=== PATIENT | male | born 1955 | race Caucasian/White ===

== ENCOUNTER 2016-03-07 13:50 | Emergency (ER) | payer MEDICARE, OTHER ==
[2016-03-07] MEDS ORDERED: SULFAMETH/TRIMETH DS 800/160 MG TABLET PO STA (15:17)
[2016-03-07] MEDS ORDERED: SULFAMETH/TRIMETH DS 800/160 MG TABLET PO ONE (15:23)
== END 2016-03-07 17:48 | disposition home or self-care (01) ==
DX: L03.116 Cellulitis of left lower limb (principal); I10 Essential (primary) hypertension; E11.9 Type 2 diabetes mellitus without complications
CPT/HCPCS: 93971; 99283; A9270

== ENCOUNTER 2016-05-15 17:30 | Emergency (ER) | payer MEDICARE, OTHER ==
[2016-05-15] MEDS ORDERED: BUPIVACAINE 0.5% PF 30 ML VIAL ONE (17:43)
== END 2016-05-15 18:36 | disposition home or self-care (01) ==
DX: S81.812A Laceration without foreign body, left lower leg, initial encounter (principal); W45.8XXA Other foreign body or object entering through skin, initial encounter; W22.09XA Striking against other stationary object, initial encounter; Y92.008 Other place in unspecified non-institutional (private) residence as the place of occurrence of the external cause; I10 Essential (primary) hypertension; E11.9 Type 2 diabetes mellitus without complications; Z89.202 Acquired absence of left upper limb, unspecified level; Z89.201 Acquired absence of right upper limb, unspecified level

== ENCOUNTER 2016-05-18 14:20 | Observation (INO) | payer MEDICARE, OTHER ==
[2016-05-18] MEDS ORDERED: SODIUM CHLORIDE 0.9% 2,000 ML IV ONE (14:46)
[2016-05-18] MEDS ORDERED: ONDANSETRON 4 MG/2 ML VIAL IVP STA (14:46)
[2016-05-18] MEDS ORDERED: ONDANSETRON 4 MG/2 ML VIAL ONE ×2 (14:47→14:49)
[2016-05-18] MEDS ORDERED: SODIUM CHLORIDE 0.9% 1,000 ML IV ONE (14:47)
[2016-05-18] MEDS ORDERED: HYDROmorphone 1 MG/ML SYRINGE IVP STA (15:20)
[2016-05-18] MEDS ORDERED: HYDROmorphone 1 MG/ML SYRINGE ONE (15:23)
[2016-05-18] MEDS ORDERED: MORPHINE 2 MG/ML SYRINGE IVP STA ×2 (15:33→16:44)
[2016-05-18] MEDS ORDERED: MORPHINE 2 MG/ML SYRINGE ONE ×2 (15:35→16:47)
[2016-05-18] MEDS ORDERED: SODIUM CHLORIDE FLUSH 0.9% 10 ML SYRINGE IVP PRN (17:34)
[2016-05-18] MEDS ORDERED: oxyCODONE 5 MG TABLET PO PRN (17:34)
[2016-05-18] MEDS ORDERED: ONDANSETRON ODT 4 MG TABLET TL PRN (18:21)
[2016-05-18] MEDS ORDERED: ONDANSETRON 4 MG/2 ML VIAL IVP PRN (18:21)
[2016-05-18] MEDS ORDERED: LACTATED RINGERS 1,000 ML IV SCH (19:02)
[2016-05-18] MEDS: DEXTROSE 5%-0.45% NACL 1,000 ML IV SCH (20:31)
[2016-05-18] MEDS: SODIUM CHLORIDE FLUSH 0.9% 10 ML SYRINGE IVP SCH (20:36)
[2016-05-18] MEDS: TACROLIMUS 0.5 MG CAPSULE PO SCH (20:56)
[2016-05-18] MEDS: oxyCODONE 5 MG TABLET PO SCH (20:56)
[2016-05-18] MEDS: MYCOPHENOLIC ACID 360 MG PO SCH (20:57)
[2016-05-18] MEDS ORDERED: oxyCODONE ER 10 MG TABLET PO SCH (21:00)
[2016-05-18] MEDS ORDERED: oxyCODONE 5 MG TABLET PO SCH (21:00)
[2016-05-18] MEDS ORDERED: diazePAM 5 MG TABLET PO SCH (21:00)
[2016-05-18] MEDS: TAMSULOSIN 0.4 MG CAPSULE PO SCH (21:03)
[2016-05-19] MEDS: ACETAMINOPHEN 325 MG TABLET PO PRN ×3 (02:36→12:06)
[2016-05-19] MEDS: DEXTROSE 5%-0.45% NACL 1,000 ML IV SCH ×2 (04:17→09:04)
[2016-05-19] MEDS: SODIUM CHLORIDE FLUSH 0.9% 10 ML SYRINGE IVP SCH ×2 (05:58→09:06)
[2016-05-19] MEDS ORDERED: LEVOTHYROXINE 75 MCG TABLET PO SCH ×2 (07:00→09:00)
[2016-05-19] MEDS ORDERED: predniSONE 5 MG TABLET PO SCH ×2 (08:00→09:00)
[2016-05-19] MEDS ORDERED: DIAZEPAM 10 MG PO SCH (08:15)
[2016-05-19] MEDS ORDERED: TAMSULOSIN 0.4 MG CAPSULE PO SCH (09:00)
[2016-05-19] MEDS ORDERED: POLYETHYLENE GLYCOL 3350 17 GM PACKET PO SCH (09:00)
[2016-05-19] MEDS ORDERED: TACROLIMUS 1 MG PO SCH (09:00)
[2016-05-19] MEDS: oxyCODONE 5 MG TABLET PO SCH (09:03)
[2016-05-19] MEDS: TACROLIMUS 0.5 MG CAPSULE PO SCH (09:03)
[2016-05-19] MEDS: TAMSULOSIN 0.4 MG CAPSULE PO SCH (09:03)
[2016-05-19] MEDS: MYCOPHENOLIC ACID 360 MG PO SCH (09:05)
[2016-05-19] MEDS ORDERED: MAGNESIUM SULFATE 1 GM in SODIUM CHLORIDE 0.9% 50 ML IV ONE (09:57)
[2016-05-19] MEDS ORDERED: MAGNESIUM SULFATE 2 GRAM 50 ML IV ONE (10:30)
[2016-05-19] MEDS: NEUTRA-PHOS 250 MG TABLET PO SCH ×2 (12:06→16:48)
[2016-05-19] MEDS ORDERED: BUTALB/ACETAM/CAFF 50/325/40MG TABLET PO PRN (13:08)
[2016-05-19] MEDS ORDERED: GI COCKTAIL 120 ML BOTTLE PO ONE (14:00)
[2016-05-19] MEDS ORDERED: AZITHROMYCIN 250 MG TABLET PO STA (16:13)
[2016-05-19] MEDS ORDERED: METOCLOPRAMIDE 10 MG TABLET PO PRN (16:16)
[2016-05-19] MEDS ORDERED: METOCLOPRAMIDE 10 MG/2 ML VIAL IVP PRN (16:16)
[2016-05-19] MEDS ORDERED: metroNIDAZOLE 250 MG TABLET PO ONE (18:41)
[2016-05-19] MEDS ORDERED: MYCOPHENOLIC ACID 360 MG PO SCH (21:00)
== END 2016-05-19 21:00 | disposition home or self-care (01) ==
DX: R11.2 Nausea with vomiting, unspecified (principal); E86.0 Dehydration; A04.7 Enterocolitis due to Clostridium difficile; A04.5 Campylobacter enteritis; Z94.0 Kidney transplant status; Z94.4 Liver transplant status; Z86.19 Personal history of other infectious and parasitic diseases; F11.21 Opioid dependence, in remission; I10 Essential (primary) hypertension; E11.9 Type 2 diabetes mellitus without complications; K21.9 Gastro-esophageal reflux disease without esophagitis; N40.1 Benign prostatic hyperplasia with lower urinary tract symptoms; R33.8 Other retention of urine; F32.9 Major depressive disorder, single episode, unspecified; E03.9 Hypothyroidism, unspecified; G89.29 Other chronic pain; M54.9 Dorsalgia, unspecified; L40.9 Psoriasis, unspecified; S81.812D Laceration without foreign body, left lower leg, subsequent encounter; Z79.891 Long term (current) use of opiate analgesic; Z79.52 Long term (current) use of systemic steroids; Z79.899 Other long term (current) drug therapy
CPT/HCPCS: 36415; 80053; 81003; 82803; 83690; 83735; 84100; 84484; 85025; 87045; 87046; 87493; 87640; 93005; 93010; 96361; 96365; 96375; 96376; 99283; 99284; A9270; G0378; J1170; J7120; J7512

== ENCOUNTER 2016-06-06 09:09 | Outpatient (CLI) | payer MEDICARE, OTHER | END 2016-06-06 09:10 | disposition critical access hospital (66) | DX: R07.9 Chest pain, unspecified (principal); R55 Syncope and collapse; R06.02 Shortness of breath | CPT/HCPCS: A0425; A0427 ==

== ENCOUNTER 2016-06-06 09:26 | Observation (INO) | payer MEDICARE, OTHER ==
[2016-06-06] MEDS ORDERED: SODIUM CHLORIDE 0.9% 1,000 ML IV ONE (10:02)
[2016-06-06] MEDS ORDERED: ENOXAPARIN 80 MG/0.8 ML SYRINGE SUBQ STA (12:12)
[2016-06-06] MEDS ORDERED: ENOXAPARIN 80 MG/0.8 ML SYRINGE SUBQ ONE (12:37)
[2016-06-06] MEDS ORDERED: HYDROcod/ACETAM 5/325 MG TABLET PO PRN (15:24)
[2016-06-06] MEDS ORDERED: SODIUM CHLORIDE FLUSH 0.9% 10 ML SYRINGE IVP PRN (15:24)
[2016-06-06] MEDS ORDERED: oxyCODONE 5 MG TABLET PO PRN (15:31)
[2016-06-06] MEDS ORDERED: diazePAM 5 MG TABLET PO PRN (15:31)
[2016-06-06] MEDS ORDERED: INSULIN ASPART 300 UNIT/3 ML PEN SUBQ SCH (17:00)
[2016-06-06] MEDS: metroNIDAZOLE 250 MG TABLET PO SCH ×2 (17:18→23:53)
[2016-06-06] MEDS: SODIUM CHLORIDE 0.9% 1,000 ML IV SCH (17:20)
[2016-06-06] MEDS: TAMSULOSIN 0.4 MG CAPSULE PO SCH (21:15)
[2016-06-06] MEDS: SODIUM CHLORIDE FLUSH 0.9% 10 ML SYRINGE IVP SCH (21:15)
[2016-06-06] MEDS: TACROLIMUS 0.5 MG CAPSULE PO SCH (21:15)
[2016-06-06] MEDS: MYCOPHENOLATE SODIUM 360 MG PO SCH (21:15)
[2016-06-07] MEDS ORDERED: MAG HYDROX/AL HYDROX/SIMETH 30 ML UDC PO PRN (01:20)
[2016-06-07] MEDS: ACETAMINOPHEN 325 MG TABLET PO PRN ×3 (01:22→10:40)
[2016-06-07] MEDS: SODIUM CHLORIDE 0.9% 1,000 ML IV SCH (05:46)
[2016-06-07] MEDS: SODIUM CHLORIDE FLUSH 0.9% 10 ML SYRINGE IVP SCH (05:50)
[2016-06-07] MEDS ORDERED: METOPROLOL 5 MG/5 ML VIAL IVP PRN (06:02)
[2016-06-07] MEDS ORDERED: LEVOTHYROXINE 75 MCG TABLET PO SCH (07:00)
[2016-06-07] MEDS ORDERED: TAMSULOSIN 0.4 MG CAPSULE PO SCH (09:00)
[2016-06-07] MEDS ORDERED: ENOXAPARIN 40 MG/0.4 ML SYRINGE SUBQ SCH (09:00)
[2016-06-07] MEDS ORDERED: ASPIRIN EC 81 MG TABLET PO SCH (09:00)
[2016-06-07] MEDS ORDERED: METOPROLOL SUCCINATE 25 MG TABLET PO SCH (09:00)
[2016-06-07] MEDS ORDERED: predniSONE 5 MG TABLET PO SCH (09:00)
[2016-06-07] MEDS ORDERED: POLYETHYLENE GLYCOL 3350 17 GM PACKET PO SCH (09:00)
[2016-06-07] MEDS: metroNIDAZOLE 250 MG TABLET PO SCH (09:10)
[2016-06-07] MEDS: TACROLIMUS 0.5 MG CAPSULE PO SCH (09:12)
[2016-06-07] MEDS: TAMSULOSIN 0.4 MG CAPSULE PO SCH (09:12)
[2016-06-07] MEDS: MYCOPHENOLATE SODIUM 360 MG PO SCH (09:13)
[2016-06-08] MEDS ORDERED: BETAMETHASONE VALERATE TOP SCH (16:17)
== END 2016-06-07 13:52 | disposition home or self-care (01) ==
DX: R07.9 Chest pain, unspecified (principal); I48.91 Unspecified atrial fibrillation; R55 Syncope and collapse; I10 Essential (primary) hypertension; Z94.0 Kidney transplant status; Z94.4 Liver transplant status; N40.0 Benign prostatic hyperplasia without lower urinary tract symptoms; R33.8 Other retention of urine; E11.9 Type 2 diabetes mellitus without complications; E03.9 Hypothyroidism, unspecified; K21.9 Gastro-esophageal reflux disease without esophagitis; F11.21 Opioid dependence, in remission; G89.29 Other chronic pain; M54.9 Dorsalgia, unspecified; Z86.19 Personal history of other infectious and parasitic diseases; Z87.828 Personal history of other (healed) physical injury and trauma; Z87.01 Personal history of pneumonia (recurrent); Z79.891 Long term (current) use of opiate analgesic; Z79.52 Long term (current) use of systemic steroids; Z79.899 Other long term (current) drug therapy; Z89.212 Acquired absence of left upper limb below elbow; Z89.211 Acquired absence of right upper limb below elbow
CPT/HCPCS: 36415; 71010; 80048; 80061; 83036; 84484; 85025; 85379; 93005; 93010; 93306; 96361; 96372; 96374; 99284; A9270; G0378; J1650; J7512

== ENCOUNTER 2017-03-05 15:10 | Emergency (ER) | payer MEDICARE, OTHER ==
--- NOTE | 2017-03-05 15:51 | ED Physician Documentation ---
PD HPI ABD PAIN - Stated complaint Stated Complaint: AB PAIN/PRESSURE - Chief complaint Chief Complaint: Abd Pain - History obtained from History obtained from: Patient, Family (daughter) - History of Present Illness Timing - onset: Other (61-year-old with complicated past history including major trauma in wartime necessitating transfusion which gave him hepatitis C. 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 Prior to his liver transplant he did have either ulcer or variceal bleeding, but has not had any problems with that since his liver transplant which was in the early mid . 9 days ago he ate a Nava's, developed shortly thereafter upper abdominal burning pressure radiating to the small of the back associated with nausea but no vomiting and no changes in his bowel movements and no dark or tarry stools. He saw his physician about 5 days ago and was started on Esomeprazole which he has been taking without relief.) Review of Systems Ten Systems: 10 systems reviewed and negative Constitutional: denies: Fever, Chills, Myalgias Nose: denies: Rhinorrhea / runny nose, Congestion Throat: denies: Sore throat Cardiac: denies: Chest pain / pressure, Palpitations Respiratory: denies: Dyspnea, Cough PD PAST MEDICAL HISTORY - Past Medical History Cardiovascular: Hypertension Respiratory: Pneumonia Neuro: None Endocrine/Autoimmune: Type 2 diabetes, HyPOthyroidism GI: GERD, Hepatitis : Benign prostate hypertrophy, Retention HEENT: None Psych: Depression Musculoskeletal: Chronic back pain Derm: Psoriasis - Past Surgical History Past Surgical History: Yes General: Liver surgery, Other Ortho: Spine surgery Neuro: Other HEENT: Tonsil/Adenoidectomy - Present Medications Home Medications: Ambulatory Orders Medication Instructions Recorded Confirmed Diazepam [Valium] 10 mg PO Q6H PRN 06/25/12 03/05/17 Tacrolimus 1 mg PO BID 06/25/12 03/05/17 Tamsulosin [Flomax] 0.8 mg PO DAILY 06/25/12 03/05/17 predniSONE [Deltasone] 5 mg PO DAILY 06/25/12 03/05/17 Betamethasone Valerate 1 applic TOP .THREE TIMES WEEKLY 05/19/16 03/05/17 Levothyroxine [Synthroid] 75 mcg PO DAILY 05/19/16 03/05/17 Mycophenolate Sodium [Mycophenolic 360 mg PO BID 05/19/16 03/05/17 Acid] oxyCODONE [Roxicodone] 5 mg PO Q8H PRN 05/19/16 03/05/17 Aspirin [Aspirin EC] 81 mg PO DAILY #30 tablet. 06/07/16 03/05/17 Metoprolol Succinate [Toprol Xl] 25 mg PO DAILY #30 tablet 06/07/16 03/05/17 Esomeprazole Magnesium [Nexium] 40 mg PO BID #60 capsule. 03/05/17 Sucralfate 1 gm PO ACHS #40 tablet 03/05/17 - Allergies Allergies/Adverse Reactions: Allergies Allergy/AdvReac Type Severity Reaction Status Date / Time hydromorphone HCl * AdvReac Unknown Verified 05/18/16 15:42 [From Dilaudid] - Social History Does the pt smoke?: No Smoking Status: Never smoker Does the pt drink ETOH?: No Does the pt have substance abuse?: No - Family History Family history: reports: Non contributory - Immunizations Immunizations are current?: Yes - POLST Patient has POLST: Yes PD ED PE NORMAL - Vitals Vital signs reviewed: Yes - General General: Alert and oriented X 3, No acute distress - HEENT HEENT: PERRL, EOMI - Neck Neck: Supple, no meningeal sign, No bony TTP - Cardiac Cardiac: RRR, No murmur - Respiratory Respiratory: No respiratory distress, Clear bilaterally - Abdomen Abdomen: Other (Diminished but not absent bowel tones, multiple surgical scars on the abdomen with some upper abdominal tenderness but no guarding or rebound.) - Back Back: No CVA TTP, No spinal TTP - Derm Derm: Normal color, Warm and dry - Extremities Extremities: Other (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 prior trauma) - Neuro Neuro: Alert and oriented X 3, Normal speech - Psych Psych: Normal mood, Normal affect Results - Vitals Vitals: Vital Signs - 24 hr 03/05/17 15:17 Temperature 36.1 C L Heart Rate 69 Respiratory 17 Rate Blood Pressure 127/85 H O2 Saturation 98 Oxygen O2 Source Room air - Labs Labs: Laboratory Tests 03/05/17 03/05/17 03/05/17 16:11 16:11 16:11 WBC 7.4 RBC 5.04 Hgb 15.2 Hct 45.1 MCV 89.4 MCH 30.2 MCHC 33.8 RDW 13.8 Plt Count 140 MPV 9.4 Neut # 5.2 Lymph # 1.4 L [place] # 0.6 Eos # 0.1 Baso # 0.1 Absolute Nucleated RBC 0.00 Nucleated RBC % 0.0 PT 14.6 H INR 1.3 H Sodium 138 Potassium 4.6 Chloride 110 Carbon Dioxide 21 Anion Gap 7.0 BUN 15 Creatinine 0.9 Estimated GFR (MDRD) 86 L Glucose 109 H Lactic Acid Calcium 8.9 Total Bilirubin 0.9 AST 15 ALT 13 Alkaline Phosphatase 42 Total Protein 6.8 Albumin 3.9 Globulin 2.9 Albumin/Globulin Ratio 1.3 Lipase 16 L 03/05/17 16:11 WBC RBC Hgb Hct MCV MCH MCHC RDW Plt Count MPV Neut # Lymph # [place] # Eos # Baso # Absolute Nucleated RBC Nucleated RBC % PT INR Sodium Potassium Chloride Carbon Dioxide Anion Gap BUN Creatinine Estimated GFR (MDRD) Glucose Lactic Acid 0.9 Calcium Total Bilirubin AST ALT Alkaline Phosphatase Total Protein Albumin Globulin Albumin/Globulin Ratio Lipase - Rads (name of study) CT A/P Radiology: EMP read contemporaneously, See rad report PD MEDICAL DECISION MAKING - ED course ED course: 61-year-old gentleman with complicated past medical history presents with upper abdominal burning pain consistent with gastritis, although he has not gotten much better after a few days of treatment with esomeprazole. He declined pain medications here and his lab work was unremarkable. CT has shown in the specific finding of transplanted kidney stone was discussed with him in follow- up was advised at the [facility]. He is treated for gastritis here. Departure - Departure Disposition: 01 Home, Self Care Clinical Impression: Abdominal pain Qualifiers: Abdominal location: epigastric Qualified Code(s): R10.13 - Epigastric pain Condition: Good Record reviewed to determine appropriate education?: Yes Instructions: ED Pelvic Pain [facility] Prescriptions: Esomeprazole Magnesium [Nexium] 40 mg PO BID #60 capsule.dr De Lunaralfate 1 gm PO ACHS #40 tablet Comments: Increase the esomeprazole to twice daily. Add the sucralfate/carafate 30 minutes before meals and bedtime, DO NOT TAKE IT WITHIN 1 HOUR OF OTHER MEDICATIONS IT WILL DECREASE ABSORPTION OF YOUR OTHER MEDS. Followup with regarding the kidney stone, we are sending the CT images to them so they can review when you followup. Return if worse.
[2017-03-05] MEDS ORDERED: IOPAMIDOL-300 100 ML VIAL ONE (15:56)
[2017-03-05] MEDS ORDERED: IOPAMIDOL-300 50 ML VIAL ONE (15:56)
[2017-03-05] MEDS ORDERED: IOPAMIDOL-300 100 ML VIAL IVP ONE (16:06)
[2017-03-05] MEDS ORDERED: IOPAMIDOL-300 50 ML VIAL PO ONE (16:06)
[2017-03-05 16:26] LABS: BASOPHILS # (AUTO) 0.1 10^3/uL (0.0-0.1); BASOPHILS % (AUTO) 1.1 %; EOSINOPHILS # (AUTO) 0.1 10^3/uL (0.0-0.7); EOSINOPHILS % (AUTO) 1.5 %; HGB - HEMOGLOBIN 15.2 g/dL (14.0-18.0); LYMPHOCYTES # (AUTO) 1.4 10^3/uL (1.5-3.5); LYMPHOCYTES % (AUTO) 18.9 %; MEAN CORPUSCULAR HEMOGLOBIN 30.2 pg (27.0-31.0); MEAN CORPUSCULAR HGB CONC 33.8 g/dL (32.0-36.0); MEAN CORPUSCULAR VOLUME 89.4 fL (80.0-94.0); MEAN PLATELET VOLUME 9.4 fL (7.4-11.4); MONOCYTES # (AUTO) 0.6 10^3/uL (0.0-1.0); MONOCYTES % (AUTO) 8.1 %; NEUTROPHILS # (AUTO) 5.2 10^3/uL (1.5-6.6); NEUTROPHILS % (AUTO) 70.4 %; PLT - PLATELET COUNT 140 10^3/uL (130-450); RED BLOOD COUNT 5.04 10^6/uL (4.70-6.10); RED CELL DISTRIBUTION WIDTH 13.8 % (12.0-15.0); WHITE BLOOD COUNT 7.4 x10^3/uL (4.8-10.8)
[2017-03-05 16:29] LABS: ALBUMIN 3.9 g/dL (3.2-5.5); ALBUMIN/GLOBULIN RATIO 1.3 (1.0-2.2); BILIRUBIN,TOTAL 0.9 mg/dL (0.2-1.0); CALCIUM 8.9 mg/dL (8.5-10.3); CREATININE 0.9 mg/dL (0.6-1.2); TOTAL PROTEIN 6.8 g/dL (6.7-8.2)
[2017-03-05 16:34] LABS: INR 1.3 (0.8-1.2); PT - PROTHROMBIN TIME 14.6 secs (9.9-12.6)
--- NOTE | 2017-03-05 18:33 | CT Report ---
EXAM: CT ABDOMEN AND PELVIS EXAM DATE: 03/05/2017 05:35 PM. CLINICAL HISTORY: Upper abdominal pain, complex surgical history. COMPARISONS: Abdomen and pelvis CT 06/02/2013. TECHNIQUE: Routine helical CT imaging was performed through the abdomen and pelvis. IV contrast: 100 cc Isovue 300. Enteric contrast: Yes. Reconstructions: Coronal and sagittal. In accordance with CT protocol optimization, one or more of the following dose reduction techniques w ere utilized for this exam: automated exposure control, adjustment of mA and/or KV based on patient s ize, or use of iterative reconstructive technique. FINDINGS: Lung Bases: Minimal diskoid atelectasis. Liver: Surgical clips are seen adjacent to the inferior vena cava at the diaphragm as well as distal to the liver, possibly part of a transplantation. There is a linear hypodensity in the right lobe eliza suring 12 x 4 mm Gallbladder/Bile Ducts: Patient is status post cholecystectomy with dilatation of the common duct eliza suring up to 18 mm although this is decreased compared to the prior exam (prior 25 mm). Spleen: Linear calcification redemonstrated within the spleen without discrete focal lesion. Pancreas: Mild pancreatic atrophy with some dilatation of the distal pancreatic duct measuring in the range of 6 mm the pancreas head although similar to the prior exam. Adrenal Glands: Normal. Kidneys: Marked cortical atrophy of the [place] kidneys. Status post right lower quadrant renal transp lant with a nonobstructing stone within the transplant kidney measuring 3 mm. Mild pelviectasis witho ut miya hydronephrosis. Peritoneal Cavity/Bowel: The stomach is unremarkable. There are no dilated loops of large or small in testine. The appendix is unremarkable. There is prominent diverticular disease of the colon although without clear acute inflammation. Pelvic Organs: Moderate bladder distention. Vasculature: Atherosclerosis without abdominal aortic aneurysm. Bones: Mild degenerative disk disease, greatest at the L4-L5 level. Other: Thinning of the subcutaneous tissues within the right upper quadrant abdomen with a fat-contai alejandro ventral hernia. IMPRESSION: 1. Colonic diverticulosis without miya diverticulitis. 2. Atrophy of the [place] kidneys with right lower quadrant transplant kidney with nonobstructing neph rolithiasis. 3. Suture lines of the inferior vena cava suggesting liver transplant as well. 4. Atherosclerosis. [facility] Referring Provider Line: [phone] SITE ID: [id number]
[2017-03-05] MEDS ORDERED: PANTOPRAZOLE 40 MG TABLET PO STA (18:43)
[2017-03-05] MEDS ORDERED: SUCRALFATE 1 GM/10 ML UDC PO STA (18:43)
[2017-03-05 18:50] VITALS: BP 153/103
== END 2017-03-05 18:52 | disposition home or self-care (01) ==
LOC: ED 15:10
DX: K29.70 Gastritis, unspecified, without bleeding (principal); R10.13 Epigastric pain; Z94.0 Kidney transplant status; Z94.4 Liver transplant status; Z86.19 Personal history of other infectious and parasitic diseases; I10 Essential (primary) hypertension; E11.9 Type 2 diabetes mellitus without complications; E03.9 Hypothyroidism, unspecified; K21.9 Gastro-esophageal reflux disease without esophagitis; N40.0 Benign prostatic hyperplasia without lower urinary tract symptoms
CPT/HCPCS: 36415; 74177; 80053; 83605; 83690; 85025; 85610; 99283; 99284; A9270; Q9967

== ENCOUNTER 2017-03-12 12:35 | Emergency (ER) | payer MEDICARE, OTHER ==
--- NOTE | 2017-03-12 12:54 | ED Physician Documentation ---
PD HPI ABD PAIN - Stated complaint Stated Complaint: BACK/ABD PX - History obtained from History obtained from: Patient - History of Present Illness Timing - onset: Yesterday (has had epigastric pain but then started with back pain yesterday. says pain is severe.) Timing - duration: Days Timing - details: Gradual onset, Still present, Waxing and waning Quality: Sharp, Pain Location: Epigastric Radiation: Upper back Improved by: Meds (some improved with sucralfate, but not much.) Worsened by: Eating. No: Breathing Associated symptoms: Fever, Nausea. No: Vomiting, Diarrhea, Constipation, Melena Recently seen: Emergency Dept (past few days and Dx with gastritis/esophagitis. Had sucralfate added to meds.) Review of Systems Constitutional: denies: Fever, Chills Nose: denies: Rhinorrhea / runny nose, Congestion Throat: denies: Sore throat Respiratory: denies: Cough GI: reports: Abdominal Pain, Nausea. denies: Vomiting, Diarrhea : denies: Dysuria, Frequency PD PAST MEDICAL HISTORY - Past Medical History Cardiovascular: Hypertension Respiratory: Pneumonia Neuro: None Endocrine/Autoimmune: Type 2 diabetes, HyPOthyroidism GI: GERD, Hepatitis : Benign prostate hypertrophy, Retention HEENT: None Psych: Depression Musculoskeletal: Chronic back pain Derm: Psoriasis - Past Surgical History Past Surgical History: Yes General: Liver surgery, Other Ortho: Spine surgery Neuro: Other HEENT: Tonsil/Adenoidectomy - Present Medications Home Medications: Ambulatory Orders Medication Instructions Recorded Confirmed Diazepam [Valium] 10 mg PO Q6H PRN 06/25/12 03/12/17 Tacrolimus 1 mg PO BID 06/25/12 03/12/17 Tamsulosin [Flomax] 0.8 mg PO DAILY 06/25/12 03/12/17 predniSONE [Deltasone] 5 mg PO DAILY 06/25/12 03/12/17 Betamethasone Valerate 1 applic TOP .THREE TIMES WEEKLY 05/19/16 03/12/17 Levothyroxine [Synthroid] 75 mcg PO DAILY 05/19/16 03/12/17 Mycophenolate Sodium [Mycophenolic 360 mg PO BID 05/19/16 03/12/17 Acid] oxyCODONE [Roxicodone] 5 mg PO Q8H PRN 05/19/16 03/12/17 Aspirin [Aspirin EC] 81 mg PO DAILY #30 tablet. 06/07/16 03/12/17 Metoprolol Succinate [Toprol Xl] 25 mg PO DAILY #30 tablet 06/07/16 03/12/17 Esomeprazole Magnesium [Nexium] 40 mg PO BID #60 capsule. 03/05/17 03/12/17 Sucralfate 1 gm PO ACHS #40 tablet 03/05/17 03/12/17 Lidocaine Viscous 2% [Xylocaine 5 ml PO Q4H PRN #1 bottle 03/12/17 Viscous 2%] - Allergies Allergies/Adverse Reactions: Allergies Allergy/AdvReac Type Severity Reaction Status Date / Time hydromorphone HCl * AdvReac Unknown Verified 03/12/17 12:56 [From Dilaudid] - Social History Does the pt smoke?: No Smoking Status: Never smoker Does the pt drink ETOH?: No Does the pt have substance abuse?: No - Immunizations Immunizations are current?: Yes - POLST Patient has POLST: Yes PD ED PE NORMAL - Vitals Vital signs reviewed: Yes - General General: Alert and oriented X 3, Well developed/nourished - HEENT HEENT: Pharynx benign - Neck Neck: Supple, no meningeal sign, No adenopathy - Cardiac Cardiac: RRR, No murmur - Respiratory Respiratory: Clear bilaterally - Abdomen Abdomen: Soft, Non distended, No organomegaly, Other (tender epigastric area without percussion nor rebound tenderness. multiple old scars and upper abd hernia noted, soft and not tender. ) - Male Male : Deferred - Rectal Rectal: Deferred - Back Back: No CVA TTP, No spinal TTP - Derm Derm: Normal color, Warm and dry - Extremities Extremities: Other (prior hand amputations noted) - Neuro Neuro: Alert and oriented X 3, No motor deficit, Normal speech - Psych Psych: Normal mood, Normal affect Results - Vitals Vitals: Vital Signs - 24 hr 03/12/17 03/12/17 03/12/17 12:47 15:43 16:22 Temperature 37.1 C Heart Rate 79 143 H 141 H Respiratory 16 16 16 Rate Blood Pressure 133/75 H 93/62 106/72 O2 Saturation 100 100 100 Oxygen O2 Source Room air - Labs Labs: Laboratory Tests 03/12/17 03/12/17 03/12/17 13:55 13:55 13:55 WBC 12.9 H RBC 5.16 Hgb 15.6 Hct 46.6 MCV 90.2 MCH 30.1 MCHC 33.4 RDW 13.5 Plt Count 139 MPV 9.5 Neut # 9.9 H Lymph # 1.3 L [place] # 1.6 H Eos # 0.0 Baso # 0.1 Absolute Nucleated RBC 0.00 Nucleated RBC % 0.0 Sodium 131 L Potassium 3.7 Chloride 100 L Carbon Dioxide 20 L Anion Gap 11.0 BUN 18 Creatinine 1.0 Estimated GFR (MDRD) 76 L Glucose 140 H Calcium 9.4 Total Bilirubin 1.2 H AST 18 ALT 15 Alkaline Phosphatase 45 Troponin I < 0.04 B-Natriuretic Peptide Total Protein 7.0 Albumin 4.3 Globulin 2.7 Albumin/Globulin Ratio 1.6 Lipase 17 L 03/12/17 13:55 WBC RBC Hgb Hct MCV MCH MCHC RDW Plt Count MPV Neut # Lymph # [place] # Eos # Baso # Absolute Nucleated RBC Nucleated RBC % Sodium Potassium Chloride Carbon Dioxide Anion Gap BUN Creatinine Estimated GFR (MDRD) Glucose Calcium Total Bilirubin AST ALT Alkaline Phosphatase Troponin I B-Natriuretic Peptide 188 H Total Protein Albumin Globulin Albumin/Globulin Ratio Lipase - Rads (name of study) chest CT Radiology: Prelim report reviewed (no acute findings) PD MEDICAL DECISION MAKING - ED course Complexity details: reviewed results, re-evaluated patient (Patient is in atrial fib and does have history of intermittent afib (he says he had a Holter monitor recently and it showed episodes of fib with rates up to 160 at times, even during sleep). He is not having symptoms with the fib. Given extra dose of his Metoprolol and can have him increase dose. Otherwise his abd/back pain was most improved with GI cocktail. No signs of signficant pathology on CT chest ( did without contrast due to renal transplant). ), considered differential, d/w patient Departure - Departure Disposition: 01 Home, Self Care Clinical Impression: Epigastric pain Atrial fibrillation Qualifiers: Atrial fibrillation type: unspecified Qualified Code(s): I48.91 - Unspecified atrial fibrillation Gastritis Qualifiers: Gastritis type: unspecified gastritis Chronicity: acute Gastritis bleeding: without bleeding Qualified Code(s): K29.00 - Acute gastritis without bleeding Condition: Stable Record reviewed to determine appropriate education?: Yes Instructions: ED Afib, ED Gastritis Follow-Up: Milton Coombs MD [Primary Care Provider] - Prescriptions: Lidocaine Viscous 2% [Xylocaine Viscous 2%] 5 ml PO Q4H PRN #1 bottle PRN Reason: Pain Comments: Small frequent fluids. Continue your current medications with the exception of increasing your metoprolol from 25 mg to 50 mg. For the stomach pain, continue current medications and add lidocaine with antacid if needed for pain. Follow- up with Dr. Coombs in the next couple days. Follow-up with Dr. Nicole your kidney specialist this Monday as planned. Call the to set up endoscopy. Discharge Date/Time: 03/12/17 16:25
[2017-03-12] MEDS ORDERED: MORPHINE 10 MG/ML VIAL IM STA (13:14)
[2017-03-12] MEDS ORDERED: KETOROLAC 60 MG/2 ML VIAL IM STA (13:27)
[2017-03-12] MEDS ORDERED: ONDANSETRON ODT 4 MG TABLET TL STA (13:29)
--- NOTE | 2017-03-12 14:05 | CT Preliminary Report ---
Exam: CT CHEST W/O IMPRESSION: 1. Mild bibasilar dependent atelectasis. 2. No other significant acute process in the chest. 3. Bilateral renal atrophy and chronic liver disease with scarring or fibrosis. [facility] SITE ID: [id number]
--- NOTE | 2017-03-12 14:06 | CT Report ---
EXAM: CT CHEST EXAM DATE: 03/12/2017 01:48 PM. CLINICAL HISTORY: Chest/back pain. COMPARISONS: 06/02/2013. TECHNIQUE: Routine helical CT imaging was performed through the chest. IV contrast: None. Reconstruct ions: Coronal and sagittal. In accordance with CT protocol optimization, one or more of the following dose reduction techniques w ere utilized for this exam: automated exposure control, adjustment of mA and/or KV based on patient s ize, or use of iterative reconstructive technique. FINDINGS: Lungs/Pleura: There is linear density in the posterior right lower lobe and left lower lobe consisten t with atelectasis. No consolidative process. No nondependent airspace disease. The trachea and the c entral airways are patent. Negative for pleural effusion. Mediastinum: Heart size is normal. There is moderate atherosclerotic calcification of the descending thoracic aorta without aneurysm. Bones: There are areas of posterior right eighth rib sclerosis which appear unchanged. No acute fract ure. Visualized Abdomen: There is chronic atrophy of both kidneys. There is a lobulated contour to the ghulam er. There are coarse calcifications within the spleen. Other: None. IMPRESSION: 1. Mild bibasilar dependent atelectasis. 2. No other significant acute process in the chest. 3. Bilateral renal atrophy and chronic liver disease with scarring or fibrosis. [facility] Referring Provider Line: [phone] SITE ID: [id number]
[2017-03-12 14:07] LABS: BASOPHILS # (AUTO) 0.1 10^3/uL (0.0-0.1); BASOPHILS % (AUTO) 0.5 %; EOSINOPHILS % (AUTO) 0.2 %; HGB - HEMOGLOBIN 15.6 g/dL (14.0-18.0); LYMPHOCYTES # (AUTO) 1.3 10^3/uL (1.5-3.5); LYMPHOCYTES % (AUTO) 9.8 %; MEAN CORPUSCULAR HEMOGLOBIN 30.1 pg (27.0-31.0); MEAN CORPUSCULAR HGB CONC 33.4 g/dL (32.0-36.0); MEAN CORPUSCULAR VOLUME 90.2 fL (80.0-94.0); MEAN PLATELET VOLUME 9.5 fL (7.4-11.4); MONOCYTES # (AUTO) 1.6 10^3/uL (0.0-1.0); MONOCYTES % (AUTO) 12.7 %; NEUTROPHILS # (AUTO) 9.9 10^3/uL (1.5-6.6); NEUTROPHILS % (AUTO) 76.8 %; PLT - PLATELET COUNT 139 10^3/uL (130-450); RED BLOOD COUNT 5.16 10^6/uL (4.70-6.10); RED CELL DISTRIBUTION WIDTH 13.5 % (12.0-15.0); WHITE BLOOD COUNT 12.9 x10^3/uL (4.8-10.8)
[2017-03-12 14:20] LABS: ALBUMIN 4.3 g/dL (3.2-5.5); ALBUMIN/GLOBULIN RATIO 1.6 (1.0-2.2); BILIRUBIN,TOTAL 1.2 mg/dL (0.2-1.0); CALCIUM 9.4 mg/dL (8.5-10.3)
[2017-03-12] MEDS ORDERED: LIDOCAINE VISCOUS 2% 15 ML UDC MM STA (14:25)
[2017-03-12] MEDS ORDERED: MAG HYDROX/AL HYDROX/SIMETH 30 ML UDC PO STA (14:25)
[2017-03-12] MEDS ORDERED: METOPROLOL TARTRATE 50 MG TABLET PO STA (15:33)
[2017-03-12 16:22] VITALS: BP 106/72
== END 2017-03-12 16:25 | disposition home or self-care (01) ==
LOC: ED 12:35
DX: R10.13 Epigastric pain (principal); I48.91 Unspecified atrial fibrillation; K29.00 Acute gastritis without bleeding; I10 Essential (primary) hypertension; E11.9 Type 2 diabetes mellitus without complications; E03.9 Hypothyroidism, unspecified; Z79.82 Long term (current) use of aspirin
CPT/HCPCS: 36415; 71250; 80053; 83690; 83880; 84484; 85025; 93005; 96372; 99283; 99284; A9270; Q0162

== ENCOUNTER 2017-12-07 16:59 | Emergency (ER) | payer MEDICARE, OTHER ==
[2017-12-07 17:10] VITALS: BP 124/71
--- NOTE | 2017-12-07 18:14 | ED Physician Documentation ---
History of Present Illness - Stated complaint Stated Complaint: GLF - Chief complaint Chief Complaint: General - History obtained from History obtained from: Patient - History of Present Illness Timing: Today Pain level max: 3 Pain level now: 2 - Additonal information Additional information: fall, forehead laceration. No loss of consciousness. No vomiting. No neck or back pain. He struck his head on his prosthetic hook and lacerated the forehead. Td UTD Review of Systems Throat: denies: Sore throat Cardiac: denies: Chest pain / pressure Respiratory: denies: Cough GI: denies: Abdominal Pain, Nausea, Vomiting, Diarrhea Skin: denies: Rash Musculoskeletal: denies: Neck pain, Back pain Neurologic: denies: Focal weakness, Numbness, Headache, Head injury, LOC PD PAST MEDICAL HISTORY - Past Medical History Cardiovascular: Hypertension Respiratory: Pneumonia Endocrine/Autoimmune: Type 2 diabetes, HyPOthyroidism GI: GERD, Hepatitis : Benign prostate hypertrophy, Retention HEENT: None Psych: Depression Musculoskeletal: Chronic back pain Derm: Psoriasis - Past Surgical History Past Surgical History: Yes General: Liver surgery, Other Ortho: Spine surgery Neuro: Other HEENT: Tonsil/Adenoidectomy - Present Medications Home Medications: Ambulatory Orders Medication Instructions Recorded Confirmed Diazepam [Valium] 10 mg PO Q6H PRN 06/25/12 03/12/17 Tacrolimus 1 mg PO BID 06/25/12 03/12/17 Tamsulosin [Flomax] 0.8 mg PO DAILY 06/25/12 03/12/17 predniSONE [Deltasone] 5 mg PO DAILY 06/25/12 03/12/17 Betamethasone Valerate 1 applic TOP .THREE TIMES WEEKLY 05/19/16 03/12/17 Levothyroxine [Synthroid] 75 mcg PO DAILY 05/19/16 03/12/17 Mycophenolate Sodium [Mycophenolic 360 mg PO BID 05/19/16 03/12/17 Acid] oxyCODONE [Roxicodone] 5 mg PO Q8H PRN 05/19/16 03/12/17 Sucralfate 1 gm PO ACHS #40 tablet 03/05/17 03/12/17 Mycophenolate Sodium [Myfortic] 360 mg PO 12/07/17 - Allergies Allergies/Adverse Reactions: Allergies Allergy/AdvReac Type Severity Reaction Status Date / Time hydromorphone HCl * AdvReac Unknown Verified 12/07/17 17:10 [From Dilaudid] - Social History Does the pt smoke?: No Smoking Status: Never smoker Does the pt drink ETOH?: No Does the pt have substance abuse?: No - Immunizations Immunizations are current?: Yes - POLST Patient has POLST: Yes PD ED PE NORMAL - Vitals Vital signs reviewed: Yes - General General: Alert and oriented X 3, No acute distress - HEENT HEENT: Moist mucous membranes, Pharynx benign, Other (2 cm, linear vertical laceration to the right forehead. Not bleeding. Subcutaneous) - Neck Neck: Supple, no meningeal sign, No bony TTP - Cardiac Cardiac: RRR - Respiratory Respiratory: No respiratory distress, Clear bilaterally - Back Back: No spinal TTP (No step-off or deformity) - Derm Derm: Warm and dry - Extremities Extremities: No deformity, No tenderness to palpate, Normal ROM s pain Results - Vitals Vitals: Vital Signs - 24 hr 12/07/17 17:06 Temperature 36.1 C L Heart Rate 89 Respiratory 20 Rate Blood Pressure 124/71 O2 Saturation 100 Oxygen O2 Source Room air Procedures - Laceration (location) forehead Length in cm: 2 Wound type: Linear, Into subcut fat, Clean Neurovascular status: Sensory intact, Motor intact, Vascular intact Wound Preparation: Irrigated copiously NS, Wound explored, To the base. No: FB identified, FB removed Skin layer closure: Dermabond Other: Patient tolerated well, No complications, Neurovascular intact, Tetanus UTD Complexity: Simple PD MEDICAL DECISION MAKING - ED course Complexity details: re-evaluated patient, considered differential, d/w patient, d/w family ED course: Patient is a 62-year-old male with a fall today laceration of the forehead. Repaired with Dermabond. Tolerated well. No evidence of skull fracture or intracranial hemorrhage. GCS 15. Head injury instructions given at bedside. No evidence of spinal injury. Patient and family counseled regarding signs and symptoms for which I believe and urgent re-evaluation would be necessary. Patient with good understanding of and agreement to plan and is comfortable going home at this time This document was made in part using voice recognition software. While efforts are made to proofread this document, sound alike and grammatical errors may occur. Warnings of infection and instructions on wound care given at bedside. Also counseled on how to minimize scarring. Departure - Departure Disposition: 01 Home, Self Care Clinical Impression: Forehead laceration Qualifiers: Encounter type: initial encounter Qualified Code(s): S01.81XA - Laceration without foreign body of other part of head, initial encounter Condition: Good Instructions: ED Laceration Facial Skin Glue Follow-Up: Milton Coombs MD [Primary Care Provider] - Within 1 week Comments: Return if you worsen. Keep the wound clean. Discharge Date/Time: 12/07/17 18:24
== END 2017-12-07 18:24 | disposition home or self-care (01) ==
LOC: ED 16:59
DX: S01.81XA Laceration without foreign body of other part of head, initial encounter (principal); W01.198A Fall on same level from slipping, tripping and stumbling with subsequent striking against other object, initial encounter; I10 Essential (primary) hypertension; E03.9 Hypothyroidism, unspecified; E11.9 Type 2 diabetes mellitus without complications; K75.9 Inflammatory liver disease, unspecified
CPT/HCPCS: 12011; 99283

== ENCOUNTER 2018-03-24 17:48 | Emergency (ER) | payer MEDICARE, OTHER ==
[2018-03-24] MEDS ORDERED: SODIUM CHLORIDE 0.9% 1,000 ML IV ONE (17:55)
[2018-03-24] MEDS ORDERED: ONDANSETRON 4 MG/2 ML VIAL IVP STA ×2 (17:55→19:09)
[2018-03-24] MEDS ORDERED: LIDOCAINE-EPINEPH-TETRACAINE 3 ML SYRINGE TOP ONE (18:13)
[2018-03-24] MEDS ORDERED: MORPHINE 10 MG/ML VIAL IVP STA (18:24)
--- NOTE | 2018-03-24 18:27 | ED Physician Documentation ---
History of Present Illness - Stated complaint Stated Complaint: N/V/D - Chief complaint Chief Complaint: Abd Pain - Additonal information Additional information: 62-year-old male presents the emergency department with 1 day of nausea, vomitin g and diarrhea and generalized abdominal cramping which is associated with the episodes of vomiting and diarrhea. The patient denies blood in the vomit or stools. The patient denies any focal area of abdominal pain. No other associated symptoms. No triggering factors. No relieving factors. Review of Systems Constitutional: denies: Fever Eyes: denies: Discharge Ears: denies: Ear pain Nose: denies: Congestion Cardiac: denies: Chest pain / pressure GI: reports: Abdominal Pain, Nausea, Vomiting, Diarrhea : denies: Dysuria Skin: denies: Rash Musculoskeletal: denies: Neck pain Neurologic: denies: Generalized weakness Immunocompromised: denies: Chemotherapy PD PAST MEDICAL HISTORY - Past Medical History Cardiovascular: Hypertension Respiratory: Pneumonia Endocrine/Autoimmune: Type 2 diabetes, HyPOthyroidism GI: GERD, Hepatitis : Benign prostate hypertrophy, Retention HEENT: None Psych: Depression Musculoskeletal: Chronic back pain Derm: Psoriasis - Past Surgical History Past Surgical History: Yes General: Liver surgery, Other Ortho: Spine surgery Neuro: Other HEENT: Tonsil/Adenoidectomy - Present Medications Home Medications: Ambulatory Orders Medication Instructions Recorded Confirmed Diazepam [Valium] 10 mg PO Q6H PRN 06/25/12 03/12/17 Tacrolimus 1 mg PO BID 06/25/12 03/12/17 Tamsulosin [Flomax] 0.8 mg PO DAILY 06/25/12 03/12/17 predniSONE [Deltasone] 5 mg PO DAILY 06/25/12 03/12/17 Betamethasone Valerate 1 applic TOP .THREE TIMES WEEKLY 05/19/16 03/12/17 Levothyroxine [Synthroid] 75 mcg PO DAILY 05/19/16 03/12/17 Mycophenolate Sodium [Mycophenolic 360 mg PO BID 05/19/16 03/12/17 Acid] oxyCODONE [Roxicodone] 5 mg PO Q8H PRN 05/19/16 03/12/17 Mycophenolate Sodium [Myfortic] 360 mg PO 12/07/17 Omeprazole 40 mg PO 03/24/18 03/24/18 Ondansetron HCl [Zofran] 4 mg PO Q6HR PRN #30 tablet 03/24/18 - Allergies Allergies/Adverse Reactions: Allergies Allergy/AdvReac Type Severity Reaction Status Date / Time hydromorphone HCl * AdvReac Unknown Verified 03/24/18 17:56 [From Dilaudid] - Social History Does the pt smoke?: No Smoking Status: Never smoker Does the pt drink ETOH?: No Does the pt have substance abuse?: No - Immunizations Immunizations are current?: Yes - POLST Patient has POLST: Yes PD ED PE NORMAL - General General: Alert and oriented X 3, No acute distress - HEENT HEENT: Atraumatic, PERRL, EOMI, Ears normal - Neck Neck: Supple, no meningeal sign - Cardiac Cardiac: RRR, Strong equal pulses - Abdomen Abdomen: Soft, Non tender, Non distended - Derm Derm: Normal color - Extremities Extremities: No deformity, No edema - Neuro Neuro: Alert and oriented X 3, Normal speech - Psych Psych: Normal affect Results - Vitals Vitals: Vital Signs - 24 hr 03/24/18 03/24/18 03/24/18 17:54 17:56 19:05 Temperature 37 C 37.2 C Heart Rate 103 H 105 H 92 Respiratory 20 18 Rate Blood Pressure 140/87 H 133/82 H O2 Saturation 95 95 94 03/24/18 19:44 Temperature 36.5 C Heart Rate 86 Respiratory 16 Rate Blood Pressure 147/93 H O2 Saturation 94 Oxygen O2 Source Room air - Labs Labs: Laboratory Tests 03/24/18 03/24/18 18:25 18:25 WBC 11.5 H RBC 5.38 Hgb 15.9 Hct 48.2 MCV 89.5 MCH 29.5 MCHC 32.9 RDW 14.1 Plt Count 124 L MPV 9.7 Neut # (Auto) 9.0 H Lymph # (Auto) 1.1 L [place] # (Auto) 1.4 H Eos # (Auto) 0.0 Baso # (Auto) 0.1 Absolute Nucleated RBC 0.01 Nucleated RBC % 0.1 Sodium 138 Potassium 3.4 L Chloride 108 Carbon Dioxide 20 L Anion Gap 10.0 BUN 13 Creatinine 1.0 Estimated GFR (MDRD) 75 L Glucose 102 H Calcium 9.0 Total Bilirubin 1.8 H AST 19 ALT 14 Alkaline Phosphatase 51 Total Protein 6.9 Albumin 4.1 Globulin 2.8 Albumin/Globulin Ratio 1.5 Lipase 21 L PD MEDICAL DECISION MAKING - ED course ED course: The patient has requested discharge home, on reevaluation the patient is denying any abdominal pain and feels much improved. The patient has not had any further episodes of vomiting or diarrhea in the emergency department. The patient currently appears appropriate for discharge and ongoing outpatient management. Since the patient is not experiencing any active abdominal pain I do not think any cross-sectional imaging is necessary at this point. I discussed warning signs and recommended returning for any worsening or any concerns. Departure - Departure Disposition: 01 Home, Self Care Clinical Impression: Vomiting and diarrhea, Abdominal cramping Condition: Good Instructions: Abdominal Pain, ED Diet Vomiting Diarrhea Prescriptions: Ondansetron HCl [Zofran] 4 mg PO Q6HR PRN #30 tablet PRN Reason: Nausea / Vomiting Comments: Please follow-up with primary care. If your symptoms are not improving you may need stool studies done as an outpatient since you are unable to give any stool sample in the emergency department. Please return to the emergency department for any worsening or any concerns
[2018-03-24 18:31] LABS: BASOPHILS # (AUTO) 0.1 10^3/uL (0.0-0.1); BASOPHILS % (AUTO) 0.5 %; EOSINOPHILS % (AUTO) 0.2 %; HGB - HEMOGLOBIN 15.9 g/dL (14.0-18.0); LYMPHOCYTES # (AUTO) 1.1 10^3/uL (1.5-3.5); LYMPHOCYTES % (AUTO) 9.7 %; MEAN CORPUSCULAR HEMOGLOBIN 29.5 pg (27.0-31.0); MEAN CORPUSCULAR HGB CONC 32.9 g/dL (32.0-36.0); MEAN CORPUSCULAR VOLUME 89.5 fL (80.0-94.0); MEAN PLATELET VOLUME 9.7 fL (7.4-11.4); MONOCYTES # (AUTO) 1.4 10^3/uL (0.0-1.0); MONOCYTES % (AUTO) 12.1 %; NEUTROPHILS % (AUTO) 77.5 %; PLT - PLATELET COUNT 124 10^3/uL (130-450); RED BLOOD COUNT 5.38 10^6/uL (4.70-6.10); RED CELL DISTRIBUTION WIDTH 14.1 % (12.0-15.0); WHITE BLOOD COUNT 11.5 x10^3/uL (4.8-10.8)
[2018-03-24 18:45] LABS: ALBUMIN 4.1 g/dL (3.2-5.5); ALBUMIN/GLOBULIN RATIO 1.5 (1.0-2.2); BILIRUBIN,TOTAL 1.8 mg/dL (0.2-1.0); TOTAL PROTEIN 6.9 g/dL (6.7-8.2)
[2018-03-24 19:45] VITALS: BP 147/93
== END 2018-03-24 20:14 | disposition home or self-care (01) ==
LOC: ED 17:48
DX: R11.2 Nausea with vomiting, unspecified (principal); R19.7 Diarrhea, unspecified; R10.9 Unspecified abdominal pain; I10 Essential (primary) hypertension; E03.9 Hypothyroidism, unspecified; E11.9 Type 2 diabetes mellitus without complications
CPT/HCPCS: 36415; 80053; 83690; 85025; 87493; 96361; 96374; 96375; 99283

== ENCOUNTER 2018-04-16 11:55 | Emergency (ER) | payer MEDICARE, OTHER ==
[2018-04-16] MEDS ORDERED: TETANUS/DIPHTHERIA/PERTUSSIS 0.5 ML SYRINGE IM ONE (14:34)
--- NOTE | 2018-04-16 14:34 | ED Physician Documentation ---
PD HPI LOWER EXT INJURY - Stated complaint Stated Complaint: L LEG LAC - Chief complaint Chief Complaint: Laceration - History obtained from History obtained from: Patient - History of Present Illness PD HPI LOW EXT INJURY LOCATION: Left (He caught his leg on a sharp plastic edge well in his granddaughters room this morning. Tetanus status is unknown.) Review of Systems Constitutional: reports: Reviewed and negative Cardiac: reports: Reviewed and negative Respiratory: reports: Reviewed and negative PD PAST MEDICAL HISTORY - Past Medical History Cardiovascular: Hypertension Respiratory: Pneumonia Endocrine/Autoimmune: Type 2 diabetes, HyPOthyroidism GI: GERD, Hepatitis : Benign prostate hypertrophy, Retention HEENT: None Psych: Depression Musculoskeletal: Chronic back pain Derm: Psoriasis - Past Surgical History Past Surgical History: Yes General: Liver surgery, Other Ortho: Spine surgery Neuro: Other HEENT: Tonsil/Adenoidectomy - Present Medications Home Medications: Ambulatory Orders Medication Instructions Recorded Confirmed Diazepam [Valium] 10 mg PO Q6H PRN 06/25/12 03/12/17 Tacrolimus 1 mg PO BID 06/25/12 03/12/17 Tamsulosin [Flomax] 0.8 mg PO DAILY 06/25/12 03/12/17 predniSONE [Deltasone] 5 mg PO DAILY 06/25/12 03/12/17 Betamethasone Valerate 1 applic TOP .THREE TIMES WEEKLY 05/19/16 03/12/17 Levothyroxine [Synthroid] 75 mcg PO DAILY 05/19/16 03/12/17 Mycophenolate Sodium [Mycophenolic 360 mg PO BID 05/19/16 03/12/17 Acid] oxyCODONE [Roxicodone] 5 mg PO Q8H PRN 05/19/16 03/12/17 Mycophenolate Sodium [Myfortic] 360 mg PO 12/07/17 Omeprazole 40 mg PO 03/24/18 03/24/18 Ondansetron HCl [Zofran] 4 mg PO Q6HR PRN #30 tablet 03/24/18 - Allergies Allergies/Adverse Reactions: Allergies Allergy/AdvReac Type Severity Reaction Status Date / Time hydromorphone HCl * AdvReac Unknown Verified 03/24/18 17:56 [From Dilaudid] - Social History Does the pt smoke?: No Smoking Status: Never smoker Does the pt drink ETOH?: No Does the pt have substance abuse?: No - Immunizations Immunizations are current?: Yes - POLST Patient has POLST: Yes PD ED PE NORMAL - Vitals Vital signs reviewed: Yes - General General: Alert and oriented X 3, No acute distress - Extremities Extremities: Other (On the lower lateral left calf there is a 3 cm V-shaped laceration in the subcutaneous fat) - Neuro Neuro: Alert and oriented X 3, Normal speech Results - Vitals Vitals: Vital Signs - 24 hr 04/16/18 12:13 Heart Rate 109 H Respiratory 14 Rate Blood Pressure 116/82 H O2 Saturation 99 Oxygen O2 Source Room air Procedures - Laceration (location) L leg Length in cm: 3 Wound type: Superficial, Into subcut fat Anesthesia: Lidocaine 1%, With bicarb Wound Preparation: Irrigated copiously NS Skin layer closure: Nylon, Interrupted (Mixture of simple interrupted and horizontal mattress due to thin skin) Other: Tetanus booster given Complexity: Simple Departure - Departure Disposition: 01 Home, Self Care Clinical Impression: Laceration Condition: Good Record reviewed to determine appropriate education?: Yes Instructions: ED Laceration All Comments: Come back for any signs of infection which would include: Redness, swelling, drainage, increased pain, or fevers. Follow-up with your physician in 14 days for suture removal.
[2018-04-16] MEDS ORDERED: BUFFERED LIDOCAINE 10 ML SYRINGE ONE (14:39)
[2018-04-16 15:00] VITALS: BP 134/76
== END 2018-04-16 15:27 | disposition home or self-care (01) ==
LOC: ED 11:55
DX: S81.812A Laceration without foreign body, left lower leg, initial encounter (principal); W26.8XXA Contact with other sharp object(s), not elsewhere classified, initial encounter; Z23 Encounter for immunization; I10 Essential (primary) hypertension; E11.9 Type 2 diabetes mellitus without complications
CPT/HCPCS: 12002; 90471; 99282; 99283

== ENCOUNTER 2018-05-29 14:34 | Emergency (ER) | payer MEDICARE, OTHER ==
[2018-05-29 14:55] VITALS: BP 157/108
[2018-05-29] MEDS ORDERED: BUFFERED LIDOCAINE 10 ML SYRINGE SUBQ STA (15:14)
[2018-05-29] MEDS ORDERED: AMOX/CLAV 875 MG/125 MG TABLET PO STA (15:14)
--- NOTE | 2018-05-29 15:16 | ED Physician Documentation ---
PD HPI LOWER EXT INJURY - Stated complaint Stated Complaint: R LEG LAC - Chief complaint Chief Complaint: Laceration - History obtained from History obtained from: Patient - History of Present Illness PD HPI LOW EXT INJURY LOCATION: Right (Scratched on the right leg with a dog claw just prior to arrival. Tetanus is up-to-date.) Review of Systems Constitutional: reports: Reviewed and negative Cardiac: reports: Reviewed and negative Respiratory: reports: Reviewed and negative PD PAST MEDICAL HISTORY - Past Medical History Cardiovascular: Hypertension Respiratory: Pneumonia Endocrine/Autoimmune: Type 2 diabetes, HyPOthyroidism GI: GERD, Hepatitis : Benign prostate hypertrophy, Retention HEENT: None Psych: Depression Musculoskeletal: Chronic back pain Derm: Psoriasis - Past Surgical History Past Surgical History: Yes General: Liver surgery, Other Ortho: Spine surgery Neuro: Other HEENT: Tonsil/Adenoidectomy - Present Medications Home Medications: Ambulatory Orders Medication Instructions Recorded Confirmed Diazepam [Valium] 10 mg PO Q6H PRN 06/25/12 03/12/17 Tacrolimus 1 mg PO BID 06/25/12 03/12/17 Tamsulosin [Flomax] 0.8 mg PO DAILY 06/25/12 03/12/17 predniSONE [Deltasone] 5 mg PO DAILY 06/25/12 03/12/17 Betamethasone Valerate 1 applic TOP .THREE TIMES WEEKLY 05/19/16 03/12/17 Levothyroxine [Synthroid] 75 mcg PO DAILY 05/19/16 03/12/17 Mycophenolate Sodium [Mycophenolic 360 mg PO BID 05/19/16 03/12/17 Acid] oxyCODONE [Roxicodone] 5 mg PO Q8H PRN 05/19/16 03/12/17 Mycophenolate Sodium [Myfortic] 360 mg PO 12/07/17 Omeprazole 40 mg PO 03/24/18 03/24/18 Ondansetron HCl [Zofran] 4 mg PO Q6HR PRN #30 tablet 03/24/18 - Allergies Allergies/Adverse Reactions: Allergies Allergy/AdvReac Type Severity Reaction Status Date / Time hydromorphone HCl * AdvReac Unknown Verified 05/29/18 14:51 [From Dilaudid] - Social History Does the pt smoke?: No Smoking Status: Never smoker Does the pt drink ETOH?: No Does the pt have substance abuse?: No - Immunizations Immunizations are current?: Yes - POLST Patient has POLST: Yes PD ED PE NORMAL - Vitals Vital signs reviewed: Yes - General General: Alert and oriented X 3, No acute distress - Extremities Extremities: Other (On the right calf there is a 2 cm V-shaped laceration in the subcutaneous fat but no deeper.) - Neuro Neuro: Alert and oriented X 3, Normal speech Results - Vitals Vitals: Vital Signs - 24 hr 05/29/18 14:51 Temperature 36.8 C Heart Rate 111 H Respiratory 16 Rate Blood Pressure 157/108 H O2 Saturation 98 Oxygen O2 Source Room air Procedures - Laceration (location) RLE Length in cm: 2 Wound type: Stellate, Irregular Neurovascular status: Sensory intact, Motor intact Anesthesia: Lidocaine 1% Wound Preparation: Irrigated copiously NS Skin layer closure: Other (Because of a long history of steroid and immunosuppressive use he is quite thin skin. At the tip of the V was very difficult to close because the skin would not take a suture without immediately tearing through. As such it was closed with horizontal mattress sutures and there was an open area that was closed with Steri-Strips as it would not take sutures.) Other: Tetanus UTD Complexity: Simple Departure - Departure Disposition: 01 Home, Self Care Clinical Impression: Laceration of calf Qualifiers: Encounter type: initial encounter Laterality: right Qualified Code(s): S81.811A - Laceration without foreign body, right lower leg, initial encounter Condition: Good Record reviewed to determine appropriate education?: Yes Instructions: ED Laceration All Comments: Come back for any signs of infection which would include: Redness, swelling, drainage, increased pain, or fevers. Follow-up with your physician in About 14 days for suture removal.
== END 2018-05-29 15:41 | disposition home or self-care (01) ==
LOC: ED 14:34
DX: S81.811A Laceration without foreign body, right lower leg, initial encounter (principal); W54.8XXA Other contact with dog, initial encounter; E11.9 Type 2 diabetes mellitus without complications; E03.9 Hypothyroidism, unspecified; I10 Essential (primary) hypertension
CPT/HCPCS: 12001; 99282; 99283; A9270

== ENCOUNTER 2018-09-05 15:50 | Emergency (ER) | payer MEDICARE, OTHER ==
[2018-09-05] MEDS ORDERED: IOVERSOL 320 100 ML VIAL IVP ONE ×2 (16:58→19:05)
--- NOTE | 2018-09-05 17:17 | ED Physician Documentation ---
PD HPI ABD PAIN - Stated complaint Stated Complaint: ABD PX - Chief complaint Chief Complaint: Abd Pain - History obtained from History obtained from: Patient, Family - History of Present Illness Timing - onset: How many days ago (3) Timing - duration: Days (3) Timing - details: Gradual onset Pain level max: 7 Pain level now: 6 Quality: Aching, Pain Location: Other (lower abdomen) Radiation: Other (non-radiating) Improved by: Laying still Worsened by: Position, Palpation Associated symptoms: Constipation. No: Fever, Nausea, Vomiting, Hematemesis, Diarrhea, Melena, Hematochezia, Dysuria, Hematuria - Additional information Additional information: Patient states recently diagnosed with several hernias. He states that he has been seen at [facility] for surgical consultation. They feel this will be a difficult surgery. They told him that if he had worsening pain to come be evaluated with a CT scan for incarceration. No fevers. Review of Systems Constitutional: denies: Fever, Chills Cardiac: denies: Chest pain / pressure Respiratory: denies: Cough GI: denies: Vomiting Skin: denies: Rash Musculoskeletal: denies: Neck pain, Back pain PD PAST MEDICAL HISTORY - Past Medical History Past Medical History: Yes Cardiovascular: Hypertension Respiratory: Pneumonia Endocrine/Autoimmune: Type 2 diabetes, HyPOthyroidism GI: GERD, Hepatitis : Benign prostate hypertrophy, Retention HEENT: None Psych: Depression Musculoskeletal: Chronic back pain Derm: Psoriasis - Past Surgical History Past Surgical History: Yes General: Liver surgery, Other Ortho: Spine surgery Neuro: Other HEENT: Tonsil/Adenoidectomy - Present Medications Home Medications: Ambulatory Orders Medication Instructions Recorded Confirmed Diazepam [Valium] 10 mg PO Q6H PRN 06/25/12 03/12/17 Tacrolimus 1 mg PO BID 06/25/12 03/12/17 Tamsulosin [Flomax] 0.8 mg PO DAILY 06/25/12 03/12/17 predniSONE [Deltasone] 5 mg PO DAILY 06/25/12 03/12/17 Betamethasone Valerate 1 applic TOP .THREE TIMES WEEKLY 05/19/16 03/12/17 Levothyroxine [Synthroid] 75 mcg PO DAILY 05/19/16 03/12/17 Mycophenolate Sodium [Mycophenolic 360 mg PO BID 05/19/16 03/12/17 Acid] oxyCODONE [Roxicodone] 5 mg PO Q8H PRN 05/19/16 03/12/17 Mycophenolate Sodium [Myfortic] 360 mg PO 12/07/17 Omeprazole 40 mg PO 03/24/18 03/24/18 Ondansetron HCl [Zofran] 4 mg PO Q6HR PRN #30 tablet 03/24/18 Amox/Clav 875/125 [Augmentin] 1 each PO Q8H #30 tablet 09/05/18 - Allergies Allergies/Adverse Reactions: Allergies Allergy/AdvReac Type Severity Reaction Status Date / Time hydromorphone HCl * AdvReac Unknown Verified 09/05/18 15:57 [From Dilaudid] - Social History Does the pt smoke?: No Smoking Status: Never smoker Does the pt drink ETOH?: No Does the pt have substance abuse?: No - Immunizations Immunizations are current?: Yes - POLST Patient has POLST: Yes PD ED PE NORMAL - Vitals Vital signs reviewed: Yes - General General: Alert and oriented X 3, No acute distress, Well developed/nourished - HEENT HEENT: PERRL, Moist mucous membranes - Neck Neck: Supple, no meningeal sign - Cardiac Cardiac: RRR, Strong equal pulses - Respiratory Respiratory: No respiratory distress, Clear bilaterally - Abdomen Abdomen: Soft, Non distended, Other (Soft, mild tenderness to palpation suprapubic, left lower and right lower quadrant. No peritoneal signs. Reducible hernia in the right upper quadrant) - Back Back: No CVA TTP, No spinal TTP - Derm Derm: Warm and dry - Neuro Neuro: Alert and oriented X 3 - Psych Psych: Normal mood, Normal affect Results - Vitals Vitals: Vital Signs - 24 hr 09/05/18 09/05/18 09/05/18 15:54 18:00 20:34 Temperature 36.2 C L Heart Rate 100 89 79 Respiratory 20 16 19 Rate Blood Pressure 143/89 H 149/89 H 125/67 O2 Saturation 97 97 98 Oxygen O2 Source Room air - Labs Labs: Laboratory Tests 09/05/18 09/05/18 09/05/18 17:40 17:40 20:17 WBC 9.3 RBC 5.18 Hgb 15.3 Hct 46.7 MCV 90.2 MCH 29.5 MCHC 32.8 RDW 13.7 Plt Count 155 MPV 11.5 H Neut # (Auto) 6.8 H Lymph # (Auto) 1.7 [place] # (Auto) 0.6 Eos # (Auto) 0.1 Baso # (Auto) 0.1 Absolute Nucleated RBC 0.00 Nucleated RBC % 0.0 Sodium 137 Potassium 4.3 Chloride 107 Carbon Dioxide 22 Anion Gap 8.0 BUN 14 Creatinine 1.0 Estimated GFR (MDRD) 75 L Glucose 109 H Calcium 8.8 Total Bilirubin 0.6 AST 15 ALT 14 Alkaline Phosphatase 41 L Total Protein 6.5 L Albumin 3.7 Globulin 2.8 Albumin/Globulin Ratio 1.3 Lipase 30 Urine Color YELLOW Urine Clarity CLEAR Urine pH 7.0 Ur Specific [place] <=1.005 Urine Protein NEGATIVE Urine Glucose (UA) NEGATIVE Urine Ketones 15 H Urine Occult Blood NEGATIVE Urine Nitrite NEGATIVE Urine Bilirubin NEGATIVE Urine Urobilinogen 0.2 (NORMAL) Ur Leukocyte Esterase NEGATIVE Ur Microscopic Review NOT INDICATED Urine Culture Comments NOT INDICATED - Rads (name of study) CT abd/pelvis Radiology: Prelim report reviewed, EMP read contemporaneously, See rad report (Mild descending colonic diverticulitis. No free air or abscess. 4 mm nonobstructing calculus in the right lower quadrant transplant kidney. ) PD MEDICAL DECISION MAKING - ED course Complexity details: reviewed results, re-evaluated patient, considered differential, d/w patient, d/w family ED course: 62-year-old male with mild descending colonic diverticulitis. No free air or abscess. Will place on Augmentin. He is very well-appearing, nontoxic. Afebr ile. Patient and family counseled regarding signs and symptoms for which I believe and urgent re-evaluation would be necessary. Patient with good understanding of and agreement to plan and is comfortable going home at this time This document was made in part using voice recognition software. While efforts are made to proofread this document, sound alike and grammatical errors may occur. Departure - Departure Disposition: 01 Home, Self Care Clinical Impression: Diverticulitis Condition: Good Instructions: ED Diverticulitis Follow-Up: Milton Coombs MD [Primary Care Provider] - Within 1 week Prescriptions: Amox/Clav 875/125 [Augmentin] 1 each PO Q8H #30 tablet Comments: Take all antibiotics until gone. Return if you worsen. This should improve over the next 24 to 48 hours. Discharge Date/Time: 09/05/18 20:34
[2018-09-05 17:46] LABS: BASOPHILS # (AUTO) 0.1 10^3/uL (0.0-0.1); BASOPHILS % (AUTO) 0.5 %; EOSINOPHILS # (AUTO) 0.1 10^3/uL (0.0-0.7); EOSINOPHILS % (AUTO) 1.2 %; HGB - HEMOGLOBIN 15.3 g/dL (14.0-18.0); LYMPHOCYTES # (AUTO) 1.7 10^3/uL (1.5-3.5); LYMPHOCYTES % (AUTO) 17.8 %; MEAN CORPUSCULAR HEMOGLOBIN 29.5 pg (27.0-31.0); MEAN CORPUSCULAR HGB CONC 32.8 g/dL (32.0-36.0); MEAN CORPUSCULAR VOLUME 90.2 fL (80.0-94.0); MEAN PLATELET VOLUME 11.5 fL (7.4-11.4); MONOCYTES # (AUTO) 0.6 10^3/uL (0.0-1.0); MONOCYTES % (AUTO) 6.9 %; NEUTROPHILS # (AUTO) 6.8 10^3/uL (1.5-6.6); NEUTROPHILS % (AUTO) 72.9 %; PLT - PLATELET COUNT 155 10^3/uL (130-450); RED BLOOD COUNT 5.18 10^6/uL (4.70-6.10); RED CELL DISTRIBUTION WIDTH 13.7 % (12.0-15.0); WHITE BLOOD COUNT 9.3 x10^3/uL (4.8-10.8)
[2018-09-05 17:59] LABS: ALBUMIN 3.7 g/dL (3.2-5.5); ALBUMIN/GLOBULIN RATIO 1.3 (1.0-2.2); BILIRUBIN,TOTAL 0.6 mg/dL (0.2-1.0); CALCIUM 8.8 mg/dL (8.5-10.3); TOTAL PROTEIN 6.5 g/dL (6.7-8.2)
[2018-09-05] MEDS ORDERED: oxyCODONE 5 MG TABLET PO STA (18:11)
--- NOTE | 2018-09-05 19:47 | CT Report ---
Reason: lower abd pain Procedure Date: 09/05/2018 Accession Number: [id number] / [id number] Procedure: CT - Abdomen/Pelvis W CPT Code: FULL RESULT: EXAM: CT ABDOMEN AND PELVIS EXAM DATE: 09/05/2018 07:04 PM. CLINICAL HISTORY: Lower abd pain. COMPARISONS: 03/05/2017 TECHNIQUE: Routine helical CT imaging was performed through the abdomen and pelvis. IV contrast: 80 cc Optiray 320. Enteric contrast: No. Reconstructions: Coronal and sagittal. In accordance with CT protocol optimization, one or more of the following dose reduction techniques were utilized for this exam: automated exposure control, adjustment of mA and/or KV based on patient size, or use of iterative reconstructive technique. FINDINGS: ABDOMEN: Lung Bases: Incompletely included lower lungs demonstrate scattered atelectasis. Heart size is within normal limits. No basilar effusions. Liver: Stable ovoid likely cyst in the right hepatic lobe. Clips at the IVC, probably status post transplant. Spleen: Redemonstration of benign linear calcifications Pancreas: Stable pancreatic ductal dilatation in the head measuring up to 6 mm. Gallbladder/Bile Ducts: Stable biliary ductal dilatation can be seen status post cholecystectomy. Adrenal Glands: Unremarkable. Kidneys: Markedly atrophic [place] kidneys. No hydronephrosis. Peritoneum/Mesentery/Bowel: No free fluid, free air, or collection. No intestinal obstruction. Colonic diverticulosis. Inflamed diverticulum at the anterior distal descending colon (). The appendix is within normal limits. Lymph nodes: No mesenteric, periportal, or retroperitoneal lymphadenopathy. Vasculature: Abdominal aorta is nonaneurysmal. Portal vein is patent. Hepatic veins are patent. PELVIS: The bladder is unremarkable for the degree of distention. Prostate is present. Changes of TURP. No pelvic lymphadenopathy. Right lower quadrant renal transplant. No hydronephrosis. Nonobstructing 4 mm calculus in the interpolar region. No perinephric collections. Renal vein and renal artery are patent. Bones: No suspicious osseous lesions. IMPRESSION: Mild descending colonic diverticulitis. No free air or abscess. 4 mm nonobstructing calculus in the right lower quadrant transplant kidney. [facility]
[2018-09-05] MEDS ORDERED: AMOX/CLAV 875 MG/125 MG TABLET PO STA (20:10)
[2018-09-05 20:29] LABS: BILIRUBIN,URINE NEGATIVE (NEGATIVE); GLUCOSE, URINE (UA) NEGATIVE (NEGATIVE); KETONES,URINE (UA) 15 mg/dL (NEGATIVE); LEUKOCYTE ESTERASE, URINE NEGATIVE (NEGATIVE); NITRITE,URINE NEGATIVE (NEGATIVE); OCCULT BLOOD,URINE NEGATIVE (NEGATIVE); PROTEIN,URINE NEGATIVE (NEGATIVE); UROBILINOGEN,URINE 0.2 (NORMAL) E.U./dL (NORMAL)
[2018-09-05 20:32] LABS: CLARITY,URINE CLEAR (CLEAR)
[2018-09-05 20:36] VITALS: BP 125/67
== END 2018-09-05 20:34 | disposition home or self-care (01) ==
LOC: ED 15:50
DX: K57.32 Diverticulitis of large intestine without perforation or abscess without bleeding (principal); I10 Essential (primary) hypertension; E11.9 Type 2 diabetes mellitus without complications; Z94.0 Kidney transplant status; K46.9 Unspecified abdominal hernia without obstruction or gangrene
CPT/HCPCS: 36415; 74177; 80053; 81003; 83690; 85025; 99284; A9270; Q9967; 81001; 87086

== ENCOUNTER 2019-09-30 00:07 | Outpatient (CLI) | payer MEDICARE, OTHER | END 2019-09-30 00:08 | disposition critical access hospital (66) | LOC: EMS 00:07 | PROVIDERS: ATTEND Surgery | DX: R06.02 Shortness of breath (principal); R05 Cough; R53.1 Weakness | CPT/HCPCS: A0425; A0427 ==

== ENCOUNTER 2019-10-01 00:09 | Emergency (ER) | payer MEDICARE, OTHER ==
[2019-10-01 01:54] LABS: BASOPHILS # (AUTO) 0.1 10^3/uL (0.0-0.1); BASOPHILS % (AUTO) 0.5 %; EOSINOPHILS # (AUTO) 0.4 10^3/uL (0.0-0.7); EOSINOPHILS % (AUTO) 3.9 %; LYMPHOCYTES # (AUTO) 1.8 10^3/uL (1.5-3.5); LYMPHOCYTES % (AUTO) 19.3 %; MEAN CORPUSCULAR HEMOGLOBIN 30.1 pg (27.0-31.0); MEAN CORPUSCULAR HGB CONC 33.3 g/dL (32.0-36.0); MEAN CORPUSCULAR VOLUME 90.4 fL (80.0-94.0); MEAN PLATELET VOLUME 11.1 fL (7.4-11.4); MONOCYTES # (AUTO) 0.8 10^3/uL (0.0-1.0); MONOCYTES % (AUTO) 8.3 %; NEUTROPHILS # (AUTO) 6.1 10^3/uL (1.5-6.6); NEUTROPHILS % (AUTO) 67.2 %; PLT - PLATELET COUNT 176 10^3/uL (130-450); RED BLOOD COUNT 4.99 10^6/uL (4.70-6.10); RED CELL DISTRIBUTION WIDTH 13.2 % (12.0-15.0); WHITE BLOOD COUNT 9.1 x10^3/uL (4.8-10.8)
[2019-10-01 02:09] LABS: ALBUMIN 3.8 g/dL (3.2-5.5); ALBUMIN/GLOBULIN RATIO 1.4 (1.0-2.2); BILIRUBIN,TOTAL 0.6 mg/dL (0.2-1.0); CALCIUM 8.8 mg/dL (8.5-10.3); CREATININE 0.9 mg/dL (0.6-1.2); TOTAL PROTEIN 6.5 g/dL (6.7-8.2)
[2019-10-01] MEDS ORDERED: ALBUTEROL 1 PUFF INH STA (02:15)
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
[2019-10-01] MEDS ORDERED: SODIUM CHLORIDE 0.9% 1,000 ML IV STA (04:59)
[2019-10-01 05:39] VITALS: BP 158/94
--- NOTE | 2019-10-01 08:06 | XRAY Report ---
PROCEDURE: Chest 1 View X-Ray INDICATIONS: chest pain TECHNIQUE: One view of the chest was acquired. COMPARISON: 06/06/2016 FINDINGS: Surgical changes and devices: None. Lungs and pleura: No pleural effusions or pneumothorax. Lungs are clear. Mediastinum: Mediastinal contours appear normal. Heart size is normal. Bones and chest wall: No suspicious bony lesions. Overlying soft tissues appear unremarkable. IMPRESSION: No acute cardiopulmonary disease process. Reviewed by: Gracie Guevara MD, PhD on 10/01/2019 8:04 AM PDT Approved by: Gracie Guevara MD, PhD on 10/01/2019 8:04 AM PDT Station ID: [id number]
== END 2019-10-01 05:59 | disposition home or self-care (01) ==
LOC: EDUNIT# → ED 00:09
DX: J45.909 Unspecified asthma, uncomplicated (principal); R03.0 Elevated blood-pressure reading, without diagnosis of hypertension; Z20.828 Contact with and (suspected) exposure to other viral communicable diseases; Z87.891 Personal history of nicotine dependence
CPT/HCPCS: 36415; 71045; 80053; 83605; 83690; 85025; 87040; 94640; 96360; 99284; U0004

== ENCOUNTER 2019-12-30 18:53 | Outpatient (CLI) | payer MEDICARE, OTHER | END 2019-12-30 18:54 | disposition critical access hospital (66) | LOC: EMS 18:53 | PROVIDERS: ATTEND Surgery | DX: T59.811A Toxic effect of smoke, accidental (unintentional), initial encounter (principal); R09.89 Other specified symptoms and signs involving the circulatory and respiratory systems | CPT/HCPCS: A0425; A0427 ==

== ENCOUNTER 2019-12-30 19:10 | Emergency (ER) | payer MEDICARE, OTHER ==
[2019-12-30] MEDS ORDERED: ALBUTEROL NEB 2.5 MG/3 ML INH STA (19:16)
[2019-12-30] MEDS ORDERED: DEXAMETHASONE 10 MG/ML VIAL IVP STA (19:17)
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
[2019-12-30 19:37] LABS: BASOPHILS # (AUTO) 0.1 10^3/uL (0.0-0.1); BASOPHILS % (AUTO) 0.7 %; EOSINOPHILS # (AUTO) 0.2 10^3/uL (0.0-0.7); HGB - HEMOGLOBIN 15.1 g/dL (14.0-18.0); LYMPHOCYTES # (AUTO) 1.9 10^3/uL (1.5-3.5); LYMPHOCYTES % (AUTO) 25.1 %; MEAN CORPUSCULAR HGB CONC 33.9 g/dL (32.0-36.0); MEAN CORPUSCULAR VOLUME 91.6 fL (80.0-94.0); MEAN PLATELET VOLUME 11.3 fL (7.4-11.4); MONOCYTES # (AUTO) 0.6 10^3/uL (0.0-1.0); MONOCYTES % (AUTO) 7.9 %; NEUTROPHILS # (AUTO) 4.6 10^3/uL (1.5-6.6); PLT - PLATELET COUNT 148 10^3/uL (130-450); RED BLOOD COUNT 4.87 10^6/uL (4.70-6.10); RED CELL DISTRIBUTION WIDTH 13.1 % (12.0-15.0); WHITE BLOOD COUNT 7.4 x10^3/uL (4.8-10.8)
[2019-12-30 19:43] LABS: CALCIUM 8.5 mg/dL (8.5-10.3); CREATININE 1.2 mg/dL (0.6-1.2)
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
[2019-12-30 23:34] VITALS: BP 159/111
== END 2019-12-31 00:03 | disposition home or self-care (01) ==
LOC: EDUNIT# → ED 19:10
DX: T59.811A Toxic effect of smoke, accidental (unintentional), initial encounter (principal); X00.1XXA Exposure to smoke in uncontrolled fire in building or structure, initial encounter; Y92.008 Other place in unspecified non-institutional (private) residence as the place of occurrence of the external cause; Z89.202 Acquired absence of left upper limb, unspecified level; Z89.201 Acquired absence of right upper limb, unspecified level; Z87.891 Personal history of nicotine dependence
CPT/HCPCS: 36415; 71045; 80048; 82375; 85025; 94640; 96374; 99284

== ENCOUNTER 2020-01-05 18:56 | Emergency (ER) | payer MEDICARE, OTHER ==
[2020-01-05] MEDS ORDERED: ALBUTEROL 1 PUFF INH STA (19:22)
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
[2020-01-05] MEDS ORDERED: ACETAMINOPHEN 325 MG TABLET PO STA (19:43)
[2020-01-05 19:50] LABS: BASOPHILS # (AUTO) 0.1 10^3/uL (0.0-0.1); BASOPHILS % (AUTO) 0.6 %; EOSINOPHILS # (AUTO) 0.4 10^3/uL (0.0-0.7); EOSINOPHILS % (AUTO) 4.8 %; HGB - HEMOGLOBIN 14.5 g/dL (14.0-18.0); LYMPHOCYTES # (AUTO) 2.4 10^3/uL (1.5-3.5); LYMPHOCYTES % (AUTO) 29.8 %; MEAN CORPUSCULAR HGB CONC 32.8 g/dL (32.0-36.0); MEAN CORPUSCULAR VOLUME 91.5 fL (80.0-94.0); MEAN PLATELET VOLUME 11.3 fL (7.4-11.4); MONOCYTES # (AUTO) 0.7 10^3/uL (0.0-1.0); MONOCYTES % (AUTO) 8.4 %; NEUTROPHILS # (AUTO) 4.3 10^3/uL (1.5-6.6); NEUTROPHILS % (AUTO) 54.9 %; PLT - PLATELET COUNT 155 10^3/uL (130-450); RED BLOOD COUNT 4.83 10^6/uL (4.70-6.10); RED CELL DISTRIBUTION WIDTH 13.1 % (12.0-15.0); WHITE BLOOD COUNT 7.9 x10^3/uL (4.8-10.8)
[2020-01-05 20:00] LABS: CALCIUM 8.6 mg/dL (8.5-10.3); CREATININE 1.1 mg/dL (0.6-1.2)
--- NOTE | 2020-01-05 20:19 | XRAY Report ---
PROCEDURE: Chest 1 View X-Ray INDICATIONS: dyspnea TECHNIQUE: One view of the chest was acquired. COMPARISON: 12/30/2019 FINDINGS: Surgical changes and devices: None. Lungs and pleura: No pleural effusions or pneumothorax. Strand-like right infrahilar alveolar opacit y. Coarse calcifications in the right midlung and left upper lobe Mediastinum: Mediastinal contours appear normal. Heart size is normal. Bones and chest wall: No suspicious bony lesions. Overlying soft tissues appear unremarkable. IMPRESSION: 1. Strandy right infrahilar alveolar opacity may be infectious or aspiration. Scarring may be present though this was not seen on more recent chest x-ray. 2. Probable calcified upper lobe granulomas. Reviewed by: Nahed Lake MD on 01/05/2020 8:18 PM PST Approved by: Nahed Lake MD on 01/05/2020 8:18 PM PST Station ID: [id number]
[2020-01-05] MEDS ORDERED: predniSONE 20 MG TABLET PO STA (20:41)
[2020-01-05] MEDS ORDERED: AMOXICILLIN 250 MG CAPSULE PO STA (20:41)
[2020-01-05 20:45] LABS: C. PNEUMONIAE- RESP PCR PANEL NOT DETECTED
[2020-01-05 20:53] VITALS: BP 152/96
== END 2020-01-05 20:51 | disposition home or self-care (01) ==
LOC: ED 18:56
DX: J18.9 Pneumonia, unspecified organism (principal); Z20.828 Contact with and (suspected) exposure to other viral communicable diseases; I49.1 Atrial premature depolarization; Z87.891 Personal history of nicotine dependence; Z79.899 Other long term (current) drug therapy
CPT/HCPCS: 36415; 71045; 80048; 83880; 85025; 87631; 93005; 94640; 99283; 99284; A9270; J7512; 0202U

== ENCOUNTER 2020-04-07 11:52 | Outpatient (CLI) | payer MEDICARE, OTHER ==
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
== END 2020-04-07 11:53 | disposition home or self-care (01) ==
LOC: DI 11:52
PROVIDERS: ATTEND Internal Medicine
DX: J70.5 Respiratory conditions due to smoke inhalation (principal); J90 Pleural effusion, not elsewhere classified

== ENCOUNTER 2020-05-11 15:15 | Outpatient (CLI) | payer MEDICARE, OTHER ==
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
== END 2020-05-11 15:16 | disposition home or self-care (01) ==
LOC: DI 15:15
PROVIDERS: ATTEND Family Medicine
DX: J40 Bronchitis, not specified as acute or chronic (principal); J18.9 Pneumonia, unspecified organism

== ENCOUNTER 2020-06-05 10:38 | Outpatient (CLI) | payer MEDICARE, OTHER ==
--- NOTE | 2020-06-05 11:08 | XRAY Report ---
PROCEDURE: Chest 2 View X-Ray INDICATIONS: BRONCHITIS PNEUMONITIS TECHNIQUE: 2 view(s) of the chest. COMPARISON: None. FINDINGS: Surgical changes and devices: Fusion hardware in cervical spine is partially visualized. Lungs and pleura: No pleural effusions or pneumothorax. Mild increased bronchovascular markings in b ilateral hilar region is seen with mild bronchial wall thickening. No focal infiltrate. Mediastinum: Mediastinal contours are normal. Heart size is normal. Bones and chest wall: No suspicious bony abnormalities. Soft tissues appear unremarkable. IMPRESSION: Suggestion of mild reactive airway disease such as bronchitis or asthma. No focal infiltr ate, pleural effusion or pneumothorax. Reviewed by: Junior Dove MD on 06/05/2020 10:07 AM [facility] Approved by: Junior Dove MD on 06/05/2020 10:07 AM [facility] Station ID: [id number]
== END 2020-06-05 10:39 | disposition home or self-care (01) ==
LOC: DI 10:38
PROVIDERS: ATTEND Family Medicine
DX: J68.0 Bronchitis and pneumonitis due to chemicals, gases, fumes and vapors (principal)

== ENCOUNTER 2020-06-19 22:02 | Emergency (ER) | payer MEDICARE, OTHER ==
--- OUTSIDE RECORDS SUMMARY | 2020-06-19 22:05 | EXTERNAL MEDICAL SUMMARY RPT | Continuity of Care Document ---
:1955 Demographics Phone Unavailable Preferred Language Unknown Marital Status Unknown Congregational Affiliation Unknown Race Unknown Ethnic Group Unknown Author Organization [facility] Address [address] [phone] Phone Social History date description facility [id number]
[2020-06-19] MEDS ORDERED: IPRATROPIUM/ALBUTEROL 3 ML NEB INH STA (22:27)
[2020-06-19] MEDS ORDERED: ALBUTEROL NEB 2.5 MG/3 ML INH STA (22:27)
[2020-06-19] MEDS ORDERED: DEXAMETHASONE 10 MG/ML VIAL IVP STA (22:27)
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
--- OUTSIDE RECORDS SUMMARY | 2020-06-19 22:33 | EXTERNAL MEDICAL SUMMARY RPT | Continuity of Care Document ---
:1955 Demographics Phone Unavailable Preferred Language Unknown Marital Status Unknown Yarsanism Affiliation Unknown Race Unknown Ethnic Group Unknown Author Organization [place] Address [address] [id number] Phone Social History date description facility [id number]
[2020-06-19] MEDS ORDERED: MORPHINE 2 MG/ML CARPUJECT IVP STA (22:46)
[2020-06-19 23:00] LABS: BASOPHILS # (AUTO) 0.1 10^3/uL (0.0-0.1); BASOPHILS % (AUTO) 0.6 %; EOSINOPHILS # (AUTO) 0.4 10^3/uL (0.0-0.7); EOSINOPHILS % (AUTO) 5.2 %; HCT - HEMATOCRIT 45.5 % (42.0-52.0); HGB - HEMOGLOBIN 15.1 g/dL (14.0-18.0); LYMPHOCYTES # (AUTO) 2.7 10^3/uL (1.5-3.5); LYMPHOCYTES % (AUTO) 33.8 %; MEAN CORPUSCULAR HGB CONC 33.2 g/dL (32.0-36.0); MEAN CORPUSCULAR VOLUME 90.5 fL (80.0-94.0); MEAN PLATELET VOLUME 10.8 fL (7.4-11.4); MONOCYTES % (AUTO) 11.9 %; NEUTROPHILS # (AUTO) 3.8 10^3/uL (1.5-6.6); NEUTROPHILS % (AUTO) 47.6 %; PLT - PLATELET COUNT 156 10^3/uL (130-450); RED BLOOD COUNT 5.03 10^6/uL (4.70-6.10); RED CELL DISTRIBUTION WIDTH 12.9 % (12.0-15.0); VBG PCO2 42.4 mmHg (41-51); VBG PH 7.414 (7.31-7.41); VBG PO2 71.6 mmHg (25-47); WHITE BLOOD COUNT 8.1 x10^3/uL (4.8-10.8)
[2020-06-19 23:01] LABS: VBG BASE EXCESS 1.7 mmol/L (-2 - +2); VBG HCO3 26.5 mmol/L (23-28); VBG OXYGEN SATURATION 95.4 % (60-80); VBG TOTAL CO2 27.8 mmol/L (24-29)
[2020-06-19 23:13] LABS: ALBUMIN 3.9 g/dL (3.2-5.5); ALBUMIN/GLOBULIN RATIO 1.6 (1.0-2.2); CALCIUM 8.9 mg/dL (8.5-10.3); POTASSIUM 4.1 mmol/L (3.5-5.0); TOTAL PROTEIN 6.3 g/dL (6.7-8.2)
[2020-06-20 00:07] LABS: B. PARAPERTUSSIS- RESP PCR PAN NOT DETECTED; B. PERTUSSIS- RESP PCR PANEL NOT DETECTED; C. PNEUMONIAE- RESP PCR PANEL NOT DETECTED; CORONAVIRUS 229E-RESP PCR NOT DETECTED; CORONAVIRUS HKU1-RESP PCR NOT DETECTED; CORONAVIRUS NL63-RESP PCR NOT DETECTED; CORONAVIRUS OC43-RESP PCR NOT DETECTED; HUMAN METAPNEUMOVIRUS NOT DETECTED; INFLUENZA A- RESP PCR PANEL NOT DETECTED; INFLUENZA B - RESP PCR PANEL NOT DETECTED; M. PNEUMONIAE- RESP PCR PANEL NOT DETECTED; PARAINFLUENZA VIRUS 1 NOT DETECTED; PARAINFLUENZA VIRUS 2 NOT DETECTED; PARAINFLUENZA VIRUS 3 NOT DETECTED; PARAINFLUENZA VIRUS 4 NOT DETECTED; RHINOVIRUS/ENTEROVIRUS NOT DETECTED; RSV- RESP PCR PANEL NOT DETECTED; SARS-CoV-2 -RESP PCR PANEL NOT DETECTED
[2020-06-20 00:14] VITALS: BP 146/93
--- NOTE | 2020-06-20 09:26 | XRAY Report ---
PROCEDURE: Chest 1 View X-Ray INDICATIONS: Chest Pain TECHNIQUE: 2 frontal views the chest were acquired. COMPARISON: 06/05/2020 FINDINGS: Surgical changes and devices: Overlying tubes and wires. Fusion hardware of the cervical spine is inc ompletely evaluated. Surgical clips in the left axilla.. Lungs and pleura: No focal consolidation, pneumothorax, or pleural effusion. Subtle central peribronc hial wall thickening. Mediastinum: Mediastinal contours appear normal. Heart size is normal. Vascular calcifications with in the aortic arch Bones and chest wall: No suspicious bony lesions. Overlying soft tissues appear unremarkable. IMPRESSION: Subtle peribronchial wall thickening may represent reactive airway disease versus atypical infection. No focal consolidation. Agree with preliminary report. Reviewed by: Dominick Valero DO on 06/20/2020 8:24 AM DARION Approved by: Dominick Valero DO on 06/20/2020 8:24 AM DARION Station ID: [id number]
== END 2020-06-20 00:23 | disposition home or self-care (01) ==
LOC: ED 22:02
DX: J45.901 Unspecified asthma with (acute) exacerbation (principal); R06.03 Acute respiratory distress; Z87.891 Personal history of nicotine dependence; Z20.822 Contact with and (suspected) exposure to COVID-19; Z94.0 Kidney transplant status; Z94.4 Liver transplant status; Z89.202 Acquired absence of left upper limb, unspecified level; Z89.201 Acquired absence of right upper limb, unspecified level
CPT/HCPCS: 0202U; 36415; 80053; 82803; 83690; 83880; 84484; 85025; 93005; 94640; 96374; 96375; 99284

== ENCOUNTER 2020-07-10 11:55 | Emergency (ER) | payer MEDICARE, OTHER ==
[2020-07-10] MEDS ORDERED: SODIUM CHLORIDE 0.9% 1,000 ML IV STA (13:09)
[2020-07-10] MEDS ORDERED: IOVERSOL 320 100 ML VIAL IVP ONE ×2 (13:16→14:27)
[2020-07-10 13:54] LABS: BASOPHILS # (AUTO) 0.1 10^3/uL (0.0-0.1); BASOPHILS % (AUTO) 0.7 %; EOSINOPHILS # (AUTO) 0.1 10^3/uL (0.0-0.7); EOSINOPHILS % (AUTO) 1.3 %; HCT - HEMATOCRIT 47.4 % (42.0-52.0); HGB - HEMOGLOBIN 15.9 g/dL (14.0-18.0); LYMPHOCYTES # (AUTO) 1.6 10^3/uL (1.5-3.5); LYMPHOCYTES % (AUTO) 15.8 %; MEAN CORPUSCULAR HEMOGLOBIN 30.3 pg (27.0-31.0); MEAN CORPUSCULAR HGB CONC 33.5 g/dL (32.0-36.0); MEAN CORPUSCULAR VOLUME 90.5 fL (80.0-94.0); MEAN PLATELET VOLUME 11.9 fL (7.4-11.4); MONOCYTES # (AUTO) 0.9 10^3/uL (0.0-1.0); MONOCYTES % (AUTO) 8.5 %; NEUTROPHILS # (AUTO) 7.3 10^3/uL (1.5-6.6); NEUTROPHILS % (AUTO) 72.9 %; PLT - PLATELET COUNT 152 10^3/uL (130-450); RED BLOOD COUNT 5.24 10^6/uL (4.70-6.10); RED CELL DISTRIBUTION WIDTH 13.2 % (12.0-15.0)
[2020-07-10 14:02] LABS: ALBUMIN 4.3 g/dL (3.2-5.5); ALBUMIN/GLOBULIN RATIO 1.7 (1.0-2.2); BILIRUBIN,TOTAL 1.5 mg/dL (0.2-1.0); CALCIUM 9.2 mg/dL (8.5-10.3); CREATININE 1.1 mg/dL (0.6-1.2); TOTAL PROTEIN 6.8 g/dL (6.7-8.2)
[2020-07-10] MEDS ORDERED: MORPHINE 2 MG/ML CARPUJECT IVP STA ×2 (14:12→15:29)
--- NOTE | 2020-07-10 15:05 | ED Physician Documentation ---
History of Present Illness - Stated complaint Stated Complaint: ABD PX - Chief complaint Chief Complaint: Abd Pain - History obtained from History obtained from: Patient - Additonal information Additional information: 64-year-old man with history of diverticulosis, psh renal transplant, presents with suprapubic and bilateral lower quadrant pain, nonradiating,aching, gradually worsening and constant over the past couple of days, sent in by his primary doctor Dr. Thomas for evaluation for appendicitis. also with nausea. denies fevers, vomiting, back pain, chest pain sob or urinary sx. Review of Systems Ten Systems: 10 systems reviewed and negative Constitutional: denies: Fever Cardiac: denies: Chest pain / pressure Respiratory: denies: Dyspnea, Cough GI: reports: Abdominal Pain, Nausea : denies: Dysuria Musculoskeletal: denies: Back pain PD PAST MEDICAL HISTORY - Past Medical History Cardiovascular: Deep vein thrombosis Respiratory: Pneumonia Neuro: None Endocrine/Autoimmune: HyPOthyroidism GI: Hepatitis : Benign prostate hypertrophy, Retention HEENT: None Psych: None Musculoskeletal: Chronic back pain Derm: Psoriasis - Past Surgical History Past Surgical History: Yes General: Liver surgery, Other Ortho: Spine surgery, Amputation Neuro: Other HEENT: Tonsil/Adenoidectomy - Present Medications Home Medications: Ambulatory Orders Medication Instructions Recorded Confirmed Diazepam [Valium] 10 mg PO Q6H PRN 06/25/12 06/19/20 Tacrolimus 1 mg PO DAILY 06/25/12 06/19/20 predniSONE [Deltasone] 5 mg PO DAILY 06/25/12 06/19/20 Betamethasone Valerate 1 applic TOP .THREE TIMES WEEKLY 05/19/16 06/19/20 Levothyroxine [Synthroid] 75 mcg PO DAILY 05/19/16 06/19/20 Mycophenolate Sodium [Mycophenolic 360 mg PO BID 05/19/16 06/19/20 Acid] oxyCODONE [Roxicodone] 5 mg PO Q8H PRN 05/19/16 06/19/20 Albuterol Sulf [Ventolin Hfa 1 - 2 puffs INH Q4HR PRN #1 inhaler 01/05/20 06/19/20 Inhaler] Tamsulosin [Flomax] 0.4 mg PO DAILY 06/19/20 06/19/20 Amox/Clav 875/125 [Augmentin 1 tablet PO Q12H 10 Days #20 tablet 07/10/20 875/125 Tab] - Allergies Allergies/Adverse Reactions: Allergies Allergy/AdvReac Type Severity Reaction Status Date / Time hydromorphone HCl * AdvReac Unknown Verified 07/10/20 12:10 [From Dilaudid] - Social History Does the pt smoke?: No Smoking Status: Former smoker Does the pt drink ETOH?: No Does the pt have substance abuse?: No - Immunizations Immunizations are current?: Yes - POLST Patient has POLST: Yes PD ED PE NORMAL - Vitals Vital signs reviewed: Yes - General General: Alert and oriented X 3, No acute distress, Well developed/nourished - HEENT HEENT: Atraumatic, PERRL, EOMI - Neck Neck: Supple, no meningeal sign - Cardiac Cardiac: RRR - Respiratory Respiratory: No respiratory distress, Clear bilaterally - Abdomen Abdomen: Other (discomfort to palpation BL LQ) - Derm Derm: Normal color, Warm and dry - Extremities Extremities: Other (BL arm amputee) - Neuro Neuro: Alert and oriented X 3 - Psych Psych: Normal mood, Normal affect Results - Vitals Vitals: Vital Signs - 24 hr 07/10/20 07/10/20 12:07 14:09 Temperature 36.7 C 36.6 C Heart Rate 82 75 Respiratory 16 16 Rate Blood Pressure 168/88 H 145/95 H O2 Saturation 99 99 Oxygen O2 Source Room air - Labs Labs: Laboratory Tests 07/10/20 07/10/20 12:11 13:24 WBC 10.0 RBC 5.24 Hgb 15.9 Hct 47.4 MCV 90.5 MCH 30.3 MCHC 33.5 RDW 13.2 Plt Count 152 MPV 11.9 H Neut # (Auto) 7.3 H Lymph # (Auto) 1.6 [place] # (Auto) 0.9 Eos # (Auto) 0.1 Baso # (Auto) 0.1 Absolute Nucleated RBC 0.00 Nucleated RBC % 0.0 Sodium 136 Potassium 4.0 Chloride 103 Carbon Dioxide 25 Anion Gap 8.0 BUN 13 Creatinine 1.1 Estimated GFR (MDRD) 67 L Glucose 118 H Calcium 9.2 Total Bilirubin 1.5 H AST 16 ALT 19 Alkaline Phosphatase 54 Total Protein 6.8 Albumin 4.3 Globulin 2.5 Albumin/Globulin Ratio 1.7 Lipase 19 L PD MEDICAL DECISION MAKING - ED course ED course: 64-year-old man presents with uncomplicated diverticulitis. Patient will be discharged on oral antibiotics. Return precautions given. He will follow up with Dr. Thomas Departure - Departure Clinical Impression: Diverticulitis Condition: Good Instructions: Diverticulitis Dc Prescriptions: Amox/Clav 875/125 [Augmentin 875/125 Tab] 1 tablet PO Q12H 10 Days #20 tablet Comments: You were seen in the emergency department for diverticulitis. Please follow-up with your primary doctor this week. Return to the emergency department if you have any new or worsening symptoms or other concerns
--- NOTE | 2020-07-10 15:14 | CT Report ---
PROCEDURE: Abdomen/Pelvis W INDICATIONS: RLQ pain CONTRAST: IV CONTRAST: Optiray 320 ml: 100 PO CONTRAST: *NO PO CONTRAST TECHNIQUE: After the administration of intravenous contrast, 5 mm thick sections acquired from the diaphragms to the symphysis. 5 mm thick coronal and sagittal reformats were acquired. For radiation dose reducti on, the following was used: automated exposure control, adjustment of mA and/or kV according to romie ent size. COMPARISON: CT abdomen pelvis 09/05/2018. FINDINGS: Image quality: Excellent. ABDOMEN: Lung bases: There is scarring and atelectasis redemonstrated in the lung bases. Heart size is normal. Solid organs: Evaluation of the liver demonstrates no focal hepatic mass lesions. Gallbladder is vishnu gically absent. There is biliary ductal dilatation, with the common bile duct measuring up to 1.3 cm. Findings are similar to slightly increased compared to the prior study given differences in techniqu e. There is slight increased dilatation of the pancreatic duct which measures up to 0.6 cm in the ma creatic head. No discrete pancreatic or ampullary mass identified. No peripancreatic fat stranding or fluid collections. The spleen is normal in size. No adrenal nodules. Markedly atrophic kletsel dehe wint[place] kidne ys are redemonstrated bilaterally. There is a transplant kidney in the right lower quadrant which dem onstrates normal appearing enhancement. There is mild fullness of the renal collecting system in the transplant kidney without definite hydronephrosis. The associated ureter is nondistended. A nonobstru cting stone is demonstrated within the transplant kidney, measuring up to 0.5 cm. No perinephric flui d collections. Peritoneum and bowel: Small bowel loops demonstrate normal wall thickness and caliber. The appendix i s normal in appearance. There is colonic diverticulosis with associated diverticular wall thickening and segmental colonic wall thickening in the proximal sigmoid colon. There is associated. Colonic fat stranding. Findings are consistent with acute diverticulitis. No diverticular abscess or macroscopic free air. There is trace fluid along the left paracolic gutter. Nodes and vessels: No retroperitoneal or mesenteric adenopathy by size criteria. Aorta and inferior vena cava are normal in size. Miscellaneous: No ventral hernias. PELVIS: Genitourinary: Bladder wall thickness is normal. Miscellaneous: No inguinal hernias or adenopathy. Bones: No suspicious bony lesions. No vertebral body compression fractures. IMPRESSION: 1. No evidence of appendicitis. 2. Acute diverticulitis in the proximal sigmoid colon without evidence of diverticular abscess or mac roscopic free air. 3. Transplant kidney in the right lower quadrant demonstrates mild pelvocaliectasis without hydrouret er. No perinephric fluid collections. A nonobstructing stone is demonstrated in the transplant kidney . Reviewed by: Wolf Guzman MD on 07/10/2020 3:13 PM PDT Approved by: Wolf Guzman MD on 07/10/2020 3:13 PM PDT Station ID: [id number]
[2020-07-10 15:15] LABS: BILIRUBIN,URINE NEGATIVE (NEGATIVE); GLUCOSE, URINE (UA) NEGATIVE (NEGATIVE); KETONES,URINE (UA) NEGATIVE (NEGATIVE); LEUKOCYTE ESTERASE, URINE NEGATIVE (NEGATIVE); NITRITE,URINE NEGATIVE (NEGATIVE); OCCULT BLOOD,URINE NEGATIVE (NEGATIVE); PROTEIN,URINE NEGATIVE (NEGATIVE); UROBILINOGEN,URINE 0.2 (NORMAL) E.U./dL (NORMAL)
[2020-07-10 15:20] LABS: CLARITY,URINE CLEAR (CLEAR)
[2020-07-10 15:53] VITALS: BP 139/82
== END 2020-07-10 15:53 | disposition home or self-care (01) ==
LOC: ED 11:55
DX: K57.32 Diverticulitis of large intestine without perforation or abscess without bleeding (principal); Z87.891 Personal history of nicotine dependence
CPT/HCPCS: 36415; 74177; 80053; 81003; 83690; 85025; 96361; 96374; 96376; 99284; Q9967; 81001; 87086

== ENCOUNTER 2020-07-15 09:51 | Emergency (ER) | payer MEDICARE, OTHER ==
--- OUTSIDE RECORDS SUMMARY | 2020-07-15 09:55 | EXTERNAL MEDICAL SUMMARY RPT | Continuity of Care Document ---
:1955 Demographics Phone Unavailable Preferred Language Unknown Marital Status Unknown Buddhism Affiliation Unknown Race Unknown Ethnic Group Unknown Author Organization [place] Address [address] [phone] Phone Allergies Encounters Medications Problems Results
[2020-07-15 10:01] VITALS: BP 164/86
[2020-07-15] MEDS ORDERED: MORPHINE 2 MG/ML CARPUJECT IVP STA (10:10)
[2020-07-15] MEDS ORDERED: IOVERSOL 320 100 ML VIAL IVP ONE ×2 (10:16→16:40)
--- OUTSIDE RECORDS SUMMARY | 2020-07-15 10:16 | EXTERNAL MEDICAL SUMMARY RPT | Continuity of Care Document ---
:1955 Demographics Phone Unavailable Preferred Language Unknown Marital Status Unknown Faith Affiliation Unknown Race Unknown Ethnic Group Unknown Author Organization [place] Address [address] [id number] Phone Allergies Encounters Medications Problems Results
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
[2020-07-15 11:03] LABS: BASOPHILS # (AUTO) 0.1 10^3/uL (0.0-0.1); BASOPHILS % (AUTO) 0.6 %; EOSINOPHILS # (AUTO) 0.4 10^3/uL (0.0-0.7); EOSINOPHILS % (AUTO) 4.3 %; HCT - HEMATOCRIT 46.6 % (42.0-52.0); HGB - HEMOGLOBIN 15.4 g/dL (14.0-18.0); LYMPHOCYTES # (AUTO) 1.4 10^3/uL (1.5-3.5); LYMPHOCYTES % (AUTO) 16.9 %; MEAN CORPUSCULAR HEMOGLOBIN 30.1 pg (27.0-31.0); MEAN PLATELET VOLUME 11.3 fL (7.4-11.4); MONOCYTES # (AUTO) 0.9 10^3/uL (0.0-1.0); MONOCYTES % (AUTO) 10.2 %; NEUTROPHILS # (AUTO) 5.6 10^3/uL (1.5-6.6); NEUTROPHILS % (AUTO) 66.9 %; PLT - PLATELET COUNT 172 10^3/uL (130-450); RED BLOOD COUNT 5.12 10^6/uL (4.70-6.10); RED CELL DISTRIBUTION WIDTH 13.2 % (12.0-15.0); WHITE BLOOD COUNT 8.4 x10^3/uL (4.8-10.8)
[2020-07-15 11:14] LABS: CALCIUM 8.6 mg/dL (8.5-10.3); CREATININE 0.9 mg/dL (0.6-1.2); POTASSIUM 3.5 mmol/L (3.5-5.0)
--- NOTE | 2020-07-15 11:57 | CT Report ---
PROCEDURE: Abdomen/Pelvis W INDICATIONS: Diverticulitis, IV only CONTRAST: IV CONTRAST: Optiray 320 ml: 100 PO CONTRAST: *NO PO CONTRAST TECHNIQUE: After the administration of IV contrast, 5 mm thick sections acquired from the diaphragms to the symp hysis. 5 mm thick coronal and sagittal reformats were acquired. For radiation dose reduction, the f ollowing was used: automated exposure control, adjustment of mA and/or kV according to patient size. COMPARISON: CT abdomen pelvis 07/10/2020 FINDINGS: Image quality: Excellent. ABDOMEN: Lung bases: Lung bases are clear. Heart size is normal. Solid organs: Liver and spleen are normal in size and enhancement. Gallbladder is absent. There is a ductal dilation with the common bile duct measuring approximately 1.4 cm, unchanged compared to benjamin or exam. Pancreatic duct measures 6 mm in the pancreatic head. No mass is identified in appearance is unchanged. Biliary Pancreas enhances normally. No adrenal nodules. [place] kidneys are markedly atr ophic. Transplanted kidney in the right lower quadrant demonstrates normal contrast enhancement witho ut gross hydronephrosis. Previous noted prominence of the renal collecting system of the transplant [place] has resolved. Peritoneum and bowel: Bowel loops are nonobstructive. The previous focus of proximal sigmoid colonic thickening with pericolonic inflammation and diverticula demonstrates marked interval improvement. M ild residual inflammation persists. However, there is now mild interval thickening with inflammatory change identified within the sigmoid colon approximately 3 to 5 cm distal from the initial focus of i nflammation on 07/10/2020. No abscess is identified. No free fluid or air. Nodes and vessels: No retroperitoneal or mesenteric adenopathy by size criteria. Aorta and inferior vena cava are normal in size. Miscellaneous: No ventral hernias. PELVIS: Genitourinary: Bladder wall thickness is normal. Miscellaneous: No inguinal hernias or adenopathy. Bones: No suspicious bony lesions. No vertebral body compression fractures. IMPRESSION: 1. Multifocal colitis secondary to diverticulitis, improving in the more proximal, initially identifi ed sigmoid focus. New focus of increased inflammation within a more distal sigmoid focus is identifie d today. No abscess. 2. Resolved appearance of previously resolved renal collecting system prominence within the transplan [place] kidney. Reviewed by: Julissa Simons MD on 07/15/2020 11:56 AM PDT Approved by: Julissa Simons MD on 07/15/2020 11:56 AM PDT Station ID: [id number]
[2020-07-15] MEDS ORDERED: metroNIDAZOLE 250 MG TABLET PO STA (12:06)
[2020-07-15] MEDS ORDERED: CIPROFLOXACIN 250 MG TABLET PO STA (12:06)
== END 2020-07-15 12:20 | disposition home or self-care (01) ==
LOC: ED 09:51
DX: K57.32 Diverticulitis of large intestine without perforation or abscess without bleeding (principal); E11.9 Type 2 diabetes mellitus without complications; E03.9 Hypothyroidism, unspecified; Z94.4 Liver transplant status; Z94.0 Kidney transplant status; Z87.891 Personal history of nicotine dependence
CPT/HCPCS: 36415; 74177; 80048; 85025; 96374; 99284; A9270; Q9967

== ENCOUNTER 2020-07-22 04:22 | Emergency (ER) | payer MEDICARE, OTHER ==
--- OUTSIDE RECORDS SUMMARY | 2020-07-22 04:26 | EXTERNAL MEDICAL SUMMARY RPT | Continuity of Care Document ---
:1955 Demographics Phone Unavailable Preferred Language Unknown Marital Status Unknown Buddhist Affiliation Unknown Race Unknown Ethnic Group Unknown Author Organization [facility] Address [address] [phone] Phone Allergies Encounters Medications Problems Results
[2020-07-22] MEDS ORDERED: ONDANSETRON 4 MG/2 ML VIAL IVP STA (04:29)
--- OUTSIDE RECORDS SUMMARY | 2020-07-22 04:30 | EXTERNAL MEDICAL SUMMARY RPT | Continuity of Care Document ---
:1955 Demographics Phone Unavailable Preferred Language Unknown Marital Status Unknown Mandaen Affiliation Unknown Race Unknown Ethnic Group Unknown Author Organization [facility] Address [address] [phone] Phone Allergies Encounters Medications Problems Results
[2020-07-22] MEDS ORDERED: SODIUM CHLORIDE 0.9% 2,200 ML IV STA (04:41)
[2020-07-22] MEDS ORDERED: PIPERACILLIN/TAZOBACTAM 3.375 GM in SODIUM CHLORIDE 0.9% MINIBAG 100 ML IV STA (04:52)
[2020-07-22] MEDS: SODIUM CHLORIDE 0.9% 1,000 ML IV STA ×2 (04:53→05:32)
[2020-07-22] MEDS ORDERED: MORPHINE 2 MG/ML CARPUJECT IVP STA (04:53)
[2020-07-22] MEDS ORDERED: IOVERSOL 320 100 ML VIAL IVP ONE ×2 (04:54→05:45)
[2020-07-22 04:56] LABS: BASOPHILS % (AUTO) 0.7 %; EOSINOPHILS # (AUTO) 0.2 10^3/uL (0.0-0.7); EOSINOPHILS % (AUTO) 2.5 %; HCT - HEMATOCRIT 44.9 % (42.0-52.0); HGB - HEMOGLOBIN 14.6 g/dL (14.0-18.0); LYMPHOCYTES % (AUTO) 17.3 %; MEAN CORPUSCULAR HEMOGLOBIN 29.7 pg (27.0-31.0); MEAN CORPUSCULAR HGB CONC 32.5 g/dL (32.0-36.0); MEAN CORPUSCULAR VOLUME 91.3 fL (80.0-94.0); MONOCYTES # (AUTO) 0.9 10^3/uL (0.0-1.0); MONOCYTES % (AUTO) 14.8 %; NEUTROPHILS # (AUTO) 3.8 10^3/uL (1.5-6.6); NEUTROPHILS % (AUTO) 62.9 %; PLT - PLATELET COUNT 179 10^3/uL (130-450); RED BLOOD COUNT 4.92 10^6/uL (4.70-6.10); RED CELL DISTRIBUTION WIDTH 13.2 % (12.0-15.0)
--- NOTE | 2020-07-22 04:56 | ED Physician Documentation ---
History of Present Illness - Stated complaint Stated Complaint: FEVER, VOMITTING, NAUSEA, CHILLS, HEADACHE - Chief complaint Chief Complaint: Critical Care - History obtained from History obtained from: Patient - Additonal information Additional information: 64-year-old man with diagnosis of diverticulitis 2 weeks ago and 07/10 presents with persistent worsening symptoms since that time despite tapering courses of antibiotics. Patient states that he woke with fever and chills, generalized body aches and left lower quadrant abdominal pain radiating diffusely as well as nonbloody nonbilious nausea and vomiting. Review of Systems Ten Systems: 10 systems reviewed and negative Constitutional: reports: Fever, Chills, Myalgias, Fatigue Cardiac: denies: Chest pain / pressure Respiratory: denies: Dyspnea, Cough GI: reports: Abdominal Pain, Nausea, Vomiting : denies: Dysuria PD PAST MEDICAL HISTORY - Past Medical History Cardiovascular: Deep vein thrombosis Respiratory: Pneumonia Neuro: None Endocrine/Autoimmune: HyPOthyroidism GI: Hepatitis : Benign prostate hypertrophy, Retention HEENT: None Psych: None Musculoskeletal: Chronic back pain Derm: Psoriasis - Past Surgical History Past Surgical History: Yes General: Liver surgery, Other Ortho: Spine surgery, Amputation Neuro: Other HEENT: Tonsil/Adenoidectomy - Present Medications Home Medications: Ambulatory Orders Medication Instructions Recorded Confirmed Diazepam [Valium] 10 mg PO Q6H PRN 06/25/12 07/22/20 Tacrolimus 1 mg PO BID 06/25/12 07/22/20 predniSONE [Deltasone] 5 mg PO DAILY 06/25/12 07/22/20 Betamethasone Valerate 1 applic TOP .THREE TIMES WEEKLY 05/19/16 07/22/20 Levothyroxine [Synthroid] 75 mcg PO DAILY 05/19/16 07/22/20 Mycophenolate Sodium [Mycophenolic 360 mg PO BID 05/19/16 07/22/20 Acid] oxyCODONE [Roxicodone] 5 mg PO Q8H PRN 05/19/16 07/22/20 Albuterol Sulf [Ventolin Hfa 1 - 2 puffs INH Q4HR PRN #1 inhaler 01/05/20 07/22/20 Inhaler] Tamsulosin [Flomax] 0.4 mg PO BID 06/19/20 07/22/20 Amox/Clav 875/125 [Augmentin 1 tablet PO Q12H 10 Days #20 tablet 07/10/20 07/22/20 875/125 Tab] Ciprofloxacin HCl [Cipro] 500 mg PO BID #20 tablet 07/15/20 07/22/20 metroNIDAZOLE [Flagyl] 500 mg PO TID #30 tablet 07/15/20 07/22/20 - Allergies Allergies/Adverse Reactions: Allergies Allergy/AdvReac Type Severity Reaction Status Date / Time hydromorphone HCl * AdvReac Unknown Verified 07/15/20 10:01 [From Dilaudid] - Social History Does the pt smoke?: No Smoking Status: Former smoker Does the pt drink ETOH?: No Does the pt have substance abuse?: No - Immunizations Immunizations are current?: Yes - POLST Patient has POLST: Yes PD ED PE NORMAL - Vitals Vital signs reviewed: Yes - General General: Alert and oriented X 3, Well developed/nourished, Other (Retching, uncomfortable appearing) - HEENT HEENT: Atraumatic, PERRL, EOMI - Neck Neck: Supple, no meningeal sign - Cardiac Cardiac: Other (Tachycardic rate, regular rhythm) - Respiratory Respiratory: No respiratory distress, Clear bilaterally - Abdomen Abdomen: Other (Discomfort to palpation diffusely.) - Back Back: No CVA TTP - Derm Derm: Normal color - Extremities Extremities: Other (Bilateral arm amputations.) - Neuro Neuro: Alert and oriented X 3 - Psych Psych: Normal mood, Normal affect Results - Vitals Vitals: Vital Signs - 24 hr 07/22/20 07/22/20 07/22/20 04:25 04:31 05:01 Temperature 37.7 C 37.7 C 37.7 C Heart Rate 124 H 113 H 115 H Respiratory 22 11 L 12 Rate Blood Pressure 164/105 H 157/99 H 155/98 H O2 Saturation 93 94 93 07/22/20 05:30 Temperature 37.6 C Heart Rate 100 Respiratory 13 Rate Blood Pressure 154/88 H O2 Saturation 94 Oxygen O2 Source Nasal cannula - EKG (time done) 0509 Rate: Rate (enter#) (111) Rhythm: Sinus tachycardia Intervals: Normal GA, QRS normal - Labs Labs: Laboratory Tests 07/22/20 07/22/20 07/22/20 04:50 04:50 04:50 WBC 6.0 RBC 4.92 Hgb 14.6 Hct 44.9 MCV 91.3 MCH 29.7 MCHC 32.5 RDW 13.2 Plt Count 179 MPV 11.0 Neut # (Auto) 3.8 Lymph # (Auto) 1.0 L Ritchie # (Auto) 0.9 Eos # (Auto) 0.2 Baso # (Auto) 0.0 Absolute Nucleated RBC 0.00 Nucleated RBC % 0.0 Sodium 137 Potassium 3.6 Chloride 101 Carbon Dioxide 23 Anion Gap 13.0 BUN 7 Creatinine 1.2 Estimated GFR (MDRD) 61 L Glucose 104 H Lactic Acid 1.8 Calcium 8.9 Total Bilirubin 0.9 AST 43 H ALT 28 Alkaline Phosphatase 44 Total Protein 6.8 Albumin 3.9 Globulin 2.9 Albumin/Globulin Ratio 1.3 Lipase 60 H PD MEDICAL DECISION MAKING - ED course ED course: 64-year-old man presents with sepsis likely secondary to diverticulitis refractory to outpatient antibiotics. We will obtain CT scan, give antibiotics, 30 cc/kg bolus, reevaluate. patient endorsed to incoming daytime ED MD for further management and care.
[2020-07-22 05:09] LABS: ALBUMIN 3.9 g/dL (3.2-5.5); ALBUMIN/GLOBULIN RATIO 1.3 (1.0-2.2); BILIRUBIN,TOTAL 0.9 mg/dL (0.2-1.0); CALCIUM 8.9 mg/dL (8.5-10.3); CREATININE 1.2 mg/dL (0.6-1.2); POTASSIUM 3.6 mmol/L (3.5-5.0); TOTAL PROTEIN 6.8 g/dL (6.7-8.2)
[2020-07-22] MEDS ORDERED: KETOROLAC 30 MG/ML VIAL IVP STA (06:04)
[2020-07-22] MEDS ORDERED: ACETAMINOPHEN 325 MG TABLET PO STA (06:04)
[2020-07-22 06:23] LABS: CORONAVIRUS 229E-RESP PCR NOT DETECTED; CORONAVIRUS HKU1-RESP PCR NOT DETECTED; CORONAVIRUS NL63-RESP PCR NOT DETECTED; CORONAVIRUS OC43-RESP PCR NOT DETECTED
[2020-07-22 06:26] LABS: B. PARAPERTUSSIS- RESP PCR PAN NOT DETECTED; B. PERTUSSIS- RESP PCR PANEL NOT DETECTED; C. PNEUMONIAE- RESP PCR PANEL NOT DETECTED; HUMAN METAPNEUMOVIRUS NOT DETECTED; INFLUENZA A- RESP PCR PANEL NOT DETECTED; INFLUENZA B - RESP PCR PANEL NOT DETECTED; M. PNEUMONIAE- RESP PCR PANEL NOT DETECTED; PARAINFLUENZA VIRUS 1 NOT DETECTED; PARAINFLUENZA VIRUS 2 NOT DETECTED; PARAINFLUENZA VIRUS 3 NOT DETECTED; PARAINFLUENZA VIRUS 4 NOT DETECTED; RHINOVIRUS/ENTEROVIRUS NOT DETECTED; RSV- RESP PCR PANEL NOT DETECTED; SARS-CoV-2 -RESP PCR PANEL DETECTED
[2020-07-22 06:31] LABS: BILIRUBIN,URINE NEGATIVE (NEGATIVE); GLUCOSE, URINE (UA) NEGATIVE (NEGATIVE); KETONES,URINE (UA) NEGATIVE (NEGATIVE); LEUKOCYTE ESTERASE, URINE NEGATIVE (NEGATIVE); NITRITE,URINE NEGATIVE (NEGATIVE); OCCULT BLOOD,URINE NEGATIVE (NEGATIVE); PROTEIN,URINE NEGATIVE (NEGATIVE); UROBILINOGEN,URINE 0.2 (NORMAL) E.U./dL (NORMAL)
[2020-07-22 06:32] LABS: CLARITY,URINE CLEAR (CLEAR)
[2020-07-22] MEDS ORDERED: SODIUM CHLORIDE 0.9% IV ONE (08:00)
[2020-07-22] MEDS ORDERED: ETESEVIMAB IV ONE (08:00)
[2020-07-22] MEDS ORDERED: BAMLANIVIMAB IV ONE (08:00)
--- NOTE | 2020-07-22 09:02 | CT Report ---
PROCEDURE: Abdomen/Pelvis W INDICATIONS: abd pain, hx diverticulitis, fever CONTRAST: IV CONTRAST: Optiray 320 ml: 100 PO CONTRAST: *NO PO CONTRAST TECHNIQUE: After the administration of IV contrast, 5 mm thick sections acquired from the diaphragms to the symp hysis. 5 mm thick coronal and sagittal reformats were acquired. For radiation dose reduction, the f ollowing was used: automated exposure control, adjustment of mA and/or kV according to patient size. COMPARISON: 07/15/2020, 07/10/2020, 09/05/2018. FINDINGS: Image quality: Excellent. ABDOMEN: Lung bases: Right basilar atelectasis is again seen and not significantly changed from prior studies. Heart size is normal. Solid organs: Liver and spleen are normal in size and enhancement. Dense calcifications are again se en within superior splenic parenchyma. Gallbladder is surgically absent. Stable intrahepatic biliary ductal dilatation and common bile duct dilatation is again seen. Diffuse dilatation of the pancreatic duct is again noted and unchanged. Pancreas enhances normally. No adrenal nodules. Atrophic bilater al [place] kidneys are seen with transplant kidney seen in right iliac fossa. Nonobstructing stone is again noted in mid pole of transplant kidney without hydronephrosis. Peritoneum and bowel: Compared to previous study, there is interval decrease in extent of pericolonic fat stranding involving proximal sigmoid colon in left lower quadrant abdomen. Extensive sigmoid div erticulosis is again seen. Mild of proximal sigmoid colon wall thickening is noted. No abscess collec tion. No bowel obstruction. No free fluid of free air. Appendix is visualized and is within normal li mits. Nodes and vessels: No retroperitoneal or mesenteric adenopathy by size criteria. Aorta and inferior vena cava are normal in size. Moderate atherosclerotic calcifications throughout abdominal aorta is seen Miscellaneous: No ventral hernias. PELVIS: Genitourinary: Bladder wall thickness is normal. Miscellaneous: No inguinal hernias or adenopathy. Bones: No suspicious bony lesions. No vertebral body compression fractures. IMPRESSION: 1. Interval significant improvement in sigmoid diverticulitis involving proximal sigmoid colon in lef t lower quadrant. Small amount of residual inflammatory changes are seen. No abscess collection. No n ew area of inflammation. No free fluid of free air. 2. Nonobstructing stone within right iliac fossa transplant kidney without hydronephrosis. Severely a trophic bilateral [place] kidneys. 3. Stable biliary and pancreatic ductal dilatation. No discrepancies from preliminary reading. Reviewed by: Junior Dove MD on 07/22/2020 9:01 AM PDT Approved by: Junior Dove MD on 07/22/2020 9:01 AM PDT Station ID: [id number]
[2020-07-22 10:02] VITALS: BP 130/62
--- NOTE | 2020-07-23 13:16 | ED Physician Documentation ---
ED Addendum - Addendum Addendum: 07/23/20 13:06 This patient was signed out to me by Dr. Mina at change of shift, pending CT and respiratory PCR results and final disposition. I evaluated the patient upon receipt, and he was found to be resting comfortably in bed. O2 sat was 100% on RA, and pt was conversing comfortably with no signs of respiratory distress. Lungs were clear. The pt had normalization of his temperature at this point, and reported feeling quite well. His abdominal CT showed resolution of the diverticulitis, but respiratory PCR was positive for COVID. The pt was well- appearing, and had a normal lactate and WBC count. He was still slightly tachycardic at just above 100 after resolution of fever, but blood pressure was normal, and was not trending downward. I felt this pt would likely be a good candidate for home management at this point in time, and as such, ordered monoclonal Ab infusion. The pt is not COVID vaccinated, nor are the 4 family members (including two older teenagers) who live with him. I have discussed with the pt that his family is at high risk of ezra COVID, as they all help care for the pt, and that they should go get tested for COVID, but otherwise, quarantine for 14 days. The pt is advised that if he begins to worsen at all, especially if he becomes dyspneic, he should return to the ED without delay. He is agreeable to the plan and expresses understanding. At time of discharge, pt was re-evaluated by myself again and found to be well-appearing and ambulatory without difficulty.
== END 2020-07-22 09:15 | disposition home or self-care (01) ==
LOC: ED 04:22
DX: U07.1 COVID-19 (principal); Z86.718 Personal history of other venous thrombosis and embolism; Z87.891 Personal history of nicotine dependence
CPT/HCPCS: 36415; 74177; 80053; 81003; 83605; 83690; 85025; 87040; 87631; 93005; 96365; 96375; 99284; 99285; A9270; M0239; Q0245; Q9967; 0202U; 81001; 87086

== ENCOUNTER 2020-08-07 21:07 | Emergency (ER) | payer MEDICARE, OTHER ==
--- NOTE | 2020-08-07 21:56 | ED Physician Documentation ---
History of Present Illness - Stated complaint Stated Complaint: L LEG PAIN - Chief complaint Chief Complaint: Ext Problem - History obtained from History obtained from: Patient, Family (daughter) - Additonal information Additional information: 64-year-old man with past medical history of renal transplant on immunosuppressive therapy, bilateral arm amputations, recent Covid diagnosed at the beginning of this month, presents with right leg pain gradual in onset today, currently a 4 out of 10. Daughter states that he had a pedicure with leg massage that she thinks may cause this, however they want to make sure it's not a clot. denies leg swelling, discoloration, injury. he is not very active at home but ambulatory independently. denies new onset cp, soa aside from his covid symptoms which have persisted since diagnosis. Review of Systems Ten Systems: 10 systems reviewed and negative Constitutional: denies: Fever, Chills PD PAST MEDICAL HISTORY - Past Medical History Cardiovascular: Deep vein thrombosis Respiratory: Pneumonia Neuro: None Endocrine/Autoimmune: HyPOthyroidism GI: Hepatitis : Benign prostate hypertrophy, Retention HEENT: None Psych: None Musculoskeletal: Chronic back pain Derm: Psoriasis - Past Surgical History Past Surgical History: Yes General: Liver surgery, Other Ortho: Spine surgery, Amputation Neuro: Other HEENT: Tonsil/Adenoidectomy - Present Medications Home Medications: Ambulatory Orders Medication Instructions Recorded Confirmed Diazepam [Valium] 10 mg PO Q6H PRN 06/25/12 07/22/20 Tacrolimus 1 mg PO BID 06/25/12 07/22/20 predniSONE [Deltasone] 5 mg PO DAILY 06/25/12 07/22/20 Betamethasone Valerate 1 applic TOP .THREE TIMES WEEKLY 05/19/16 07/22/20 Levothyroxine [Synthroid] 75 mcg PO DAILY 05/19/16 07/22/20 Mycophenolate Sodium [Mycophenolic 360 mg PO BID 05/19/16 07/22/20 Acid] oxyCODONE [Roxicodone] 5 mg PO Q8H PRN 05/19/16 07/22/20 Albuterol Sulf [Ventolin Hfa 1 - 2 puffs INH Q4HR PRN #1 inhaler 01/05/20 07/22/20 Inhaler] Tamsulosin [Flomax] 0.4 mg PO BID 06/19/20 07/22/20 Amox/Clav 875/125 [Augmentin 1 tablet PO Q12H 10 Days #20 tablet 07/10/20 07/22/20 875/125 Tab] Ciprofloxacin HCl [Cipro] 500 mg PO BID #20 tablet 07/15/20 07/22/20 metroNIDAZOLE [Flagyl] 500 mg PO TID #30 tablet 07/15/20 07/22/20 Apixaban [Eliquis] 5 mg PO BID #60 tablet 08/08/20 Apixaban [Eliquis] 10 mg PO BID 7 Days #28 tab 08/08/20 - Allergies Allergies/Adverse Reactions: Allergies Allergy/AdvReac Type Severity Reaction Status Date / Time hydromorphone HCl * AdvReac Unknown Verified 08/07/20 21:22 [From Dilaudid] - Social History Does the pt smoke?: No Smoking Status: Former smoker Does the pt drink ETOH?: No Does the pt have substance abuse?: No - Immunizations Immunizations are current?: Yes - POLST Patient has POLST: Yes PD ED PE NORMAL - Vitals Vital signs reviewed: Yes - General General: Alert and oriented X 3, No acute distress, Well developed/nourished - HEENT HEENT: Atraumatic, PERRL, EOMI - Neck Neck: Supple, no meningeal sign - Cardiac Cardiac: RRR - Respiratory Respiratory: No respiratory distress, Clear bilaterally - Abdomen Abdomen: Non tender, Non distended - Derm Derm: Normal color, Warm and dry - Extremities Extremities: Other (BL arm amputation. no swelling to BL LE. no discoloration. 2+ BL DP/PT pulses. normal strength and sensation) - Neuro Neuro: Alert and oriented X 3, No motor deficit, No sensory deficit Results - Vitals Vitals: Vital Signs - 24 hr 08/07/20 21:10 Temperature 36.0 C L Heart Rate 91 Respiratory 16 Rate Blood Pressure 112/68 O2 Saturation 98 Oxygen O2 Source Room air - Labs Labs: Microbiology 08/07/20 23:18 Occult Blood - Final Stool PD MEDICAL DECISION MAKING - ED course ED course: 64-year-old man presented with right leg pain, likely musculoskeletal in origin. Ultrasound of the veins in the right lower extremity noncontributory. Advised to have a follow-up ultrasound in 1 week. Return precautions given. Departure - Departure Disposition: 01 Home, Self Care Clinical Impression: Pain in extremity, Deep vein thrombosis Condition: Good Instructions: DVT Prescriptions: Apixaban [Eliquis] 10 mg PO BID 7 Days #28 tab Apixaban [Eliquis] 5 mg PO BID #60 tablet Comments: You are seen in the emergency department for leg pain. Your ultrasound was negative. You should have a follow up ultrasound in 1 week to completely rule out blood clot. You do not appear to be dehydrated on physical exam or on evaluation of your vital signs. Make sure that you try to drink 7 to 10 glasses of water a day. Return to the emergency department if you have any new or worsening symptoms or other concerns.
[2020-08-08] MEDS ORDERED: APIXABAN 5 MG TABLET PO STA (00:21)
[2020-08-08 00:35] VITALS: BP 123/71
--- NOTE | 2020-08-08 09:59 | Ultrasound Report ---
PROCEDURE: Duplex Ext Veins Right INDICATIONS: pain in RLE TECHNIQUE: Real-time imaging, as well as color and pulse Doppler interrogation, were performed of the lower extr emity deep veins from the inguinal ligament to the popliteal fossa. COMPARISON: None. FINDINGS: Extensive intralumenal filling defects are noted within the popliteal vein, and posterior t ibial vein extending to ankle level. No internal flow is seen. The veins are not compressible. IMPRESSION: Finding is consistent with extensive occlusive venous thrombosis involving popliteal vei n and posterior tibial vein. Reviewed by: Junior Dove MD on 08/08/2020 9:58 AM PDT Approved by: Junior Dove MD on 08/08/2020 9:58 AM PDT Station ID: [id number]
== END 2020-08-08 00:35 | disposition home or self-care (01) ==
LOC: ED 21:07
DX: I82.431 Acute embolism and thrombosis of right popliteal vein (principal); I82.441 Acute embolism and thrombosis of right tibial vein; U07.1 COVID-19; Z94.0 Kidney transplant status; Z79.899 Other long term (current) drug therapy; Z89.202 Acquired absence of left upper limb, unspecified level; Z89.201 Acquired absence of right upper limb, unspecified level; Z87.891 Personal history of nicotine dependence
CPT/HCPCS: 82272; 93971; 99284; A9270; 82274

== ENCOUNTER 2020-10-01 19:25 | Emergency (ER) | payer MEDICARE, OTHER ==
[2020-10-01 20:10] VITALS: BP 122/76
--- NOTE | 2020-10-01 20:58 | XRAY Report ---
PROCEDURE: Ankle 3 View RT INDICATIONS: GLF/ R ankle injury, swelling pain TECHNIQUE: 3 views of the ankle were acquired. COMPARISON: None. FINDINGS: Bones: No fractures or dislocations. Ankle mortise is normally aligned. No suspicious bony lesions . Second and third digit screws. Soft tissues: No tibiotalar joint effusion. Achilles tendon appears normal. Vascular calcification s. IMPRESSION: No acute osseous abnormality. Reviewed by: Alden Bai MD on 10/01/2020 8:57 PM PDT Approved by: Alden Bai MD on 10/01/2020 8:57 PM PDT Station ID: [id number]
[2020-10-01] MEDS ORDERED: HYDROcod/ACET 5/325 Prepack 4 PO STA (21:15)
--- NOTE | 2020-10-01 21:17 | ED Physician Documentation ---
PD HPI LOWER EXT INJURY - Stated complaint Stated Complaint: RIGHT ANKLE INJURY - Chief complaint Chief Complaint: Trauma Ext - History obtained from History obtained from: Patient, Family - History of Present Illness PD HPI LOW EXT INJURY LOCATION: Right (64-year-old gentleman with multiple comorbidities slipped and fell about 3 days ago injuring his right ankle. He is still able to walk and bear weight. No other injuries.) Review of Systems Constitutional: reports: Reviewed and negative Eyes: reports: Reviewed and negative Ears: reports: Reviewed and negative Nose: reports: Reviewed and negative Throat: reports: Reviewed and negative Cardiac: reports: Reviewed and negative PD PAST MEDICAL HISTORY - Past Medical History Cardiovascular: Deep vein thrombosis Respiratory: Pneumonia Neuro: None Endocrine/Autoimmune: HyPOthyroidism GI: Hepatitis : Benign prostate hypertrophy, Retention HEENT: None Psych: None Musculoskeletal: Chronic back pain Derm: Psoriasis - Past Surgical History Past Surgical History: Yes General: Liver surgery, Other Ortho: Spine surgery, Amputation Neuro: Other HEENT: Tonsil/Adenoidectomy - Present Medications Home Medications: Ambulatory Orders Medication Instructions Recorded Confirmed Diazepam [Valium] 10 mg PO Q6H PRN 06/25/12 07/22/20 Tacrolimus 1 mg PO BID 06/25/12 07/22/20 predniSONE [Deltasone] 5 mg PO DAILY 06/25/12 07/22/20 Betamethasone Valerate 1 applic TOP .THREE TIMES WEEKLY 05/19/16 07/22/20 Levothyroxine [Synthroid] 75 mcg PO DAILY 05/19/16 07/22/20 Mycophenolate Sodium [Mycophenolic 360 mg PO BID 05/19/16 07/22/20 Acid] oxyCODONE [Roxicodone] 5 mg PO Q8H PRN 05/19/16 07/22/20 Albuterol Sulf [Ventolin Hfa 1 - 2 puffs INH Q4HR PRN #1 inhaler 01/05/20 07/22/20 Inhaler] Tamsulosin [Flomax] 0.4 mg PO BID 06/19/20 07/22/20 Amox/Clav 875/125 [Augmentin 1 tablet PO Q12H 10 Days #20 tablet 07/10/20 07/22/20 875/125 Tab] Ciprofloxacin HCl [Cipro] 500 mg PO BID #20 tablet 05/26/21 06/02/21 metroNIDAZOLE [Flagyl] 500 mg PO TID #30 tablet 07/15/20 07/22/20 Apixaban [Eliquis] 5 mg PO BID #60 tablet 08/08/20 Apixaban [Eliquis] 10 mg PO BID 7 Days #28 tab 08/08/20 HYDROcod/ACETAM 5/325 [[place] 5/325] 1 - 2 tab PO Q6H PRN #10 tablet 10/01/20 - Allergies Allergies/Adverse Reactions: Allergies Allergy/AdvReac Type Severity Reaction Status Date / Time hydromorphone HCl * AdvReac Unknown Verified 08/07/20 21:22 [From Dilaudid] - Social History Does the pt smoke?: No Smoking Status: Former smoker Does the pt drink ETOH?: No Does the pt have substance abuse?: No - Immunizations Immunizations are current?: Yes - POLST Patient has POLST: Yes PD ED PE NORMAL - Vitals Vital signs reviewed: Yes - General General: Alert and oriented X 3, No acute distress - Extremities Extremities: Other (Tender over the lateral malleolus of the right ankle with some surrounding swelling and bruising. No proximal fibular or foot tenderness.) - Neuro Neuro: Alert and oriented X 3, Normal speech - Psych Psych: Normal mood, Normal affect Results - Vitals Vitals: Vital Signs - 24 hr 10/01/20 20:07 Temperature 36.1 C L Heart Rate 86 Respiratory 16 Rate Blood Pressure 122/76 O2 Saturation 96 Oxygen O2 Source Room air - Rads (name of study) Three-view x-ray of the right ankle is without evidence of fracture. Radiology: EMP read contemporaneously PD MEDICAL DECISION MAKING - ED course Complexity details: reviewed old records (I am prescribing a short course of short-acting opioid pain medication for this patient. I have reviewed the patients [employer] and no concerning findings were noted. I have discussed that the opioids are for short term therapy only, and will not be refilled from the ED.) Departure - Departure Disposition: 01 Home, Self Care Clinical Impression: Ankle injury Qualifiers: Encounter type: initial encounter Laterality: right Qualified Code(s): S99.911A - Unspecified injury of right ankle, initial encounter Condition: Good Record reviewed to determine appropriate education?: Yes Instructions: ED Sprain Ankle Prescriptions: HYDROcod/ACETAM 5/325 [[place] 5/325] 1 - 2 tab PO Q6H PRN #10 tablet PRN Reason: Pain Comments: Wear the air splint as needed for comfort, if not improved over the next week or 2 return or follow-up with your primary care physician for consideration for reexamination and repeat x-rays. I am prescribing a short course of narcotic pain medication for you. These are potentially dangerous and addictive medications that should be used carefully. These medications may constipate you. Take an [id number]-[id number] stool softener (docusate) twice daily with plenty of water while taking these medications. If you go 24 hours without a bowel movement, take [id number] miralax, per package instructions. Do not drink or drive while taking these medications. If you received narcotic or sedating medications while in the emergency department, do not drive for 24 hours. Store this medication in a safe, secure place and out of reach of children. It is a violation of federal law to give or sell this medication to another person or to use in a manner other than prescribed. The ED will not refill narcotic prescriptions, including prescriptions lost or stolen. To dispose of unwanted medications: 1. [facility] at [address] in [place] has a medication drop box. They accept prescription medications (in pill form) Monday through Monday 9:00 a.m. to 5:00 p.m. 2. [facility] [employer] accepts prescription medications (in pill form only) for disposal year round. Call for more information. 3. Contact the [facility] for the next [facility] sponsored prescription drug collection event. , [phone], or [phone]; Note that many narcotic pain relievers also contain Tylenol/acetaminophen. Please ensure that your total dose of acetaminophen from all sources does not exceed 3 g (3000 mg) per day.
== END 2020-10-01 21:28 | disposition home or self-care (01) ==
LOC: ED 19:25
DX: S99.911A Unspecified injury of right ankle, initial encounter (principal); Z87.891 Personal history of nicotine dependence; W10.8XXA Fall (on) (from) other stairs and steps, initial encounter; Y93.89 Activity, other specified
CPT/HCPCS: 99283

== ENCOUNTER 2020-10-19 15:16 | Outpatient (CLI) | payer MEDICARE, OTHER ==
--- NOTE | 2020-10-19 18:02 | XRAY Report ---
PROCEDURE: Ankle 3 View RT INDICATIONS: PAIN IN RIGHT ANKLE AND JOINT OF RIGHT FOOT TECHNIQUE: 3 views of the ankle were acquired. COMPARISON: 10/01/2020 FINDINGS: Bones: No fractures or dislocations. Ankle mortise is normally aligned. No suspicious bony lesions . Soft tissues: No tibiotalar joint effusion. Achilles tendon appears normal. IMPRESSION: No fractures. Reviewed by: Nahed Lake MD on 10/19/2020 6:00 PM PDT Approved by: Nahed Lake MD on 10/19/2020 6:00 PM PDT Station ID: [id number]
== END 2020-10-19 15:17 | disposition home or self-care (01) ==
LOC: LAB 15:16
PROVIDERS: ATTEND Family Medicine
DX: M25.571 Pain in right ankle and joints of right foot (principal)

== ENCOUNTER 2021-05-06 14:21 | Outpatient (CLI) | payer MEDICARE, OTHER | END 2021-05-06 14:22 | disposition home or self-care (01) | LOC: LAB 14:21 | PROVIDERS: ATTEND Internal Medicine Nephrology | DX: Z53.9 Procedure and treatment not carried out, unspecified reason (principal) | CPT/HCPCS: 81001; 87086 ==

== ENCOUNTER 2021-05-07 09:20 | Outpatient (CLI) | payer MEDICARE, OTHER ==
[2021-05-07 09:34] LABS: BILIRUBIN,URINE NEGATIVE (NEGATIVE); GLUCOSE, URINE (UA) NEGATIVE (NEGATIVE); KETONES,URINE (UA) NEGATIVE (NEGATIVE); LEUKOCYTE ESTERASE, URINE NEGATIVE (NEGATIVE); NITRITE,URINE NEGATIVE (NEGATIVE); OCCULT BLOOD,URINE NEGATIVE (NEGATIVE); PH,URINE 5.5 PH (5.0-7.5); PROTEIN,URINE NEGATIVE (NEGATIVE); UROBILINOGEN,URINE 0.2 (NORMAL) E.U./dL (NORMAL)
[2021-05-07 09:42] LABS: BACTERIA,URINE None Seen /HPF (None Seen); CLARITY,URINE CLEAR (CLEAR); RBC,URINE None Seen /HPF (0-5); SQUAMOUS EPITHELIAL CELL,UR NONE SEEN (<= Few); WBC,URINE 0-3 /HPF (0-3)
== END 2021-05-07 09:21 | disposition home or self-care (01) ==
LOC: LAB 09:20
PROVIDERS: ATTEND Internal Medicine Nephrology
DX: N30.00 Acute cystitis without hematuria (principal)
CPT/HCPCS: 81001; 87086

== ENCOUNTER 2021-05-11 14:56 | Emergency (ER) | payer MEDICARE, OTHER ==
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
[2021-05-11 15:59] LABS: BASOPHILS % (AUTO) 0.6 %; EOSINOPHILS # (AUTO) 0.1 10^3/uL (0.0-0.7); EOSINOPHILS % (AUTO) 1.5 %; LYMPHOCYTES # (AUTO) 1.8 10^3/uL (1.5-3.5); LYMPHOCYTES % (AUTO) 26.4 %; MEAN CORPUSCULAR HEMOGLOBIN 28.2 pg (27.0-31.0); MEAN CORPUSCULAR HGB CONC 31.8 g/dL (32.0-36.0); MEAN CORPUSCULAR VOLUME 88.7 fL (80.0-94.0); MEAN PLATELET VOLUME 11.2 fL (7.4-11.4); MONOCYTES # (AUTO) 0.5 10^3/uL (0.0-1.0); MONOCYTES % (AUTO) 8.1 %; NEUTROPHILS # (AUTO) 4.2 10^3/uL (1.5-6.6); NEUTROPHILS % (AUTO) 62.8 %; PLT - PLATELET COUNT 162 10^3/uL (130-450); RED BLOOD COUNT 4.96 10^6/uL (4.70-6.10); RED CELL DISTRIBUTION WIDTH 14.2 % (12.0-15.0); WHITE BLOOD COUNT 6.7 x10^3/uL (4.8-10.8)
[2021-05-11 16:11] LABS: ALBUMIN 3.8 g/dL (3.2-5.5); ALBUMIN/GLOBULIN RATIO 1.5 (1.0-2.2); BILIRUBIN,TOTAL 0.8 mg/dL (0.2-1.0); CALCIUM 8.8 mg/dL (8.5-10.3); CREATININE 1.1 mg/dL (0.6-1.2); MAGNESIUM 1.8 mg/dL (1.7-2.8); PHOSPHORUS 3.1 mg/dL (2.5-4.6); POTASSIUM 4.2 mmol/L (3.5-5.0); TOTAL PROTEIN 6.4 g/dL (6.7-8.2)
[2021-05-11 16:15] LABS: BILIRUBIN,URINE NEGATIVE (NEGATIVE); GLUCOSE, URINE (UA) NEGATIVE (NEGATIVE); KETONES,URINE (UA) NEGATIVE (NEGATIVE); LEUKOCYTE ESTERASE, URINE NEGATIVE (NEGATIVE); NITRITE,URINE NEGATIVE (NEGATIVE); OCCULT BLOOD,URINE NEGATIVE (NEGATIVE); PROTEIN,URINE NEGATIVE (NEGATIVE); UROBILINOGEN,URINE 0.2 (NORMAL) E.U./dL (NORMAL)
[2021-05-11 16:17] LABS: CLARITY,URINE CLEAR (CLEAR)
[2021-05-11] MEDS ORDERED: OXYBUTYNIN 5MG TABLET PO STA (17:54)
[2021-05-11 18:36] VITALS: BP 111/72
== END 2021-05-11 18:36 | disposition home or self-care (01) ==
LOC: ED 14:56
DX: R33.9 Retention of urine, unspecified (principal); Z20.822 Contact with and (suspected) exposure to COVID-19
CPT/HCPCS: 36415; 51702; 80053; 81003; 83690; 83735; 84100; 85025; 87635; 99283; 99284; A9270; 81001; 87086

== ENCOUNTER 2021-05-24 17:33 | Emergency (ER) | payer MEDICARE, OTHER ==
[2021-05-24 18:00] VITALS: BP 136/81
[2021-05-24] MEDS ORDERED: LIDOCAINE OINTMENT 5% 35.44 GM TUBE TOP STA (18:26)
--- NOTE | 2021-05-24 19:09 | ED Physician Documentation ---
History of Present Illness - Stated complaint Stated Complaint: BLEEDING FROM CATH - Chief complaint Chief Complaint: General - History obtained from History obtained from: Patient - History of Present Illness Timing: Today Pain level max: 4 Pain level now: 3 - Additonal information Additional information: Patient is a 65-year-old male who presents to the emergency department stating that he had blood around his penis today from his catheter. He states that there is a burning sensation at the tip of the penis as well. He states that the leg adhesive had fallen off a few days ago. Nothing makes it better or worse. No current bleeding. Review of Systems Constitutional: denies: Fever, Chills Respiratory: denies: Dyspnea, Cough GI: denies: Abdominal Pain, Nausea, Vomiting, Diarrhea Skin: denies: Rash Musculoskeletal: denies: Neck pain, Back pain Neurologic: denies: Headache PD PAST MEDICAL HISTORY - Past Medical History Cardiovascular: Deep vein thrombosis Respiratory: Pneumonia Neuro: None Endocrine/Autoimmune: HyPOthyroidism GI: Hepatitis : Benign prostate hypertrophy, Retention HEENT: None Psych: None Musculoskeletal: Chronic back pain Derm: Psoriasis - Past Surgical History Past Surgical History: Yes General: Liver surgery, Other (liver and kidney transplants. ) Ortho: Spine surgery, Amputation Neuro: Other HEENT: Tonsil/Adenoidectomy - Present Medications Home Medications: Ambulatory Orders Medication Instructions Recorded Confirmed Diazepam [Valium] 10 mg PO Q6H PRN 06/25/12 07/22/20 Tacrolimus 1 mg PO BID 06/25/12 07/22/20 predniSONE [Deltasone] 5 mg PO DAILY 06/25/12 07/22/20 Betamethasone Valerate 1 applic TOP .THREE TIMES WEEKLY 05/19/16 07/22/20 Levothyroxine [Synthroid] 75 mcg PO DAILY 05/19/16 07/22/20 Mycophenolate Sodium [Mycophenolic 360 mg PO BID 05/19/16 07/22/20 Acid] oxyCODONE [Roxicodone] 5 mg PO Q8H PRN 05/19/16 07/22/20 Albuterol Sulf [Ventolin Hfa 1 - 2 puffs INH Q4HR PRN #1 inhaler 01/05/20 07/22/20 Inhaler] Tamsulosin [Flomax] 0.4 mg PO BID 06/19/20 07/22/20 Amox/Clav 875/125 [Augmentin 1 tablet PO Q12H 10 Days #20 tablet 07/10/20 07/22/20 875/125 Tab] Ciprofloxacin HCl [Cipro] 500 mg PO BID #20 tablet 07/15/20 07/22/20 metroNIDAZOLE [Flagyl] 500 mg PO TID #30 tablet 07/15/20 07/22/20 Apixaban [Eliquis] 5 mg PO BID #60 tablet 08/08/20 Apixaban [Eliquis] 10 mg PO BID 7 Days #28 tab 08/08/20 HYDROcod/ACETAM 5/325 [[place] 5/325] 1 - 2 tab PO Q6H PRN #10 tablet 10/01/20 Oxybutynin [Ditropan] 5 mg PO BID #10 tablet 05/11/21 - Allergies Allergies/Adverse Reactions: Allergies Allergy/AdvReac Type Severity Reaction Status Date / Time hydromorphone HCl * AdvReac Unknown Verified 05/24/21 17:53 [From Dilaudid] - Social History Does the pt smoke?: No Smoking Status: Never smoker Does the pt drink ETOH?: No Does the pt have substance abuse?: No - Immunizations Immunizations are current?: Yes - POLST Patient has POLST: Yes PD ED PE NORMAL - Vitals Vital signs reviewed: Yes - General General: Alert and oriented X 3, No acute distress, Well developed/nourished - HEENT HEENT: Moist mucous membranes - Cardiac Cardiac: RRR - Respiratory Respiratory: No respiratory distress, Clear bilaterally - Abdomen Abdomen: Soft, Non tender, Non distended - Male Male : Other (No visible bleeding at the penis. Tip of penis appears irritated. Catheter in place.) - Derm Derm: Warm and dry - Neuro Neuro: Alert and oriented X 3 - Psych Psych: Normal mood, Normal affect Results - Vitals Vitals: Vital Signs - 24 hr 05/24/21 05/24/21 17:53 18:00 Temperature 36.7 C 36.7 C Heart Rate 80 80 Respiratory 16 16 Rate Blood Pressure 136/81 H 136/81 H O2 Saturation 97 97 Oxygen O2 Source Room air PD MEDICAL DECISION MAKING - ED course Complexity details: considered differential, d/w patient ED course: 65-year-old male with left eye irritation to the tip of the penis secondary to the catheter being in place. Does not appear infected. Pain resolved with lidocaine. His clip securing the catheter is leg had become dislodged. A new clip was applied. He has an appointment later this week and will be reviewed by his doctor. Patient counseled regarding signs and symptoms for which I believe and urgent re-evaluation would be necessary. Patient with good understanding of and agreement to plan and is comfortable going home at this time This document was made in part using voice recognition software. While efforts are made to proofread this document, sound alike and grammatical errors may occur. Departure - Departure Disposition: 01 Home, Self Care Clinical Impression: Penile trauma Qualifiers: Encounter type: initial encounter Qualified Code(s): S39.94XA - Unspecified injury of external genitals, initial encounter Condition: Good Instructions: ED Catheter Care Farrell Follow-Up: Milton Coombs MD [Primary Care Provider] - Within 3 Days Comments: I would contact your urologist to see if the appointment can be moved up to have you evaluated sooner. They can also recheck your catheter on when you go for your appointment. Return if you develop fevers or worsening symptoms. Make sure that there is not too much tension on the catheter itself. Discharge Date/Time: 05/24/21 19:16
== END 2021-05-24 19:16 | disposition home or self-care (01) ==
LOC: ED 17:33
DX: S39.94XA Unspecified injury of external genitals, initial encounter (principal); X58.XXXA Exposure to other specified factors, initial encounter
CPT/HCPCS: 99282; A9270

== ENCOUNTER 2021-05-26 07:02 | Emergency (ER) | payer MEDICARE, OTHER ==
--- NOTE | 2021-05-26 07:17 | ED Physician Documentation ---
PD HPI MALE - Stated complaint Stated Complaint: MALE - Additional information Additional information: Patient is 65-year-old male presenting to the emergency department with request for change for his Farrell catheter. Past medical significant for chronic indwelling Farrell catheter. He is a bilateral hand amputee. Was attempting to change his bag this morning and inadvertently punctured his leg bag with one of his prosthesis. He denies other acute complaints. Review of Systems Ten Systems: 10 systems reviewed and negative Constitutional: denies: Fever Cardiac: denies: Chest pain / pressure GI: denies: Abdominal Pain PD PAST MEDICAL HISTORY - Past Medical History Cardiovascular: Deep vein thrombosis Respiratory: Pneumonia Neuro: None Endocrine/Autoimmune: HyPOthyroidism GI: Hepatitis : Benign prostate hypertrophy, Retention HEENT: None Psych: None Musculoskeletal: Chronic back pain Derm: Psoriasis - Past Surgical History Past Surgical History: Yes General: Liver surgery, Other (liver and kidney transplants. ) Ortho: Spine surgery, Amputation Neuro: Other HEENT: Tonsil/Adenoidectomy - Present Medications Home Medications: Ambulatory Orders Medication Instructions Recorded Confirmed Diazepam [Valium] 10 mg PO Q6H PRN 06/25/12 07/22/20 Tacrolimus 1 mg PO BID 06/25/12 07/22/20 predniSONE [Deltasone] 5 mg PO DAILY 06/25/12 07/22/20 Betamethasone Valerate 1 applic TOP .THREE TIMES WEEKLY 05/19/16 07/22/20 Levothyroxine [Synthroid] 75 mcg PO DAILY 05/19/16 07/22/20 Mycophenolate Sodium [Mycophenolic 360 mg PO BID 05/19/16 07/22/20 Acid] oxyCODONE [Roxicodone] 5 mg PO Q8H PRN 05/19/16 07/22/20 Albuterol Sulf [Ventolin Hfa 1 - 2 puffs INH Q4HR PRN #1 inhaler 01/05/20 07/22/20 Inhaler] Tamsulosin [Flomax] 0.4 mg PO BID 06/19/20 07/22/20 Amox/Clav 875/125 [Augmentin 1 tablet PO Q12H 10 Days #20 tablet 07/10/20 07/22/20 875/125 Tab] Ciprofloxacin HCl [Cipro] 500 mg PO BID #20 tablet 07/15/20 07/22/20 metroNIDAZOLE [Flagyl] 500 mg PO TID #30 tablet 07/15/20 07/22/20 Apixaban [Eliquis] 5 mg PO BID #60 tablet 08/08/20 Apixaban [Eliquis] 10 mg PO BID 7 Days #28 tab 08/08/20 HYDROcod/ACETAM 5/325 [[place] 5/325] 1 - 2 tab PO Q6H PRN #10 tablet 10/01/20 Oxybutynin [Ditropan] 5 mg PO BID #10 tablet 05/11/21 - Allergies Allergies/Adverse Reactions: Allergies Allergy/AdvReac Type Severity Reaction Status Date / Time hydromorphone HCl * AdvReac Unknown Verified 05/26/21 07:18 [From Dilaudid] - Social History Does the pt smoke?: No Smoking Status: Never smoker Does the pt drink ETOH?: No Does the pt have substance abuse?: No - Immunizations Immunizations are current?: Yes - POLST Patient has POLST: Yes PD ED PE NORMAL - General General: Alert and oriented X 3 - HEENT HEENT: Atraumatic - Neck Neck: Supple, no meningeal sign - Respiratory Respiratory: No respiratory distress - Male Male : Deferred - Rectal Rectal: Deferred Results - Vitals Vitals: Oxygen O2 Source Room air PD MEDICAL DECISION MAKING - ED course Complexity details: d/w patient ED course: Patient is 65-year-old male who inadvertently punctured his chronic indwelling Farrell catheter bag this morning. Changed in the emergency department. No other acute complaints at this time. Departure - Departure Disposition: 01 Home, Self Care Clinical Impression: Farrell catheter problem Comments: Thank you for allowing us to care for you today at [facility]. If at anytime in the future you have any further concerns or difficulties with your catheter please do not hesitate to return.
[2021-05-26 07:18] VITALS: BP 153/92
== END 2021-05-26 07:33 | disposition home or self-care (01) ==
LOC: ED 07:02
DX: T83.011A Breakdown (mechanical) of indwelling urethral catheter, initial encounter (principal)
CPT/HCPCS: 99281

== ENCOUNTER 2021-07-12 04:41 | Inpatient (IN) | payer MEDICARE, OTHER ==
[2021-07-12] MEDS ORDERED: ONDANSETRON 4 MG/2 ML VIAL IVP STA (05:08)
[2021-07-12] MEDS ORDERED: SODIUM CHLORIDE 0.9% 1,000 ML IV STA ×3 (05:08→09:40)
[2021-07-12 05:20] LABS: BASOPHILS % (AUTO) 0.5 %; EOSINOPHILS % (AUTO) 0.1 %; HCT - HEMATOCRIT 47.2 % (42.0-52.0); HGB - HEMOGLOBIN 15.7 g/dL (14.0-18.0); LYMPHOCYTES % (AUTO) 17.2 %; MEAN CORPUSCULAR HGB CONC 33.3 g/dL (32.0-36.0); MEAN CORPUSCULAR VOLUME 87.1 fL (80.0-94.0); MEAN PLATELET VOLUME 11.6 fL (7.4-11.4); MONOCYTES % (AUTO) 14.6 %; NEUTROPHILS % (AUTO) 66.9 %; PLT - PLATELET COUNT 153 10^3/uL (130-450); RED BLOOD COUNT 5.42 10^6/uL (4.70-6.10); RED CELL DISTRIBUTION WIDTH 13.5 % (12.0-15.0); WHITE BLOOD COUNT 18.3 x10^3/uL (4.8-10.8)
[2021-07-12] MEDS ORDERED: diltiaZEM INJ 5 MG/ML VIAL IVP STA ×2 (05:31→06:21)
[2021-07-12 05:47] LABS: ABNORMAL LYMPHS % (MANUAL) 0 %; ALBUMIN 3.9 g/dL (3.2-5.5); ALBUMIN/GLOBULIN RATIO 1.2 (1.0-2.2); BILIRUBIN,TOTAL 2.2 mg/dL (0.2-1.0); CALCIUM 9.5 mg/dL (8.5-10.3); CREATININE 1.5 mg/dL (0.6-1.2); POTASSIUM 3.3 mmol/L (3.5-5.0); TOTAL PROTEIN 7.1 g/dL (6.7-8.2)
[2021-07-12 05:48] LABS: BAND NEUTROPHILS % (MANUAL) 1 %; LYMPHOCYTES # (MANUAL) 3.3 10^3/uL (1.5-3.5); LYMPHOCYTES % (MANUAL) 18 %; MONOCYTES # (MANUAL) 1.3 10^3/uL (0.0-1.0); NEUTROPHILS # (MANUAL) 13.7 10^3/uL (1.5-6.6)
[2021-07-12 05:49] LABS: DIFFERENTIAL COMMENT MANUAL DIFFERENTIAL; PLATELET ESTIMATE, MANUAL NORMAL (130-450,000) (NORMAL); PLATELET MORPHOLOGY NORMAL APPEARANCE (NORMAL); RBC MORPHOLOGY (MULTIPLE) NORMAL APPEARANCE (NORMAL); WBC MORPHOLOGY (MULTIPLE) NORMAL APPEARANCE (NORMAL)
[2021-07-12] MEDS ORDERED: diltiaZEM CD 120 MG CAPSULE PO STA (06:21)
[2021-07-12 06:41] LABS: B. PARAPERTUSSIS- RESP PCR PAN NOT DETECTED; B. PERTUSSIS- RESP PCR PANEL NOT DETECTED; C. PNEUMONIAE- RESP PCR PANEL NOT DETECTED; CORONAVIRUS 229E-RESP PCR NOT DETECTED; CORONAVIRUS HKU1-RESP PCR NOT DETECTED; CORONAVIRUS NL63-RESP PCR NOT DETECTED; CORONAVIRUS OC43-RESP PCR NOT DETECTED; HUMAN METAPNEUMOVIRUS NOT DETECTED; INFLUENZA A- RESP PCR PANEL NOT DETECTED; INFLUENZA B - RESP PCR PANEL NOT DETECTED; M. PNEUMONIAE- RESP PCR PANEL NOT DETECTED; PARAINFLUENZA VIRUS 1 NOT DETECTED; PARAINFLUENZA VIRUS 2 NOT DETECTED; PARAINFLUENZA VIRUS 3 NOT DETECTED; PARAINFLUENZA VIRUS 4 NOT DETECTED; RHINOVIRUS/ENTEROVIRUS NOT DETECTED; RSV- RESP PCR PANEL NOT DETECTED; SARS-CoV-2 -RESP PCR PANEL NOT DETECTED
[2021-07-12] MEDS ORDERED: KETOROLAC 30 MG/ML VIAL IVP STA (07:26)
--- NOTE | 2021-07-12 07:26 | ED Physician Documentation ---
History of Present Illness - Stated complaint Stated Complaint: VOMITING/DIARRHEA - Chief complaint Chief Complaint: Abd Pain - History obtained from History obtained from: Patient, Family - Additonal information Additional information: The patient comes to the emergency department chief complaint of vomiting and diarrhea for 2 days. The patient has vomited intermittently, and his been able to hold down a few bites of food yesterday afternoon. Daughter states that otherwise, patient is drinking and seems to be somewhat confused and not himself. The patient has not had any fevers, but has experienced chills. He denies dysuria. Daughter states that the patient has been incontinent of stool. No respiratory symptoms. No abdominal pain. No sick contacts. No other complaints at this time. Review of Systems Ten Systems: 10 systems reviewed and negative Constitutional: reports: Reviewed and negative Eyes: reports: Reviewed and negative Ears: reports: Reviewed and negative Nose: reports: Reviewed and negative Throat: reports: Reviewed and negative Cardiac: reports: Reviewed and negative Respiratory: reports: Reviewed and negative GI: reports: Nausea, Vomiting, Diarrhea : reports: Reviewed and negative Skin: reports: Reviewed and negative Musculoskeletal: reports: Reviewed and negative Neurologic: reports: Reviewed and negative Psychiatric: reports: Reviewed and negative Endocrine: reports: Reviewed and negative Immunocompromised: reports: Reviewed and negative PD PAST MEDICAL HISTORY - Past Medical History Past Medical History: Yes Cardiovascular: Deep vein thrombosis Respiratory: Pneumonia Neuro: None Endocrine/Autoimmune: HyPOthyroidism GI: Hepatitis : Benign prostate hypertrophy, Retention HEENT: None Psych: None Musculoskeletal: Chronic back pain Derm: Psoriasis - Past Surgical History Past Surgical History: Yes General: Liver surgery, Other Ortho: Spine surgery, Amputation Neuro: Other HEENT: Tonsil/Adenoidectomy - Present Medications Home Medications: Ambulatory Orders Medication Instructions Recorded Confirmed Diazepam [Valium] 10 mg PO Q6H PRN 06/25/12 07/22/20 Tacrolimus 1 mg PO BID 06/25/12 07/22/20 predniSONE [Deltasone] 5 mg PO DAILY 06/25/12 07/22/20 Betamethasone Valerate 1 applic TOP .THREE TIMES WEEKLY 05/19/16 07/22/20 Levothyroxine [Synthroid] 75 mcg PO DAILY 05/19/16 07/22/20 Mycophenolate Sodium [Mycophenolic 360 mg PO BID 05/19/16 07/22/20 Acid] oxyCODONE [Roxicodone] 5 mg PO Q8H PRN 05/19/16 07/22/20 Albuterol Sulf [Ventolin Hfa 1 - 2 puffs INH Q4HR PRN #1 inhaler 01/05/20 07/22/20 Inhaler] Tamsulosin [Flomax] 0.4 mg PO BID 06/19/20 07/22/20 Amox/Clav 875/125 [Augmentin 1 tablet PO Q12H 10 Days #20 tablet 07/10/20 07/22/20 875/125 Tab] Ciprofloxacin HCl [Cipro] 500 mg PO BID #20 tablet 07/15/20 07/22/20 metroNIDAZOLE [Flagyl] 500 mg PO TID #30 tablet 07/15/20 07/22/20 Apixaban [Eliquis] 5 mg PO BID #60 tablet 08/08/20 Apixaban [Eliquis] 10 mg PO BID 7 Days #28 tab 08/08/20 HYDROcod/ACETAM 5/325 [[place] 5/325] 1 - 2 tab PO Q6H PRN #10 tablet 10/01/20 Oxybutynin [Ditropan] 5 mg PO BID #10 tablet 05/11/21 - Allergies Allergies/Adverse Reactions: Allergies Allergy/AdvReac Type Severity Reaction Status Date / Time hydromorphone HCl * AdvReac Unknown Verified 07/12/21 05:16 [From Dilaudid] - Social History Does the pt smoke?: No Smoking Status: Never smoker Does the pt drink ETOH?: No Does the pt have substance abuse?: No - Immunizations Immunizations are current?: Yes - POLST Patient has POLST: Yes PD ED PE NORMAL - Vitals Vital signs reviewed: Yes - General General: Alert and oriented X 3, No acute distress, Well developed/nourished - HEENT HEENT: Atraumatic, PERRL, EOMI, Moist mucous membranes - Neck Neck: Supple, no meningeal sign - Cardiac Cardiac: RRR, No murmur, Strong equal pulses - Respiratory Respiratory: No respiratory distress, Clear bilaterally - Abdomen Abdomen: Soft, Non distended, Other (Slight tenderness, right lower quadrant. No rebound or guarding.) - Back Back: No CVA TTP - Derm Derm: Normal color, Warm and dry, No rash - Extremities Extremities: No deformity, No edema, No calf tenderness / cord - Neuro Neuro: Alert and oriented X 3, psychotherapist social worker 2-12 intact, Normal speech - Psych Psych: Normal mood, Normal affect Results - Vitals Vitals: Vital Signs - 24 hr 07/12/21 07/12/21 07/12/21 04:45 05:14 05:30 Temperature 37.9 C 37.4 C Heart Rate 65 125 H 146 H Respiratory 20 24 20 Rate Blood Pressure 122/55 L 129/75 136/83 H O2 Saturation 95 100 100 07/12/21 07/12/21 07/12/21 05:36 05:48 06:03 Temperature Heart Rate 116 H 102 H 134 H Respiratory 14 12 14 Rate Blood Pressure 136/83 H 136/83 H 109/59 L O2 Saturation 100 100 100 07/12/21 07/12/21 07/12/21 06:14 06:30 06:52 Temperature Heart Rate 141 H 177 H 108 H Respiratory 12 15 16 Rate Blood Pressure 109/59 L 117/82 H 98/82 H O2 Saturation 100 100 99 07/12/21 07/12/21 06:57 07:06 Temperature 37.7 C Heart Rate 101 H 117 H Respiratory 15 13 Rate Blood Pressure 108/69 113/65 O2 Saturation 100 100 Oxygen O2 Source Room air - Labs Labs: Laboratory Tests 07/12/21 07/12/21 07/12/21 05:02 05:02 05:35 WBC 18.3 H RBC 5.42 Hgb 15.7 Hct 47.2 MCV 87.1 MCH 29.0 MCHC 33.3 RDW 13.5 Plt Count 153 MPV 11.6 H Neut # (Auto) Not Reportable Lymph # (Auto) Not Reportable [place] # (Auto) Not Reportable Eos # (Auto) Not Reportable Baso # (Auto) Not Reportable Absolute Nucleated RBC Not Reportable Total Counted 100 Band Neuts % (Manual) 1 Abnorm Lymph % (Manual) 0 Nucleated RBC % Not Reportable Neutrophils # (Manual) 13.7 H Lymphocytes # (Manual) 3.3 Monocytes # (Manual) 1.3 H Eosinophils # (Manual) 0.0 Basophils # (Manual) 0.0 Differential Comment MANUAL DIFFERENTIAL WBC Morphology NORMAL APPEARANCE Platelet Estimate NORMAL (130-450,000) Platelet Morphology NORMAL APPEARANCE RBC Morph Micro Appear NORMAL APPEARANCE Sodium 135 Potassium 3.3 L Chloride 101 Carbon Dioxide 20 L Anion Gap 14.0 H BUN 20 Creatinine 1.5 H Estimated GFR (MDRD) 47 L Glucose 106 H Calcium 9.5 Total Bilirubin 2.2 H AST 20 ALT 16 Alkaline Phosphatase 43 Total Protein 7.1 Albumin 3.9 Globulin 3.2 Albumin/Globulin Ratio 1.2 Lipase 24 Nasal Adenovirus (PCR) NOT DETECTED Nasal B. parapertussis DNA (PCR) NOT DETECTED Nasal Coronavir 229E PCR NOT DETECTED Nasal Coronavir HKU1 PCR NOT DETECTED Nasal Coronavir NL63 PCR NOT DETECTED Nasal Coronavir OC43 PCR NOT DETECTED Nasal Enterovir/Rhinovir PCR NOT DETECTED Nasal Influenza B PCR NOT DETECTED Nasal Influenza A PCR NOT DETECTED Nasal Parainfluen 1 PCR NOT DETECTED Nasal Parainfluen 2 PCR NOT DETECTED Nasal Parainfluen 3 PCR NOT DETECTED Nasal Parainfluen 4 PCR NOT DETECTED Nasal RSV (PCR) NOT DETECTED Nasal B.pertussis DNA PCR NOT DETECTED Nasal C.pneumoniae (PCR) NOT DETECTED Eddie Human Metapneumo PCR NOT DETECTED Nasal M.pneumoniae (PCR) NOT DETECTED Nasal SARS-CoV-2 (PCR) NOT DETECTED PD MEDICAL DECISION MAKING - ED course Complexity details: reviewed results, re-evaluated patient, considered differential, d/w patient ED course: The patient was treated symptomatically with Zofran and 2 L of IV fluid. He was also found to be in atrial fibrillation with rapid ventricular response and was given Cardizem 20 mg IV. This did bring his heart rate down to 80s to low 100s, though it did start to creep back up about an hour later. The patient was given a second dose of IV Cardizem, as well as an oral dose of 240 mg. The patient's blood pressure had remained normal throughout that time, except immediately after the IV Cardizem. Patient's laboratory studies showed moderate leukocytosis of 18.3 and mild hypokalemia at 3.3. At this point in time, the patient is still receiving his second liter of IV fluid. He is signed out to Dr. Xiong at change of shift, pending lactic acid level, re-evaluation, and urinalysis.
[2021-07-12] MEDS ORDERED: DIPHENOX/ATROPINE 2.5/0.025 MG TABLET PO STA ×2 (08:01→15:00)
--- NOTE | 2021-07-12 08:22 | XRAY Report ---
PROCEDURE: Chest 1 View X-Ray INDICATIONS: chest pain TECHNIQUE: One view of the chest was acquired. COMPARISON: Chest x-ray 06/19/2020 FINDINGS: Surgical changes and devices: None. Lungs and pleura: No pleural effusions or pneumothorax. Lungs are clear. Mediastinum: Mediastinal contours appear normal. Heart size is normal. Bones and chest wall: No suspicious bony lesions. Overlying soft tissues appear unremarkable. IMPRESSION: No acute pulmonary process. Reviewed by: Julissa Simons MD on 07/12/2021 8:21 AM PDT Approved by: Julissa Simons MD on 07/12/2021 8:21 AM PDT Station ID: [id number]
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
[2021-07-12] MEDS ORDERED: EMOLLIENT CREAM 57 GM TUBE TOP STA (14:00)
[2021-07-12] MEDS ORDERED: IOVERSOL 320 100 ML VIAL IVP ONE ×2 (16:31→20:02)
--- NOTE | 2021-07-12 18:00 | CT Report ---
PROCEDURE: CT abdomen pelvis with contrast INDICATIONS: gastroenteritis/abdominal pain CONTRAST: IV CONTRAST: Optiray 320 ml: 100 PO CONTRAST: *NO PO CONTRAST TECHNIQUE: After the administration of contrast, 5 mm thick sections acquired from the diaphragms to the sym physis. 5 mm thick coronal and sagittal reformats were acquired. For radiation dose reduction, the following was used: automated exposure control, adjustment of mA and/or kV according to patient size . COMPARISON: None. FINDINGS: Image quality: Excellent. ABDOMEN: Lung bases: Lung bases are clear other than platelike atelectasis or scarring left lung base, simila r prior. Heart size is normal. Solid organs: Liver and spleen are normal in size and enhancement other than coarse splenic calcific ation, similar prior. There is stable intra and extrahepatic bile duct dilatation associated with the prominence of the pancreatic duct, stable from prior. Gallbladder surgically absent. Biliary syste m is non dilated. Pancreas enhances normally. No adrenal nodules. Transplant noted in the right tete ac fossa. The bilateral advanced atrophy of the [place] kidneys. Peritoneum and bowel: Bowel loops demonstrate normal wall thickness and caliber. No free fluid or a ir. Sigmoid diverticulosis without evidence of diverticulitis. No bowel obstruction. Nodes and vessels: No retroperitoneal or mesenteric adenopathy by size criteria. Aorta and inferior vena cava are normal in size. Diffuse atherosclerotic vascular calcification Miscellaneous: Small ventral hernia contains fat without bowel involvement. PELVIS: Genitourinary: Bladder wall thickness is normal. Miscellaneous: No inguinal hernias or adenopathy. Bones: No suspicious bony lesions. No vertebral body compression fractures. IMPRESSION: No acute CT findings in the abdomen and pelvis. Right renal transplant and atrophic bilateral [place] kidneys, stable from prior. No hydronephrosis Sigmoid diverticulosis without evidence of diverticulitis. Stable cholecystectomy and prominent intrahepatic and extrahepatic bile duct dilatation. Reviewed by: Juan Jose Quesada MD on 07/12/2021 4:58 PM AKDT Approved by: Juan Jose Quesada MD on 07/12/2021 4:58 PM AKDT Station ID: [id number]
[2021-07-12] MEDS ORDERED: CEFEPIME 1 GM in SODIUM CHLORIDE 0.9% MINIBAG 100 ML IV STA (18:03)
[2021-07-12] MEDS ORDERED: metroNIDAZOLE 500 MG/100 ML 500 MG/100 ML BAG IV ONE (18:04)
[2021-07-12] MEDS ORDERED: PROCHLORPERAZINE 10 MG/2 ML VIAL IVP PRN (19:10)
[2021-07-12] MEDS ORDERED: SODIUM CHLORIDE FLUSH 0.9% 10 ML SYRINGE IVP PRN (19:10)
--- NOTE | 2021-07-12 19:15 | HISTORY & PHYSICAL EXAMINATION ---
Chief Complaint - Chief Complaint Chief Complaint: nausea, vomiting, diarrhea History of Present Illness - Admitted From Admitted From:: [facility] ED - History Obtained From Records Reviewed: yes History obtained from: patient - History of Present Illness HPI Comment/Other: Patient is a 65-year-old male who is a bilateral upper extremity amputee with amputations done above the elbow joint. He has also undergone liver and kidney transplant and is on immunosuppressants. He presented to the ED with complaint of nausea, vomiting and diarrhea for the past 3 days. He reports an episode almost every 45 minutes. It is non-bloody. He denies eating anything bad prior to the onset. He denies any sick contact or any recent travel. In the ED he was noted to be tachycardic with heart rate as high as the 140s. He has history of atrial fibrillation. He was given 2 doses of diltiazem 20 mg IV and finally diltiazem CD to 40 mg p.o. which improved his heart rate to the 80s. He was noted to have a WBC of 18.3, Tbili 2.2. Due to his ongoing symptoms he was presented for admission for further management. At bedside he was shivering but denied any fever. He denied chest pain, dyspnea. He reported mild abdominal ache and was dry heaving at the time of exam. History - Past Medical History Cardiovascular: reports: Deep vein thrombosis, Atrial fibrillation Respiratory: reports: Pneumonia Neuro: reports: None Endocrine/Autoimmune: reports: HyPOthyroidism GI: reports: Hepatitis (History of hepatitis C which was treated), Other (History of cirrhosis likely from hepatitis C. Patient had liver transplant.) : reports: Benign prostate hypertrophy, Retention HEENT: reports: None Psych: reports: None Musculoskeletal: reports: Chronic back pain Derm: reports: Psoriasis MRSA Hx?: No - Past Surgical History General: reports: Liver surgery, Other (Hernia repairs with revision due to infe ction.) Ortho: reports: Spine surgery, Amputation (Bilateral above elbow amputations) Neuro: reports: Other HEENT: reports: Tonsil/Adenoidectomy Other past surgical history: Liver and renal transplant. - Family & Social History Family History Comment/Other: All males in his family have hypertension. His paternal uncles, father and brother have diabetes. Social History Notes: He lives at home with his daughter, his daughters and 2 grandchildren. He does not consume alcohol, tobacco products or recreational substances. - POLST Patient has POLST: Yes POLST Status: Full Code Meds/Allgy - Home Medications Home Medications: Ambulatory Orders Medication Instructions Recorded Confirmed Diazepam [Valium] 10 mg PO Q6H PRN 06/25/12 07/22/20 Tacrolimus 1 mg PO BID 06/25/12 07/22/20 predniSONE [Deltasone] 5 mg PO DAILY 06/25/12 07/22/20 Betamethasone Valerate 1 applic TOP .THREE TIMES WEEKLY 05/19/16 07/22/20 Levothyroxine [Synthroid] 75 mcg PO DAILY 05/19/16 07/22/20 Mycophenolate Sodium [Mycophenolic 360 mg PO BID 05/19/16 07/22/20 Acid] oxyCODONE [Roxicodone] 5 mg PO Q8H PRN 05/19/16 07/22/20 Albuterol Sulf [Ventolin Hfa 1 - 2 puffs INH Q4HR PRN #1 inhaler 01/05/20 07/22/20 Inhaler] Tamsulosin [Flomax] 0.4 mg PO BID 06/19/20 07/22/20 Amox/Clav 875/125 [Augmentin 1 tablet PO Q12H 10 Days #20 tablet 07/10/20 07/22/20 875/125 Tab] Ciprofloxacin HCl [Cipro] 500 mg PO BID #20 tablet 07/15/20 07/22/20 metroNIDAZOLE [Flagyl] 500 mg PO TID #30 tablet 07/15/20 07/22/20 Apixaban [Eliquis] 5 mg PO BID #60 tablet 08/08/20 Apixaban [Eliquis] 10 mg PO BID 7 Days #28 tab 08/08/20 HYDROcod/ACETAM 5/325 [[place] 5/325] 1 - 2 tab PO Q6H PRN #10 tablet 10/01/20 Oxybutynin [Ditropan] 5 mg PO BID #10 tablet 05/11/21 - Allergies Allergies/Adverse Reactions: Allergies Allergy/AdvReac Type Severity Reaction Status Date / Time hydromorphone HCl * AdvReac Unknown Verified 07/12/21 05:16 [From Dilaudid] Review of Systems - Constitutional Constitutional: reports: Chills. denies: Fever - Eyes Eyes: denies: Vision loss - Ears, Nose & Throat Ears, Nose & Throat: denies: Vertigo, Sore throat - Cardiovascular Cariovascular: reports: Irregular heart rate. denies: Edema, Lightheadedness, Syncope, Exertional dyspnea - Respiratory Respiratory: denies: Cough, Wheezing, SOB at rest, SOB with exertion - Gastrointestinal Gastrointestinal: reports: Abdominal pain, Diarrhea, Nausea, Vomiting - Genitourinary Genitourinary: denies: Dysuria, Frequency, Urgency, Hematuria - Musculoskeletal Musculoskeletal: denies: Muscle pain, Back pain, Muscle aches - Integumentary Integumentary: denies: Rash, Pruritis - Neurological Neurological: reports: Headache. denies: General weakness, Focal weakness - Psychiatric Psychiatric: denies: Depression, Anxiety - Endocrine Endocrine: denies: Polyuria, Polydypsia - Hematologic/Lymphatic Hematologic/Lymphatic: denies: Anemia, Bruising, Petechiae Prior Level of Functionality: Dependent for activities of daily living. He lives with his daughter and her family who help take care of her Exam - Vital Signs Vital Signs: Vital Signs x48h Temp Pulse Resp BP Pulse Ox 07/12/21 18:32 83 25 H 118/65 100 07/12/21 18:06 80 24 115/65 100 07/12/21 17:45 82 16 111/60 100 07/12/21 16:38 80 13 124/72 100 07/12/21 15:29 78 23 93/63 100 07/12/21 14:30 81 23 95/65 100 07/12/21 11:47 36.0 C L 79 25 H 90/56 L 100 - Physical Exam General Appearance: positive: Alert, Moderate distress Eyes Bilateral: positive: PERRL, EOMI ENT: positive: Dry mucous membranes Neck: positive: No JVD, Trachea midline Respiratory: positive: Chest non-tender, No respiratory distress, Breath sounds nml. negative: Wheezes, Rales, Rhonchi Cardiovascular: positive: Regular rate & rhythm Abdomen: positive: Non-tender, No organomegaly, Nml bowel sounds, No distention. negative: Guarding, Rebound Back: positive: Nml inspection Skin: positive: Color nml, No rash, Warm, Dry Extremities: positive: Non-tender, Full ROM, Nml appearance, Other (bilateral above elbow amputations) Neurologic/Psychiatric: positive: Oriented x3, Mood/affect nml Conclusion/Plan - Problem List (1) Vomiting and diarrhea Conclusion/Plan: Etiology undetermined. WBC was 18.6. C. difficile test was negative. Blood and stool cultures were obtained. Patient was started empirically on Cipro and Flagyl IV. Continue IV hydration with normal saline at 100 mL/h. Zofran and Phenergan ordered IV as needed. (2) Leukocytosis Conclusion/Plan: Etiology undetermined. WBC was 18.3 Reactive versus infectious. Blood and stool cultures obtained. C. difficile test negative. On empiric antibiotics with Cipro and Flagyl IV. IV hydration with normal saline at 100 mL/h. (3) Atrial fibrillation Conclusion/Plan: Patient's heart rate was as high as 140s in the ED. He was given diltiazem 20 mg IV twice. He was also given diltiazem CD to 40 mg x 1. Patient is not on any heart rate controlling medication at home. Currently heart rate is in the 80s. Eliquis 5 mg p.o. twice daily resumed. Qualifiers: Atrial fibrillation type: unspecified Qualified Code(s): I48.91 - Unspecified atrial fibrillation (4) Hypothyroidism Conclusion/Plan: On Synthroid 75 mcg p.o. daily. (5) History of kidney transplant Conclusion/Plan: On CellCept, tacrolimus and prednisone 5 mg p.o. daily (6) History of liver transplant Conclusion/Plan: Patient had liver cirrhosis. He had history of hepatitis C which had since been treated. Is currently on CellCept, tacrolimus and prednisone. (7) BPH (benign prostatic hyperplasia) Conclusion/Plan: Tamsulosin 0.4 mg p.o. twice daily. - Lab Results Fish Bones: 07/12/21 05:02 07/12/21 05:02 Core Measures - Anticipated LOS I expect patient to be DC'd or transferred within 96 hours.: Yes - DVT/VTE - Prophylaxis VTE/DVT Prophylaxis med ordered at admit?: Yes
[2021-07-12] MEDS: metroNIDAZOLE 500 MG/100 ML 500 MG/100 ML BAG IV SCH (19:33)
[2021-07-12] MEDS: ONDANSETRON 4 MG/2 ML VIAL IVP PRN (19:42)
[2021-07-12] MEDS: SODIUM CHLORIDE 0.9% 1,000 ML IV SCH (19:53)
[2021-07-12] MEDS: CIPROFLOXACIN 400 MG/200 ML 400 MG/200 ML BAG IV SCH (19:55)
[2021-07-12] MEDS: ACETAMINOPHEN 325 MG TABLET PO PRN (20:13)
[2021-07-12] MEDS: OXYBUTYNIN 5MG TABLET PO SCH (20:14)
[2021-07-12] MEDS: APIXABAN 5 MG TABLET PO SCH (20:14)
[2021-07-12] MEDS: oxyCODONE 5 MG TABLET PO PRN (20:14)
[2021-07-12] MEDS: TAMSULOSIN 0.4 MG CAPSULE PO SCH (20:14)
[2021-07-12] MEDS: TACROLIMUS 0.5 MG CAPSULE PO SCH (20:16)
[2021-07-12] MEDS: diazePAM 5 MG TABLET PO SCH (22:31)
[2021-07-13] MEDS: SODIUM CHLORIDE FLUSH 0.9% 10 ML SYRINGE IVP SCH ×3 (02:36→18:11)
[2021-07-13] MEDS: ONDANSETRON 4 MG/2 ML VIAL IVP PRN ×2 (03:30→21:00)
[2021-07-13] MEDS: metroNIDAZOLE 500 MG/100 ML 500 MG/100 ML BAG IV SCH ×3 (04:09→20:23)
[2021-07-13] MEDS: ZINC OXIDE 20% OINT 30 GM TUBE TOP PRN ×2 (05:09→21:39)
[2021-07-13] MEDS: ACETAMINOPHEN 325 MG TABLET PO PRN ×3 (05:28→20:30)
[2021-07-13 05:40] LABS: GLUCOSE, URINE (UA) NEGATIVE (NEGATIVE); KETONES,URINE (UA) 40 mg/dL (NEGATIVE); LEUKOCYTE ESTERASE, URINE TRACE (NEGATIVE); NITRITE,URINE NEGATIVE (NEGATIVE); OCCULT BLOOD,URINE MODERATE (NEGATIVE); PH,URINE 5.5 PH (5.0-7.5); PROTEIN,URINE 30 mg/dL (NEGATIVE); UROBILINOGEN,URINE 0.2 (NORMAL) E.U./dL (NORMAL)
[2021-07-13 05:50] LABS: BILIRUBIN,URINE NEGATIVE (NEGATIVE); CLARITY,URINE CLEAR (CLEAR); ICTOTEST,URINE NEGATIVE
[2021-07-13 05:54] LABS: AMORPHOUS SEDIMENT,UR Few /LPF; BACTERIA,URINE Rare /HPF (None Seen); CASTS, URINE 0-2 Fine Granular /LPF; SQUAMOUS EPITHELIAL CELL,UR RARE Squamous (<= Few); WBC,URINE 0-3 /HPF (0-3)
[2021-07-13] MEDS: diltiaZEM 30 MG TABLET PO SCH ×3 (07:54→19:16)
[2021-07-13] MEDS: TACROLIMUS 0.5 MG CAPSULE PO SCH ×2 (07:55→20:27)
[2021-07-13] MEDS: SODIUM CHLORIDE 0.9% 1,000 ML IV SCH ×2 (07:55→20:22)
[2021-07-13] MEDS: MYCOPHENOLATE SODIUM 360 MG PO SCH ×2 (07:56→20:25)
[2021-07-13] MEDS: oxyCODONE 5 MG TABLET PO PRN ×2 (08:08→20:29)
[2021-07-13] MEDS: TAMSULOSIN 0.4 MG CAPSULE PO SCH ×2 (08:09→20:29)
[2021-07-13] MEDS: APIXABAN 5 MG TABLET PO SCH ×2 (08:09→20:28)
[2021-07-13] MEDS: OXYBUTYNIN 5MG TABLET PO SCH ×2 (08:09→20:30)
[2021-07-13] MEDS: CIPROFLOXACIN 400 MG/200 ML 400 MG/200 ML BAG IV SCH ×2 (08:11→19:16)
[2021-07-13] MEDS ORDERED: LEVOTHYROXINE 25 MCG TABLET PO SCH (09:00)
[2021-07-13] MEDS ORDERED: predniSONE 5 MG TABLET PO SCH (09:00)
[2021-07-13 10:25] LABS: BASOPHILS % (AUTO) 0.2 %; EOSINOPHILS % (AUTO) 0.4 %; HGB - HEMOGLOBIN 11.9 g/dL (14.0-18.0); LYMPHOCYTES # (AUTO) 0.5 10^3/uL (1.5-3.5); LYMPHOCYTES % (AUTO) 4.9 %; MEAN CORPUSCULAR HEMOGLOBIN 29.3 pg (27.0-31.0); MEAN CORPUSCULAR HGB CONC 32.2 g/dL (32.0-36.0); MEAN CORPUSCULAR VOLUME 91.1 fL (80.0-94.0); MEAN PLATELET VOLUME 11.1 fL (7.4-11.4); MONOCYTES # (AUTO) 1.4 10^3/uL (0.0-1.0); PLT - PLATELET COUNT 109 10^3/uL (130-450); RED BLOOD COUNT 4.06 10^6/uL (4.70-6.10); RED CELL DISTRIBUTION WIDTH 13.8 % (12.0-15.0)
[2021-07-13 10:36] LABS: ALBUMIN 2.7 g/dL (3.2-5.5); ALBUMIN/GLOBULIN RATIO 1.2 (1.0-2.2); BILIRUBIN,TOTAL 0.9 mg/dL (0.2-1.0); CALCIUM 7.4 mg/dL (8.5-10.3); CREATININE 1.5 mg/dL (0.6-1.2); POTASSIUM 3.4 mmol/L (3.5-5.0)
--- NOTE | 2021-07-13 12:16 | PROVIDER PROGRESS NOTE ---
Subjective - Prog Note Date Prog Note Date: 07/13/21 Prog Note Time: 12:16 - Subjective Pt reports feeling: Improved Subjective: he still had a loose bowel at 5 am and 8:30 am this morning. N/V have resolved. had a low grade fever to 100.3 this morning but gone by late morning. Due to his arm amputations, he cannot clean himself when he is incontinent of stool. Relies on RN. denies abd pain, chest painn, cough, sob. He tells me that his bili was elevated before and they did an endoscopic US to make sure anastamosis ok and no intraductal dilation in April. Nothing found. Bili elevatio was stable on 05/28/21 visit. Daughter was at the bedside and uptdate to dad's care. Quesitons answered. She works during the day and can't be home w dad so if he has incontinence or vomits, there is no one home until 4 pm Current Medications - Current Medications Current Medications: Active Medications Acetaminophen (Acetaminophen 325 Mg Tablet) 650 mg PO Q6HR PRN PRN Reason: Pain or Fever > 38C (100.4F) Last Admin: 07/13/21 08:07 Dose: 650 mg Apixaban (Apixaban 5 Mg Tablet) 5 mg PO BID [facility] Last Admin: 07/13/21 08:09 Dose: 5 mg Diazepam (Diazepam 5 Mg Tablet) 5 mg PO QPM [facility] Last Admin: 07/12/21 22:31 Dose: 5 mg Diltiazem HCl (Diltiazem 30 Mg Tablet) 30 mg PO Q6HR [facility] Last Admin: 07/13/21 07:54 Dose: 30 mg Sodium Chloride (Normal Saline 0.9%) 1,000 mls @ 100 mls/hr IV .Q10H [facility] Last Infusion: 07/13/21 09:15 Dose: 100 mls/hr Metronidazole (Flagyl 500 Mg/100 Ml) 500 mg in 100 mls @ 100 mls/hr IV Q8H [facility] Last Infusion: 07/13/21 05:09 Dose: Infused Ciprofloxacin (Cipro 400 Mg/200 Ml) 400 mg in 200 mls @ 200 mls/hr IV Q12H R[facility] Last Infusion: 07/13/21 09:15 Dose: Infused Levothyroxine Sodium (Levothyroxine 25 Mcg Tablet) 75 mcg PO DAILY [facility] Last Admin: 07/13/21 08:10 Dose: 75 mcg Multi-Ingredient Ointment (Zinc Oxide 20% Oint 30 Gm Tube) 1 applic TOP PRN PRN PRN Reason: Skin Care Last Admin: 07/13/21 05:09 Dose: 1 applic Ondansetron HCl (Ondansetron 4 Mg/2 Ml Vial) 4 mg IVP Q6HR PRN PRN Reason: Nausea / Vomiting Last Admin: 07/13/21 03:30 Dose: 4 mg Oxybutynin Chloride (Oxybutynin 5mg Tablet) 5 mg PO BID [facility] Last Admin: 07/13/21 08:09 Dose: 5 mg Oxycodone HCl (Oxycodone 5 Mg Tablet) 5 mg PO Q8H PRN PRN Reason: PAIN Last Admin: 07/13/21 08:08 Dose: 5 mg Mycophenolate Sodium [Mycophenolic Acid] 360 Mg Tablet .Dr 1 each PO [facility] Last Admin: 07/13/21 07:56 Dose: 1 each Prednisone (Prednisone 5 Mg Tablet) 5 mg PO DAILY [facility] Last Admin: 07/13/21 08:07 Dose: 5 mg Prochlorperazine Edisylate (Prochlorperazine 10 Mg/2 Ml Vial) 10 mg IVP Q6HR PRN PRN Reason: Nausea / Vomiting Sodium Chloride (Sodium Chloride Flush 0.9% 10 Ml Syringe) 10 ml IVP PRN PRN PRN Reason: NEEDED PER PROVIDER ORDERS Last Admin: 07/12/21 19:44 Dose: 10 ml Sodium Chloride (Sodium Chloride Flush 0.9% 10 Ml Syringe) 10 ml IVP 0100,0900,1700 [facility] Last Admin: 07/13/21 03:30 Dose: 10 ml Tacrolimus (Tacrolimus 0.5 Mg Capsule) 1 mg PO BID@ [facility] Tamsulosin HCl (Tamsulosin 0.4 Mg Capsule) 0.4 mg PO BID [facility] Last Admin: 07/13/21 08:09 Dose: 0.4 mg Diazepam [Valium] 10 mg PO Q6H PRN 06/25/12 Tacrolimus 1 mg PO BID 06/25/12 predniSONE [Deltasone] 5 mg PO DAILY 06/25/12 Betamethasone Valerate 1 applic TOP .THREE TIMES WEEKLY 05/19/16 Levothyroxine [Synthroid] 75 mcg PO DAILY 05/19/16 Mycophenolate Sodium [Mycophenolic Acid] 360 mg PO BID 05/19/16 oxyCODONE [Roxicodone] 5 mg PO Q8H PRN 05/19/16 Tamsulosin [Flomax] 0.4 mg PO BID 06/19/20 Dorzolamide/Timolol Ophth Soln [Cosopt] 07/13/21 Latanoprost 0.005% Ophth Drops [Xalatan Ophth Drops] 1 drops LEFTEYE QPM 07/13/21 Objective - Vital Signs/Intake & Output Reviewed Vital Signs: Yes Vital Signs: Vital Signs x48h Temp Pulse Pulse Resp BP BP Pulse Ox 07/13/21 11:32 36.7 C 91 18 117/53 L 100 07/13/21 07:54 116/57 L 07/13/21 07:51 37.0 C 99 20 116/57 L 93 07/13/21 06:35 100.2 C H 111 H 97 07/13/21 05:08 37.7 C 119 H 20 150/84 H 100 Intake & Output: Intake & Output 07/10/21 07/11/21 07/12/21 07/13/21 23:59 23:59 23:59 23:59 Intake Total 3571 1546.667 Output Total 50 Balance 3571 1496.667 - Objective General Appearance: positive: No acute distress, Alert, Other (he is rubbing his stumps on his face to scratch the stumps w his stubble, also nibbles on them bc they itch.) Eyes Bilateral: positive: PERRL, EOMI ENT: positive: Pharynx nml Neck: positive: No JVD. negative: Stiff neck Respiratory: positive: No respiratory distress. negative: Wheezes, Rales, Rhonchi Cardiovascular: positive: Regular rate & rhythm. negative: Gallop/S4, Friction rub Abdomen: positive: Non-tender, No organomegaly, Nml bowel sounds, No distention Skin: positive: Warm, Dry. negative: Diaphoresis Extremities: positive: Full ROM, No pedal edema. negative: Other (stumps clean and closed) Neurologic/Psychiatric: positive: Oriented x3, CN's nml (2-12), Motor nml - Lab Results Fish Bones: 07/13/21 10:17 07/13/21 10:17 Other Labs: Lab Results x24hrs 07/13/21 07/13/21 07/13/21 Range/Units 10:17 10:17 05:20 WBC 10.0 (4.8-10.8) x10^3/uL RBC 4.06 L (4.70-6.10) 10^6/uL Hgb 11.9 L (14.0-18.0) g/dL Hct 37.0 L (42.0-52.0) % MCV 91.1 (80.0-94.0) fL MCH 29.3 (27.0-31.0) pg MCHC 32.2 (32.0-36.0) g/dL RDW 13.8 (12.0-15.0) % Plt Count 109 L (130-450) 10^3/uL MPV 11.1 (7.4-11.4) fL Neut # (Auto) 8.0 H (1.5-6.6) 10^3/uL Lymph # (Auto) 0.5 L (1.5-3.5) 10^3/uL [place] # (Auto) 1.4 H (0.0-1.0) 10^3/uL Eos # (Auto) 0.0 (0.0-0.7) 10^3/uL Baso # (Auto) 0.0 (0.0-0.1) 10^3/uL Absolute Nucleated RBC 0.00 x10^3/uL Nucleated RBC % 0.0 /100WBC Sodium 134 L (135-145) mmol/L Potassium 3.4 L (3.5-5.0) mmol/L Chloride 108 (101-111) mmol/L Carbon Dioxide 18 L (21-32) mmol/L Anion Gap 8.0 (6-13) BUN 26 H (6-20) mg/dL Creatinine 1.5 H (0.6-1.2) mg/dL Estimated GFR (MDRD) 47 L (>89) Glucose 127 H (70-100) mg/dL Calcium 7.4 L (8.5-10.3) mg/dL Total Bilirubin 0.9 (0.2-1.0) mg/dL AST 14 (10-42) IU/L ALT 15 (10-60) IU/L Alkaline Phosphatase 27 L (42-121) IU/L Total Protein 5.0 L (6.7-8.2) g/dL Albumin 2.7 L (3.2-5.5) g/dL Globulin 2.3 (2.1-4.2) g/dL Albumin/Globulin Ratio 1.2 (1.0-2.2) Urine Color YELLOW Urine Clarity CLEAR (CLEAR) Urine pH 5.5 (5.0-7.5) PH Ur Specific [place] 1.025 (1.002-1.030) Urine Protein 30 H (NEGATIVE) mg/dL Urine Glucose (UA) NEGATIVE (NEGATIVE) mg/dL Urine Ketones 40 H (NEGATIVE) mg/dL Urine Occult Blood MODERATE H (NEGATIVE) Urine Nitrite NEGATIVE (NEGATIVE) Urine Bilirubin NEGATIVE (NEGATIVE) Urine Urobilinogen 0.2 (NORMAL) (NORMAL) E.U./dL Ur Leukocyte Esterase TRACE H (NEGATIVE) Urine RBC 6-10 H (0-5) /HPF Urine WBC 0-3 (0-3) /HPF Ur Squamous Epith Cells RARE Squamous (<= Few) Amorphous Sediment Few /LPF Urine Bacteria Rare (None Seen) /HPF Urine Casts 0-2 Fine Granular /LPF Ur Microscopic Review INDICATED Urine Culture Comments INDICATED Stl C. diff Tox B Gene (NEGATIVE) 07/12/21 Range/Units 16:35 WBC (4.8-10.8) x10^3/uL RBC (4.70-6.10) 10^6/uL Hgb (14.0-18.0) g/dL Hct (42.0-52.0) % MCV (80.0-94.0) fL MCH (27.0-31.0) pg MCHC (32.0-36.0) g/dL RDW (12.0-15.0) % Plt Count (130-450) 10^3/uL MPV (7.4-11.4) fL Neut # (Auto) (1.5-6.6) 10^3/uL Lymph # (Auto) (1.5-3.5) 10^3/uL [place] # (Auto) (0.0-1.0) 10^3/uL Eos # (Auto) (0.0-0.7) 10^3/uL Baso # (Auto) (0.0-0.1) 10^3/uL Absolute Nucleated RBC x10^3/uL Nucleated RBC % /100WBC Sodium (135-145) mmol/L Potassium (3.5-5.0) mmol/L Chloride (101-111) mmol/L Carbon Dioxide (21-32) mmol/L Anion Gap (6-13) BUN (6-20) mg/dL Creatinine (0.6-1.2) mg/dL Estimated GFR (MDRD) (>89) Glucose (70-100) mg/dL Calcium (8.5-10.3) mg/dL Total Bilirubin (0.2-1.0) mg/dL AST (10-42) IU/L ALT (10-60) IU/L Alkaline Phosphatase (42-121) IU/L Total Protein (6.7-8.2) g/dL Albumin (3.2-5.5) g/dL Globulin (2.1-4.2) g/dL Albumin/Globulin Ratio (1.0-2.2) Urine Color Urine Clarity (CLEAR) Urine pH (5.0-7.5) PH Ur Specific [place] (1.002-1.030) Urine Protein (NEGATIVE) mg/dL Urine Glucose (UA) (NEGATIVE) mg/dL Urine Ketones (NEGATIVE) mg/dL Urine Occult Blood (NEGATIVE) Urine Nitrite (NEGATIVE) Urine Bilirubin (NEGATIVE) Urine Urobilinogen (NORMAL) E.U./dL Ur Leukocyte Esterase (NEGATIVE) Urine RBC (0-5) /HPF Urine WBC (0-3) /HPF Ur Squamous Epith Cells (<= Few) Amorphous Sediment /LPF Urine Bacteria (None Seen) /HPF Urine Casts /LPF Ur Microscopic Review Urine Culture Comments Stl C. diff Tox B Gene NEGATIVE (NEGATIVE) ABX Reporting Has patient been on IV antibiotics over the past 48 hours?: No Assessment/Plan - Problem List (1) Vomiting and diarrhea Impression: Etiology undetermined. Emesis resolved but diarrhea still present. He has no ability to clean himself at home so I will change him from OBV to inpatient until the diarrhea resolved. WBC was 18.6 on admit and now normal. C. difficile test was negative. Blood and stool cultures were obtained and negtive so far. Patient was started empirically on Cipro and Flagyl IV. Continue IV hydration with normal saline at 100 mL/h will continue Zofran and Phenergan ordered IV as needed. (2) Leukocytosis resolved. Conclusion/Plan: Etiology undetermined. Had a low grade fever this morning and now gone. WBC was 18.3 and now nml. Reactive versus infectious. I also worry about rejection. I contacted the ordnance equipment worker Ni @ [phone], and they will follow up with CMP in one week. She will relay the message to the Attending/fellow. Blood and stool cultures obtained and negative so far. C. difficile test negative. On empiric antibiotics with Cipro and Flagyl IV. IV hydration with normal saline at 100 mL/h will continue. (3) Atrial fibrillation Conclusion/Plan: Patient's heart rate was as high as 140s in the ED. He was given diltiazem 20 mg IV twice. He was also given diltiazem CD to 40 mg x 1. Heart rate down to the 80s by afternoon. This morning he was 119 with his fever. But rate back down again. I did let the transplant nurse know this as well. Patient is not on any heart rate controlling medication at home. He is on 30 mg po q6h here. Eliquis 5 mg p.o. twice daily resumed. Qualifiers: Atrial fibrillation type: unspecified Qualified Code(s): I48.91 - Unspecified atrial fibrillation (4) Hypothyroidism Conclusion/Plan: On Synthroid 75 mcg p.o. daily. (5) History of kidney transplant Conclusion/Plan: On CellCept, tacrolimus and prednisone 5 mg p.o. daily. Meds from home to be verified by pharmacy today and pharmacist will order them the way the patient likes to take them at home. (6) History of liver transplant Conclusion/Plan: Patient had liver cirrhosis. No alcohol abuse. He had history of hepatitis C which had since been treated. Is currently on CellCept, tacrolimus and prednisone. (7) BPH (benign prostatic hyperplasia) Conclusion/Plan: Tamsulosin 0.4 mg p.o. twice daily.
[2021-07-13] MEDS: DORZOLAMIDE/TIMOLOL OPHTH DROPS LEFTEYE SCH (14:42)
[2021-07-13] MEDS: LATANOPROST 0.005% OPHTH DROPS LEFTEYE SCH (20:31)
[2021-07-13] MEDS: diazePAM 5 MG TABLET PO SCH (22:00)
[2021-07-14] MEDS: diltiaZEM 30 MG TABLET PO SCH ×4 (00:31→17:33)
[2021-07-14] MEDS: SODIUM CHLORIDE FLUSH 0.9% 10 ML SYRINGE IVP SCH ×3 (02:25→15:48)
[2021-07-14] MEDS: metroNIDAZOLE 500 MG/100 ML 500 MG/100 ML BAG IV SCH ×3 (03:41→21:07)
[2021-07-14] MEDS ORDERED: PHENOL THROAT SPRAY 177 ML MM PRN (04:15)
[2021-07-14 05:52] LABS: BASOPHILS % (AUTO) 0.2 %; EOSINOPHILS # (AUTO) 0.1 10^3/uL (0.0-0.7); HCT - HEMATOCRIT 36.1 % (42.0-52.0); HGB - HEMOGLOBIN 11.8 g/dL (14.0-18.0); LYMPHOCYTES % (AUTO) 12.7 %; MEAN CORPUSCULAR HEMOGLOBIN 29.1 pg (27.0-31.0); MEAN CORPUSCULAR HGB CONC 32.7 g/dL (32.0-36.0); MEAN CORPUSCULAR VOLUME 88.9 fL (80.0-94.0); MEAN PLATELET VOLUME 12.2 fL (7.4-11.4); MONOCYTES # (AUTO) 0.9 10^3/uL (0.0-1.0); MONOCYTES % (AUTO) 11.5 %; NEUTROPHILS # (AUTO) 6.1 10^3/uL (1.5-6.6); NEUTROPHILS % (AUTO) 74.2 %; PLT - PLATELET COUNT 124 10^3/uL (130-450); RED BLOOD COUNT 4.06 10^6/uL (4.70-6.10); RED CELL DISTRIBUTION WIDTH 13.9 % (12.0-15.0); WHITE BLOOD COUNT 8.2 x10^3/uL (4.8-10.8)
[2021-07-14] MEDS: LEVOTHYROXINE 25 MCG TABLET PO SCH (05:58)
[2021-07-14 06:19] LABS: ALBUMIN 2.5 g/dL (3.2-5.5); BILIRUBIN,TOTAL 0.7 mg/dL (0.2-1.0); CALCIUM 7.5 mg/dL (8.5-10.3); CREATININE 1.3 mg/dL (0.6-1.2); POTASSIUM 3.1 mmol/L (3.5-5.0)
[2021-07-14] MEDS: SODIUM CHLORIDE 0.9% 1,000 ML IV SCH ×2 (08:11→17:32)
[2021-07-14] MEDS: CIPROFLOXACIN 400 MG/200 ML 400 MG/200 ML BAG IV SCH ×2 (08:11→19:40)
[2021-07-14] MEDS: DORZOLAMIDE/TIMOLOL OPHTH DROPS LEFTEYE SCH ×2 (08:12→13:39)
[2021-07-14] MEDS: MYCOPHENOLATE SODIUM 360 MG PO SCH ×2 (08:13→20:19)
[2021-07-14] MEDS: predniSONE 5 MG TABLET PO SCH (08:14)
[2021-07-14] MEDS: POTASSIUM CHLORIDE 20 MEQ TABLET PO SCH ×2 (08:15→20:19)
[2021-07-14] MEDS: TAMSULOSIN 0.4 MG CAPSULE PO SCH ×2 (08:15→20:19)
[2021-07-14] MEDS: APIXABAN 5 MG TABLET PO SCH ×2 (08:15→20:20)
[2021-07-14] MEDS: TACROLIMUS 0.5 MG CAPSULE PO SCH ×2 (08:15→20:19)
[2021-07-14] MEDS: ACETAMINOPHEN 325 MG TABLET PO PRN (08:15)
[2021-07-14] MEDS: OXYBUTYNIN 5MG TABLET PO SCH ×2 (08:15→20:19)
[2021-07-14] MEDS: oxyCODONE 5 MG TABLET PO PRN (11:43)
[2021-07-14 12:50] LABS: HCT - HEMATOCRIT 39.5 % (42.0-52.0); HGB - HEMOGLOBIN 13.2 g/dL (14.0-18.0)
--- NOTE | 2021-07-14 13:03 | PROVIDER PROGRESS NOTE ---
Subjective - Prog Note Date Prog Note Date: 07/14/21 Prog Note Time: 12:38 - Subjective Pt reports feeling: Worse Subjective: Nausea, Vomiting have resolved since yesterday. Diarrhea resolved since yesterday evening. What he feels this morning is profound fatigue. He cannot explain it, he just knows that he is profoundly exhausted without a good reason. Then later this morning he has had a black liquid stool. He is not hypotensive or tachycardic with this. Hemoglobin this morning was stable. denies cp, sob, nausea, abd pain Current Medications - Current Medications Current Medications: Active Medications Acetaminophen (Acetaminophen 325 Mg Tablet) 650 mg PO Q6HR PRN PRN Reason: Pain or Fever > 38C (100.4F) Last Admin: 07/14/21 08:15 Dose: 650 mg Apixaban (Apixaban 5 Mg Tablet) 5 mg PO BID [facility] Last Admin: 07/14/21 08:15 Dose: 5 mg Diazepam (Diazepam 5 Mg Tablet) 5 mg PO QPM [facility] Last Admin: 07/13/21 22:00 Dose: 5 mg Diltiazem HCl (Diltiazem 30 Mg Tablet) 30 mg PO Q6HR [facility] Last Admin: 07/14/21 11:44 Dose: 30 mg Dorzolamide/Timolol (Dorzolamide/Timolol Ophth Drops) 1 drops LEFTEYE 0800,1400 [facility] Last Admin: 07/14/21 08:12 Dose: 1 drops Sodium Chloride (Normal Saline 0.9%) 1,000 mls @ 100 mls/hr IV .Q10H [facility] Last Admin: 07/14/21 08:11 Dose: 100 mls/hr Metronidazole (Flagyl 500 Mg/100 Ml) 500 mg in 100 mls @ 100 mls/hr IV Q8H [facility] Last Admin: 07/14/21 11:44 Dose: 100 mls/hr Ciprofloxacin (Cipro 400 Mg/200 Ml) 400 mg in 200 mls @ 200 mls/hr IV Q12H [facility] Last Infusion: 07/14/21 10:14 Dose: Infused Latanoprost (Latanoprost 0.005% Ophth Drops) 1 drops LEFTEYE QPM [facility] Last Admin: 07/13/21 20:31 Dose: 1 drops Levothyroxine Sodium (Levothyroxine 25 Mcg Tablet) 75 mcg PO 0700 [facility] Last Admin: 07/14/21 05:58 Dose: 75 mcg Multi-Ingredient Ointment (Zinc Oxide 20% Oint 30 Gm Tube) 1 applic TOP PRN PRN PRN Reason: Skin Care Last Admin: 07/13/21 21:39 Dose: 1 applic Ondansetron HCl (Ondansetron 4 Mg/2 Ml Vial) 4 mg IVP Q6HR PRN PRN Reason: Nausea / Vomiting Last Admin: 07/13/21 21:00 Dose: 4 mg Oxybutynin Chloride (Oxybutynin 5mg Tablet) 5 mg PO BID [facility] Last Admin: 07/14/21 08:15 Dose: 5 mg Oxycodone HCl (Oxycodone 5 Mg Tablet) 5 mg PO Q8H PRN PRN Reason: PAIN Last Admin: 07/14/21 11:43 Dose: 5 mg Mycophenolate Sodium [Mycophenolic Acid] 360 Mg Tablet .Dr 1 each PO 799,1999 [facility] Last Admin: 07/14/21 08:13 Dose: 1 each Phenol/Menthol (Phenol Throat [place] 177 Ml) 2 sprays MM Q2HR PRN PRN Reason: Throat Pain Potassium Chloride (Potassium Chloride 20 Meq Tablet) 40 meq PO BID [facility] Last Admin: 07/14/21 08:15 Dose: 40 meq Prednisone (Prednisone 5 Mg Tablet) 5 mg PO 0800 [facility] Last Admin: 07/14/21 08:14 Dose: 5 mg Prochlorperazine Edisylate (Prochlorperazine 10 Mg/2 Ml Vial) 10 mg IVP Q6HR PRN PRN Reason: Nausea / Vomiting Sodium Chloride (Sodium Chloride Flush 0.9% 10 Ml Syringe) 10 ml IVP PRN PRN PRN Reason: NEEDED PER PROVIDER ORDERS Last Admin: 07/12/21 19:44 Dose: 10 ml Sodium Chloride (Sodium Chloride Flush 0.9% 10 Ml Syringe) 10 ml IVP 0100,0900,1700 [facility] Last Admin: 07/14/21 08:16 Dose: Not Given Tacrolimus (Tacrolimus 0.5 Mg Capsule) 1 mg PO BID@0800,1999 [facility] Last Admin: 07/14/21 08:15 Dose: 1 mg Tamsulosin HCl (Tamsulosin 0.4 Mg Capsule) 0.4 mg PO BID [facility] Last Admin: 07/14/21 08:15 Dose: 0.4 mg Diazepam [Valium] 10 mg PO Q6H PRN 06/25/12 Tacrolimus 1 mg PO BID 06/25/12 predniSONE [Deltasone] 5 mg PO DAILY 06/25/12 Betamethasone Valerate 1 applic TOP .THREE TIMES WEEKLY 05/19/16 Mycophenolate Sodium [Mycophenolic Acid] 360 mg PO BID 05/19/16 oxyCODONE [Roxicodone] 5 mg PO Q4H PRN MDD 30 mg 05/19/16 Tamsulosin [Flomax] 0.4 mg PO BID 06/19/20 Dorzolamide/Timolol Ophth Soln [Cosopt] 1 drops LEFTEYE 0800,1400 07/13/21 Latanoprost 0.005% Ophth Drops [Xalatan Ophth Drops] 1 drops LEFTEYE QPM 07/13/21 Levothyroxine [Synthroid] 100 mcg PO QDAC 07/13/21 Metoprolol Tartrate [Lopressor] 25 mg PO BID 07/13/21 Objective - Vital Signs/Intake & Output Reviewed Vital Signs: Yes Vital Signs: Vital Signs x48h Temp Pulse Resp BP BP Pulse Ox 07/14/21 11:44 108/56 L 07/14/21 11:32 36.9 C 92 20 111/64 96 07/14/21 07:36 37.4 C 75 18 113/61 95 07/14/21 05:58 105/65 Intake & Output: Intake & Output 07/11/21 07/12/21 07/13/21 07/14/21 23:59 23:59 23:59 23:59 Intake Total 3571 3340.000 1710 Output Total 50 250 Balance 3571 3290.000 1460 - Objective General Appearance: positive: No acute distress, Alert (but muted affect, tired) Eyes Bilateral: positive: PERRL, EOMI ENT: positive: No signs of dehydration Neck: negative: No JVD, Stiff neck Respiratory: positive: No respiratory distress. negative: Wheezes, Rales, Rhonchi Cardiovascular: positive: Regular rate & rhythm. negative: Gallop/S4, Friction rub Abdomen: positive: Non-tender, No organomegaly, Nml bowel sounds, No distention Skin: positive: Warm, Dry. negative: Diaphoresis, Pallor Extremities: positive: Non-tender, Full ROM, Other (bilateral arm arms at elbow) Neurologic/Psychiatric: positive: Oriented x3, CN's nml (2-12), Motor nml - Lab Results Fish Bones: 07/14/21 12:42 07/14/21 05:23 Other Labs: Lab Results x24hrs 07/14/21 07/14/21 Range/Units 05:23 05:23 WBC 8.2 (4.8-10.8) x10^3/uL RBC 4.06 L (4.70-6.10) 10^6/uL Hgb 11.8 L (14.0-18.0) g/dL Hct 36.1 L (42.0-52.0) % MCV 88.9 (80.0-94.0) fL MCH 29.1 (27.0-31.0) pg MCHC 32.7 (32.0-36.0) g/dL RDW 13.9 (12.0-15.0) % Plt Count 124 L (130-450) 10^3/uL MPV 12.2 H (7.4-11.4) fL Neut # (Auto) 6.1 (1.5-6.6) 10^3/uL Lymph # (Auto) 1.0 L (1.5-3.5) 10^3/uL [place] # (Auto) 0.9 (0.0-1.0) 10^3/uL Eos # (Auto) 0.1 (0.0-0.7) 10^3/uL Baso # (Auto) 0.0 (0.0-0.1) 10^3/uL Absolute Nucleated RBC 0.00 x10^3/uL Nucleated RBC % 0.0 /100WBC Sodium 137 (135-145) mmol/L Potassium 3.1 L (3.5-5.0) mmol/L Chloride 112 H (101-111) mmol/L Carbon Dioxide 18 L (21-32) mmol/L Anion Gap 7.0 (6-13) BUN 20 (6-20) mg/dL Creatinine 1.3 H (0.6-1.2) mg/dL Estimated GFR (MDRD) 55 L (>89) Glucose 127 H (70-100) mg/dL Calcium 7.5 L (8.5-10.3) mg/dL Total Bilirubin 0.7 (0.2-1.0) mg/dL AST 13 (10-42) IU/L ALT 12 (10-60) IU/L Alkaline Phosphatase 26 L (42-121) IU/L Total Protein 5.0 L (6.7-8.2) g/dL Albumin 2.5 L (3.2-5.5) g/dL Globulin 2.5 (2.1-4.2) g/dL Albumin/Globulin Ratio 1.0 (1.0-2.2) ABX Reporting Has patient been on IV antibiotics over the past 48 hours?: Yes Assessment/Plan - Problem List (1) Black stool Impression: Differential diagnosis includes: Colitis versus infection versus GI bleed (upper /lower). I have rechecked his hemoglobin and it is stable. He is not tachycardic or hypotensive. He could be at risk for gastritis. Does not appear to have signs symptoms of ischemic colitis. And I doubt infection would give him discolored stool. Plan: Continue stay. He was worried that it was going to discharge him today. Continue serial hemoglobin every 6 hours for follow-up. Start Protonix. I will hold off on Eliquis for now until this resolves. (2) Vomiting and diarrhea Impression: Etiology undetermined. Emesis resolved but diarrhea still present. He has no ability to clean himself at home so I changed him from OBV to inpatient 07/13 until the diarrhea resolved. it has resolved but now with liquid black stool WBC was 18.6 on admit and now normal. C. difficile test was negative. Blood and stool cultures were obtained and negative so far. Patient was started empirically on Cipro and Flagyl IV. Continue those Continue IV hydration with normal saline at 100 mL/h will continue Zofran and Phenergan ordered IV as needed. (3) Leukocytosis resolved. Conclusion/Plan: Etiology undetermined. Had a low grade fever 07/13 morning and none since. WBC was 18.3 and now nml. Reactive versus infectious. I also worry about rejection. I contacted the instructional technology instructor Ni @ [phone], and they will follow up with CMP in one week. She will relay the message to the Attending/fellow. Repeat bili has been nml. Blood and stool cultures obtained and negative so far. C. difficile test negative. On empiric antibiotics with Cipro and Flagyl IV. IV hydration with normal saline at 100 mL/h will continue. (4) Atrial fibrillation Conclusion/Plan: Patient's heart rate was as high as 140s in the ED. He was given diltiazem 20 mg IV twice. He was also given diltiazem CD to 40 mg x 1. Heart rate down to the 80s by afternoon. This morning he was 119 with his fever. But rate back down again. I did let the transplant nurse know this as well. Patient is not on any heart rate controlling medication at home. He is on 30 mg po q6h here. Eliquis 5 mg p.o. twice daily resumed. I will hold until issue of black stool resolved. Qualifiers: Atrial fibrillation type: unspecified Qualified Code(s): I48.91 - Unspecified atrial fibrillation (5) Hypothyroidism Conclusion/Plan: On Synthroid 75 mcg p.o. daily. (6) History of kidney transplant Conclusion/Plan: On CellCept, tacrolimus and prednisone 5 mg p.o. daily. Meds from home to be verified by pharmacy today and pharmacist will order them the way the patient likes to take them at home. (7) History of liver transplant Conclusion/Plan: Patient had liver cirrhosis. No alcohol abuse. He had history of hepatitis C which had since been treated. Is currently on CellCept, tacrolimus and prednisone. (8) BPH (benign prostatic hyperplasia) Conclusion/Plan: Tamsulosin 0.4 mg p.o. twice daily.
[2021-07-14] MEDS: PANTOPRAZOLE 40 MG TABLET PO SCH (13:39)
[2021-07-14 18:32] LABS: HCT - HEMATOCRIT 36.9 % (42.0-52.0); HGB - HEMOGLOBIN 12.3 g/dL (14.0-18.0)
[2021-07-14] MEDS: LATANOPROST 0.005% OPHTH DROPS LEFTEYE SCH (20:14)
[2021-07-14] MEDS: diazePAM 5 MG TABLET PO SCH (20:19)
[2021-07-14] MEDS: METOPROLOL TARTRATE 25 MG TABLET PO SCH (21:58)
[2021-07-15] MEDS: SODIUM CHLORIDE FLUSH 0.9% 10 ML SYRINGE IVP SCH ×4 (00:06→23:50)
[2021-07-15] MEDS: diltiaZEM 30 MG TABLET PO SCH ×5 (00:07→23:49)
[2021-07-15] MEDS: metroNIDAZOLE 500 MG/100 ML 500 MG/100 ML BAG IV SCH ×3 (03:46→20:22)
[2021-07-15 05:29] LABS: BASOPHILS % (AUTO) 0.1 %; EOSINOPHILS # (AUTO) 0.1 10^3/uL (0.0-0.7); EOSINOPHILS % (AUTO) 0.8 %; HCT - HEMATOCRIT 36.1 % (42.0-52.0); HGB - HEMOGLOBIN 11.7 g/dL (14.0-18.0); LYMPHOCYTES # (AUTO) 1.5 10^3/uL (1.5-3.5); LYMPHOCYTES % (AUTO) 17.3 %; MEAN CORPUSCULAR HEMOGLOBIN 29.4 pg (27.0-31.0); MEAN CORPUSCULAR HGB CONC 32.4 g/dL (32.0-36.0); MEAN CORPUSCULAR VOLUME 90.7 fL (80.0-94.0); MEAN PLATELET VOLUME 12.5 fL (7.4-11.4); MONOCYTES # (AUTO) 0.8 10^3/uL (0.0-1.0); MONOCYTES % (AUTO) 9.7 %; NEUTROPHILS % (AUTO) 71.5 %; PLT - PLATELET COUNT 143 10^3/uL (130-450); RED BLOOD COUNT 3.98 10^6/uL (4.70-6.10); RED CELL DISTRIBUTION WIDTH 13.7 % (12.0-15.0); WHITE BLOOD COUNT 8.4 x10^3/uL (4.8-10.8)
[2021-07-15] MEDS: SODIUM CHLORIDE 0.9% 1,000 ML IV SCH ×2 (06:14→18:11)
[2021-07-15] MEDS: LEVOTHYROXINE 25 MCG TABLET PO SCH (06:16)
[2021-07-15] MEDS: PANTOPRAZOLE 40 MG TABLET PO SCH (06:16)
[2021-07-15] MEDS: MYCOPHENOLATE SODIUM 360 MG PO SCH ×2 (08:21→20:23)
[2021-07-15] MEDS: CIPROFLOXACIN 400 MG/200 ML 400 MG/200 ML BAG IV SCH ×2 (08:21→20:22)
[2021-07-15] MEDS: predniSONE 5 MG TABLET PO SCH (08:22)
[2021-07-15] MEDS: TACROLIMUS 0.5 MG CAPSULE PO SCH ×2 (08:22→20:25)
[2021-07-15] MEDS: DORZOLAMIDE/TIMOLOL OPHTH DROPS LEFTEYE SCH ×2 (08:22→13:47)
[2021-07-15] MEDS: POTASSIUM CHLORIDE 20 MEQ TABLET PO SCH ×2 (08:26→21:35)
[2021-07-15] MEDS: OXYBUTYNIN 5MG TABLET PO SCH ×2 (08:26→21:35)
[2021-07-15] MEDS: METOPROLOL TARTRATE 25 MG TABLET PO SCH ×2 (08:26→21:35)
[2021-07-15] MEDS: TAMSULOSIN 0.4 MG CAPSULE PO SCH ×2 (08:26→21:36)
[2021-07-15] MEDS: APIXABAN 5 MG TABLET PO SCH ×2 (09:55→21:35)
[2021-07-15] MEDS: oxyCODONE 5 MG TABLET PO PRN (12:08)
[2021-07-15 12:42] LABS: % IRON SATURATION 21 % (20-50); IRON 37 ug/dL (45-182); TOTAL IRON BINDING CAPACITY 175 ug/dL (250-450); TRANSFERRIN 125 mg/dL (180-329)
[2021-07-15] MEDS ORDERED: SODIUM CHLORIDE 0.9% 500 ML IV ONE (12:47)
[2021-07-15 13:07] LABS: FERRITIN 71.1 ng/mL (23.9-336.2)
--- NOTE | 2021-07-15 16:08 | PROVIDER PROGRESS NOTE ---
Subjective - Prog Note Date Prog Note Date: 07/15/21 Prog Note Time: 16:06 - Subjective Subjective: stomach feels bloated, and full. Vague nausea but no emesis. He recalls vomiting blood many years ago before he got his liver transplant. He said that there is something "wrong with my esophagus". But his knowledge he has never had stomach ulcers. Continues to have liquid black stool off and on throughout the day. He has more control of his sphincter and has not had any incontinence yet Current Medications - Current Medications Current Medications: Active Medications Acetaminophen (Acetaminophen 325 Mg Tablet) 650 mg PO Q6HR PRN PRN Reason: Pain or Fever > 38C (100.4F) Last Admin: 07/14/21 08:15 Dose: 650 mg Apixaban (Apixaban 5 Mg Tablet) 5 mg PO BID [facility] Last Admin: 07/15/21 09:55 Dose: Not Given Diazepam (Diazepam 5 Mg Tablet) 5 mg PO QPM [facility] Last Admin: 07/14/21 20:19 Dose: 5 mg Diltiazem HCl (Diltiazem 30 Mg Tablet) 30 mg PO Q6HR [facility] Last Admin: 07/15/21 12:07 Dose: 30 mg Dorzolamide/Timolol (Dorzolamide/Timolol Ophth Drops) 1 drops LEFTEYE 0800,1400 [facility] Last Admin: 07/15/21 13:47 Dose: 1 drops Sodium Chloride (Normal Saline 0.9%) 1,000 mls @ 100 mls/hr IV .Q10H [facility] Last Admin: 07/15/21 06:14 Dose: 100 mls/hr Metronidazole (Flagyl 500 Mg/100 Ml) 500 mg in 100 mls @ 100 mls/hr IV Q8H [facility] Last Infusion: 07/15/21 13:20 Dose: Infused Ciprofloxacin (Cipro 400 Mg/200 Ml) 400 mg in 200 mls @ 200 mls/hr IV Q12H [facility] Last Infusion: 07/15/21 09:58 Dose: Infused Latanoprost (Latanoprost 0.005% Ophth Drops) 1 drops LEFTEYE QPM [facility] Last Admin: 07/14/21 20:14 Dose: 1 drops Levothyroxine Sodium (Levothyroxine 25 Mcg Tablet) 75 mcg PO 0700 [facility] Last Admin: 07/15/21 06:16 Dose: 75 mcg Metoprolol Tartrate (Metoprolol Tartrate 25 Mg Tablet) 25 mg PO BID [facility] Last Admin: 07/15/21 08:26 Dose: 25 mg Multi-Ingredient Ointment (Zinc Oxide 20% Oint 30 Gm Tube) 1 applic TOP PRN PRN PRN Reason: Skin Care Last Admin: 07/13/21 21:39 Dose: 1 applic Ondansetron HCl (Ondansetron 4 Mg/2 Ml Vial) 4 mg IVP Q6HR PRN PRN Reason: Nausea / Vomiting Last Admin: 07/13/21 21:00 Dose: 4 mg Oxybutynin Chloride (Oxybutynin 5mg Tablet) 5 mg PO BID [facility] Last Admin: 07/15/21 08:26 Dose: 5 mg Oxycodone HCl (Oxycodone 5 Mg Tablet) 5 mg PO Q8H PRN PRN Reason: PAIN Last Admin: 07/15/21 12:08 Dose: 5 mg Pantoprazole Sodium (Pantoprazole 40 Mg Tablet) 40 mg PO QDAC [facility] Last Admin: 07/15/21 06:16 Dose: 40 mg Mycophenolate Sodium [Mycophenolic Acid] 360 Mg Tablet .Dr 1 each PO 080 0,2000 [facility] Last Admin: 07/15/21 08:21 Dose: 1 each Phenol/Menthol (Phenol Throat [place] 177 Ml) 2 sprays MM Q2HR PRN PRN Reason: Throat Pain Potassium Chloride (Potassium Chloride 20 Meq Tablet) 40 meq PO BID [facility] Last Admin: 07/15/21 08:26 Dose: 40 meq Prednisone (Prednisone 5 Mg Tablet) 5 mg PO 0800 [facility] Last Admin: 07/15/21 08:22 Dose: 5 mg Prochlorperazine Edisylate (Prochlorperazine 10 Mg/2 Ml Vial) 10 mg IVP Q6HR PRN PRN Reason: Nausea / Vomiting Sodium Chloride (Sodium Chloride Flush 0.9% 10 Ml Syringe) 10 ml IVP PRN PRN PRN Reason: NEEDED PER PROVIDER ORDERS Last Admin: 07/12/21 19:44 Dose: 10 ml Sodium Chloride (Sodium Chloride Flush 0.9% 10 Ml Syringe) 10 ml IVP 0100,0900,1700 [facility] Last Admin: 07/15/21 08:26 Dose: Not Given Tacrolimus (Tacrolimus 0.5 Mg Capsule) 1 mg PO BID@0800,1999 [facility] Last Admin: 07/15/21 08:22 Dose: 1 mg Tamsulosin HCl (Tamsulosin 0.4 Mg Capsule) 0.4 mg PO BID [facility] Last Admin: 07/15/21 08:26 Dose: 0.4 mg Diazepam [Valium] 10 mg PO Q6H PRN 06/25/12 Tacrolimus 1 mg PO BID 06/25/12 predniSONE [Deltasone] 5 mg PO DAILY 06/25/12 Betamethasone Valerate 1 applic TOP .THREE TIMES WEEKLY 05/19/16 Mycophenolate Sodium [Mycophenolic Acid] 360 mg PO BID 05/19/16 oxyCODONE [Roxicodone] 5 mg PO Q4H PRN MDD 30 mg 05/19/16 Tamsulosin [Flomax] 0.4 mg PO BID 06/19/20 Dorzolamide/Timolol Ophth Soln [Cosopt] 1 drops LEFTEYE 0800,1400 07/13/21 Latanoprost 0.005% Ophth Drops [Xalatan Ophth Drops] 1 drops LEF[place] QPM Levothyroxine [Synthroid] 100 mcg PO QDAC 07/13/21 Metoprolol Tartrate [Lopressor] 25 mg PO BID 07/13/21 Objective - Vital Signs/Intake & Output Reviewed Vital Signs: Yes Vital Signs: Vital Signs x48h Temp Pulse Pulse Resp BP BP BP 07/15/21 16:02 36.8 C 87 20 115/66 07/15/21 14:20 85 108/64 07/15/21 12:33 147 H 114 H 106/65 07/15/21 12:07 129/71 07/15/21 12:00 99 129/71 07/15/21 11:41 36.9 C 95 18 118/64 07/15/21 08:26 123/65 Pulse Ox 07/15/21 16:02 93 07/15/21 14:20 07/15/21 12:33 07/15/21 12:07 07/15/21 12:00 07/15/21 11:41 98 07/15/21 08:26 Intake & Output: Intake & Output 07/12/21 07/13/21 07/14/21 07/15/21 23:59 23:59 23:59 23:59 Intake Total 3571 3340.000 3602.667 2283.333 Output Total 50 250 Balance 3571 3290.000 3352.667 2283.333 - Objective General Appearance: positive: No acute distress, Alert Eyes Bilateral: positive: PERRL ENT: positive: Pharynx nml, No signs of dehydration Neck: positive: No JVD. negative: Stiff neck Respiratory: positive: No respiratory distress. negative: Wheezes, Rales, Rhonchi Cardiovascular: positive: Irregularly irregular, Tachycardia (Burst of tachycardia that can go as high as 160 and then he comes back down to below 100 and then back up again. With 1 episode of 160 he did not feel anything. No shortness of breath, chest pain or palpitations), Systolic murmur. negative: Gallop/S4, Friction rub Abdomen: positive: Other (Bloated, slightly distended, tympanitic bowel sounds. Diffuse uncomfortableness but no pain. No rebound or guarding.) Rectal: positive: Black stool Skin: positive: Warm, Dry Extremities: positive: Full ROM, No pedal edema, Other (Bilateral arm stems at the elbow. Stumps are closed, clean, healed.) Neurologic/Psychiatric: positive: Oriented x3, CN's nml (2-12), Motor nml - Lab Results Fish Bones: 07/15/21 04:33 07/14/21 05:23 Other Labs: Lab Results x24hrs 07/15/21 07/15/21 07/15/21 Range/Units 12:12 12:12 04:33 WBC 8.4 (4.8-10.8) x10^3/uL RBC 3.98 L (4.70-6.10) 10^6/uL Hgb 11.7 L (14.0-18.0) g/dL Hct 36.1 L (42.0-52.0) % MCV 90.7 (80.0-94.0) fL MCH 29.4 (27.0-31.0) pg MCHC 32.4 (32.0-36.0) g/dL RDW 13.7 (12.0-15.0) % Plt Count 143 (130-450) 10^3/uL MPV 12.5 H (7.4-11.4) fL Neut # (Auto) 6.0 (1.5-6.6) 10^3/uL Lymph # (Auto) 1.5 (1.5-3.5) 10^3/uL [place] # (Auto) 0.8 (0.0-1.0) 10^3/uL Eos # (Auto) 0.1 (0.0-0.7) 10^3/uL Baso # (Auto) 0.0 (0.0-0.1) 10^3/uL Absolute Nucleated RBC 0.00 x10^3/uL Nucleated RBC % 0.0 /100WBC Iron 37 L (45-182) ug/dL TIBC 175 L (250-450) ug/dL % Saturation 21 (20-50) % Transferrin 125 L (180-329) mg/dL Ferritin 71.1 (23.9-336.2) ng/mL Vitamin B12 123 L (180-914) pg/mL 07/14/21 Range/Units 18:21 WBC (4.8-10.8) x10^3/uL RBC (4.70-6.10) 10^6/uL Hgb 12.3 L (14.0-18.0) g/dL Hct 36.9 L (42.0-52.0) % MCV (80.0-94.0) fL MCH (27.0-31.0) pg MCHC (32.0-36.0) g/dL RDW (12.0-15.0) % Plt Count (130-450) 10^3/uL MPV (7.4-11.4) fL Neut # (Auto) (1.5-6.6) 10^3/uL Lymph # (Auto) (1.5-3.5) 10^3/uL [place] # (Auto) (0.0-1.0) 10^3/uL Eos # (Auto) (0.0-0.7) 10^3/uL Baso # (Auto) (0.0-0.1) 10^3/uL Absolute Nucleated RBC x10^3/uL Nucleated RBC % /100WBC Iron (45-182) ug/dL TIBC (250-450) ug/dL % Saturation (20-50) % Transferrin (180-329) mg/dL Ferritin (23.9-336.2) ng/mL Vitamin B12 (180-914) pg/mL ABX Reporting Has patient been on IV antibiotics over the past 48 hours?: Yes Assessment/Plan - Problem List (1) Black stool Impression: He continues to have 2-3 a day of black, liquid stool. No pain. Differential diagnosis includes: Colitis versus infection versus GI bleed (upper/lower). I have rechecked his hemoglobin and it is drifting down. Started at 15.7>>>11.7. He is not tachycardic or hypotensive. He could be at risk for gastritis. Does not appear to have signs symptoms of ischemic colitis. And I doubt infection would give him discolored stool. Plan: I recalled his transplant team. They said that he does need a work-up with an EGD, etc. However [facility] does not have any beds. They would recommend that I call around for different hospitals. They were able to review his old record and his most recent EGD last September did not have varices, ulcers. I did discuss the case with general surgery and they are amenable to doing an EGD tomorrow at 2 PM. We will continue proton pump inhibitor. We will continue to hold off on Eliquis. (2) Vomiting and diarrhea Impression: Etiology undetermined. Emesis resolved but diarrhea still present. He has no ability to clean himself at home so I changed him from OBV to inpatient 07/13 until the diarrhea resolved. it has resolved but now with liquid black stool WBC was 18.6 on admit and now normal. C. difficile test was negative. Blood and stool cultures were obtained and negative so far. Patient was started empirically on Cipro and Flagyl IV. Continue those Continue IV hydration with normal saline at 100 mL/h will continue Zofran and Phenergan ordered IV as needed. (3) Leukocytosis resolved. Conclusion/Plan: Etiology undetermined. Had a low grade fever 07/13 morning and none since. WBC was 18.3 and now nml. Reactive versus infectious. I was worried about rejection. 07/13, I contacted the makeup artist Ni @ [phone], and they will follow up with CMP in one week. She will relay the message to the Attending/fellow. Repeat bili has been nml. Blood and stool cultures obtained and negative so far. C. difficile test negative. On empiric antibiotics with Cipro and Flagyl IV. IV hydration with normal saline at 100 mL/h will continue. (4) Atrial fibrillation Conclusion/Plan: Patient's heart rate was as high as 140s in the ED. He was given diltiazem 20 mg IV twice. He was also given diltiazem CD to 40 mg x 1. Heart rate down to the 80s by afternoon. he was 119 with his fever. But rate back down again. I did let the transplant nurse know this as well. Patient is not on any heart rate controlling medication at home. He is on 30 mg po q6h here. But having breakthru bursts of tachycardia. No symptoms Eliquis 5 mg p.o. twice daily initally resumed but I held until issue of black stool resolved. Qualifiers: Atrial fibrillation type: unspecified Qualified Code(s): I48.91 - Unspecified atrial fibrillation (5) Hypothyroidism Conclusion/Plan: On Synthroid 75 mcg p.o. daily. (6) History of kidney transplant Conclusion/Plan: On CellCept, tacrolimus and prednisone 5 mg p.o. daily. Meds from home verified by pharmacy and pharmacist did schedule them the way the patient likes to take them at home. (7) History of liver transplant Conclusion/Plan: Patient had liver cirrhosis. No alcohol abuse. He had history of hepatitis C which had since been treated. Is currently on CellCept, tacrolimus and prednisone. (8) BPH (benign prostatic hyperplasia) Conclusion/Plan: Tamsulosin 0.4 mg p.o. twice daily.
[2021-07-15] MEDS: diazePAM 5 MG TABLET PO SCH (21:35)
[2021-07-15] MEDS: LATANOPROST 0.005% OPHTH DROPS LEFTEYE SCH (21:36)
[2021-07-16] MEDS: SODIUM CHLORIDE 0.9% 1,000 ML IV SCH ×2 (03:23→13:48)
[2021-07-16] MEDS: metroNIDAZOLE 500 MG/100 ML 500 MG/100 ML BAG IV SCH ×2 (03:23→12:00)
[2021-07-16] MEDS: diltiaZEM 30 MG TABLET PO SCH ×3 (05:35→18:43)
[2021-07-16] MEDS: LEVOTHYROXINE 25 MCG TABLET PO SCH (05:36)
[2021-07-16] MEDS: PANTOPRAZOLE 40 MG TABLET PO SCH (05:36)
[2021-07-16 05:46] LABS: BASOPHILS % (AUTO) 0.4 %; EOSINOPHILS # (AUTO) 0.1 10^3/uL (0.0-0.7); EOSINOPHILS % (AUTO) 1.2 %; HCT - HEMATOCRIT 33.4 % (42.0-52.0); HGB - HEMOGLOBIN 10.7 g/dL (14.0-18.0); LYMPHOCYTES # (AUTO) 1.5 10^3/uL (1.5-3.5); LYMPHOCYTES % (AUTO) 26.3 %; MEAN CORPUSCULAR HEMOGLOBIN 28.8 pg (27.0-31.0); MEAN CORPUSCULAR VOLUME 89.8 fL (80.0-94.0); MEAN PLATELET VOLUME 11.5 fL (7.4-11.4); MONOCYTES # (AUTO) 0.5 10^3/uL (0.0-1.0); MONOCYTES % (AUTO) 8.5 %; NEUTROPHILS # (AUTO) 3.5 10^3/uL (1.5-6.6); NEUTROPHILS % (AUTO) 62.9 %; PLT - PLATELET COUNT 156 10^3/uL (130-450); RED BLOOD COUNT 3.72 10^6/uL (4.70-6.10); WHITE BLOOD COUNT 5.6 x10^3/uL (4.8-10.8)
[2021-07-16] MEDS: DORZOLAMIDE/TIMOLOL OPHTH DROPS LEFTEYE SCH ×2 (08:39→13:45)
[2021-07-16] MEDS: TAMSULOSIN 0.4 MG CAPSULE PO SCH (08:40)
[2021-07-16] MEDS: POTASSIUM CHLORIDE 20 MEQ TABLET PO SCH (08:40)
[2021-07-16] MEDS: OXYBUTYNIN 5MG TABLET PO SCH (08:40)
[2021-07-16] MEDS: TACROLIMUS 0.5 MG CAPSULE PO SCH (08:41)
[2021-07-16] MEDS: APIXABAN 5 MG TABLET PO SCH (08:41)
[2021-07-16] MEDS: predniSONE 5 MG TABLET PO SCH (08:41)
[2021-07-16] MEDS: MYCOPHENOLATE SODIUM 360 MG PO SCH (08:42)
[2021-07-16] MEDS: CIPROFLOXACIN 400 MG/200 ML 400 MG/200 ML BAG IV SCH (08:44)
[2021-07-16] MEDS: METOPROLOL TARTRATE 25 MG TABLET PO SCH (09:02)
[2021-07-16] MEDS: oxyCODONE 5 MG TABLET PO PRN (09:42)
--- NOTE | 2021-07-16 12:33 | PROVIDER PROGRESS NOTE ---
Subjective - Prog Note Date Prog Note Date: 07/16/21 Prog Note Time: 12:35 - Subjective Pt reports feeling: Improved Subjective: Yesterday he wanted to go home because he was feeling so good. But then his cramping I do such severe diaphoresis he stopped wanting to go home. This morning he is anxious to get this EGD over with. Current Medications - Current Medications Current Medications: Active Medications Acetaminophen (Acetaminophen 325 Mg Tablet) 650 mg PO Q6HR PRN PRN Reason: Pain or Fever > 38C (100.4F) Last Admin: 07/14/21 08:15 Dose: 650 mg Apixaban (Apixaban 5 Mg Tablet) 5 mg PO BID [facility] Last Admin: 07/16/21 08:41 Dose: 5 mg Diazepam (Diazepam 5 Mg Tablet) 5 mg PO QPM [facility] Last Admin: 07/15/21 21:35 Dose: 5 mg Diltiazem HCl (Diltiazem 30 Mg Tablet) 30 mg PO Q6HR [facility] Last Admin: 07/16/21 12:04 Dose: 30 mg Dorzolamide/Timolol (Dorzolamide/Timolol Ophth Drops) 1 drops LEFTEYE 0800,1400 [facility] Last Admin: 07/16/21 08:39 Dose: 1 drops Sodium Chloride (Normal Saline 0.9%) 1,000 mls @ 100 mls/hr IV .Q10H [facility] Last Admin: 07/16/21 03:23 Dose: 100 mls/hr Latanoprost (Latanoprost 0.005% Ophth Drops) 1 drops [place] QPM [facility] Last Admin: 07/15/21 21:36 Dose: 1 drops Levothyroxine Sodium (Levothyroxine 25 Mcg Tablet) 75 mcg PO 0700 [facility] Last Admin: 07/16/21 05:36 Dose: 75 mcg Metoprolol Tartrate (Metoprolol Tartrate 25 Mg Tablet) 25 mg PO BID [facility] Last Admin: 07/16/21 09:02 Dose: 25 mg Multi-Ingredient Ointment (Zinc Oxide 20% Oint 30 Gm Tube) 1 applic TOP PRN PRN PRN Reason: Skin Care Last Admin: 07/13/21 21:39 Dose: 1 applic Ondansetron HCl (Ondansetron 4 Mg/2 Ml Vial) 4 mg IVP Q6HR PRN PRN Reason: Nausea / Vomiting Last Admin: 07/13/21 21:00 Dose: 4 mg Oxybutynin Chloride (Oxybutynin 5mg Tablet) 5 mg PO BID [facility] Last Admin: 07/16/21 08:40 Dose: 5 mg Oxycodone HCl (Oxycodone 5 Mg Tablet) 5 mg PO Q8H PRN PRN Reason: PAIN Last Admin: 07/16/21 09:42 Dose: 5 mg Pantoprazole Sodium (Pantoprazole 40 Mg Tablet) 40 mg PO QDAC [facility] Last Admin: 07/16/21 05:36 Dose: 40 mg Mycophenolate Sodium [Mycophenolic Acid] 360 Mg Tablet .Dr 1 each PO 799 ,1999 [facility] Last Admin: 07/16/21 08:42 Dose: 1 each Phenol/Menthol (Phenol Throat [place] 177 Ml) 2 sprays MM Q2HR PRN PRN Reason: Throat Pain Potassium Chloride (Potassium Chloride 20 Meq Tablet) 40 meq PO BID [facility] Last Admin: 07/16/21 08:40 Dose: 40 meq Prednisone (Prednisone 5 Mg Tablet) 5 mg PO 0800 [facility] Last Admin: 07/16/21 08:41 Dose: 5 mg Prochlorperazine Edisylate (Prochlorperazine 10 Mg/2 Ml Vial) 10 mg IVP Q6HR PRN PRN Reason: Nausea / Vomiting Sodium Chloride (Sodium Chloride Flush 0.9% 10 Ml Syringe) 10 ml IVP PRN PRN PRN Reason: NEEDED PER PROVIDER ORDERS Last Admin: 07/12/21 19:44 Dose: 10 ml Sodium Chloride (Sodium Chloride Flush 0.9% 10 Ml Syringe) 10 ml IVP 0100,0900,1700 [facility] Last Admin: 07/15/21 23:50 Dose: 10 ml Tacrolimus (Tacrolimus 0.5 Mg Capsule) 1 mg PO BID@799,1999 [facility] Last Admin: 07/16/21 08:41 Dose: 1 mg Tamsulosin HCl (Tamsulosin 0.4 Mg Capsule) 0.4 mg PO BID [facility] Last Admin: 07/16/21 08:40 Dose: 0.4 mg Diazepam [Valium] 10 mg PO Q6H PRN 06/25/12 Tacrolimus 1 mg PO BID 06/25/12 predniSONE [Deltasone] 5 mg PO DAILY 05/06/13 Betamethasone Valerate 1 applic TOP .THREE TIMES WEEKLY 05/19/16 Mycophenolate Sodium [Mycophenolic Acid] 360 mg PO BID 05/19/16 oxyCODONE [Roxicodone] 5 mg PO Q4H PRN MDD 30 mg 05/19/16 Tamsulosin [Flomax] 0.4 mg PO BID 06/19/20 Dorzolamide/Timolol Ophth Soln [Cosopt] 1 drops LEFTEYE 0800,1400 07/13/21 Latanoprost 0.005% Ophth Drops [Xalatan Ophth Drops] 1 drops [place] QPM 2 Levothyroxine [Synthroid] 100 mcg PO QDAC 07/13/21 Metoprolol Tartrate [Lopressor] 25 mg PO BID 07/13/21 Objective - Vital Signs/Intake & Output Reviewed Vital Signs: Yes Vital Signs: Vital Signs x48h Temp Pulse Resp BP BP BP Pulse Ox 07/16/21 12:21 36.5 C 77 16 131/70 H 100 07/16/21 07:59 36.6 C 79 16 137/68 H 100 07/16/21 05:35 119/73 07/16/21 05:04 36.6 C 79 16 119/73 98 Intake & Output: Intake & Output 07/13/21 07/14/21 07/15/21 07/16/21 23:59 23:59 23:59 23:59 Intake Total 3340.000 3602.667 3703.333 1220 Output Total 50 250 Balance 3290.000 3352.667 3703.333 1220 - Objective General Appearance: positive: No acute distress, Alert ENT: positive: No signs of dehydration Neck: positive: No JVD. negative: Stiff neck Respiratory: positive: No respiratory distress. negative: Wheezes, Rales, Rhonchi Cardiovascular: positive: Irregularly irregular. negative: Gallop/S4, Friction rub Abdomen: positive: Non-tender, No organomegaly, Nml bowel sounds, Other (mod distension w hyperactive bowel tones) Skin: positive: Warm, Dry. 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) Neurologic/Psychiatric: positive: Oriented x3, CN's nml (2-12), Motor nml - Lab Results Fish Bones: 05/27/22 05:32 07/14/21 05:23 Other Labs: Lab Results x24hrs 07/16/21 07/15/21 07/15/21 Range/Units 05:32 12:12 12:12 WBC 5.6 (4.8-10.8) x10^3/uL RBC 3.72 L (4.70-6.10) 10^6/uL Hgb 10.7 L (14.0-18.0) g/dL Hct 33.4 L (42.0-52.0) % MCV 89.8 (80.0-94.0) fL MCH 28.8 (27.0-31.0) pg MCHC 32.0 (32.0-36.0) g/dL RDW 14.0 (12.0-15.0) % Plt Count 156 (130-450) 10^3/uL MPV 11.5 H (7.4-11.4) fL Neut # (Auto) 3.5 (1.5-6.6) 10^3/uL Lymph # (Auto) 1.5 (1.5-3.5) 10^3/uL [place] # (Auto) 0.5 (0.0-1.0) 10^3/uL Eos # (Auto) 0.1 (0.0-0.7) 10^3/uL Baso # (Auto) 0.0 (0.0-0.1) 10^3/uL Absolute Nucleated RBC 0.00 x10^3/uL Nucleated RBC % 0.0 /100WBC Iron 37 L (45-182) ug/dL TIBC 175 L (250-450) ug/dL % Saturation 21 (20-50) % Transferrin 125 L (180-329) mg/dL Ferritin 71.1 (23.9-336.2) ng/mL Vitamin B12 123 L (180-914) pg/mL ABX Reporting Has patient been on IV antibiotics over the past 48 hours?: Yes Assessment/Plan - Problem List (1) Black stool Impression: He started having black stools on July 14. Complains of abdominal bloating and cramping. He continues to have 2-3 a day of black, liquid stool. No pain. Differential diagnosis includes: Gastritis vs. Colitis versus infection versus GI bleed (upper/lower). I have rechecked his hemoglobin and it is drifting down. Started at 15.7>>>11.7>>>10.7 today. He is not tachycardic or hypotensive. He could be at risk for gastritis. Does not appear to have signs symptoms of ischemic colitis. And I doubt infection would give him black stool. After monitoring his hemoglobin, he is still continuing to have black stool. As such I asked for general surgery consult but general surgery is unavailable in our hospital at times. There is no availability July 15. General surgery is seeing the patient today and is planning on an EGD at 2 PM. I have continued to hold his eliquis thru this. I recalled his transplant team 07/15. They said that he does need a work-up with an EGD, etc. However [facility] does not have any beds. They would recommend that I call around for different hospitals. They were able to review his old record and his most recent EGD last September did not have varices, ulcers. (2) Vomiting and diarrhea resolved. Impression: Etiology undetermined. Emesis resolved but diarrhea still present. Diarrhea changed from liquid brown stool to black. He has no ability to clean himself at home so I changed him from OBV to inpatient 07/13 until the diarrhea resolved. It has slowed down and he no longer has incontinence but now with liquid black stool WBC was 18.6 on admit and now normal. C. difficile test was negative. Blood and stool cultures were obtained and negative so far. Negative for Salmonella, Shigella, Campylobacter. Patient was started empirically on Cipro and Flagyl IV. I will stop those today. Plan: Continue hydration with IV fluids Continue Zofran as needed (3) Leukocytosis resolved. Conclusion/Plan: Etiology undetermined. Had a low grade fever 07/13 morning and none since. WBC was 18.3 and now nml. Reactive versus infectious. I was worried about rejection. 07/13, I contacted the remote ruby on rails developer Ni @ [phone], and they will follow up with CMP in one week. She will relay the message to the Attending/fellow. Repeat bili has been nml. We recontacted the transplant center July 15 and they are aware the patient is here. They have suggested transfer to an outside facility but there really are no beds. I was able to get our local surgeon to be able to do an EGD today. (4) Atrial fibrillation Conclusion/Plan: Patient's heart rate was as high as 140s in the ED. He was given diltiazem 20 mg IV twice. He was also given diltiazem CD to 40 mg x 1. Heart rate down to the 80s by afternoon. he was 119 with his fever. But rate back down again. I did let the transplant nurse know this as well. Patient is not on any heart rate controlling medication at home. He is on 30 mg po q6h here. But having breakthru bursts of tachycardia. He got as high as 160 in the middle of the day. When I checked on him with this he had no symptoms whatsoever. Tachycardia resolved on its own. Eliquis 5 mg p.o. twice daily initally resumed but I held until issue of black stool resolved. Qualifiers: Atrial fibrillation type: unspecified Qualified Code(s): I48.91 - Unspecified atrial fibrillation (5) Hypothyroidism Conclusion/Plan: On Synthroid 75 mcg p.o. daily. (6) History of kidney transplant Conclusion/Plan: On CellCept, tacrolimus and prednisone 5 mg p.o. daily. Meds from home verified by pharmacy and pharmacist did schedule them the way the patient likes to take them at home. (7) History of liver transplant Conclusion/Plan: Patient had liver cirrhosis. No alcohol abuse. He had history of hepatitis C which had since been treated. Is currently on CellCept, tacrolimus and prednisone. (8) BPH (benign prostatic hyperplasia) Conclusion/Plan: Tamsulosin 0.4 mg p.o. twice daily.
[2021-07-16] MEDS ORDERED: CYANOCOBALAMIN 1,000 MCG/ML VIAL IM ONE (12:39)
[2021-07-16] MEDS: SODIUM CHLORIDE FLUSH 0.9% 10 ML SYRINGE IVP SCH ×2 (13:49→18:45)
--- NOTE | 2021-07-16 16:32 | CONSULTATION NOTE ---
Referring Provider Consult Date: 07/16/21 Chief Complaint - Chief Complaint Chief Complaint: black stool History of Present Illness - History Obtained From Records Reviewed: yes History obtained from: pt Exam Limitations: none - History of Present Illness HPI Comment/Other: Admitted few days ago with gastroenteritis type symptoms. Recently had a significant amount of black stool and drop in hct. History liver transplant and elevated lfts. Normal upper endoscopy with ercp at with in last year. History - Past Medical History Cardiovascular: reports: Deep vein thrombosis, Atrial fibrillation Respiratory: reports: Pneumonia Neuro: reports: None Endocrine/Autoimmune: reports: HyPOthyroidism GI: reports: Hepatitis (History of hepatitis C which was treated), Other (History of cirrhosis likely from hepatitis C. Patient had liver transplant.) : reports: Benign prostate hypertrophy, Retention HEENT: reports: None Psych: reports: None Musculoskeletal: reports: Chronic back pain Derm: reports: Psoriasis MRSA Hx?: No - Past Surgical History General: reports: Liver surgery, Other (Hernia repairs with revision due to infection.) Ortho: reports: Spine surgery, Amputation (Bilateral above elbow amputations) Neuro: reports: Other HEENT: reports: Tonsil/Adenoidectomy Other past surgical history: Liver and renal transplant. - Family & Social History Family History Comment/Other: All males in his family have hypertension. His paternal uncles, father and brother have diabetes. Social History Notes: He lives at home with his daughter, his daughters and 2 grandchildren. He does not consume alcohol, tobacco products or recreational substances. - POLST Patient has POLST: Yes POLST Status: Full Code Meds/Allgy - Home Medications Home Medications: Ambulatory Orders Medication Instructions Recorded Confirmed Diazepam [Valium] 10 mg PO Q6H PRN 06/25/12 07/13/21 Tacrolimus 1 mg PO BID 06/25/12 07/22/20 predniSONE [Deltasone] 5 mg PO DAILY 06/25/12 07/13/21 Betamethasone Valerate 1 applic TOP .THREE TIMES WEEKLY 05/19/16 07/13/21 Mycophenolate Sodium [Mycophenolic 360 mg PO BID 05/19/16 07/13/21 Acid] oxyCODONE [Roxicodone] 5 mg PO Q4H PRN MDD 30 mg 05/19/16 07/13/21 Tamsulosin [Flomax] 0.4 mg PO BID 06/19/20 07/13/21 Apixaban [Eliquis] 5 mg PO BID #60 tablet 08/08/20 07/13/21 Oxybutynin [Ditropan] 5 mg PO BID #10 tablet 05/11/21 07/13/21 Dorzolamide/Timolol Ophth Soln 1 drops LEFTEYE 0800,1400 07/13/21 07/13/21 [Cosopt] Latanoprost 0.005% Ophth Drops 1 drops LEFTEYE QPM 07/13/21 07/13/21 [Xalatan Ophth Drops] Levothyroxine [Synthroid] 100 mcg PO QDAC 07/13/21 07/13/21 Metoprolol Tartrate [Lopressor] 25 mg PO BID 07/13/21 07/13/21 - Allergies Allergies/Adverse Reactions: Allergies Allergy/AdvReac Type Severity Reaction Status Date / Time hydromorphone HCl * AdvReac Unknown Verified 07/12/21 05:16 [From Dilaudid] Review of Systems - Other Findings Other Findings: 10 pt ros as above otherwise unremarkable Exam - Vital Signs Vital Signs: Vital Signs x48h Temp Pulse Resp BP Pulse Ox 07/16/21 15:03 36.4 C L 73 17 120/64 100 07/16/21 12:21 36.5 C 77 16 131/70 H 100 Conclusion/Plan - Problem List (1) Black stool Conclusion/Plan: concern for upper gi bleed. plan egd with biopsies. parq held and verbal consent obtained from isabella and written consent obtained from his daughter who has power of disc ruler operator. - Lab Results Fish Bones: 07/16/21 05:32 07/14/21 05:23
[2021-07-16] MEDS ORDERED: fentaNYL 100 MCG/2 ML VIAL ONE (16:38)
[2021-07-16] MEDS ORDERED: PROPOFOL 200 MG/20 ML VIAL IVP ONE ×2 (16:38)
[2021-07-16] MEDS ORDERED: LIDOCAINE-MPF 2% 5 ML VIAL ONE (16:39)
--- NOTE | 2021-07-16 17:17 | OPERATIVE REPORT ---
Operative Report - General Admit Date: 07/13/21 Procedure Date: 07/16/21 Planned Procedure: egd with biopsies Pre-Op Diagnosis: upper gi bleed Procedure Performed: egd with biopsy Post Op Diagnosis: numerous shallow punctate ulcers upper stomach/ cardia without active bleed - Procedure Note Primary Surgeon: sonido hightower Anesthesia Technique: Local, MAC Pathology: biopsy antrum Estimated Blood Loss (mL): 0 Indications: melana and anemia Findings: as above otherwise normal upper endoscopy Complications: none
--- NOTE | 2021-07-16 17:22 | ANESTHESIA POST OP EVALUATION ---
Anesthesia Post Eval - Post Anesthesia Eval Vitals: Last Vital Signs Temp 36.4 C L 07/16/21 15:03 Pulse 73 07/16/21 15:03 Resp 17 07/16/21 15:03 BP 120/64 07/16/21 15:03 Pulse Ox 100 07/16/21 15:03 CV Function Including HR & BP: Stable Pain Control: Satisfactory Nausea & Vomiting: Negative Mental Status: Baseline Respiratory Status: Airway Patent Hydration Status: Satisfactory Anesthesia Complications: None
--- NOTE | 2021-07-16 17:22 | ANESTHESIA ---
Pre-Anesthesia VS, & Labs - Diagnosis black stools - Procedure EGD Vital Signs: Temp Pulse Resp BP Pulse Ox 36.4 C L 73 17 120/64 100 07/16/21 15:03 07/16/21 15:03 07/16/21 15:03 07/16/21 15:03 07/16/21 15:03 Height: 5 ft 10 in Weight (kg): 80.1 kg Body Mass Index: 25.3 BMI Classification: Overweight - NPO >8 hours - Lab Results Current Lab Results: Laboratory Tests 07/16/21 05:32: WBC 5.6, RBC 3.72 L, Hgb 10.7 L, Hct 33.4 L, MCV 89.8, MCH 28.8, MCHC 32.0, RDW 14.0, Plt Count 156, MPV 11.5 H, Neut # (Auto) 3.5, Lymph # (Auto) 1.5, [place]aden # (Auto) 0.5, Eos # (Auto) 0.1, Baso # (Auto) 0.0, Absolute Nucleated RBC 0.00, Nucleated RBC % 0.0 07/15/21 12:12: Ferritin 71.1, Vitamin B12 123 L 07/15/21 12:12: Iron 37 L, TIBC 175 L, % Saturation 21, Transferrin 125 L 07/15/21 04:33: WBC 8.4, RBC 3.98 L, Hgb 11.7 L, Hct 36.1 L, MCV 90.7, MCH 29.4, MCHC 32.4, RDW 13.7, Plt Count 143, MPV 12.5 H, Neut # (Auto) 6.0, Lymph # (Auto) 1.5, [place] # (Auto) 0.8, Eos # (Auto) 0.1, Baso # (Auto) 0.0, Absolute Nucleated RBC 0.00, Nucleated RBC % 0.0 07/14/21 18:21: Hgb 12.3 L, Hct 36.9 L 07/14/21 12:42: Hgb 13.2 L, Hct 39.5 L 07/14/21 05:23: Sodium 137, Potassium 3.1 L, Chloride 112 H, Carbon Dioxide 18 L , Anion Gap 7.0, BUN 20, Creatinine 1.3 H, Estimated GFR (MDRD) 55 L, Glucose 127 H, Calcium 7.5 L, Total Bilirubin 0.7, AST 13, ALT 12, Alkaline Phosphatase 26 L, Total Protein 5.0 L, Albumin 2.5 L, Globulin 2.5, Albumin/Globulin Ratio 1.0 07/14/21 05:23: WBC 8.2, RBC 4.06 L, Hgb 11.8 L, Hct 36.1 L, MCV 88.9, MCH 29.1, MCHC 32.7, RDW 13.9, Plt Count 124 L, MPV 12.2 H, Neut # (Auto) 6.1, Lymph # (Auto) 1.0 L, Bladen # (Auto) 0.9, Eos # (Auto) 0.1, Baso # (Auto) 0.0, Absolute Nucleated RBC 0.00, Nucleated RBC % 0.0 07/13/21 10:17: Sodium 134 L, Potassium 3.4 L, Chloride 108, Carbon Dioxide 18 L , Anion Gap 8.0, BUN 26 H, Creatinine 1.5 H, Estimated GFR (MDRD) 47 L, Glucose 127 H, Calcium 7.4 L, Total Bilirubin 0.9, AST 14, ALT 15, Alkaline Phosphatase 27 L, Total Protein 5.0 L, Albumin 2.7 L, Globulin 2.3, Albumin/Globulin Ratio 1.2 07/13/21 10:17: WBC 10.0, RBC 4.06 L, Hgb 11.9 L, Hct 37.0 L, MCV 91.1, MCH 29.3, MCHC 32.2, RDW 13.8, Plt Count 109 L, MPV 11.1, Neut # (Auto) 8.0 H, Lymph # (Auto) 0.5 L, [place]aden # (Auto) 1.4 H, Eos # (Auto) 0.0, Baso # (Auto) 0.0, Absolute Nucleated RBC 0.00, Nucleated RBC % 0.0 07/12/21 07:46: Lactic Acid 1.8 07/12/21 05:02: Sodium 135, Potassium 3.3 L, Chloride 101, Carbon Dioxide 20 L, Anion Gap 14.0 H, BUN 20, Creatinine 1.5 H, Estimated GFR (MDRD) 47 L, Glucose 106 H, Calcium 9.5, Total Bilirubin 2.2 H, AST 20, ALT 16, Alkaline Phosphatase 43, Total Protein 7.1, Albumin 3.9, Globulin 3.2, Albumin/Globulin Ratio 1.2, Lipase 24 07/12/21 05:02: WBC 18.3 H, RBC 5.42, Hgb 15.7, Hct 47.2, MCV 87.1, MCH 29.0, MCHC 33.3, RDW 13.5, Plt Count 153, MPV 11.6 H, Neut # (Auto) Not Reportable, Lymph # (Auto) Not Reportable, Bladen # (Auto) Not Reportable, Eos # (Auto) Not Reportable, Baso # (Auto) Not Reportable, Absolute Nucleated RBC Not Reportable, Total Counted 100, Band Neuts % (Manual) 1, Abnorm Lymph % (Manual) 0, Nucleated RBC % Not Reportable, Neutrophils # (Manual) 13.7 H, Lymphocytes # (Manual) 3.3, Monocytes # (Manual) 1.3 H, Eosinophils # (Manual) 0.0, Basophils # (Manual) 0.0, Differential Comment MANUAL DIFFERENTIAL, WBC Morphology NORMAL APPEARANCE, Platelet Estimate NORMAL (130-450,000), Platelet Morphology NORMAL APPEARANCE, RBC Morph Micro Appear NORMAL APPEARANCE Fish Bones: 07/16/21 05:32 07/14/21 05:23 Home Medications and Allergies Home Medications: Ambulatory Orders Dorzolamide/Timolol Ophth Soln [Cosopt] 1 drops LEFTEYE 0800,1400 07/13/21 Latanoprost 0.005% Ophth Drops [Xalatan Ophth Drops] 1 drops LEFTEYE QPM 07/13/21 Levothyroxine [Synthroid] 100 mcg PO QDAC 07/13/21 Metoprolol Tartrate [Lopressor] 25 mg PO BID 07/13/21 Active Medications Acetaminophen (Acetaminophen 325 Mg Tablet) 650 mg PO Q6HR PRN PRN Reason: Pain or Fever > 38C (100.4F) Last Admin: 07/14/21 08:15 Dose: 650 mg Apixaban (Apixaban 5 Mg Tablet) 5 mg PO BID [facility] Last Admin: 07/16/21 08:41 Dose: 5 mg Diazepam (Diazepam 5 Mg Tablet) 5 mg PO QPM [facility] Last Admin: 07/15/21 21:35 Dose: 5 mg Diltiazem HCl (Diltiazem 30 Mg Tablet) 30 mg PO Q6HR [facility] Last Admin: 07/16/21 12:04 Dose: 30 mg Dorzolamide/Timolol (Dorzolamide/Timolol Ophth Drops) 1 drops LEFTEYE 0800,1400 [facility] Last Admin: 07/16/21 13:45 Dose: 1 drops Sodium Chloride (Normal Saline 0.9%) 1,000 mls @ 100 mls/hr IV .Q10H [facility] Last Admin: 07/16/21 13:48 Dose: 100 mls/hr Latanoprost (Latanoprost 0.005% Ophth Drops) 1 drops LEFTEYE QPM [facility] Last Admin: 07/15/21 21:36 Dose: 1 drops Levothyroxine Sodium (Levothyroxine 25 Mcg Tablet) 75 mcg PO 0700 [facility] Last Admin: 07/16/21 05:36 Dose: 75 mcg Metoprolol Tartrate (Metoprolol Tartrate 25 Mg Tablet) 25 mg PO BID [facility] Last Admin: 07/16/21 09:02 Dose: 25 mg Multi-Ingredient Ointment (Zinc Oxide 20% Oint 30 Gm Tube) 1 applic TOP PRN PRN PRN Reason: Skin Care Last Admin: 07/13/21 21:39 Dose: 1 applic Ondansetron HCl (Ondansetron 4 Mg/2 Ml Vial) 4 mg IVP Q6HR PRN PRN Reason: Nausea / Vomiting Last Admin: 07/13/21 21:00 Dose: 4 mg Oxybutynin Chloride (Oxybutynin 5mg Tablet) 5 mg PO BID [facility] Last Admin: 07/16/21 08:40 Dose: 5 mg Oxycodone HCl (Oxycodone 5 Mg Tablet) 5 mg PO Q8H PRN PRN Reason: PAIN Last Admin: 07/16/21 09:42 Dose: 5 mg Pantoprazole Sodium (Pantoprazole 40 Mg Tablet) 40 mg PO QDAC [facility] Last Admin: 07/16/21 05:36 Dose: 40 mg Mycophenolate Sodium [Mycophenolic Acid] 360 Mg Tablet . 1 each PO 0800,2000 [facility] Last Admin: 07/16/21 08:42 Dose: 1 each Phenol/Menthol (Phenol Throat [place] 177 Ml) 2 sprays MM Q2HR PRN PRN Reason: Throat Pain Potassium Chloride (Potassium Chloride 20 Meq Tablet) 40 meq PO BID [facility] Last Admin: 07/16/21 08:40 Dose: 40 meq Prednisone (Prednisone 5 Mg Tablet) 5 mg PO 0800 [facility] Last Admin: 07/16/21 08:41 Dose: 5 mg Prochlorperazine Edisylate (Prochlorperazine 10 Mg/2 Ml Vial) 10 mg IVP Q6HR PRN PRN Reason: Nausea / Vomiting Sodium Chloride (Sodium Chloride Flush 0.9% 10 Ml Syringe) 10 ml IVP PRN PRN PRN Reason: NEEDED PER PROVIDER ORDERS Last Admin: 07/12/21 19:44 Dose: 10 ml Sodium Chloride (Sodium Chloride Flush 0.9% 10 Ml Syringe) 10 ml IVP 0100,0900,1700 [facility] Last Admin: 07/16/21 13:49 Dose: Not Given Tacrolimus (Tacrolimus 0.5 Mg Capsule) 1 mg PO BID@0800,2000 [facility] Last Admin: 07/16/21 08:41 Dose: 1 mg Tamsulosin HCl (Tamsulosin 0.4 Mg Capsule) 0.4 mg PO BID [facility] Last Admin: 07/16/21 08:40 Dose: 0.4 mg Diazepam [Valium] 10 mg PO Q6H PRN 06/25/12 Tacrolimus 1 mg PO BID 06/25/12 predniSONE [Deltasone] 5 mg PO DAILY 06/25/12 Betamethasone Valerate 1 applic TOP .THREE TIMES WEEKLY 05/19/16 Mycophenolate Sodium [Mycophenolic Acid] 360 mg PO BID 05/19/16 oxyCODONE [Roxicodone] 5 mg PO Q4H PRN MDD 30 mg 05/19/16 Tamsulosin [Flomax] 0.4 mg PO BID 06/19/20 Dorzolamide/Timolol Ophth Soln [Cosopt] 1 drops LEFTEYE 0800,1400 07/13/21 Latanoprost 0.005% Ophth Drops [Xalatan Ophth Drops] 1 drops LEFTEYE QPM 07/13/21 Levothyroxine [Synthroid] 100 mcg PO QDAC 07/13/21 Metoprolol Tartrate [Lopressor] 25 mg PO BID 07/13/21 Allergies/Adverse Reactions: Allergies Allergy/AdvReac Type Severity Reaction Status Date / Time hydromorphone HCl * AdvReac Unknown Verified 07/12/21 05:16 [From Vito] Anecharly History & Medical History - Anesthetic History Anesthesia Complications: reports: No previous complications Family history of Anesthesia Complications: Denies Family history of Malignant Hyperthermia: Denies - Medical History Cardiovascular: reports: Deep vein thrombosis, Atrial fibrillation Pulmonary: reports: Pneumonia Gastrointestinal: reports: Hepatitis (History of hepatitis C which was treated), Other (History of cirrhosis likely from hepatitis C. Patient had liver transplant.) Urinary: reports: Benign prostate hypertrophy, Retention Neuro: reports: None Musculoskeletal: reports: Chronic back pain Endocrine/Autoimmune: reports: HyPOthyroidism Blood Disorders: reports: None Skin: reports: Psoriasis Smoking Status: Former smoker - Surgical History General: reports: Liver surgery, Other (Hernia repairs with revision due to infection.) Eyes Ears Nose Throat (EENT): reports: Tonsil/Adenoidectomy Urologic: reports: Nephrectomy (kidney transplant) Neurologic: reports: Other Orthopedic: reports: Spine surgery, Amputation (Bilateral above elbow amputations) Other Past Surgical History: Liver and renal transplant. Exam General: Alert, Oriented x3, Cooperative Dental: Poor dentition Mouth Openin Fingerbreadth Neck Mobility: Normal Mallampati classification: II Thyromental Distance: 4-6 cm Respiratory: Lungs clear Cardiovascular: Regular rate Plan Anesthesia Type: Total IV Consent for Procedure(s) Verified and Reviewed: Yes Code Status: Attempt Resuscitation ASA classification: 3-Severe systemic disease Is this case an emergency?: No
[2021-07-16 19:39] VITALS: BP 136/69
[2021-07-16 19:42] LABS: HCT - HEMATOCRIT 36.2 % (42.0-52.0); HGB - HEMOGLOBIN 11.6 g/dL (14.0-18.0)
--- NOTE | 2021-07-16 19:53 | Discharge Plan ---
Discharge Plan Problem Reviewed?: Yes Disposition: Home, Self Care Condition: Stable Prescriptions: diltiaZEM CD [Cardizem Cd] 120 mg PO DAILY #30 cap Magnesium Oxide [Mag Ox] 400 mg PO 0800 #30 tablet Pantoprazole [Protonix] 40 mg PO QDAC #30 tablet Cyanocobalamin [Vitamin B-12] 1,000 mcg PO DAILY #60 tablet Diet: Regular Activity Restrictions: Activity as Tolerated Instruction Topics: Ulcer Bleeding Peptic Tx Health Concerns: You were admitted to the hospital because of nausea, vomiting, and diarrhea. You are also found to have an elevated heart rate due to atrial fibrillation. We treated this with diltiazem and metoprolol. We checked your stool for bacterial infection but this has come back negative. We treated you with IV fluids and you had improvement in your symptoms. He then developed bloody stool and he underwent an endoscopy which showed multiple small ulcerations in your stomach. You need to be on Protonix to help reduce your gastric acid production to help manage these ulcerations. Plan of Treatment: Please take Protonix 40 mg once a day. Please continue metoprolol but also begin taking diltiazem 120 mg once a day. Please do not take potassium as your numbers are now in the upper limit of normal. Please take magnesium 400 mg once a day. You are also found to be vitamin B12 deficient and we have prescribed you vitamin B12 to take once a day. You may also continue to take the Eliquis but please stop this if you have evidence of bleeding and then please seek medical attention. Care Goals: Please return to the emergency department if you develop any evidence of bleeding, worsening diarrhea, fevers or chills. Assessment: The patient and family expressed understanding of the treatment plan. Additional Instructions or Follow Up instructions: Please follow-up with your primary care physician and the transplant team in 1 week. They should check your labs to make sure your blood counts and kidney function as well as potassium are stable. No Smoking: If you smoke, Please STOP! Call for help. Follow-up with: Milton Coombs MD [Primary Care Provider] -
--- NOTE | 2021-07-16 20:03 | DISCHARGE SUMMARY ---
"Discharge Summary Admit Date: 07/12/21 Discharge Date: 07/16/21 Discharging Provider: Andrez Lugo Primary Care Provider: Milton Coombs Code Status: Attempt Resuscitation Condition at Discharge: Stable Discharge Disposition: 01 Home, Self Care - DIAGNOSES Admission Diagnoses: Vomiting and diarrhea Leukocytosis Atrial fibrillation Hypothyroidism History of kidney transplant History of liver transplant BPH Discharge Diagnoses with Status of Each Condition: Vomiting and diarrhea - resolved. Leukocytosis - resolved. Atrial fibrillation - stable. Acute kidney injury - resolved. Gastric ulcers - stable. Hypothyroidism - stable. History of kidney transplant - stable. History of liver transplant - stable. BPH - stable. - HPI History of Present Illness: H&P per Dr. Dixon: Patient is a 65-year-old male who is a bilateral upper extremity amputee with amputations done above the elbow joint. He has also undergone liver and kidney transplant and is on immunosuppressants. He presented to the ED with complaint of nausea, vomiting and diarrhea for the past 3 days. He reports an episode a lmost every 45 minutes. It is non-bloody. He denies eating anything bad prior to the onset. He denies any sick contact or any recent travel. In the ED he was noted to be tachycardic with heart rate as high as the 140s. He has history of atrial fibrillation. He was given 2 doses of diltiazem 20 mg IV and finally diltiazem CD to 40 mg p.o. which improved his heart rate to the 80s. He was noted to have a WBC of 18.3, Tbili 2.2. Due to his ongoing symptoms he was presented for admission for further management. At bedside he was shivering but denied any fever. He denied chest pain, dyspnea. He reported mild abdominal ache and was dry heaving at the time of exam. - CONSULTS | PROCEDURES Consultations: General Surgery Procedures: EGD on July 16 showed normal-appearing esophagus. Mild inflammation at GE junction. Numerous shallow punctate ulcers in the upper stomach/cardia without active bleeding. No blood in the stomach. Normal distal stomach and duodenum. Biopsy taken to rule out H pylori. - HOSPITAL COURSE Hospital Course: The patient was admitted to the floor for nausea, vomiting, and diarrhea. He was also found to have a tribulation with RVR and was started on diltiazem. His home metoprolol was also continued. He treated with IV fluids and empiric antibiotics with ciprofloxacin and Flagyl. Stool cultures came back negative. C. difficile was also negative. It was felt his diarrhea may have been due to the Prograf and mycophenolate. His diarrhea had resolved but then he developed melena and had a decrease in his hemoglobin. He then underwent an EGD which s howed multiple punctate ulcers in the upper stomach without evidence of active bleeding. He was able to tolerate a diet after the EGD and had no further evidence of bleeding. His hemoglobin had also been stable. He was hypokalemic during this hospitalization and was started on potassium 40eq twice daily. Repeat potassium was obtained prior to discharge which came back at the upper limit of normal at 5.1. This was felt to be due to the potassium supplementation he had received and now that he is longer having diarrhea, he is not having potassium losses via the GI tract. His renal function is also back to baseline. He was asked to no longer take potassium supplementation and he will follow-up with his primary care physician early next week to have repeat labs to ensure his hemoglobin, kidney function, and potassium are stable. He was asked to continue taking the Eliquis but discontinue this if you develop bleeding and to return to the emergency department. He was noted to also be deficient with a corrected vitamin B12 and was prescribed supplementation. He was also prescribed diltiazem to take addition to the metoprolol for the atrial fibrillation as high doses of metoprolol in the past caused fatigue. He is also prescribed a PPI but he punctate ulcers. The general surgery office will contact him with results of the biopsy of the antrum to rule out H plyori. He was counseled to avoid all NSAIDs. - ALLERGIES Allergies/Adverse Reactions: Allergies Allergy/AdvReac Type Severity Reaction Status Date / Time hydromorphone HCl * AdvReac Unknown Verified 07/12/21 05:16 [From Dilaudid] - MEDICATIONS Home Medications: Ambulatory Orders Medication Instructions Recorded Confirmed Diazepam [Valium] 10 mg PO Q6H PRN 06/25/12 07/13/21 Tacrolimus 1 mg PO BID 06/25/12 07/22/20 predniSONE [Deltasone] 5 mg PO DAILY 06/25/12 07/13/21 Betamethasone Valerate 1 applic TOP .THREE TIMES WEEKLY 05/19/16 07/13/21 Mycophenolate Sodium [Mycophenolic 360 mg PO BID 05/19/16 07/13/21 Acid] oxyCODONE [Roxicodone] 5 mg PO Q4H PRN MDD 30 mg 05/19/16 07/13/21 Tamsulosin [Flomax] 0.4 mg PO BID 06/19/20 07/13/21 Apixaban [Eliquis] 5 mg PO BID #60 tablet 08/08/20 07/13/21 Oxybutynin [Ditropan] 5 mg PO BID #10 tablet 05/11/21 07/13/21 Dorzolamide/Timolol Ophth Soln 1 drops LEFTEYE 0800,1400 07/13/21 07/13/21 [Cosopt] Latanoprost 0.005% Ophth Drops 1 drops LEFTEYE QPM 07/13/21 07/13/21 [Xalatan Ophth Drops] Levothyroxine [Synthroid] 100 mcg PO QDAC 07/13/21 07/13/21 Metoprolol Tartrate [Lopressor] 25 mg PO BID 07/13/21 07/13/21 Cyanocobalamin [Vitamin B-12] 1,000 mcg PO DAILY #60 tablet 07/16/21 Magnesium Oxide [Mag Ox] 400 mg PO 0800 #30 tablet 07/16/21 Pantoprazole [Protonix] 40 mg PO QDAC #30 tablet 07/16/21 diltiaZEM CD [Cardizem Cd] 120 mg PO DAILY #30 cap 07/16/21 - PHYSICAL EXAM AT DISCHARGE General Appearance: positive: No acute distress, Alert Eyes Bilateral: positive: Normal inspection, Conjunctivae nml ENT: positive: ENT inspection nml Neck: positive: Nml inspection Respiratory: positive: No respiratory distress. negative: Wheezes, Rales Cardiovascular: positive: Regular rate & rhythm, No murmur. negative: Tachycardia Abdomen: positive: Non-tender, No distention, Other (Palpable mass in right upper quadrant.). negative: Tenderness Skin: positive: Warm, Dry Extremities: positive: No pedal edema, Other (Bilateral above elbow amputations.) Neurologic/Psychiatric: positive: Motor nml. negative: Disoriented to person, Disoriented to place Physical Exam Other/Comments: Vital Signs - 24 hr 07/15/21 07/15/21 07/15/21 21:35 22:00 23:49 Temperature 36.5 C 36.8 C Heart Rate [ 85 84 Brachial] Heart Rate [ Monitoring electrodes] Respiratory 18 16 Rate Blood Pressure 128/67 129/69 Blood Pressure 129/69 [Left Brachial artery] Blood Pressure 126/69 [Right Brachial artery] O2 Saturation 100 100 07/16/21 07/16/21 07/16/21 05:04 05:35 07:59 Temperature 36.6 C 36.6 C Heart Rate [ 79 79 Brachial] Heart Rate [ Monitoring electrodes] Respiratory 16 16 Rate Blood Pressure 119/73 Blood Pressure 119/73 [Left Brachial artery] Blood Pressure 137/68 H [Right Brachial artery] O2 Saturation 98 100 07/16/21 07/16/21 07/16/21 12:21 15:03 17:10 Temperature 36.5 C 36.4 C L Heart Rate [ 77 73 74 Brachial] Heart Rate [ Monitoring electrodes] Respiratory 16 17 18 Rate Blood Pressure Blood Pressure [Left Brachial artery] Blood Pressure 131/70 H 120/64 109/62 [Right Brachial artery] O2 Saturation 100 100 100 07/16/21 07/16/21 07/16/21 17:30 18:30 18:43 Temperature 36.5 C 36.8 C Heart Rate [ 71 76 Brachial] Heart Rate [ Monitoring electrodes] Respiratory 18 18 Rate Blood Pressure 128/64 Blood Pressure [Left Brachial artery] Blood Pressure 109/69 128/64 [Right Brachial artery] O2 Saturation 100 100 07/16/21 19:38 Temperature 36.4 C L Heart Rate [ Brachial] Heart Rate [ 81 Monitoring electrodes] Respiratory 18 Rate Blood Pressure Blood Pressure [Left Brachial artery] Blood Pressure 136/69 H [Right Brachial artery] O2 Saturation 100 Oxygen O2 Source Room air - LABS Result Diagrams: 07/16/21 19:37 07/16/21 19:37 - DIAGNOSTIC IMAGING Diagnostic Imaging Results: Final report reviewed - FOLLOW UP Follow Up: Will be following up with his primary care physician early next week. He will need a CBC, BMP to ensure his hemoglobin and electrolytes are stable. - TIME SPENT Time Spent in Discharge (Minutes): 37"
[2021-07-16 20:07] LABS: MAGNESIUM 1.3 mg/dL (1.7-2.8); POTASSIUM 5.1 mmol/L (3.5-5.0)
[2021-07-16] MEDS ORDERED: MAGNESIUM OXIDE 400 MG TABLET PO SCH (20:12)
[2021-07-16] MEDS ORDERED: MAGNESIUM OXIDE 400 MG TABLET ONE (20:24)
[2021-07-17] MEDS ORDERED: diltiaZEM CD 120 MG CAPSULE PO SCH (09:00)
[2021-07-17] MEDS ORDERED: CYANOCOBALAMIN 500 MCG TABLET PO SCH (09:00)
== END 2021-07-16 20:20 | disposition home or self-care (01) | DRG 393 ==
LOC: ED 04:41 → MS2 18:48 → OBSVTOIN 07-13 13:29
PROVIDERS: ADMIT Internal Medicine; ATTEND Internal Medicine
PROC: 0DB78ZZ Excision of Stomach, Pylorus, Via Natural or Artificial Opening Endoscopic (ICD-10-PCS; principal; 2021-07-16 15:35)
DX: K52.9 Noninfective gastroenteritis and colitis, unspecified (principal); E86.0 Dehydration; K52.1 Toxic gastroenteritis and colitis; Z20.822 Contact with and (suspected) exposure to COVID-19; R41.0 Disorientation, unspecified; R15.9 Full incontinence of feces; K25.4 Chronic or unspecified gastric ulcer with hemorrhage; N17.9 Acute kidney failure, unspecified; Z94.0 Kidney transplant status; Z94.4 Liver transplant status; T45.1X5A Adverse effect of antineoplastic and immunosuppressive drugs, initial encounter; D72.829 Elevated white blood cell count, unspecified; I48.91 Unspecified atrial fibrillation; R00.0 Tachycardia, unspecified; E03.9 Hypothyroidism, unspecified; N40.1 Benign prostatic hyperplasia with lower urinary tract symptoms; R33.8 Other retention of urine; E87.6 Hypokalemia; M54.9 Dorsalgia, unspecified; G89.29 Other chronic pain; Z79.899 Other long term (current) drug therapy; Z89.221 Acquired absence of right upper limb above elbow; Z89.222 Acquired absence of left upper limb above elbow; Z79.01 Long term (current) use of anticoagulants; Z86.718 Personal history of other venous thrombosis and embolism; Y92.9 Unspecified place or not applicable
CPT/HCPCS: 36415; 71045; 74177; 80048; 80053; 81001; 82607; 82728; 83540; 83605; 83690; 83735; 84466; 85014; 85018; 85025; 87040; 87045; 87046; 87086; 87427; 87493; 87633; 93005; 96361; 96365; 96375; 96376; 99283; 99285; A9270; G0378; J7512; Q9967; 81003

== ENCOUNTER 2021-12-28 08:02 | Outpatient (CLI) | payer MEDICARE, OTHER ==
[2021-12-28 08:37] LABS: BASOPHILS # (AUTO) 0.1 10^3/uL (0.0-0.1); BASOPHILS % (AUTO) 0.9 %; EOSINOPHILS # (AUTO) 0.2 10^3/uL (0.0-0.7); EOSINOPHILS % (AUTO) 2.5 %; HCT - HEMATOCRIT 48.4 % (42.0-52.0); HGB - HEMOGLOBIN 14.6 g/dL (14.0-18.0); LYMPHOCYTES # (AUTO) 2.9 10^3/uL (1.5-3.5); LYMPHOCYTES % (AUTO) 44.3 %; MEAN CORPUSCULAR HEMOGLOBIN 26.6 pg (27.0-31.0); MEAN CORPUSCULAR HGB CONC 30.2 g/dL (32.0-36.0); MEAN CORPUSCULAR VOLUME 88.3 fL (80.0-94.0); MEAN PLATELET VOLUME 11.6 fL (7.4-11.4); MONOCYTES # (AUTO) 0.7 10^3/uL (0.0-1.0); MONOCYTES % (AUTO) 10.6 %; NEUTROPHILS # (AUTO) 2.7 10^3/uL (1.5-6.6); NEUTROPHILS % (AUTO) 41.1 %; PLT - PLATELET COUNT 179 10^3/uL (130-450); RED BLOOD COUNT 5.48 10^6/uL (4.70-6.10); RED CELL DISTRIBUTION WIDTH 14.5 % (12.0-15.0); WHITE BLOOD COUNT 6.5 x10^3/uL (4.8-10.8)
[2021-12-28 08:49] LABS: INR 1.6 (0.8-1.2); PT - PROTHROMBIN TIME 17.7 secs (9.9-12.6)
[2021-12-28 08:51] LABS: ALBUMIN 4.1 g/dL (3.2-5.5); BILIRUBIN,DIRECT 0.2 mg/dL (0.1-0.5); BILIRUBIN,TOTAL 0.8 mg/dL (0.2-1.0); CALCIUM 9.5 mg/dL (8.5-10.3); CREATININE 1.2 mg/dL (0.6-1.2); MAGNESIUM 1.7 mg/dL (1.7-2.8); PHOSPHORUS 3.5 mg/dL (2.5-4.6); POTASSIUM 3.6 mmol/L (3.5-5.0)
[2021-12-29 03:08] LABS: HBsAG SCREEN Negative (Negative); HEPATITIS B SURFACE AB QUANT <3.1 mIU/mL (Immunity>9.9)
[2021-12-29 09:09] LABS: TACROLIMUS (FK506) 5.7 ng/mL (2.0-20.0)
== END 2021-12-28 08:03 | disposition home or self-care (01) ==
LOC: LAB 08:02
PROVIDERS: ATTEND Internal Medicine Nephrology
DX: N05.9 Unspecified nephritic syndrome with unspecified morphologic changes (principal); D70.9 Neutropenia, unspecified; Z79.899 Other long term (current) drug therapy; Z48.298 Encounter for aftercare following other organ transplant; T86.10 Unspecified complication of kidney transplant; Z94.4 Liver transplant status
CPT/HCPCS: 36415; 80048; 80076; 80197; 82977; 83735; 84100; 85025; 85610; 86317; 87340

== ENCOUNTER 2022-02-11 22:44 | Outpatient (CLI) | payer MEDICARE, OTHER | END 2022-02-11 22:45 | disposition critical access hospital (66) | LOC: EMS 22:44 | DX: R19.7 Diarrhea, unspecified (principal); R68.83 Chills (without fever) | CPT/HCPCS: A0425; A0429 ==

== ENCOUNTER 2022-02-11 23:03 | Inpatient (IN) | payer MEDICARE, OTHER ==
--- OUTSIDE RECORDS SUMMARY | 2022-02-12 00:34 | EXTERNAL MEDICAL SUMMARY RPT | Continuity of Care Document ---
:1955 Author Organization [facility] Address [address] [place] [address] Phone Allergies and Intolerances date description facility type (no date) hydromorphone [facility] (unknown) Encounters No information. Functional Status No information. Immunizations No information. Medications No information. Problems date description facility 2021-12-21 08:36 Hypothyroidism, unspecified [facility] 2021-12-21 08:36 Hypomagnesemia [facility] 2021-12-21 08:36 Paroxysmal atrial fibrillation [facility] 2021-12-21 08:36 Encounter for screening for malignant n [facility] 2021-12-21 08:36 Encounter for aftercare following other organ [facility] transplant 2021-12-21 08:36 Other termite renewal inspector (current) drug therapy [facility] 2021-12-21 08:36 Liver [facility] status [facility] 2021-12-21 08:49 Hypothyroidism, unspecified [facility] 2021-12-21 08:49 Paroxysmal atrial fibrillation [facility] 2021-12-21 08:49 Encounter for screening for malignant n [facility] 2021-12-21 08:49 Encounter for aftercare following other organ [facility] transplant 2021-12-21 08:49 Other termite renewal inspector (current) drug therapy [facility] 2021-12-21 08:49 Liver transplant status [facility] Procedures No information. Results/Labs test date author facility value unit interpret ation Result panel 1 (unknown) (no (unknown) (unknown) (no value) (units (unk nown) date) unknown) (unknown) (no (unknown) (unknown) 0.005% opthalmic (units (unknown) date) solution 1 drop unknown) both eyes at bedtime (unknown) (no (unknown) (unknown) 0.4 mg PO BID (units ( unknown) date) unknown) (unknown) (no (unknown) (unknown) 0.5 mg PO (units (unkn own) date) BEDTIME unknown) (unknown) (no (unknown) (unknown) [id number] (units (unkno wn) date) unknown) (unknown) (no (unknown) (unknown) 1 drp EYE-BOTH (units (unknown) date) BEDTIME unknown) (unknown) (no (unknown) (unknown) 1 mg PO QAM (units (un known) date) unknown) (unknown) (no (unknown) (unknown) 10 mg PO BEDTIME (units (unknown) date) Qty: 0 unknown) (unknown) (no (unknown) (unknown) 12/07/21 17:59 (units (unknown) date) unknown) (unknown) (no (unknown) (unknown) 12/07/21 (units (unkno wn) date) unknown) (unknown) (no (unknown) (unknown) 100 mcg PO QAM (units (unknown) date) unknown) (unknown) (no (unknown) (unknown) 17:15 12/07/21 (units (unknown) date) unknown) (unknown) (no (unknown) (unknown) 17:44 12/07/21 (units (unknown) date) unknown) (unknown) (no (unknown) (unknown) 17:45 12/07/21 (units (unknown) date) unknown) (unknown) (no (unknown) (unknown) 17:45 (units (unkno wn) date) unknown) (unknown) (no (unknown) (unknown) 18:00 (units (unkno wn) date) unknown) (unknown) (no (unknown) (unknown) 250 mg PO (units (unkn own) date) BEDTIME unknown) (unknown) (no (unknown) (unknown) 360 mg PO BID (units ( unknown) date) Qty: 0 unknown) (unknown) (no (unknown) (unknown) 5 mg PO BEDTIME (units (unknown) date) unknown) (unknown) (no (unknown) (unknown) 5 mg PO BID (units (un known) date) unknown) (unknown) (no (unknown) (unknown) 5 mg PO QAM Qty: (units (unknown) date) 0 unknown) (unknown) (no (unknown) (unknown) 6 mg PO BEDTIME (units (unknown) date) unknown) (unknown) (no (unknown) (unknown) Age/Sex: 66 / M (units (unknown) date) unknown) (unknown) (no (unknown) (unknown) Allergies (units (unkn own) date) unknown) (unknown) (no (unknown) (unknown) Allergy/AdvReac (units (unknown) date) Type Severity unknown) Reaction Status Date / Time (unknown) (no (unknown) (unknown) Blood Pressure (units (unknown) date) 149/78 H unknown) (unknown) (no (unknown) (unknown) Blood Pressure (units (unknown) date) 194/104 H unknown) 12/07/21 17:15 (unknown) (no (unknown) (unknown) Blood Pressure (units (unknown) date) 194/104 H unknown) (unknown) (no (unknown) (unknown) Chief complaint: (units (unknown) date) Skin/Abscess/Fore unknown) ign Body (unknown) (no (unknown) (unknown) Course (units (unkno wn) date) unknown) (unknown) (no (unknown) (unknown) : 1955 (units (unknown) date) Acct:[id number] unknown) (unknown) (no (unknown) (unknown) Date of Service: (units (unknown) date) 12/07/21 unknown) (unknown) (no (unknown) (unknown) Daughter Brain (units (unknown) date) cancer unknown) (unknown) (no (unknown) (unknown) Departure (units (unkn own) date) unknown) (unknown) (no (unknown) (unknown) Discharge Plan (units (unknown) date) unknown) (unknown) (no (unknown) (unknown) ED Orders (units (unkn own) date) unknown) (unknown) (no (unknown) (unknown) ER Physician: (units ( unknown) date) Keon Downs unknown) D.O. (unknown) (no (unknown) (unknown) Eliquis 5 mg (units (u nknown) date) tablet unknown) (unknown) (no (unknown) (unknown) Emergency Report (units (unknown) date) unknown) (unknown) (no (unknown) (unknown) Exam (units (unkno wn) date) unknown) (unknown) (no (unknown) (unknown) Family History (units (unknown) date) (Reviewed unknown) 08/14/21 @ 18:13 by John Mike MD) (unknown) (no (unknown) (unknown) General (units (unkno wn) date) unknown) (unknown) (no (unknown) (unknown) HPI - (units (unkno wn) date) Skin/Abscess/Fore unknown) ign Bdy (unknown) (no (unknown) (unknown) Home Medications (units (unknown) date) unknown) (unknown) (no (unknown) (unknown) Initial Vital (units ( unknown) date) Signs unknown) (unknown) (no (unknown) (unknown) Initial Vital (units ( unknown) date) Signs: unknown) (unknown) (no (unknown) (unknown) [facility] (units (unknown) date) [address] [place] [address] unknown) [place] [address] (unknown) (no (unknown) (unknown) Label Comments: (units (unknown) date) unknown) (unknown) (no (unknown) (unknown) Limitations: no (units (unknown) date) limitations unknown) (unknown) (no (unknown) (unknown) Milton Coombs, (units (unknown) date) [Primary Care unknown) Provider] (unknown) (no (unknown) (unknown) Medication (units (unk nown) date) Instructions unknown) Recorded Confirmed (unknown) (no (unknown) (unknown) Mode of arrival: (units (unknown) date) Ambulatory unknown) (unknown) (no (unknown) (unknown) No Action (units (unkn own) date) unknown) (unknown) (no (unknown) (unknown) Ordered: (units (unkno wn) date) unknown) (unknown) (no (unknown) (unknown) Orders (units (unkno wn) date) unknown) (unknown) (no (unknown) (unknown) Patient History (units (unknown) date) unknown) (unknown) (no (unknown) (unknown) Patient: (units (unkno wn) date) AliaChichi J unknown) MR#: [id number] (unknown) (no (unknown) (unknown) Prescriptions: (units (unknown) date) unknown) (unknown) (no (unknown) (unknown) Pulse Oximetry (units (unknown) date) 100 100 unknown) (unknown) (no (unknown) (unknown) Pulse Oximetry (units (unknown) date) 99 unknown) (unknown) (no (unknown) (unknown) Pulse Rate 72 (units ( unknown) date) unknown) (unknown) (no (unknown) (unknown) Pulse Rate 74 75 (units (unknown) date) unknown) (unknown) (no (unknown) (unknown) Referrals: (units (unk nown) date) unknown) (unknown) (no (unknown) (unknown) Related Data (units (u nknown) date) unknown) (unknown) (no (unknown) (unknown) Respiratory Rate (units (unknown) date) 18 12/07/21 17:15 unknown) (unknown) (no (unknown) (unknown) Respiratory Rate (units (unknown) date) 18 unknown) (unknown) (no (unknown) (unknown) Respiratory Rate (units (unknown) date) unknown) (unknown) (no (unknown) (unknown) Rx Instructions: (units (unknown) date) unknown) (unknown) (no (unknown) (unknown) Signed By: (units (unk nown) date) unknown) (unknown) (no (unknown) (unknown) Smoking Status: (units (unknown) date) Former smoker unknown) (unknown) (no (unknown) (unknown) Social History (units (unknown) date) (Reviewed unknown) 08/14/21 @ 18:13 by John Mike MD) (unknown) (no (unknown) (unknown) Source: patient (units (unknown) date) unknown) (unknown) (no (unknown) (unknown) Stated (units (unkno wn) date) complaint: his unknown) hook slipped and gouged his leg,? infection (unknown) (no (unknown) (unknown) Substance Use (units ( unknown) date) Type: does not unknown) use (unknown) (no (unknown) (unknown) Temperature 97.9 (units (unknown) date) F 12/07/21 17:15 unknown) (unknown) (no (unknown) (unknown) Temperature 97.9 (units (unknown) date) F unknown) (unknown) (no (unknown) (unknown) Temperature (units (un known) date) unknown) (unknown) (no (unknown) (unknown) Time Seen by (units (u nknown) date) Provider: unknown) 12/07/21 18:03 (unknown) (no (unknown) (unknown) Vital Signs - 8 (units (unknown) date) hr unknown) (unknown) (no (unknown) (unknown) Vital Signs (units (un known) date) unknown) (unknown) (no (unknown) (unknown) Vital signs: (units (u nknown) date) unknown) (unknown) (no (unknown) (unknown) Wound Culture (units ( unknown) date) and Gram Stain unknown) Stat (unknown) (no (unknown) (unknown) alcohol intake (units (unknown) date) frequency: other unknown) (unknown) (no (unknown) (unknown) alcohol intake: (units (unknown) date) never unknown) (unknown) (no (unknown) (unknown) apixaban 5 mg (units ( unknown) date) tablet (Eliquis) unknown) 5 mg PO BID 08/13/21 09/07/21 (unknown) (no (unknown) (unknown) brought in green (units (unknown) date) pill that is 1mg unknown) dose (unknown) (no (unknown) (unknown) brought in red (units (unknown) date) pill which is unknown) 0.5mg (unknown) (no (unknown) (unknown) details: lives (units (unknown) date) with daughter, unknown) son-in-law and grandkids (unknown) (no (unknown) (unknown) diazepam 10 MG (units (unknown) date) tablet unknown) (unknown) (no (unknown) (unknown) diazepam 10 mg (units (unknown) date) tablet 10 mg PO unknown) BEDTIME ##0 09/09/11 09/07/21 (unknown) (no (unknown) (unknown) household (units (unkn own) date) members: family unknown) and children (unknown) (no (unknown) (unknown) hydromorphone (units ( unknown) date) [From Dilaudid] unknown) AdvReac Agitated Verified 08/13/21 14:09 (unknown) (no (unknown) (unknown) immediate-releas (units (unknown) date) e unknown) (unknown) (no (unknown) (unknown) latanoprost 1 (units ( unknown) date) drp EYE-BOTH unknown) BEDTIME glaucoma 08/15/20 08/15/20 (unknown) (no (unknown) (unknown) latanoprost (units (un known) date) unknown) (unknown) (no (unknown) (unknown) levothyroxine (units ( unknown) date) 100 mcg Capsule unknown) (unknown) (no (unknown) (unknown) levothyroxine (units ( unknown) date) 100 mcg capsule unknown) 100 mcg PO QAM 08/14/20 09/07/21 (unknown) (no (unknown) (unknown) lives (units (unkno wn) date) independently: unknown) Yes (unknown) (no (unknown) (unknown) magnesium 250 mg (units (unknown) date) Tablet unknown) (unknown) (no (unknown) (unknown) magnesium 250 mg (units (unknown) date) tablet 250 mg PO unknown) BEDTIME 08/14/20 08/14/20 (unknown) (no (unknown) (unknown) melatonin 3 mg (units (unknown) date) Tablet unknown) (unknown) (no (unknown) (unknown) melatonin 3 mg (units (unknown) date) tablet 6 mg PO unknown) BEDTIME 08/14/20 09/07/21 (unknown) (no (unknown) (unknown) mycophenolate (units ( unknown) date) sodium 360 mg 360 unknown) mg PO BID ##0 09/09/11 09/07/21 (unknown) (no (unknown) (unknown) mycophenolate (units ( unknown) date) sodium [Myfortic] unknown) 360 MG tablet,delayed release (DR/EC) (unknown) (no (unknown) (unknown) oxycodone 5 mg (units (unknown) date) Tablet unknown) (unknown) (no (unknown) (unknown) oxycodone 5 mg (units (unknown) date) tablet 5 mg PO unknown) BEDTIME 08/14/20 08/13/21 (unknown) (no (unknown) (unknown) prednisone 5 MG (units (unknown) date) tablet unknown) (unknown) (no (unknown) (unknown) prednisone 5 mg (units (unknown) date) tablet 5 mg PO unknown) QAM ##0 09/09/11 09/07/21 (unknown) (no (unknown) (unknown) tablet,delayed (units (unknown) date) release unknown) (Myfortic) (unknown) (no (unknown) (unknown) tacrolimus 1 mg (units (unknown) date) Capsule unknown) (unknown) (no (unknown) (unknown) tacrolimus 1 mg (units (unknown) date) capsule, 0.5 mg unknown) PO BEDTIME 08/14/20 09/07/21 (unknown) (no (unknown) (unknown) tacrolimus 1 mg (units (unknown) date) capsule, 1 mg PO unknown) QAM 08/14/20 08/13/21 (unknown) (no (unknown) (unknown) tamsulosin 0.4 (units (unknown) date) mg Capsule unknown) (unknown) (no (unknown) (unknown) tamsulosin 0.4 (units (unknown) date) mg capsule 0.4 mg unknown) PO BID 08/14/20 09/07/21 Result panel 2 (unknown) (no (unknown) (unknown) (no value) (units (unk nown) date) unknown) (unknown) (no (unknown) (unknown) 0.005% opthalmic (units (unknown) date) solution 1 drop unknown) both eyes at bedtime (unknown) (no (unknown) (unknown) 0.4 mg PO BID (units ( unknown) date) unknown) (unknown) (no (unknown) (unknown) 0.5 mg PO (units (unkn own) date) BEDTIME unknown) (unknown) (no (unknown) (unknown) [id number] (units (unkno wn) date) unknown) (unknown) (no (unknown) (unknown) 1 drp EYE-BOTH (units (unknown) date) BEDTIME unknown) (unknown) (no (unknown) (unknown) 1 mg PO QAM (units (un known) date) unknown) (unknown) (no (unknown) (unknown) 10 mg PO BEDTIME (units (unknown) date) Qty: 0 unknown) (unknown) (no (unknown) (unknown) 12/07/21 17:54 (units (unknown) date) unknown) (unknown) (no (unknown) (unknown) 12/07/21 (units (unkno wn) date) unknown) (unknown) (no (unknown) (unknown) 100 mcg PO QAM (units (unknown) date) unknown) (unknown) (no (unknown) (unknown) 17:15 12/07/21 (units (unknown) date) unknown) (unknown) (no (unknown) (unknown) 17:44 12/07/21 (units (unknown) date) unknown) (unknown) (no (unknown) (unknown) 17:45 12/07/21 (units (unknown) date) unknown) (unknown) (no (unknown) (unknown) 17:45 (units (unkno wn) date) unknown) (unknown) (no (unknown) (unknown) 18:00 (units (unkno wn) date) unknown) (unknown) (no (unknown) (unknown) 250 mg PO (units (unkn own) date) BEDTIME unknown) (unknown) (no (unknown) (unknown) 360 mg PO BID (units ( unknown) date) Qty: 0 unknown) (unknown) (no (unknown) (unknown) 5 mg PO BEDTIME (units (unknown) date) unknown) (unknown) (no (unknown) (unknown) 5 mg PO BID (units (un known) date) unknown) (unknown) (no (unknown) (unknown) 5 mg PO QAM Qty: (units (unknown) date) 0 unknown) (unknown) (no (unknown) (unknown) 6 mg PO BEDTIME (units (unknown) date) unknown) (unknown) (no (unknown) (unknown) Age/Sex: 66 / M (units (unknown) date) unknown) (unknown) (no (unknown) (unknown) Allergies (units (unkn own) date) unknown) (unknown) (no (unknown) (unknown) Allergy/AdvReac (units (unknown) date) Type Severity unknown) Reaction Status Date / Time (unknown) (no (unknown) (unknown) Blood Pressure (units (unknown) date) 149/78 H unknown) (unknown) (no (unknown) (unknown) Blood Pressure (units (unknown) date) 194/104 H unknown) 12/07/21 17:15 (unknown) (no (unknown) (unknown) Blood Pressure (units (unknown) date) 194/104 H unknown) (unknown) (no (unknown) (unknown) Chief complaint: (units (unknown) date) Skin/Abscess/Fore unknown) ign Body (unknown) (no (unknown) (unknown) Course (units (unkno wn) date) unknown) (unknown) (no (unknown) (unknown) : 1955 (units (unknown) date) Acct:[id number] unknown) (unknown) (no (unknown) (unknown) Date of Service: (units (unknown) date) 12/07/21 unknown) (unknown) (no (unknown) (unknown) Daughter Brain (units (unknown) date) cancer unknown) (unknown) (no (unknown) (unknown) Departure (units (unkn own) date) unknown) (unknown) (no (unknown) (unknown) Discharge Plan (units (unknown) date) unknown) (unknown) (no (unknown) (unknown) ED Orders (units (unkn own) date) unknown) (unknown) (no (unknown) (unknown) ER Physician: (units ( unknown) date) Keon Downs unknown) D.O. (unknown) (no (unknown) (unknown) Eliquis 5 mg (units (u nknown) date) tablet unknown) (unknown) (no (unknown) (unknown) Emergency Report (units (unknown) date) unknown) (unknown) (no (unknown) (unknown) Exam (units (unkno wn) date) unknown) (unknown) (no (unknown) (unknown) Family History (units (unknown) date) (Reviewed unknown) 08/14/21 @ 18:13 by John Mike MD) (unknown) (no (unknown) (unknown) General (units (unkno wn) date) unknown) (unknown) (no (unknown) (unknown) HPI - (units (unkno wn) date) Skin/Abscess/Fore unknown) ign Bdy (unknown) (no (unknown) (unknown) Home Medications (units (unknown) date) unknown) (unknown) (no (unknown) (unknown) Initial Vital (units ( unknown) date) Signs unknown) (unknown) (no (unknown) (unknown) Initial Vital (units ( unknown) date) Signs: unknown) (unknown) (no (unknown) (unknown) [facility] (units (unknown) date) [address] unknown) [place] [address] (unknown) (no (unknown) (unknown) Label Comments: (units (unknown) date) unknown) (unknown) (no (unknown) (unknown) Limitations: no (units (unknown) date) limitations unknown) (unknown) (no (unknown) (unknown) Milton Coombs, (units (unknown) date) MD [Primary Care unknown) Provider] (unknown) (no (unknown) (unknown) Medication (units (unk nown) date) Instructions unknown) Recorded Confirmed (unknown) (no (unknown) (unknown) Mode of arrival: (units (unknown) date) Ambulatory unknown) (unknown) (no (unknown) (unknown) No Action (units (unkn own) date) unknown) (unknown) (no (unknown) (unknown) Ordered: (units (unkno wn) date) unknown) (unknown) (no (unknown) (unknown) Orders (units (unkno wn) date) unknown) (unknown) (no (unknown) (unknown) Patient History (units (unknown) date) unknown) (unknown) (no (unknown) (unknown) Patient: (units (unkno wn) date) Chichi Azul unknown) MR#: [id number] (unknown) (no (unknown) (unknown) Prescriptions: (units (unknown) date) unknown) (unknown) (no (unknown) (unknown) Pulse Oximetry (units (unknown) date) 100 100 unknown) (unknown) (no (unknown) (unknown) Pulse Oximetry (units (unknown) date) 99 unknown) (unknown) (no (unknown) (unknown) Pulse Rate 72 (units ( unknown) date) unknown) (unknown) (no (unknown) (unknown) Pulse Rate 74 75 (units (unknown) date) unknown) (unknown) (no (unknown) (unknown) Referrals: (units (unk nown) date) unknown) (unknown) (no (unknown) (unknown) Related Data (units (u nknown) date) unknown) (unknown) (no (unknown) (unknown) Respiratory Rate (units (unknown) date) 18 12/07/21 17:15 unknown) (unknown) (no (unknown) (unknown) Respiratory Rate (units (unknown) date) 18 unknown) (unknown) (no (unknown) (unknown) Respiratory Rate (units (unknown) date) unknown) (unknown) (no (unknown) (unknown) Rx Instructions: (units (unknown) date) unknown) (unknown) (no (unknown) (unknown) Signed By: (units (unk nown) date) unknown) (unknown) (no (unknown) (unknown) Smoking Status: (units (unknown) date) Former smoker unknown) (unknown) (no (unknown) (unknown) Social History (units (unknown) date) (Reviewed unknown) 08/14/21 @ 18:13 by John Mike MD) (unknown) (no (unknown) (unknown) Source: patient (units (unknown) date) unknown) (unknown) (no (unknown) (unknown) Stated (units (unkno wn) date) complaint: his unknown) hook slipped and gouged his leg,? infection (unknown) (no (unknown) (unknown) Substance Use (units ( unknown) date) Type: does not unknown) use (unknown) (no (unknown) (unknown) Temperature 97.9 (units (unknown) date) F 12/07/21 17:15 unknown) (unknown) (no (unknown) (unknown) Temperature 97.9 (units (unknown) date) F unknown) (unknown) (no (unknown) (unknown) Temperature (units (un known) date) unknown) (unknown) (no (unknown) (unknown) Time Seen by (units (u nknown) date) Provider: unknown) 12/07/21 18:03 (unknown) (no (unknown) (unknown) Vital Signs - 8 (units (unknown) date) hr unknown) (unknown) (no (unknown) (unknown) Vital Signs (units (un known) date) unknown) (unknown) (no (unknown) (unknown) Vital signs: (units (u nknown) date) unknown) (unknown) (no (unknown) (unknown) Wound Culture (units ( unknown) date) and Gram Stain unknown) Stat (unknown) (no (unknown) (unknown) alcohol intake (units (unknown) date) frequency: other unknown) (unknown) (no (unknown) (unknown) alcohol intake: (units (unknown) date) never unknown) (unknown) (no (unknown) (unknown) apixaban 5 mg (units ( unknown) date) tablet (Eliquis) unknown) 5 mg PO BID 08/13/21 09/07/21 (unknown) (no (unknown) (unknown) brought in green (units (unknown) date) pill that is 1mg unknown) dose (unknown) (no (unknown) (unknown) brought in red (units (unknown) date) pill which is unknown) 0.5mg (unknown) (no (unknown) (unknown) details: lives (units (unknown) date) with daughter, unknown) son-in-law and grandkids (unknown) (no (unknown) (unknown) diazepam 10 MG (units (unknown) date) tablet unknown) (unknown) (no (unknown) (unknown) diazepam 10 mg (units (unknown) date) tablet 10 mg PO unknown) BEDTIME ##0 09/09/11 09/07/21 (unknown) (no (unknown) (unknown) household (units (unkn own) date) members: family unknown) and children (unknown) (no (unknown) (unknown) hydromorphone (units ( unknown) date) [From Dilaudid] unknown) AdvReac Agitated Verified 08/13/21 14:09 (unknown) (no (unknown) (unknown) immediate-releas (units (unknown) date) e unknown) (unknown) (no (unknown) (unknown) latanoprost 1 (units ( unknown) date) drp EYE-BOTH unknown) BEDTIME glaucoma 08/15/20 08/15/20 (unknown) (no (unknown) (unknown) latanoprost (units (un known) date) unknown) (unknown) (no (unknown) (unknown) levothyroxine (units ( unknown) date) 100 mcg Capsule unknown) (unknown) (no (unknown) (unknown) levothyroxine (units ( unknown) date) 100 mcg capsule unknown) 100 mcg PO QAM 08/14/20 09/07/21 (unknown) (no (unknown) (unknown) lives (units (unkno wn) date) independently: unknown) Yes (unknown) (no (unknown) (unknown) magnesium 250 mg (units (unknown) date) Tablet unknown) (unknown) (no (unknown) (unknown) magnesium 250 mg (units (unknown) date) tablet 250 mg PO unknown) BEDTIME 08/14/20 08/14/20 (unknown) (no (unknown) (unknown) melatonin 3 mg (units (unknown) date) Tablet unknown) (unknown) (no (unknown) (unknown) melatonin 3 mg (units (unknown) date) tablet 6 mg PO unknown) BEDTIME 08/14/20 09/07/21 (unknown) (no (unknown) (unknown) mycophenolate (units ( unknown) date) sodium 360 mg 360 unknown) mg PO BID ##0 09/09/11 09/07/21 (unknown) (no (unknown) (unknown) mycophenolate (units ( unknown) date) sodium [Myfortic] unknown) 360 MG tablet,delayed release (DR/EC) (unknown) (no (unknown) (unknown) oxycodone 5 mg (units (unknown) date) Tablet unknown) (unknown) (no (unknown) (unknown) oxycodone 5 mg (units (unknown) date) tablet 5 mg PO unknown) BEDTIME 08/14/20 08/13/21 (unknown) (no (unknown) (unknown) prednisone 5 MG (units (unknown) date) tablet unknown) (unknown) (no (unknown) (unknown) prednisone 5 mg (units (unknown) date) tablet 5 mg PO unknown) [facility] ##0 09/09/11 09/07/21 (unknown) (no (unknown) (unknown) tablet,delayed (units (unknown) date) release unknown) (Myfortic) (unknown) (no (unknown) (unknown) tacrolimus 1 mg (units (unknown) date) Capsule unknown) (unknown) (no (unknown) (unknown) tacrolimus 1 mg (units (unknown) date) capsule, 0.5 mg unknown) PO BEDTIME 08/14/20 09/07/21 (unknown) (no (unknown) (unknown) tacrolimus 1 mg (units (unknown) date) capsule, 1 mg PO unknown) QAM 08/14/20 08/13/21 (unknown) (no (unknown) (unknown) tamsulosin 0.4 (units (unknown) date) mg Capsule unknown) (unknown) (no (unknown) (unknown) tamsulosin 0.4 (units (unknown) date) mg capsule 0.4 mg unknown) PO BID 08/14/20 09/07/21 Result panel 3 (unknown) (no (unknown) (unknown) (no value) (units (unk nown) date) unknown) (unknown) (no (unknown) (unknown) 0.005% opthalmic (units (unknown) date) solution 1 drop unknown) both eyes at bedtime (unknown) (no (unknown) (unknown) 0.4 mg PO BID (units ( unknown) date) unknown) (unknown) (no (unknown) (unknown) 0.5 mg PO (units (unkn own) date) BEDTIME unknown) (unknown) (no (unknown) (unknown) [id number] (units (unkno wn) date) unknown) (unknown) (no (unknown) (unknown) 1 drp EYE-BOTH (units (unknown) date) BEDTIME unknown) (unknown) (no (unknown) (unknown) 1 mg PO QAM (units (un known) date) unknown) (unknown) (no (unknown) (unknown) 10 mg PO BEDTIME (units (unknown) date) Qty: 0 unknown) (unknown) (no (unknown) (unknown) 12/07/21 17:54 (units (unknown) date) unknown) (unknown) (no (unknown) (unknown) 12/07/21 (units (unkno wn) date) unknown) (unknown) (no (unknown) (unknown) 100 mcg PO QAM (units (unknown) date) unknown) (unknown) (no (unknown) (unknown) 17:15 12/07/21 (units (unknown) date) unknown) (unknown) (no (unknown) (unknown) 17:44 12/07/21 (units (unknown) date) unknown) (unknown) (no (unknown) (unknown) 17:45 12/07/21 (units (unknown) date) unknown) (unknown) (no (unknown) (unknown) 17:45 (units (unkno wn) date) unknown) (unknown) (no (unknown) (unknown) 18:00 (units (unkno wn) date) unknown) (unknown) (no (unknown) (unknown) 250 mg PO (units (unkn own) date) BEDTIME unknown) (unknown) (no (unknown) (unknown) 360 mg PO BID (units ( unknown) date) Qty: 0 unknown) (unknown) (no (unknown) (unknown) 5 mg PO BEDTIME (units (unknown) date) unknown) (unknown) (no (unknown) (unknown) 5 mg PO BID (units (un known) date) unknown) (unknown) (no (unknown) (unknown) 5 mg PO QAM Qty: (units (unknown) date) 0 unknown) (unknown) (no (unknown) (unknown) 6 mg PO BEDTIME (units (unknown) date) unknown) (unknown) (no (unknown) (unknown) Age/Sex: 66 / M (units (unknown) date) unknown) (unknown) (no (unknown) (unknown) Allergies (units (unkn own) date) unknown) (unknown) (no (unknown) (unknown) Allergy/AdvReac (units (unknown) date) Type Severity unknown) Reaction Status Date / Time (unknown) (no (unknown) (unknown) Blood Pressure (units (unknown) date) 149/78 H unknown) (unknown) (no (unknown) (unknown) Blood Pressure (units (unknown) date) 194/104 H unknown) 12/07/21 17:15 (unknown) (no (unknown) (unknown) Blood Pressure (units (unknown) date) 194/104 H unknown) (unknown) (no (unknown) (unknown) Chief complaint: (units (unknown) date) Skin/Abscess/Fore unknown) ign Body (unknown) (no (unknown) (unknown) Course (units (unkno wn) date) unknown) (unknown) (no (unknown) (unknown) : 1955 (units (unknown) date) Acct:[id number] unknown) (unknown) (no (unknown) (unknown) Date of Service: (units (unknown) date) 12/07/21 unknown) (unknown) (no (unknown) (unknown) Daughter Brain (units (unknown) date) cancer unknown) (unknown) (no (unknown) (unknown) Departure (units (unkn own) date) unknown) (unknown) (no (unknown) (unknown) Discharge Plan (units (unknown) date) unknown) (unknown) (no (unknown) (unknown) ED Orders (units (unkn own) date) unknown) (unknown) (no (unknown) (unknown) ER Physician: (units ( unknown) date) Keon Downs unknown) D.O. (unknown) (no (unknown) (unknown) Eliquis 5 mg (units (u nknown) date) tablet unknown) (unknown) (no (unknown) (unknown) Emergency Report (units (unknown) date) unknown) (unknown) (no (unknown) (unknown) Exam (units (unkno wn) date) unknown) (unknown) (no (unknown) (unknown) Family History (units (unknown) date) (Reviewed unknown) 08/14/21 @ 18:13 by John Mike MD) (unknown) (no (unknown) (unknown) General (units (unkno wn) date) unknown) (unknown) (no (unknown) (unknown) HPI - (units (unkno wn) date) Skin/Abscess/Fore unknown) ign Bdy (unknown) (no (unknown) (unknown) Home Medications (units (unknown) date) unknown) (unknown) (no (unknown) (unknown) Initial Vital (units ( unknown) date) Signs unknown) (unknown) (no (unknown) (unknown) Initial Vital (units ( unknown) date) Signs: unknown) (unknown) (no (unknown) (unknown) [facility] (units (unknown) date) [address] [place] [address] unknown) [place] [address] (unknown) (no (unknown) (unknown) Label Comments: (units (unknown) date) unknown) (unknown) (no (unknown) (unknown) Limitations: no (units (unknown) date) limitations unknown) (unknown) (no (unknown) (unknown) Milton Coombs, (units (unknown) date) [Primary Care unknown) Provider] (unknown) (no (unknown) (unknown) Medication (units (unk nown) date) Instructions unknown) Recorded Confirmed (unknown) (no (unknown) (unknown) Mode of arrival: (units (unknown) date) Ambulatory unknown) (unknown) (no (unknown) (unknown) No Action (units (unkn own) date) unknown) (unknown) (no (unknown) (unknown) Ordered: (units (unkno wn) date) unknown) (unknown) (no (unknown) (unknown) Orders (units (unkno wn) date) unknown) (unknown) (no (unknown) (unknown) Patient History (units (unknown) date) unknown) (unknown) (no (unknown) (unknown) Patient: (units (unkno wn) date) Chichi Azul J unknown) MR#: [id number] (unknown) (no (unknown) (unknown) Prescriptions: (units (unknown) date) unknown) (unknown) (no (unknown) (unknown) Pulse Oximetry (units (unknown) date) 100 100 unknown) (unknown) (no (unknown) (unknown) Pulse Oximetry (units (unknown) date) 99 unknown) (unknown) (no (unknown) (unknown) Pulse Rate 72 (units ( unknown) date) unknown) (unknown) (no (unknown) (unknown) Pulse Rate 74 75 (units (unknown) date) unknown) (unknown) (no (unknown) (unknown) Referrals: (units (unk nown) date) unknown) (unknown) (no (unknown) (unknown) Related Data (units (u nknown) date) unknown) (unknown) (no (unknown) (unknown) Respiratory Rate (units (unknown) date) 18 12/07/21 17:15 unknown) (unknown) (no (unknown) (unknown) Respiratory Rate (units (unknown) date) 18 unknown) (unknown) (no (unknown) (unknown) Respiratory Rate (units (unknown) date) unknown) (unknown) (no (unknown) (unknown) Rx Instructions: (units (unknown) date) unknown) (unknown) (no (unknown) (unknown) Signed By: (units (unk nown) date) unknown) (unknown) (no (unknown) (unknown) Smoking Status: (units (unknown) date) Former smoker unknown) (unknown) (no (unknown) (unknown) Social History (units (unknown) date) (Reviewed unknown) 08/14/21 @ 18:13 by John Mike MD) (unknown) (no (unknown) (unknown) Source: patient (units (unknown) date) unknown) (unknown) (no (unknown) (unknown) Stated (units (unkno wn) date) complaint: his unknown) hook slipped and gouged his leg,? infection (unknown) (no (unknown) (unknown) Substance Use (units ( unknown) date) Type: does not unknown) use (unknown) (no (unknown) (unknown) Temperature 97.9 (units (unknown) date) F 12/07/21 17:15 unknown) (unknown) (no (unknown) (unknown) Temperature 97.9 (units (unknown) date) F unknown) (unknown) (no (unknown) (unknown) Temperature (units (un known) date) unknown) (unknown) (no (unknown) (unknown) Time Seen by (units (u nknown) date) Provider: unknown) 12/07/21 18:03 (unknown) (no (unknown) (unknown) Vital Signs - 8 (units (unknown) date) hr unknown) (unknown) (no (unknown) (unknown) Vital Signs (units (un known) date) unknown) (unknown) (no (unknown) (unknown) Vital signs: (units (u nknown) date) unknown) (unknown) (no (unknown) (unknown) Wound Culture (units ( unknown) date) and Gram Stain unknown) Stat (unknown) (no (unknown) (unknown) alcohol intake (units (unknown) date) frequency: other unknown) (unknown) (no (unknown) (unknown) alcohol intake: (units (unknown) date) never unknown) (unknown) (no (unknown) (unknown) apixaban 5 mg (units ( unknown) date) tablet (Eliquis) unknown) 5 mg PO BID 08/13/21 09/07/21 (unknown) (no (unknown) (unknown) brought in green (units (unknown) date) pill that is 1mg unknown) dose (unknown) (no (unknown) (unknown) brought in red (units (unknown) date) pill which is unknown) 0.5mg (unknown) (no (unknown) (unknown) details: lives (units (unknown) date) with daughter, unknown) son-in-law and grandkids (unknown) (no (unknown) (unknown) diazepam 10 MG (units (unknown) date) tablet unknown) (unknown) (no (unknown) (unknown) diazepam 10 mg (units (unknown) date) tablet 10 mg PO unknown) BEDTIME ##0 09/09/11 09/07/21 (unknown) (no (unknown) (unknown) household (units (unkn own) date) members: family unknown) and children (unknown) (no (unknown) (unknown) hydromorphone (units ( unknown) date) [From Dilaudid] unknown) AdvReac Agitated Verified 08/13/21 14:09 (unknown) (no (unknown) (unknown) immediate-releas (units (unknown) date) e unknown) (unknown) (no (unknown) (unknown) latanoprost 1 (units ( unknown) date) drp EYE-BOTH unknown) BEDTIME glaucoma 08/15/20 08/15/20 (unknown) (no (unknown) (unknown) latanoprost (units (un known) date) unknown) (unknown) (no (unknown) (unknown) levothyroxine (units ( unknown) date) 100 mcg Capsule unknown) (unknown) (no (unknown) (unknown) levothyroxine (units ( unknown) date) 100 mcg capsule unknown) 100 mcg PO QAM 08/14/20 09/07/21 (unknown) (no (unknown) (unknown) lives (units (unkno wn) date) independently: unknown) Yes (unknown) (no (unknown) (unknown) magnesium 250 mg (units (unknown) date) Tablet unknown) (unknown) (no (unknown) (unknown) magnesium 250 mg (units (unknown) date) tablet 250 mg PO unknown) BEDTIME 08/14/20 08/14/20 (unknown) (no (unknown) (unknown) melatonin 3 mg (units (unknown) date) Tablet unknown) (unknown) (no (unknown) (unknown) melatonin 3 mg (units (unknown) date) tablet 6 mg PO unknown) BEDTIME 08/14/20 09/07/21 (unknown) (no (unknown) (unknown) mycophenolate (units ( unknown) date) sodium 360 mg 360 unknown) mg PO BID ##0 09/09/11 09/07/21 (unknown) (no (unknown) (unknown) mycophenolate (units ( unknown) date) sodium [Myfortic] unknown) 360 MG tablet,delayed release (DR/EC) (unknown) (no (unknown) (unknown) oxycodone 5 mg (units (unknown) date) Tablet unknown) (unknown) (no (unknown) (unknown) oxycodone 5 mg (units (unknown) date) tablet 5 mg PO unknown) BEDTIME 08/14/20 08/13/21 (unknown) (no (unknown) (unknown) prednisone 5 MG (units (unknown) date) tablet unknown) (unknown) (no (unknown) (unknown) prednisone 5 mg (units (unknown) date) tablet 5 mg PO unknown) QAM ##0 09/09/11 09/07/21 (unknown) (no (unknown) (unknown) tablet,delayed (units (unknown) date) release unknown) (Myfortic) (unknown) (no (unknown) (unknown) tacrolimus 1 mg (units (unknown) date) Capsule unknown) (unknown) (no (unknown) (unknown) tacrolimus 1 mg (units (unknown) date) capsule, 0.5 mg unknown) PO BEDTIME 08/14/20 09/07/21 (unknown) (no (unknown) (unknown) tacrolimus 1 mg (units (unknown) date) capsule, 1 mg PO unknown) QAM 08/14/20 08/13/21 (unknown) (no (unknown) (unknown) tamsulosin 0.4 (units (unknown) date) mg Capsule unknown) (unknown) (no (unknown) (unknown) tamsulosin 0.4 (units (unknown) date) mg capsule 0.4 mg unknown) PO BID 08/14/20 09/07/21 Result panel 4 (unknown) (no (unknown) (unknown) (no value) (units (unk nown) date) unknown) (unknown) (no (unknown) (unknown) *If you do not (units (unknown) date) have a primary unknown) care provider please contact the [facility] (unknown) (no (unknown) (unknown) *Please continue (units (unknown) date) to take your unknown) regular medications as directed. (unknown) (no (unknown) (unknown) *Please follow (units (unknown) date) up with your unknown) primary care provider in 2-3 days, call for an (unknown) (no (unknown) (unknown) *Return to (units (unk nown) date) Emergency unknown) Department if you should have any new, worsening or (unknown) (no (unknown) (unknown) *What to do: (units (u nknown) date) unknown) (unknown) (no (unknown) (unknown) *You have been (units (unknown) date) diagnosed with unknown) [left lower extremity wound infection] (unknown) (no (unknown) (unknown) 0.005% opthalmic (units (unknown) date) solution 1 drop unknown) both eyes at bedtime (unknown) (no (unknown) (unknown) 0.4 mg PO BID (units ( unknown) date) unknown) (unknown) (no (unknown) (unknown) 0.5 mg PO (units (unkn own) date) BEDTIME unknown) (unknown) (no (unknown) (unknown) [id number] (units (unkno wn) date) unknown) (unknown) (no (unknown) (unknown) 1 drp EYE-BOTH (units (unknown) date) BEDTIME unknown) (unknown) (no (unknown) (unknown) 1 mg PO QAM (units (un known) date) unknown) (unknown) (no (unknown) (unknown) 10 mg PO BEDTIME (units (unknown) date) Qty: 0 unknown) (unknown) (no (unknown) (unknown) 12/07/21 17:54 (units (unknown) date) unknown) (unknown) (no (unknown) (unknown) 12/07/21 (units (unkno wn) date) unknown) (unknown) (no (unknown) (unknown) 100 mcg PO QAM (units (unknown) date) unknown) (unknown) (no (unknown) (unknown) 100 mg PO BID (units ( unknown) date) Qty: 20 0RF unknown) (unknown) (no (unknown) (unknown) 12 point review (units (unknown) date) of systems is unknown) negative except for those stated above (unknown) (no (unknown) (unknown) 17:15 12/07/21 (units (unknown) date) unknown) (unknown) (no (unknown) (unknown) 17:44 12/07/21 (units (unknown) date) unknown) (unknown) (no (unknown) (unknown) 17:45 12/07/21 (units (unknown) date) unknown) (unknown) (no (unknown) (unknown) 17:45 (units (unkno wn) date) unknown) (unknown) (no (unknown) (unknown) 18:00 (units (unkno wn) date) unknown) (unknown) (no (unknown) (unknown) 250 mg PO (units (unkn own) date) BEDTIME unknown) (unknown) (no (unknown) (unknown) 360 mg PO BID (units ( unknown) date) Qty: 0 unknown) (unknown) (no (unknown) (unknown) 5 mg PO BEDTIME (units (unknown) date) unknown) (unknown) (no (unknown) (unknown) 5 mg PO BID (units (un known) date) unknown) (unknown) (no (unknown) (unknown) 5 mg PO QAM Qty: (units (unknown) date) 0 unknown) (unknown) (no (unknown) (unknown) 6 mg PO BEDTIME (units (unknown) date) unknown) (unknown) (no (unknown) (unknown) 66-year-old male (units (unknown) date) former smoker unknown) with extensive medical history including prior (unknown) (no (unknown) (unknown) Activity (units (unkno wn) date) Restrictions/Terry unknown) tional Instructions: (unknown) (no (unknown) (unknown) Age/Sex: 66 / M (units (unknown) date) unknown) (unknown) (no (unknown) (unknown) Allergies (units (unkn own) date) unknown) (unknown) (no (unknown) (unknown) Allergy/AdvReac (units (unknown) date) Type Severity unknown) Reaction Status Date / Time (unknown) (no (unknown) (unknown) BACK: Nontender (units (unknown) date) without deformity unknown) or crepitance. No flank tenderness. (unknown) (no (unknown) (unknown) Blood Pressure (units (unknown) date) 149/78 H unknown) (unknown) (no (unknown) (unknown) Blood Pressure (units (unknown) date) 194/104 H unknown) 12/07/21 17:15 (unknown) (no (unknown) (unknown) Blood Pressure (units (unknown) date) 194/104 H unknown) (unknown) (no (unknown) (unknown) CARDIOVASCULAR: (units (unknown) date) Denies chest unknown) pain, palpitations, orthopnea, edema, (unknown) (no (unknown) (unknown) CARDIOVASCULAR: (units (unknown) date) Regular rate and unknown) rhythm without murmurs, gallops, or rubs. (unknown) (no (unknown) (unknown) Chief complaint: (units (unknown) date) Skin/Abscess/Fore unknown) ign Body (unknown) (no (unknown) (unknown) Clinical (units (unkno wn) date) Impression: unknown) (unknown) (no (unknown) (unknown) Course (units (unkno wn) date) unknown) (unknown) (no (unknown) (unknown) : 1955 (units (unknown) date) Acct:[id number] unknown) (unknown) (no (unknown) (unknown) Date of Service: (units (unknown) date) 12/07/21 unknown) (unknown) (no (unknown) (unknown) Daughter Brain (units (unknown) date) cancer unknown) (unknown) (no (unknown) (unknown) Departure (units (unkn own) date) unknown) (unknown) (no (unknown) (unknown) Diphtheria/Tetan (units (unknown) date) us/Acell unknown) Pertussis (Tet,Diph,Pertuss (Acell),Vac/Pf 0.5 Ml (unknown) (no (unknown) (unknown) Discharge Plan (units (unknown) date) unknown) (unknown) (no (unknown) (unknown) Discontinued (units (u nknown) date) Medications unknown) (unknown) (no (unknown) (unknown) Doxycycline (units (un known) date) Hyclate unknown) (Doxycycline Hyclate 100 Mg Tablet) 100 mg PO NOW ONE (unknown) (no (unknown) (unknown) ED Orders (units (unkn own) date) unknown) (unknown) (no (unknown) (unknown) ENT: Nose (units (unkn own) date) without bleeding, unknown) purulent drainage. Throat without erythema, (unknown) (no (unknown) (unknown) ER Physician: (units ( unknown) date) Keon Downs unknown) D.O. (unknown) (no (unknown) (unknown) EXTREMITIES: 1 (units (unknown) date) cm superficial unknown) abrasion left anterior baca with surrounding (unknown) (no (unknown) (unknown) EYES: Pupils (units (u nknown) date) equal round and unknown) reactive. Extraocular motions intact. No scleral (unknown) (no (unknown) (unknown) Eliquis 5 mg (units (u nknown) date) tablet unknown) (unknown) (no (unknown) (unknown) Emergency Report (units (unknown) date) unknown) (unknown) (no (unknown) (unknown) Exam Narrative: (units (unknown) date) unknown) (unknown) (no (unknown) (unknown) Exam (units (unkno wn) date) unknown) (unknown) (no (unknown) (unknown) Family History (units (unknown) date) (Reviewed unknown) 12/07/21 @ 19:19 by Keon Downs DO) (unknown) (no (unknown) (unknown) GASTROINTESTINAL (units (unknown) date) : Abdomen soft, unknown) non-tender, nondistended. (unknown) (no (unknown) (unknown) GASTROINTESTINAL (units (unknown) date) : Denies nausea, unknown) vomiting, abdominal pain, diarrhea, (unknown) (no (unknown) (unknown) GENERAL: Denies (units (unknown) date) chills, fatigue, unknown) malaise, fever, sweats. (unknown) (no (unknown) (unknown) GENERAL: [66] (units (u nknown) date) year old patient unknown) appears stated age. Well-developed patient, in no (unknown) (no (unknown) (unknown) : Denies (units (unk nown) date) dysuria, unknown) frequency, incontinence, hematuria, urinary retention. (unknown) (no (unknown) (unknown) General (units (unkno wn) date) unknown) (unknown) (no (unknown) (unknown) HEAD: (units (unkno wn) date) Atraumatic. unknown) Normocephalic. (unknown) (no (unknown) (unknown) HEENT: Denies (units ( unknown) date) sinus pain, ear unknown) pain, sore throat, difficulty swallowing, (unknown) (no (unknown) (unknown) HPI - (units (unkno wn) date) Skin/Abscess/Fore unknown) ign Bdy (unknown) (no (unknown) (unknown) HPI narrative: (units (unknown) date) unknown) (unknown) (no (unknown) (unknown) History of (units (unk nown) date) Present Illness unknown) (unknown) (no (unknown) (unknown) Home Medications (units (unknown) date) unknown) (unknown) (no (unknown) (unknown) Initial Vital (units ( unknown) date) Signs unknown) (unknown) (no (unknown) (unknown) Initial Vital (units ( unknown) date) Signs: unknown) (unknown) (no (unknown) (unknown) Instructions: DI (units (unknown) date) for Wound unknown) Infection (unknown) (no (unknown) (unknown) [facility] (units (unknown) date) [address] unknown) [place] [address] (unknown) (no (unknown) (unknown) Label Comments: (units (unknown) date) unknown) (unknown) (no (unknown) (unknown) Limitations: no (units (unknown) date) limitations unknown) (unknown) (no (unknown) (unknown) Milton Coombs, (units (unknown) date) MD [Primary Care unknown) Provider] (unknown) (no (unknown) (unknown) MUSCULOSKELETAL: (units (unknown) date) denies weakness, unknown) joint pain, or bony pain (unknown) (no (unknown) (unknown) Medication (units (unk nown) date) Instructions unknown) Recorded Confirmed (unknown) (no (unknown) (unknown) Medication (units (unk nown) date) Instructions unknown) Recorded (unknown) (no (unknown) (unknown) Mode of arrival: (units (unknown) date) Ambulatory unknown) (unknown) (no (unknown) (unknown) NECK: Trachea (units ( unknown) date) midline. Non unknown) tender (unknown) (no (unknown) (unknown) NEURO: AOx3. (units (u nknown) date) unknown) (unknown) (no (unknown) (unknown) NEUROLOGIC: (units (un known) date) Denies weakness, unknown) headache, numbness, change in speech, confusion, (unknown) (no (unknown) (unknown) Narrative (units (unkn own) date) unknown) (unknown) (no (unknown) (unknown) Narrative: (units (unk nown) date) unknown) (unknown) (no (unknown) (unknown) New (units (unkno wn) date) unknown) (unknown) (no (unknown) (unknown) No Action (units (unkn own) date) unknown) (unknown) (no (unknown) (unknown) Ordered: (units (unkno wn) date) unknown) (unknown) (no (unknown) (unknown) Orders (units (unkno wn) date) unknown) (unknown) (no (unknown) (unknown) PSYCHIATRIC: No (units (unknown) date) concerning unknown) psychosocial issues. (unknown) (no (unknown) (unknown) Patient (units (unkno wn) date) Disposition: Home unknown) (unknown) (no (unknown) (unknown) Patient History (units (unknown) date) unknown) (unknown) (no (unknown) (unknown) Patient: (units (unkno wn) date) Chichi Azul unknown) MR#: [id number] (unknown) (no (unknown) (unknown) Prescriptions: (units (unknown) date) unknown) (unknown) (no (unknown) (unknown) Previous Rx's (units ( unknown) date) unknown) (unknown) (no (unknown) (unknown) Pulse Oximetry (units (unknown) date) 100 100 unknown) (unknown) (no (unknown) (unknown) Pulse Oximetry (units (unknown) date) 99 unknown) (unknown) (no (unknown) (unknown) Pulse Rate 72 (units ( unknown) date) unknown) (unknown) (no (unknown) (unknown) Pulse Rate 74 75 (units (unknown) date) unknown) (unknown) (no (unknown) (unknown) RESPIRATORY: (units (un known) date) Clear to unknown) auscultation. Breath sounds equal bilaterally. No wheezes, (unknown) (no (unknown) (unknown) RESPIRATORY: (units (u nknown) date) Denies dyspnea, unknown) cough, wheezing, hemoptysis, sputum. (unknown) (no (unknown) (unknown) Referrals: (units (unk nown) date) unknown) (unknown) (no (unknown) (unknown) Related Data (units (u nknown) date) unknown) (unknown) (no (unknown) (unknown) Resource line at (units (unknown) date) [phone]. unknown) They will ask some questions about your medical (unknown) (no (unknown) (unknown) Respiratory Rate (units (unknown) date) 18 12/07/21 17:15 unknown) (unknown) (no (unknown) (unknown) Respiratory Rate (units (unknown) date) 18 unknown) (unknown) (no (unknown) (unknown) Respiratory Rate (units (unknown) date) unknown) (unknown) (no (unknown) (unknown) Review of (units (unkn own) date) Systems unknown) (unknown) (no (unknown) (unknown) Rx Instructions: (units (unknown) date) unknown) (unknown) (no (unknown) (unknown) SKIN: D see HPI (units (unknown) date) unknown) (unknown) (no (unknown) (unknown) SKIN: No rash or (units (unknown) date) erythema of unknown) visible areas (unknown) (no (unknown) (unknown) Signed By: (units (unk nown) date) unknown) (unknown) (no (unknown) (unknown) Smoking Status: (units (unknown) date) Former smoker unknown) (unknown) (no (unknown) (unknown) Social History (units (unknown) date) (Reviewed unknown) 12/07/21 @ 19:19 by Keon Dwons DO) (unknown) (no (unknown) (unknown) Source: patient (units (unknown) date) unknown) (unknown) (no (unknown) (unknown) Stated (units (unkno wn) date) complaint: his unknown) hook slipped and gouged his leg,? infection (unknown) (no (unknown) (unknown) Stop: 12/07/21 (units (unknown) date) 19:17 unknown) (unknown) (no (unknown) (unknown) Substance Use (units ( unknown) date) Type: does not unknown) use (unknown) (no (unknown) (unknown) Syringe) 0.5 ml (units (unknown) date) IM .ONCE ONE unknown) (unknown) (no (unknown) (unknown) Temperature 97.9 (units (unknown) date) F 12/07/21 17:15 unknown) (unknown) (no (unknown) (unknown) Temperature 97.9 (units (unknown) date) F unknown) (unknown) (no (unknown) (unknown) Temperature (units (un known) date) unknown) (unknown) (no (unknown) (unknown) Time Seen by (units (u nknown) date) Provider: unknown) 12/07/21 18:03 (unknown) (no (unknown) (unknown) Vital Signs - 8 (units (unknown) date) hr unknown) (unknown) (no (unknown) (unknown) Vital Signs (units (un known) date) unknown) (unknown) (no (unknown) (unknown) Vital signs: (units (u nknown) date) unknown) (unknown) (no (unknown) (unknown) Wound Culture (units ( unknown) date) and Gram Stain unknown) Stat (unknown) (no (unknown) (unknown) Wound infection (units (unknown) date) unknown) (unknown) (no (unknown) (unknown) [ ] New (units (unkno wn) date) medication unknown) written as a paper prescription (unknown) (no (unknown) (unknown) [ ] No new (units (unk nown) date) medications given unknown) (unknown) (no (unknown) (unknown) [x ] New (units (unkno wn) date) medication unknown) prescriptions sent to your pharmacy: [ ] (unknown) (no (unknown) (unknown) alcohol intake (units (unknown) date) frequency: other unknown) (unknown) (no (unknown) (unknown) alcohol intake: (units (unknown) date) never unknown) (unknown) (no (unknown) (unknown) apixaban 5 mg (units ( unknown) date) tablet (Eliquis) unknown) 5 mg PO BID 08/13/21 09/07/21 (unknown) (no (unknown) (unknown) appointment. Let (units (unknown) date) them know you unknown) were seen in the Emergency Department and that we (unknown) (no (unknown) (unknown) ask that you be (units (unknown) date) seen in follow unknown) up. We will electronically transmit a record of (unknown) (no (unknown) (unknown) brought in green (units (unknown) date) pill that is 1mg unknown) dose (unknown) (no (unknown) (unknown) brought in red (units (unknown) date) pill which is unknown) 0.5mg (unknown) (no (unknown) (unknown) concerning (units (unk nown) date) symptoms, such as unknown) [fever greater than 101 F, shaking chills, (unknown) (no (unknown) (unknown) constipation, (units ( unknown) date) melena. unknown) (unknown) (no (unknown) (unknown) details: lives (units (unknown) date) with daughter, unknown) son-in-law and grandkids (unknown) (no (unknown) (unknown) diazepam 10 MG (units (unknown) date) tablet unknown) (unknown) (no (unknown) (unknown) diazepam 10 mg (units (unknown) date) tablet 10 mg PO unknown) BEDTIME ##0 09/09/11 09/07/21 (unknown) (no (unknown) (unknown) dizziness. (units (unk nown) date) unknown) (unknown) (no (unknown) (unknown) doxycycline (units (un known) date) hyclate 100 mg unknown) tablet 100 mg PO BID #20 tabs 12/07/21 (unknown) (no (unknown) (unknown) doxycycline (units (un known) date) hyclate 100 mg unknown) tablet (unknown) (no (unknown) (unknown) erythema but no (units (unknown) date) induration or unknown) fluctuance. No drainage and no lymphangitis. (unknown) (no (unknown) (unknown) history and help (units (unknown) date) get you set up unknown) with a doctor in the community. (unknown) (no (unknown) (unknown) household (units (unkn own) date) members: family unknown) and children (unknown) (no (unknown) (unknown) hydromorphone (units ( unknown) date) [From Dilaudid] unknown) AdvReac Agitated Verified 08/13/21 14:09 (unknown) (no (unknown) (unknown) icterus. No (units (un known) date) injection or unknown) drainage. (unknown) (no (unknown) (unknown) immediate-releas (units (unknown) date) e unknown) (unknown) (no (unknown) (unknown) into his (units (unkno wn) date) anterior baca a unknown) few days ago. There is the development of some redness (unknown) (no (unknown) (unknown) jabbed the hook (units (unknown) date) of his right unknown) upper extremity prosthetic through his pants and (unknown) (no (unknown) (unknown) latanoprost 1 (units ( unknown) date) drp EYE-BOTH unknown) BEDTIME glaucoma 08/15/20 08/15/20 (unknown) (no (unknown) (unknown) latanoprost (units (un known) date) unknown) (unknown) (no (unknown) (unknown) levothyroxine (units ( unknown) date) 100 mcg Capsule unknown) (unknown) (no (unknown) (unknown) levothyroxine (units ( unknown) date) 100 mcg capsule unknown) 100 mcg PO QAM 08/14/20 09/07/21 (unknown) (no (unknown) (unknown) 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 (unknown) (no (unknown) (unknown) lives (units (unkno wn) date) independently: unknown) Yes (unknown) (no (unknown) (unknown) magnesium 250 mg (units (unknown) date) Tablet unknown) (unknown) (no (unknown) (unknown) magnesium 250 mg (units (unknown) date) tablet 250 mg PO unknown) BEDTIME 08/14/20 08/14/20 (unknown) (no (unknown) (unknown) melatonin 3 mg (units (unknown) date) Tablet unknown) (unknown) (no (unknown) (unknown) melatonin 3 mg (units (unknown) date) tablet 6 mg PO unknown) BEDTIME 08/14/20 09/07/21 (unknown) (no (unknown) (unknown) mycophenolate (units ( unknown) date) sodium 360 mg 360 unknown) mg PO BID ##0 09/09/11 09/07/21 (unknown) (no (unknown) (unknown) mycophenolate (units ( unknown) date) sodium [Myfortic] unknown) 360 MG tablet,delayed release (DR/EC) (unknown) (no (unknown) (unknown) obvious (units (unkno wn) date) distress. GCS 15 unknown) (unknown) (no (unknown) (unknown) otherwise at his (units (unknown) date) baseline and free unknown) of complaint (unknown) (no (unknown) (unknown) oxycodone 5 mg (units (unknown) date) Tablet unknown) (unknown) (no (unknown) (unknown) oxycodone 5 mg (units (unknown) date) tablet 5 mg PO unknown) BEDTIME 08/14/20 08/13/21 (unknown) (no (unknown) (unknown) prednisone 5 MG (units (unknown) date) tablet unknown) (unknown) (no (unknown) (unknown) prednisone 5 mg (units (unknown) date) tablet 5 mg PO unknown) QAM ##0 09/09/11 09/07/21 (unknown) (no (unknown) (unknown) rales, or (units (unkn own) date) rhonchi. unknown) (unknown) (no (unknown) (unknown) seizures, (units (unkn own) date) incoordination. unknown) (unknown) (no (unknown) (unknown) surrounding the (units (unknown) date) wound but no unknown) swelling, drainage or lymphangitis. He has no (unknown) (no (unknown) (unknown) systemic (units (unkno wn) date) complaints such unknown) as fever, chills nor nausea or vomiting. He is (unknown) (no (unknown) (unknown) tablet,delayed (units (unknown) date) release unknown) (Myfortic) (unknown) (no (unknown) (unknown) tacrolimus 1 mg (units (unknown) date) Capsule unknown) (unknown) (no (unknown) (unknown) tacrolimus 1 mg (units (unknown) date) capsule, 0.5 mg unknown) PO BEDTIME 08/14/20 09/07/21 (unknown) (no (unknown) (unknown) tacrolimus 1 mg (units (unknown) date) capsule, 1 mg PO unknown) QAM 08/14/20 08/13/21 (unknown) (no (unknown) (unknown) tamsulosin 0.4 (units (unknown) date) mg Capsule unknown) (unknown) (no (unknown) (unknown) tamsulosin 0.4 (units (unknown) date) mg capsule 0.4 mg unknown) PO BID 08/14/20 09/07/21 (unknown) (no (unknown) (unknown) today's note if (units (unknown) date) your PCP is in unknown) our system (unknown) (no (unknown) (unknown) tonsillar (units (unkn own) date) hypertrophy or unknown) exudate. Airway patent. (unknown) (no (unknown) (unknown) worsening pain, (units (unknown) date) persistent unknown) vomiting or other bothersome symptoms] (unknown) (no (unknown) (unknown) wound on his (units (u nknown) date) left anterior unknown) baca. He was trying to tie his shoe and accidentally Result panel 5 (unknown) (no (unknown) (unknown) (no value) (units (unk nown) date) unknown) (unknown) (no (unknown) (unknown) <Electronically (units (unknown) date) signed by Keon unknownErich Downs D.O.> (unknown) (no (unknown) (unknown) *If you do not (units (unknown) date) have a primary unknown) care provider please contact the [facility] (unknown) (no (unknown) (unknown) *Please continue (units (unknown) date) to take your unknown) regular medications as directed. (unknown) (no (unknown) (unknown) *Please follow (units (unknown) date) up with your unknown) primary care provider in 2-3 days, call for an (unknown) (no (unknown) (unknown) *Return to (units (unk nown) date) Emergency unknown) Department if you should have any new, worsening or (unknown) (no (unknown) (unknown) *What to do: (units (u nknown) date) unknown) (unknown) (no (unknown) (unknown) *You have been (units (unknown) date) diagnosed with unknown) [left lower extremity wound infection] (unknown) (no (unknown) (unknown) 0.005% opthalmic (units (unknown) date) solution 1 drop unknown) both eyes at bedtime (unknown) (no (unknown) (unknown) 0.4 mg PO BID (units ( unknown) date) unknown) (unknown) (no (unknown) (unknown) 0.5 mg PO (units (unkn own) date) BEDTIME unknown) (unknown) (no (unknown) (unknown) [id number] (units (unkno wn) date) unknown) (unknown) (no (unknown) (unknown) 1 drp EYE-BOTH (units (unknown) date) BEDTIME unknown) (unknown) (no (unknown) (unknown) 1 mg PO QAM (units (un known) date) unknown) (unknown) (no (unknown) (unknown) 10 mg PO BEDTIME (units (unknown) date) Qty: 0 unknown) (unknown) (no (unknown) (unknown) 12/07/21 17:54 (units (unknown) date) unknown) (unknown) (no (unknown) (unknown) 12/07/21 1928 (units ( unknown) date) unknown) (unknown) (no (unknown) (unknown) 12/07/21 (units (unkno wn) date) unknown) (unknown) (no (unknown) (unknown) 100 mcg PO QAM (units (unknown) date) unknown) (unknown) (no (unknown) (unknown) 100 mg PO BID (units ( unknown) date) Qty: 20 0RF unknown) (unknown) (no (unknown) (unknown) 12 point review (units (unknown) date) of systems is unknown) negative except for those stated above (unknown) (no (unknown) (unknown) 17:15 12/07/21 (units (unknown) date) unknown) (unknown) (no (unknown) (unknown) 17:44 12/07/21 (units (unknown) date) unknown) (unknown) (no (unknown) (unknown) 17:45 12/07/21 (units (unknown) date) unknown) (unknown) (no (unknown) (unknown) 17:45 (units (unkno wn) date) unknown) (unknown) (no (unknown) (unknown) 18:00 (units (unkno wn) date) unknown) (unknown) (no (unknown) (unknown) 250 mg PO (units (unkn own) date) BEDTIME unknown) (unknown) (no (unknown) (unknown) 360 mg PO BID (units ( unknown) date) Qty: 0 unknown) (unknown) (no (unknown) (unknown) 5 mg PO BEDTIME (units (unknown) date) unknown) (unknown) (no (unknown) (unknown) 5 mg PO BID (units (un known) date) unknown) (unknown) (no (unknown) (unknown) 5 mg PO QAM Qty: (units (unknown) date) 0 unknown) (unknown) (no (unknown) (unknown) 6 mg PO BEDTIME (units (unknown) date) unknown) (unknown) (no (unknown) (unknown) 66-year-old male (units (unknown) date) former smoker unknown) with extensive medical history including prior (unknown) (no (unknown) (unknown) Activity (units (unkno wn) date) Restrictions/Terry unknown) tional Instructions: (unknown) (no (unknown) (unknown) Age/Sex: 66 / M (units (unknown) date) unknown) (unknown) (no (unknown) (unknown) Allergies (units (unkn own) date) unknown) (unknown) (no (unknown) (unknown) Allergy/AdvReac (units (unknown) date) Type Severity unknown) Reaction Status Date / Time (unknown) (no (unknown) (unknown) BACK: Nontender (units (unknown) date) without deformity unknown) or crepitance. No flank tenderness. (unknown) (no (unknown) (unknown) Blood Pressure (units (unknown) date) 149/78 H unknown) (unknown) (no (unknown) (unknown) Blood Pressure (units (unknown) date) 194/104 H unknown) 12/07/21 17:15 (unknown) (no (unknown) (unknown) Blood Pressure (units (unknown) date) 194/104 H unknown) (unknown) (no (unknown) (unknown) CARDIOVASCULAR: (units (unknown) date) Denies chest unknown) pain, palpitations, orthopnea, edema, (unknown) (no (unknown) (unknown) CARDIOVASCULAR: (units (unknown) date) Regular rate and unknown) rhythm without murmurs, gallops, or rubs. (unknown) (no (unknown) (unknown) Chief complaint: (units (unknown) date) Skin/Abscess/Fore unknown) ign Body (unknown) (no (unknown) (unknown) Clinical (units (unkno wn) date) Impression: unknown) (unknown) (no (unknown) (unknown) Course (units (unkno wn) date) unknown) (unknown) (no (unknown) (unknown) : 1955 (units (unknown) date) Acct:[id number] unknown) (unknown) (no (unknown) (unknown) Date of Service: (units (unknown) date) 12/07/21 unknown) (unknown) (no (unknown) (unknown) Daughter Brain (units (unknown) date) cancer unknown) (unknown) (no (unknown) (unknown) Departure (units (unkn own) date) unknown) (unknown) (no (unknown) (unknown) Diphtheria/Tetan (units (unknown) date) us/Acell unknown) Pertussis (Tet,Diph,Pertuss (Acell),Vac/Pf 0.5 Ml (unknown) (no (unknown) (unknown) Discharge Plan (units (unknown) date) unknown) (unknown) (no (unknown) (unknown) Discontinued (units (u nknown) date) Medications unknown) (unknown) (no (unknown) (unknown) Doxycycline (units (un known) date) Hyclate unknown) (Doxycycline Hyclate 100 Mg Tablet) 100 mg PO NOW ONE (unknown) (no (unknown) (unknown) ED Orders (units (unkn own) date) unknown) (unknown) (no (unknown) (unknown) ENT: Nose (units (unkn own) date) without bleeding, unknown) purulent drainage. Throat without erythema, (unknown) (no (unknown) (unknown) ER Physician: (units ( unknown) date) Keon Downs unknown) D.O. (unknown) (no (unknown) (unknown) EXTREMITIES: 1 (units (unknown) date) cm superficial unknown) abrasion left anterior baca with surrounding (unknown) (no (unknown) (unknown) EYES: Pupils (units (u nknown) date) equal round and unknown) reactive. Extraocular motions intact. No scleral (unknown) (no (unknown) (unknown) Eliquis 5 mg (units (u nknown) date) tablet unknown) (unknown) (no (unknown) (unknown) Emergency Report (units (unknown) date) unknown) (unknown) (no (unknown) (unknown) Exam Narrative: (units (unknown) date) unknown) (unknown) (no (unknown) (unknown) Exam (units (unkno wn) date) unknown) (unknown) (no (unknown) (unknown) Family History (units (unknown) date) (Reviewed unknown) 12/07/21 @ 19:19 by Keon Downs DO) (unknown) (no (unknown) (unknown) GASTROINTESTINAL (units (unknown) date) : Abdomen soft, unknown) non-tender, nondistended. (unknown) (no (unknown) (unknown) GASTROINTESTINAL (units (unknown) date) : Denies nausea, unknown) vomiting, abdominal pain, diarrhea, (unknown) (no (unknown) (unknown) GENERAL: Denies (units (unknown) date) chills, fatigue, unknown) malaise, fever, sweats. (unknown) (no (unknown) (unknown) GENERAL: [66] (units (u nknown) date) year old patient unknown) appears stated age. Well-developed patient, in no (unknown) (no (unknown) (unknown) : Denies (units (unk nown) date) dysuria, unknown) frequency, incontinence, hematuria, urinary retention. (unknown) (no (unknown) (unknown) General (units (unkno wn) date) unknown) (unknown) (no (unknown) (unknown) HEAD: (units (unkno wn) date) Atraumatic. unknown) Normocephalic. (unknown) (no (unknown) (unknown) HEENT: Denies (units ( unknown) date) sinus pain, ear unknown) pain, sore throat, difficulty swallowing, (unknown) (no (unknown) (unknown) HPI - (units (unkno wn) date) Skin/Abscess/Fore unknown) ign Bdy (unknown) (no (unknown) (unknown) HPI narrative: (units (unknown) date) unknown) (unknown) (no (unknown) (unknown) History of (units (unk nown) date) Present Illness unknown) (unknown) (no (unknown) (unknown) Home Medications (units (unknown) date) unknown) (unknown) (no (unknown) (unknown) Initial Vital (units ( unknown) date) Signs unknown) (unknown) (no (unknown) (unknown) Initial Vital (units ( unknown) date) Signs: unknown) (unknown) (no (unknown) (unknown) Instructions: DI (units (unknown) date) for Wound unknown) Infection (unknown) (no (unknown) (unknown) [facility] (units (unknown) date) [address] unknown) [place] [address] (unknown) (no (unknown) (unknown) Label Comments: (units (unknown) date) unknown) (unknown) (no (unknown) (unknown) Limitations: no (units (unknown) date) limitations unknown) (unknown) (no (unknown) (unknown) Milton Coombs, (units (unknown) date) [Primary Care unknown) Provider] (unknown) (no (unknown) (unknown) MDM - (units (unkno wn) date) Skin/Abscess/Fore unknown) ign Bdy (unknown) (no (unknown) (unknown) MDM Narrative (units ( unknown) date) unknown) (unknown) (no (unknown) (unknown) MUSCULOSKELETAL: (units (unknown) date) denies weakness, unknown) joint pain, or bony pain (unknown) (no (unknown) (unknown) Medical decision (units (unknown) date) making narrative: unknown) (unknown) (no (unknown) (unknown) Medication (units (unk nown) date) Instructions unknown) Recorded Confirmed (unknown) (no (unknown) (unknown) Medication (units (unk nown) date) Instructions unknown) Recorded (unknown) (no (unknown) (unknown) Mode of arrival: (units (unknown) date) Ambulatory unknown) (unknown) (no (unknown) (unknown) NECK: Trachea (units ( unknown) date) midline. Non unknown) tender (unknown) (no (unknown) (unknown) NEURO: AOx3. (units (u nknown) date) unknown) (unknown) (no (unknown) (unknown) NEUROLOGIC: (units (un known) date) Denies weakness, unknown) headache, numbness, change in speech, confusion, (unknown) (no (unknown) (unknown) Narrative (units (unkn own) date) unknown) (unknown) (no (unknown) (unknown) Narrative: (units (unk nown) date) unknown) (unknown) (no (unknown) (unknown) New (units (unkno wn) date) unknown) (unknown) (no (unknown) (unknown) No Action (units (unkn own) date) unknown) (unknown) (no (unknown) (unknown) Ordered: (units (unkno wn) date) unknown) (unknown) (no (unknown) (unknown) Orders (units (unkno wn) date) unknown) (unknown) (no (unknown) (unknown) PSYCHIATRIC: No (units (unknown) date) concerning unknown) psychosocial issues. (unknown) (no (unknown) (unknown) Patient (units (unkno wn) date) Disposition: Home unknown) (unknown) (no (unknown) (unknown) Patient History (units (unknown) date) unknown) (unknown) (no (unknown) (unknown) Patient (units (unkno wn) date) well-appearing unknown) with reassuring history and physical exam has left (unknown) (no (unknown) (unknown) Patient: (units (unkno wn) date) Chichi Azul J unknown) MR#: [id number] (unknown) (no (unknown) (unknown) Prescriptions: (units (unknown) date) unknown) (unknown) (no (unknown) (unknown) Previous Rx's (units ( unknown) date) unknown) (unknown) (no (unknown) (unknown) Pulse Oximetry (units (unknown) date) 100 100 unknown) (unknown) (no (unknown) (unknown) Pulse Oximetry (units (unknown) date) 99 unknown) (unknown) (no (unknown) (unknown) Pulse Rate 72 (units ( unknown) date) unknown) (unknown) (no (unknown) (unknown) Pulse Rate 74 75 (units (unknown) date) unknown) (unknown) (no (unknown) (unknown) RESPIRATORY: (units (un known) date) Clear to unknown) auscultation. Breath sounds equal bilaterally. No wheezes, (unknown) (no (unknown) (unknown) RESPIRATORY: (units (u nknown) date) Denies dyspnea, unknown) cough, wheezing, hemoptysis, sputum. (unknown) (no (unknown) (unknown) Referrals: (units (unk nown) date) unknown) (unknown) (no (unknown) (unknown) Related Data (units (u nknown) date) unknown) (unknown) (no (unknown) (unknown) Resource line at (units (unknown) date) [phone]. unknown) They will ask some questions about your medical (unknown) (no (unknown) (unknown) Respiratory Rate (units (unknown) date) 18 12/07/21 17:15 unknown) (unknown) (no (unknown) (unknown) Respiratory Rate (units (unknown) date) 18 unknown) (unknown) (no (unknown) (unknown) Respiratory Rate (units (unknown) date) unknown) (unknown) (no (unknown) (unknown) Review of (units (unkn own) date) Systems unknown) (unknown) (no (unknown) (unknown) Rx Instructions: (units (unknown) date) unknown) (unknown) (no (unknown) (unknown) SKIN: D see HPI (units (unknown) date) unknown) (unknown) (no (unknown) (unknown) SKIN: No rash or (units (unknown) date) erythema of unknown) visible areas (unknown) (no (unknown) (unknown) Signed By: (units (unk nown) date) unknown) (unknown) (no (unknown) (unknown) Smoking Status: (units (unknown) date) Former smoker unknown) (unknown) (no (unknown) (unknown) Social History (units (unknown) date) (Reviewed unknown) 12/07/21 @ 19:19 by Keon Downs DO) (unknown) (no (unknown) (unknown) Source: patient (units (unknown) date) unknown) (unknown) (no (unknown) (unknown) Stated (units (unkno wn) date) complaint: his unknown) hook slipped and gouged his leg,? infection (unknown) (no (unknown) (unknown) Stop: 12/07/21 (units (unknown) date) 19:17 unknown) (unknown) (no (unknown) (unknown) Stop: 12/07/21 (units (unknown) date) 19:27 unknown) (unknown) (no (unknown) (unknown) Substance Use (units ( unknown) date) Type: does not unknown) use (unknown) (no (unknown) (unknown) Syringe) 0.5 ml (units (unknown) date) IM .ONCE ONE unknown) (unknown) (no (unknown) (unknown) Temperature 97.9 (units (unknown) date) F 12/07/21 17:15 unknown) (unknown) (no (unknown) (unknown) Temperature 97.9 (units (unknown) date) F unknown) (unknown) (no (unknown) (unknown) Temperature (units (un known) date) unknown) (unknown) (no (unknown) (unknown) Time Seen by (units (u nknown) date) Provider: unknown) 12/07/21 18:03 (unknown) (no (unknown) (unknown) Vital Signs - 8 (units (unknown) date) hr unknown) (unknown) (no (unknown) (unknown) Vital Signs (units (un known) date) unknown) (unknown) (no (unknown) (unknown) Vital signs: (units (u nknown) date) unknown) (unknown) (no (unknown) (unknown) Wound Culture (units ( unknown) date) and Gram Stain unknown) Stat (unknown) (no (unknown) (unknown) Wound infection (units (unknown) date) unknown) (unknown) (no (unknown) (unknown) [ ] New (units (unkno wn) date) medication unknown) written as a paper prescription (unknown) (no (unknown) (unknown) [ ] No new (units (unk nown) date) medications given unknown) (unknown) (no (unknown) (unknown) [x ] New (units (unkno wn) date) medication unknown) prescriptions sent to your pharmacy: [ [facility]] (unknown) (no (unknown) (unknown) alcohol intake (units (unknown) date) frequency: other unknown) (unknown) (no (unknown) (unknown) alcohol intake: (units (unknown) date) never unknown) (unknown) (no (unknown) (unknown) answered to his (units (unknown) date) apparent unknown) satisfaction (unknown) (no (unknown) (unknown) anterior lower (units (unknown) date) extremity wound unknown) with subtle signs of infection. He has no (unknown) (no (unknown) (unknown) apixaban 5 mg (units ( unknown) date) tablet (Eliquis) unknown) 5 mg PO BID 08/13/21 09/07/21 (unknown) (no (unknown) (unknown) appointment. Let (units (unknown) date) them know you unknown) were seen in the Emergency Department and that we (unknown) (no (unknown) (unknown) ask that you be (units (unknown) date) seen in follow unknown) up. We will electronically transmit a record of (unknown) (no (unknown) (unknown) brought in green (units (unknown) date) pill that is 1mg unknown) dose (unknown) (no (unknown) (unknown) brought in red (units (unknown) date) pill which is unknown) 0.5mg (unknown) (no (unknown) (unknown) concerning (units (unk nown) date) symptoms, such as unknown) [fever greater than 101 F, shaking chills, (unknown) (no (unknown) (unknown) constipation, (units ( unknown) date) melena. unknown) (unknown) (no (unknown) (unknown) details: lives (units (unknown) date) with daughter, unknown) son-in-law and grandkids (unknown) (no (unknown) (unknown) diazepam 10 MG (units (unknown) date) tablet unknown) (unknown) (no (unknown) (unknown) diazepam 10 mg (units (unknown) date) tablet 10 mg PO unknown) BEDTIME ##0 09/09/11 09/07/21 (unknown) (no (unknown) (unknown) dizziness. (units (unk nown) date) unknown) (unknown) (no (unknown) (unknown) doxycycline (units (un known) date) hyclate 100 mg unknown) tablet 100 mg PO BID #20 tabs 12/07/21 (unknown) (no (unknown) (unknown) doxycycline (units (un known) date) hyclate 100 mg unknown) tablet (unknown) (no (unknown) (unknown) erythema but no (units (unknown) date) induration or unknown) fluctuance. No drainage and no lymphangitis. (unknown) (no (unknown) (unknown) has no drainage (units (unknown) date) and has stable unknown) vitals. Return precautions given and questions (unknown) (no (unknown) (unknown) history and help (units (unknown) date) get you set up unknown) with a doctor in the community. (unknown) (no (unknown) (unknown) household (units (unkn own) date) members: family unknown) and children (unknown) (no (unknown) (unknown) hydromorphone (units ( unknown) date) [From Dilaudid] unknown) AdvReac Agitated Verified 08/13/21 14:09 (unknown) (no (unknown) (unknown) icterus. No (units (un known) date) injection or unknown) drainage. (unknown) (no (unknown) (unknown) immediate-releas (units (unknown) date) e unknown) (unknown) (no (unknown) (unknown) into his (units (unkno wn) date) anterior baca a unknown) few days ago. There is the development of some redness (unknown) (no (unknown) (unknown) jabbed the hook (units (unknown) date) of his right unknown) upper extremity prosthetic through his pants and (unknown) (no (unknown) (unknown) latanoprost 1 (units ( unknown) date) drp EYE-BOTH unknown) BEDTIME glaucoma 08/15/20 08/15/20 (unknown) (no (unknown) (unknown) latanoprost (units (un known) date) unknown) (unknown) (no (unknown) (unknown) levothyroxine (units ( unknown) date) 100 mcg Capsule unknown) (unknown) (no (unknown) (unknown) levothyroxine (units ( unknown) date) 100 mcg capsule unknown) 100 mcg PO QAM 08/14/20 09/07/21 (unknown) (no (unknown) (unknown) 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 (unknown) (no (unknown) (unknown) lives (units (unkno wn) date) independently: unknown) Yes (unknown) (no (unknown) (unknown) magnesium 250 mg (units (unknown) date) Tablet unknown) (unknown) (no (unknown) (unknown) magnesium 250 mg (units (unknown) date) tablet 250 mg PO unknown) BEDTIME 08/14/20 08/14/20 (unknown) (no (unknown) (unknown) melatonin 3 mg (units (unknown) date) Tablet unknown) (unknown) (no (unknown) (unknown) melatonin 3 mg (units (unknown) date) tablet 6 mg PO unknown) BEDTIME 08/14/20 09/07/21 (unknown) (no (unknown) (unknown) mycophenolate (units ( unknown) date) sodium 360 mg 360 unknown) mg PO BID ##0 09/09/11 09/07/21 (unknown) (no (unknown) (unknown) mycophenolate (units ( unknown) date) sodium [Myfortic] unknown) 360 MG tablet,delayed release (DR/EC) (unknown) (no (unknown) (unknown) obvious (units (unkno wn) date) distress. GCS 15 unknown) (unknown) (no (unknown) (unknown) otherwise at his (units (unknown) date) baseline and free unknown) of complaint (unknown) (no (unknown) (unknown) oxycodone 5 mg (units (unknown) date) Tablet unknown) (unknown) (no (unknown) (unknown) oxycodone 5 mg (units (unknown) date) tablet 5 mg PO unknown) BEDTIME 08/14/20 08/13/21 (unknown) (no (unknown) (unknown) prednisone 5 MG (units (unknown) date) tablet unknown) (unknown) (no (unknown) (unknown) prednisone 5 mg (units (unknown) date) tablet 5 mg PO unknown) [facility] ##0 09/09/11 09/07/21 (unknown) (no (unknown) (unknown) rales, or (units (unkn own) date) rhonchi. unknown) (unknown) (no (unknown) (unknown) seizures, (units (unkn own) date) incoordination. unknown) (unknown) (no (unknown) (unknown) surrounding the (units (unknown) date) wound but no unknown) swelling, drainage or lymphangitis. He has no (unknown) (no (unknown) (unknown) systemic (units (unkno wn) date) complaints such unknown) as fever, chills nor nausea or vomiting. He is (unknown) (no (unknown) (unknown) systemic (units (unkno wn) date) complaints such unknown) as fever, chills nor nausea, vomiting or weakness. He (unknown) (no (unknown) (unknown) tablet,delayed (units (unknown) date) release unknown) (Myfortic) (unknown) (no (unknown) (unknown) tacrolimus 1 mg (units (unknown) date) Capsule unknown) (unknown) (no (unknown) (unknown) tacrolimus 1 mg (units (unknown) date) capsule, 0.5 mg unknown) PO BEDTIME 08/14/20 09/07/21 (unknown) (no (unknown) (unknown) tacrolimus 1 mg (units (unknown) date) capsule, 1 mg PO unknown) QAM 08/14/20 08/13/21 (unknown) (no (unknown) (unknown) tamsulosin 0.4 (units (unknown) date) mg Capsule unknown) (unknown) (no (unknown) (unknown) tamsulosin 0.4 (units (unknown) date) mg capsule 0.4 mg unknown) PO BID 08/14/20 09/07/21 (unknown) (no (unknown) (unknown) today's note if (units (unknown) date) your PCP is in unknown) our system (unknown) (no (unknown) (unknown) tonsillar (units (unkn own) date) hypertrophy or unknown) exudate. Airway patent. (unknown) (no (unknown) (unknown) worsening pain, (units (unknown) date) persistent unknown) vomiting or other bothersome symptoms] (unknown) (no (unknown) (unknown) wound on his (units (u nknown) date) left anterior unknown) baca. He was trying to tie his shoe and accidentally Result panel 6 (unknown) (no date) (unknown) (unknown) (no value) (units (un known) unknown) (unknown) (no date) (unknown) (unknown) 3 (units (unkn own) unknown) (unknown) (no date) (unknown) (unknown) Few WBCs (units (unkn own) unknown) (unknown) (no date) (unknown) (unknown) Few WBCs (units (unkn own) unknown) Result panel 7 (unknown) (no date) (unknown) (unknown) (no value) (units (un known) unknown) (unknown) (no date) (unknown) (unknown) 3 (units (unkn own) unknown) (unknown) (no date) (unknown) (unknown) Few WBCs (units (unkn own) unknown) (unknown) (no date) (unknown) (unknown) Few WBCs (units (unkn own) unknown) (unknown) (no date) (unknown) (unknown) Test not (units (unkn own) performed unknown) (unknown) (no date) (unknown) (unknown) Very Early (units (un known) Growth: Culture unknown) too young for work-up reincubated Result panel 8 (unknown) (no (unknown) (unknown) (no value) (units (unk nown) date) unknown) (unknown) (no (unknown) (unknown) 3 (units (unkno wn) date) unknown) (unknown) (no (unknown) (unknown) Few WBCs (units (unkno wn) date) unknown) (unknown) (no (unknown) (unknown) Few WBCs (units (unkno wn) date) unknown) (unknown) (no (unknown) (unknown) LIGHT (units (unkno wn) date) unknown) (unknown) (no (unknown) (unknown) STAAURStaphylococcus (uni ts (unknown) date) aureus unknown) (unknown) (no (unknown) (unknown) Sensitivity to Follow (un its (unknown) date) unknown) (unknown) (no (unknown) (unknown) Test not performed (units (unknown) date) unknown) Result panel 9 (unknown) (no (unknown) (unknown) (no value) (units (unk nown) date) unknown) (unknown) (no (unknown) (unknown) <=0.25 (units (unkno wn) date) unknown) (unknown) (no (unknown) (unknown) <=0.5 (units (unkno wn) date) unknown) (unknown) (no (unknown) (unknown) <=1 (units (unkno wn) date) unknown) (unknown) (no (unknown) (unknown) <=10 (units (unkno wn) date) unknown) (unknown) (no (unknown) (unknown) 0.25 (units (unkno wn) date) unknown) (unknown) (no (unknown) (unknown) 0.5 (units (unkno wn) date) unknown) (unknown) (no (unknown) (unknown) 2 (units (unkno wn) date) unknown) (unknown) (no (unknown) (unknown) 3 (units (unkno wn) date) unknown) (unknown) (no (unknown) (unknown) Few WBCs (units (unkno wn) date) unknown) (unknown) (no (unknown) (unknown) Few WBCs (units (unkno wn) date) unknown) (unknown) (no (unknown) (unknown) LIGHT (units (unkno wn) date) unknown) (unknown) (no (unknown) (unknown) No Further Workup (units (unknown) date) unknown) (unknown) (no (unknown) (unknown) STAAURStaphylococcus (uni ts (unknown) date) aureus unknown) (unknown) (no (unknown) (unknown) Test not performed (units (unknown) date) unknown) Result panel 10 (unknown) (no date) (unknown) (unknown) 0.8 % (unkn own) (unknown) (no date) (unknown) (unknown) 10.5 % (unkn own) (unknown) (no date) (unknown) (unknown) 100 /ul (unkn own) (unknown) (no date) (unknown) (unknown) 14.1 g/dl (unkn own) (unknown) (no date) (unknown) (unknown) 14.7 % (unkn own) (unknown) (no date) (unknown) (unknown) 167 x10 3/ul (unkn own) (unknown) (no date) (unknown) (unknown) 27.0 pg (unkn own) (unknown) (no date) (unknown) (unknown) 2900 /ul (unkn own) (unknown) (no date) (unknown) (unknown) 3.8 % (unkn own) (unknown) (no date) (unknown) (unknown) 300 /ul (unkn own) (unknown) (no date) (unknown) (unknown) 32.5 % (unkn own) (unknown) (no date) (unknown) (unknown) 3200 /ul (unkn own) (unknown) (no date) (unknown) (unknown) 40.0 % (unkn own) (unknown) (no date) (unknown) (unknown) 43.5 % (unkn own) (unknown) (no date) (unknown) (unknown) 44.9 % (unkn own) (unknown) (no date) (unknown) (unknown) 5.23 x10 6/ul (unkn own) (unknown) (no date) (unknown) (unknown) 7.1 x10 3/ul (unkn own) (unknown) (no date) (unknown) (unknown) 700 /ul (unkn own) (unknown) (no date) (unknown) (unknown) 83.1 fl (unkn own) Result panel 11 (unknown) (no date) (unknown) (unknown) > 60 ml/min (unkn own) (unknown) (no date) (unknown) (unknown) > 60 ml/min (unkn own) (unknown) (no date) (unknown) (unknown) 0.6 mg/dl (unkn own) (unknown) (no date) (unknown) (unknown) 1.19 mg/dl (unkn own) (unknown) (no date) (unknown) (unknown) 1.5 (units unknown) (unknown) (unknown) (no date) (unknown) (unknown) 103 mmol/l (unkn own) (unknown) (no date) (unknown) (unknown) 116 mg/dl (unkn own) (unknown) (no date) (unknown) (unknown) 116 mg/dl (unkn own) (unknown) (no date) (unknown) (unknown) 12.6 (units unknown) (unknown) (unknown) (no date) (unknown) (unknown) 131 mg/dl (unkn own) (unknown) (no date) (unknown) (unknown) 131 mg/dl (unkn own) (unknown) (no date) (unknown) (unknown) 138 mmol/l (unkn own) (unknown) (no date) (unknown) (unknown) 15 mg/dl (unkn own) (unknown) (no date) (unknown) (unknown) 17 iu/l (unkn own) (unknown) (no date) (unknown) (unknown) 2.7 g/dl (unkn own) (unknown) (no date) (unknown) (unknown) 20 iu/l (unkn own) (unknown) (no date) (unknown) (unknown) 26 mmol/l (unkn own) (unknown) (no date) (unknown) (unknown) 4.0 g/dl (unkn own) (unknown) (no date) (unknown) (unknown) 4.0 mmol/l (unkn own) (unknown) (no date) (unknown) (unknown) 48 mg/dl (unkn own) (unknown) (no date) (unknown) (unknown) 48 mg/dl (unkn own) (unknown) (no date) (unknown) (unknown) 55 u/l (unkn own) (unknown) (no date) (unknown) (unknown) 6.7 g/dl (unkn own) (unknown) (no date) (unknown) (unknown) 60 mg/dl (unkn own) (unknown) (no date) (unknown) (unknown) 60 mg/dl (unkn own) (unknown) (no date) (unknown) (unknown) 9.2 mg/dl (unkn own) (unknown) (no date) (unknown) (unknown) 91 mg/dl (unkn own) (unknown) (no date) (unknown) (unknown) 91 mg/dl (unkn own) Result panel 12 (unknown) (no date) (unknown) (unknown) > 60 ml/min (unkn own) (unknown) (no date) (unknown) (unknown) > 60 ml/min (unkn own) (unknown) (no date) (unknown) (unknown) 0.6 mg/dl (unkn own) (unknown) (no date) (unknown) (unknown) 1.19 mg/dl (unkn own) (unknown) (no date) (unknown) (unknown) 1.5 (units unknown) (unknown) (unknown) (no date) (unknown) (unknown) 103 mmol/l (unkn own) (unknown) (no date) (unknown) (unknown) 116 mg/dl (unkn own) (unknown) (no date) (unknown) (unknown) 116 mg/dl (unkn own) (unknown) (no date) (unknown) (unknown) 12.6 (units unknown) (unknown) (unknown) (no date) (unknown) (unknown) 131 mg/dl (unkn own) (unknown) (no date) (unknown) (unknown) 131 mg/dl (unkn own) (unknown) (no date) (unknown) (unknown) 138 mmol/l (unkn own) (unknown) (no date) (unknown) (unknown) 15 mg/dl (unkn own) (unknown) (no date) (unknown) (unknown) 17 iu/l (unkn own) (unknown) (no date) (unknown) (unknown) 2.7 g/dl (unkn own) (unknown) (no date) (unknown) (unknown) 20 iu/l (unkn own) (unknown) (no date) (unknown) (unknown) 26 mmol/l (unkn own) (unknown) (no date) (unknown) (unknown) 4.0 g/dl (unkn own) (unknown) (no date) (unknown) (unknown) 4.0 mmol/l (unkn own) (unknown) (no date) (unknown) (unknown) 48 mg/dl (unkn own) (unknown) (no date) (unknown) (unknown) 48 mg/dl (unkn own) (unknown) (no date) (unknown) (unknown) 55 u/l (unkn own) (unknown) (no date) (unknown) (unknown) 6.7 g/dl (unkn own) (unknown) (no date) (unknown) (unknown) 60 mg/dl (unkn own) (unknown) (no date) (unknown) (unknown) 60 mg/dl (unkn own) (unknown) (no date) (unknown) (unknown) 9.2 mg/dl (unkn own) (unknown) (no date) (unknown) (unknown) 91 mg/dl (unkn own) (unknown) (no date) (unknown) (unknown) 91 mg/dl (unkn own) Result panel 13 (unknown) (no date) (unknown) (unknown) > 60 ml/min (unkn own) (unknown) (no date) (unknown) (unknown) > 60 ml/min (unkn own) (unknown) (no date) (unknown) (unknown) 0.6 mg/dl (unkn own) (unknown) (no date) (unknown) (unknown) 1.19 mg/dl (unkn own) (unknown) (no date) (unknown) (unknown) 1.5 (units unknown) (unknown) (unknown) (no date) (unknown) (unknown) 1.6 mg/dl (unkn own) (unknown) (no date) (unknown) (unknown) 103 mmol/l (unkn own) (unknown) (no date) (unknown) (unknown) 116 mg/dl (unkn own) (unknown) (no date) (unknown) (unknown) 116 mg/dl (unkn own) (unknown) (no date) (unknown) (unknown) 12.6 (units unknown) (unknown) (unknown) (no date) (unknown) (unknown) 131 mg/dl (unkn own) (unknown) (no date) (unknown) (unknown) 131 mg/dl (unkn own) (unknown) (no date) (unknown) (unknown) 138 mmol/l (unkn own) (unknown) (no date) (unknown) (unknown) 15 mg/dl (unkn own) (unknown) (no date) (unknown) (unknown) 17 iu/l (unkn own) (unknown) (no date) (unknown) (unknown) 2.7 g/dl (unkn own) (unknown) (no date) (unknown) (unknown) 20 iu/l (unkn own) (unknown) (no date) (unknown) (unknown) 26 mmol/l (unkn own) (unknown) (no date) (unknown) (unknown) 4.0 g/dl (unkn own) (unknown) (no date) (unknown) (unknown) 4.0 mmol/l (unkn own) (unknown) (no date) (unknown) (unknown) 48 mg/dl (unkn own) (unknown) (no date) (unknown) (unknown) 48 mg/dl (unkn own) (unknown) (no date) (unknown) (unknown) 55 u/l (unkn own) (unknown) (no date) (unknown) (unknown) 6.7 g/dl (unkn own) (unknown) (no date) (unknown) (unknown) 60 mg/dl (unkn own) (unknown) (no date) (unknown) (unknown) 60 mg/dl (unkn own) (unknown) (no date) (unknown) (unknown) 9.2 mg/dl (unkn own) (unknown) (no date) (unknown) (unknown) 91 mg/dl (unkn own) (unknown) (no date) (unknown) (unknown) 91 mg/dl (unkn own) Social History No information. Vital Signs No information.
[2022-02-12] MEDS ORDERED: ACETAMINOPHEN 325 MG TABLET PO STA ×2 (00:56→07:02)
--- NOTE | 2022-02-12 00:56 | ED Physician Documentation ---
History of Present Illness - Stated complaint Stated Complaint: CHILLS, DIARRHEA - Chief complaint Chief Complaint: General - History obtained from History obtained from: EMS, Other (Patient is unable to contribute to HPI, review of systems due to altered mental status.) - History of Present Illness Timing: Today - Additonal information Additional information: HPI is from EMS. EMS obtained HPI from family that was on scene. Patient is not responding to questions on my HPI. The limited HPI available to me from EMS is that patient recently returned from a trip to [place], and for the past 1 or 2 days, he has had chills, diarrhea, and cough. Patient has significant medical history that includes liver and kidney transplant, as well as atrial fibrillation. Review of Systems Unable to obtain: Other (very limited ROS due to AMS as noted in HPI, above) Constitutional: reports: Chills Respiratory: reports: Cough GI: reports: Diarrhea PD PAST MEDICAL HISTORY - Past Medical History Cardiovascular: Deep vein thrombosis, Atrial fibrillation Respiratory: Pneumonia Neuro: None Endocrine/Autoimmune: HyPOthyroidism GI: Hepatitis (History of hepatitis C which was treated), Other (History of cirrhosis likely from hepatitis C. Patient had liver transplant.) : Benign prostate hypertrophy, Retention HEENT: None Psych: None Musculoskeletal: Chronic back pain Derm: Psoriasis - Past Surgical History Past Surgical History: Yes General: Liver surgery, Other (Hernia repairs with revision due to infection.) Ortho: Spine surgery, Amputation (Bilateral above elbow amputations) Neuro: Other HEENT: Tonsil/Adenoidectomy - Present Medications Home Medications: Ambulatory Orders Medication Instructions Recorded Confirmed Diazepam [Valium] 10 mg PO Q6H PRN 06/25/12 07/13/21 Tacrolimus 1 mg PO BID 06/25/12 07/22/20 predniSONE [Deltasone] 5 mg PO DAILY 06/25/12 07/13/21 Betamethasone Valerate 1 applic TOP .THREE TIMES WEEKLY 05/19/16 07/13/21 Mycophenolate Sodium [Mycophenolic 360 mg PO BID 05/19/16 07/13/21 Acid] oxyCODONE [Roxicodone] 5 mg PO Q4H PRN MDD 30 mg 05/19/16 07/13/21 Tamsulosin [Flomax] 0.4 mg PO BID 06/19/20 07/13/21 Apixaban [Eliquis] 5 mg PO BID #60 tablet 08/08/20 07/13/21 Oxybutynin [Ditropan] 5 mg PO BID #10 tablet 05/11/21 07/13/21 Dorzolamide/Timolol Ophth Soln 1 drops LEFTEYE 0800,1400 07/13/21 07/13/21 [Cosopt] Latanoprost 0.005% Ophth Drops 1 drops LEFTEYE QPM 07/13/21 07/13/21 [Xalatan Ophth Drops] Levothyroxine [Synthroid] 100 mcg PO QDAC 07/13/21 07/13/21 Metoprolol Tartrate [Lopressor] 25 mg PO BID 07/13/21 07/13/21 Cyanocobalamin [Vitamin B-12] 1,000 mcg PO DAILY #60 tablet 07/16/21 Magnesium Oxide [Mag Ox] 400 mg PO 0800 #30 tablet 07/16/21 Pantoprazole [Protonix] 40 mg PO QDAC #30 tablet 07/16/21 diltiaZEM CD [Cardizem Cd] 120 mg PO DAILY #30 cap 07/16/21 - Allergies Allergies/Adverse Reactions: Allergies Allergy/AdvReac Type Severity Reaction Status Date / Time hydromorphone HCl * AdvReac Unknown Verified 02/12/22 00:58 [From Dilaudid] - Social History Does the pt smoke?: No Smoking Status: Former smoker Does the pt drink ETOH?: No Does the pt have substance abuse?: No - Immunizations Immunizations are current?: Yes - POLST Patient has POLST: Yes POLST Status: Full Code PD ED PE NORMAL - Vitals Vital signs reviewed: Yes - General General: Well developed/nourished, Other - Cardiac Cardiac: No murmur - Respiratory Respiratory: No respiratory distress, Other - Abdomen Abdomen: Soft, Non tender, Non distended, Other (multiple old/healed abdominal surgical scars) - Derm Derm: Normal color, Warm and dry - Extremities Extremities: No edema PD ED PE EXPANDED - Cardiac Cardiac: Irregularly irregular - Extremities Extremities: Other (BUE amputations (below elbow)) Results - Vitals Vitals: Vital Signs - 24 hr 02/12/22 02/12/22 02/12/22 00:42 02:21 04:00 Temperature 40.7 C H 39.7 C H 39.7 C H Heart Rate 128 H 104 H 92 Respiratory 18 22 24 Rate Blood Pressure 168/99 H 160/99 H 147/81 H O2 Saturation 98 100 96 If not protocol : Oxygen Flow, liters/minute 02/12/22 02/12/22 02/12/22 05:30 06:00 06:30 Temperature 37.4 C Heart Rate 146 H 122 H 117 H Respiratory 30 H 30 H 30 H Rate Blood Pressure 96/51 L 115/85 H 80/56 L O2 Saturation 88 L 97 94 If not protocol 2 6 : Oxygen Flow, liters/minute 02/12/22 02/12/22 02/12/22 06:45 06:55 08:00 Temperature 37.1 C 37.2 C Heart Rate 113 H 112 H 105 H Respiratory 31 H 30 H 33 H Rate Blood Pressure 81/48 L 78/51 L 78/47 L O2 Saturation 90 L 94 96 If not protocol 6 6 : Oxygen Flow, liters/minute 02/12/22 08:10 Temperature Heart Rate 116 H Respiratory 34 H Rate Blood Pressure O2 Saturation If not protocol : Oxygen Flow, liters/minute Oxygen O2 Source Nasal cannula - Labs Labs: Laboratory Tests 02/12/22 02/12/22 02/12/22 00:53 01:00 01:00 WBC 13.3 H RBC 5.34 Hgb 14.1 Hct 46.8 MCV 87.6 MCH 26.4 L MCHC 30.1 L RDW 13.8 Plt Count 188 MPV 11.7 H Neut # (Auto) Not Reportable Lymph # (Auto) Not Reportable Eagle # (Auto) Not Reportable Eos # (Auto) Not Reportable Baso # (Auto) Not Reportable Absolute Nucleated RBC Not Reportable Total Counted 100 Band Neuts % (Manual) 9 Reactive Lymphs % (Man) 2 Abnorm Lymph % (Manual) 0 Nucleated RBC % Not Reportable Neutrophils # (Manual) 10.0 H Lymphocytes # (Manual) 1.3 L Monocytes # (Manual) 2.0 H Eosinophils # (Manual) 0.0 Basophils # (Manual) 0.0 Differential Comment MANUAL DIFFERENTIAL Platelet Estimate NORMAL (130-450,000) Platelet Morphology NORMAL APPEARANCE RBC Morph Micro Appear NORMAL APPEARANCE Sodium 137 Potassium 3.8 Chloride 106 Carbon Dioxide 20 L Anion Gap 11.0 BUN 17 Creatinine 1.5 H Estimated GFR (MDRD) 47 L Glucose 105 H Lactic Acid Calcium 8.8 Total Bilirubin 0.9 AST 29 ALT 19 Alkaline Phosphatase 55 Total Protein 6.9 Albumin 3.6 Globulin 3.3 Albumin/Globulin Ratio 1.1 Lipase 24 Urine Color Urine Clarity Urine pH Ur Specific [place] Urine Protein Urine Glucose (UA) Urine Ketones Urine Occult Blood Urine Nitrite Urine Bilirubin Urine Urobilinogen Ur Leukocyte Esterase Urine RBC Urine WBC Ur Squamous Epith Cells Urine Bacteria Ur Microscopic Review Urine Culture Comments Nasal Adenovirus (PCR) NOT DETECTED Nasal B. parapertussis DNA (PCR) NOT DETECTED Nasal Coronavir 229E PCR NOT DETECTED Nasal Coronavir HKU1 PCR NOT DETECTED Nasal Coronavir NL63 PCR NOT DETECTED Nasal Coronavir OC43 PCR NOT DETECTED Nasal Enterovir/Rhinovir PCR NOT DETECTED Nasal Influenza A H3 PCR DETECTED A Nasal Influenza B PCR NOT DETECTED Nasal Parainfluen 1 PCR NOT DETECTED Nasal Parainfluen 2 PCR NOT DETECTED Nasal Parainfluen 3 PCR NOT DETECTED Nasal Parainfluen 4 PCR NOT DETECTED Nasal RSV (PCR) NOT DETECTED Nasal B.pertussis DNA PCR NOT DETECTED Nasal C.pneumoniae (PCR) NOT DETECTED Eddie Human Metapneumo PCR NOT DETECTED Nasal M.pneumoniae (PCR) NOT DETECTED Nasal SARS-CoV-2 (PCR) NOT DETECTED 02/12/22 02/12/22 01:00 02:03 WBC RBC Hgb Hct MCV MCH MCHC RDW Plt Count MPV Neut # (Auto) Lymph # (Auto) Eagle # (Auto) Eos # (Auto) Baso # (Auto) Absolute Nucleated RBC Total Counted Band Neuts % (Manual) Reactive Lymphs % (Man) Abnorm Lymph % (Manual) Nucleated RBC % Neutrophils # (Manual) Lymphocytes # (Manual) Monocytes # (Manual) Eosinophils # (Manual) Basophils # (Manual) Differential Comment Platelet Estimate Platelet Morphology RBC Morph Micro Appear Sodium Potassium Chloride Carbon Dioxide Anion Gap BUN Creatinine Estimated GFR (MDRD) Glucose Lactic Acid 2.0 Calcium Total Bilirubin AST ALT Alkaline Phosphatase Total Protein Albumin Globulin Albumin/Globulin Ratio Lipase Urine Color LIGHT YELLOW Urine Clarity HAZY Urine pH 6.0 Ur Specific [place] 1.010 Urine Protein NEGATIVE Urine Glucose (UA) NEGATIVE Urine Ketones TRACE Urine Occult Blood MODERATE H Urine Nitrite NEGATIVE Urine Bilirubin NEGATIVE Urine Urobilinogen 0.2 (NORMAL) Ur Leukocyte Esterase NEGATIVE Urine RBC 6-10 H Urine WBC 4-5 Ur Squamous Epith Cells FEW Squamous Urine Bacteria Few Ur Microscopic Review INDICATED Urine Culture Comments NOT INDICATED Nasal Adenovirus (PCR) Nasal B. parapertussis DNA (PCR) Nasal Coronavir 229E PCR Nasal Coronavir HKU1 PCR Nasal Coronavir NL63 PCR Nasal Coronavir OC43 PCR Nasal Enterovir/Rhinovir PCR Nasal Influenza A H3 PCR Nasal Influenza B PCR Nasal Parainfluen 1 PCR Nasal Parainfluen 2 PCR Nasal Parainfluen 3 PCR Nasal Parainfluen 4 PCR Nasal RSV (PCR) Nasal B.pertussis DNA PCR Nasal C.pneumoniae (PCR) Eddie Human Metapneumo PCR Nasal M.pneumoniae (PCR) Nasal SARS-CoV-2 (PCR) - Rads (name of study) chest xray Radiology: Prelim report reviewed, See rad report PD Medical Decision Making - ED course Complexity details: reviewed old records, reviewed results, re-evaluated ap blair, considered differential, d/w patient, d/w family (I updated patient's daughter (Jenny Curry) at approximately 7:30 AM . I advised her that he is very ill with difficulty breathing and persistent low blood pressures, and will need to be admitted. She says she has been feeling ill herself and does not feel she can come to the hospital), other ((continued). Patient's daughter requests updates when available, and she says another family member can come to the hospital with patient's medications if need be) ED course: Patient is brought in by ambulance for cough, diarrhea, and chills. He has a very high fever on presentation, over 105 rectal temperature. My initial evaluation he is not responding to my questions, and has intermittent grunting expiration on pulmonary auscultation. His vital signs were stable and he is given Tylenol followed by ibuprofen and subsequently his temperature improved to 99. This was associated with significant improvement in his mental status, and he was awake and alert and conversant. He has a mildly elevated white blood cell count, normal lactate. His chest x-ray shows left basilar atelectasis versus possible early infiltrate. His respiratory PCR is positive for influenza a. He is given a dose of Tamiflu early in his ER stay. After several hours in the emergency department, and once his fever had defervesced, I was informed by the nurse that patient had gotten himself out of bed and into a chair next to the bed, and that he was awake, alert, comfortable, and in no apparent distress. Unfortunately, before I was able to reevaluate him, he then went into a rapid atrial fibrillation with rate 140s to 150s associated with hypotension that persisted despite 2 L IV normal saline. IV access was a problem for much of his ER stay, with the nurse eventually able to established a left lower extremity IV. With his sudden but persistent hypotension, I consulted anesthesiology requesting a central line. At the time of the end of my shift anesthesiology is in patient's room establishing a central line. Care of patient is turned over to oncoming emergency department physician. - Critical Care Time(min): 60 Time Includes: Direct patient care, Review records, Reassess patient, Document care, Coordinate care, Medical consult, See progress note Data interpretation: Labs, Pulse ox, CXR, See progress note Procedures included in critical care time: See progress note Procedures excluded from critical care time: See progress note Departure - Departure Disposition: 66 [facility] DC/Xfer Clinical Impression: Influenza A with pneumonia, Immunocompromised, Hypotension, Hypoxia Condition: Stable
[2022-02-12 01:21] LABS: BASOPHILS % (AUTO) 0.4 %; EOSINOPHILS % (AUTO) 0.2 %; HCT - HEMATOCRIT 46.8 % (42.0-52.0); HGB - HEMOGLOBIN 14.1 g/dL (14.0-18.0); LYMPHOCYTES % (AUTO) 9.5 %; MEAN CORPUSCULAR HEMOGLOBIN 26.4 pg (27.0-31.0); MEAN CORPUSCULAR HGB CONC 30.1 g/dL (32.0-36.0); MEAN CORPUSCULAR VOLUME 87.6 fL (80.0-94.0); MEAN PLATELET VOLUME 11.7 fL (7.4-11.4); MONOCYTES % (AUTO) 11.7 %; NEUTROPHILS % (AUTO) 77.2 %; PLT - PLATELET COUNT 188 10^3/uL (130-450); RED BLOOD COUNT 5.34 10^6/uL (4.70-6.10); RED CELL DISTRIBUTION WIDTH 13.8 % (12.0-15.0); WHITE BLOOD COUNT 13.3 x10^3/uL (4.8-10.8)
[2022-02-12 01:24] LABS: ABNORMAL LYMPHS % (MANUAL) 0 %
[2022-02-12 01:41] LABS: ALBUMIN 3.6 g/dL (3.2-5.5); ALBUMIN/GLOBULIN RATIO 1.1 (1.0-2.2); BILIRUBIN,TOTAL 0.9 mg/dL (0.2-1.0); CALCIUM 8.8 mg/dL (8.5-10.3); CREATININE 1.5 mg/dL (0.6-1.2); POTASSIUM 3.8 mmol/L (3.5-5.0); TOTAL PROTEIN 6.9 g/dL (6.7-8.2)
[2022-02-12 02:01] LABS: BAND NEUTROPHILS % (MANUAL) 9 %; LYMPHOCYTES # (MANUAL) 1.3 10^3/uL (1.5-3.5); LYMPHOCYTES % (MANUAL) 8 %; REACTIVE LYMPHS % (MANUAL) 2 %
[2022-02-12 02:03] LABS: DIFFERENTIAL COMMENT MANUAL DIFFERENTIAL; PLATELET ESTIMATE, MANUAL NORMAL (130-450,000) (NORMAL); PLATELET MORPHOLOGY NORMAL APPEARANCE (NORMAL); RBC MORPHOLOGY (MULTIPLE) NORMAL APPEARANCE (NORMAL)
[2022-02-12 02:14] LABS: B. PARAPERTUSSIS- RESP PCR PAN NOT DETECTED; B. PERTUSSIS- RESP PCR PANEL NOT DETECTED; C. PNEUMONIAE- RESP PCR PANEL NOT DETECTED; CORONAVIRUS 229E-RESP PCR NOT DETECTED; CORONAVIRUS HKU1-RESP PCR NOT DETECTED; CORONAVIRUS NL63-RESP PCR NOT DETECTED; CORONAVIRUS OC43-RESP PCR NOT DETECTED; HUMAN METAPNEUMOVIRUS NOT DETECTED; INFLUENZA A H3- RESP PCR PANEL DETECTED; INFLUENZA B - RESP PCR PANEL NOT DETECTED; M. PNEUMONIAE- RESP PCR PANEL NOT DETECTED; PARAINFLUENZA VIRUS 1 NOT DETECTED; PARAINFLUENZA VIRUS 2 NOT DETECTED; PARAINFLUENZA VIRUS 3 NOT DETECTED; PARAINFLUENZA VIRUS 4 NOT DETECTED; RHINOVIRUS/ENTEROVIRUS NOT DETECTED; RSV- RESP PCR PANEL NOT DETECTED; SARS-CoV-2 -RESP PCR PANEL NOT DETECTED
[2022-02-12 02:26] LABS: BILIRUBIN,URINE NEGATIVE (NEGATIVE); GLUCOSE, URINE (UA) NEGATIVE (NEGATIVE); KETONES,URINE (UA) TRACE mg/dL (NEGATIVE); LEUKOCYTE ESTERASE, URINE NEGATIVE (NEGATIVE); NITRITE,URINE NEGATIVE (NEGATIVE); OCCULT BLOOD,URINE MODERATE (NEGATIVE); PROTEIN,URINE NEGATIVE (NEGATIVE); UROBILINOGEN,URINE 0.2 (NORMAL) E.U./dL (NORMAL)
[2022-02-12 02:29] LABS: CLARITY,URINE HAZY (CLEAR)
[2022-02-12 02:41] LABS: BACTERIA,URINE Few /HPF (None Seen); SQUAMOUS EPITHELIAL CELL,UR FEW Squamous (<= Few)
[2022-02-12] MEDS ORDERED: IBUPROFEN 600 MG TABLET PO STA (02:56)
[2022-02-12] MEDS ORDERED: SODIUM CHLORIDE 0.9% 500 ML IV STA (02:58)
[2022-02-12] MEDS ORDERED: OSELTAMIVIR 75 MG CAPSULE PO STA (03:47)
[2022-02-12] MEDS ORDERED: SODIUM CHLORIDE 0.9% 1,000 ML IV STA ×3 (05:37→06:34)
[2022-02-12] MEDS ORDERED: DEXAMETHASONE 10 MG/ML VIAL IVP STA ×2 (07:23→08:25)
[2022-02-12] MEDS ORDERED: ACETAMINOPHEN 1,000 MG/100 ML 1,000 MG/100 ML BAG IV ONE (07:27)
[2022-02-12] MEDS ORDERED: IPRATROPIUM/ALBUTEROL 3 ML NEB INH STA (07:40)
[2022-02-12] MEDS ORDERED: NOREPINEPHRINE/D5W 8 MG/250 ML BAG IV STA (08:01)
[2022-02-12] MEDS ORDERED: AZITHROMYCIN INJ 500 MG in SODIUM CHLORIDE 0.9% 250 ML IV STA (08:25)
[2022-02-12] MEDS ORDERED: cefTRIAXone 1 GM VIAL IVP STA (08:25)
[2022-02-12] MEDS ORDERED: ONDANSETRON 4 MG/2 ML VIAL IVP PRN (08:46)
--- NOTE | 2022-02-12 08:50 | XRAY Report ---
PROCEDURE: Chest 1 View X-Ray INDICATIONS: dyspnea TECHNIQUE: One view of the chest was acquired. COMPARISON: Earlier in the day on 02/12/2022. 07/12/2021 FINDINGS: Surgical changes and devices: None. Lungs and pleura: Poorly defined, developing opacity can be seen at the right lung base. Low lung vo lumes can be seen, causing a crowded appearance to the lung markings. On the semiupright images, no l arge pneumothorax or large pleural effusions can be seen. Mediastinum: Mediastinal contours appear normal. Heart size is normal. The aorta is prominent and t ortuous. The cardiac contours are within normal limits. Bones and chest wall: No suspicious bony lesions. Overlying soft tissues appear unremarkable. IMPRESSION: Developing opacity can be seen at the right lung base. Low lung volumes. The left lung now appears clear. Please consider a short-term follow-up 2 view chest series (performed in deep inspiration) for furthe r evaluation. Reviewed by: Chato Anderson MD on 02/12/2022 7:49 AM [facility] Approved by: Chato Anderson MD on 02/12/2022 7:49 AM [facility] Station ID: [id number]
--- NOTE | 2022-02-12 08:53 | ED Physician Documentation ---
ED Addendum - Addendum Addendum: 02/12/22 08:49 Unchanged shift, the patient is appearing more ill than on initial presentation. He is having increased work of breathing with hypoxia and now hypotension. He had been given IV fluids bolus without improvement in pressure. Anesthesia is placing a central line for better access. The patient is given a nebulizer treatment with some improvement in his breathing. He is on oxygen via nasal cannula at 5 to 6 L and maintaining 94% saturations. Given that his blood pressure is still low at 80s systolic, we did start a norepinephrine drip at 8 mcg/min. His repeat pressure is starting to improve and was above 90 systolic. He was given Decadron IV for concern of high bow adrenal ism given chronic steroid use. He is post transplant and so immunocompromised. A chest x-ray repeated is showing a right lower infiltrate versus fluid congestion. I will cover with some IV antibiotics as well. The patient is appearing ill. I did discuss with him directly about advanced interventions in particular intubation. He states he would not want to be intubated but "would rather ". I told him at this point we would have other interventions available such as BiPAP if needed. He was okay with IV fluids and pressors. So at this point we are considering him DNR/DNI. I talked with the hospitalist. We do have an ICU bed available. Orders will be written in he will go down to the ICU. He is in critical but stable condition at this point with adequate oxygenation and slightly improving blood pressure. He has good mentation and is answering questions. Disposition: Admitted to the hospitalist service in the ICU. Diagnoses: 1. Influenza a infection 2. Influenza pneumonia 3. Immunocompromised due to medic [place] post transplant kidney and liver 4. Hypotension 5. Hypoxia
--- NOTE | 2022-02-12 08:58 | XRAY Report ---
PROCEDURE: Chest 1 View X-Ray INDICATIONS: fever, cough TECHNIQUE: One view of the chest was acquired. COMPARISON: 07/12/2021. Correlation is also made with subsequent performed chest radiograph, 02/13/20. FINDINGS: Surgical changes and devices: Cervical spine postoperative hardware is seen. Lungs and pleura: No pleural effusions or pneumothorax. Minimal, streaky opacity can be seen at the left lung base. Mediastinum: The aorta is prominent and tortuous. The cardiac contours are within normal limits. Bones and chest wall: No suspicious bony lesions. Age-appropriate degenerative changes are seen. Ove rlying soft tissues appear unremarkable. IMPRESSION: Minimal, streaky opacity can be seen at the left lung base. Please consider atelectasis. Note: No significant discrepancy from the preliminary report. Reviewed by: Chato Anderson MD on 02/12/2022 7:57 AM [facility] Approved by: Chato Anderson MD on 02/12/2022 7:57 AM [facility] Station ID: [id number]
[2022-02-12] MEDS ORDERED: ENOXAPARIN 40 MG/0.4 ML SYRINGE SUBQ SCH (09:00)
[2022-02-12] MEDS ORDERED: PHENYLEPHRINE 20 MG in SODIUM CHLORIDE 0.9% 248 ML IV ONE (09:27)
[2022-02-12] MEDS: NOREPINEPHRINE/D5W 8 MG/250 ML BAG IV SCH ×2 (09:30→11:54)
[2022-02-12] MEDS ORDERED: MORPHINE 2 MG/ML CARPUJECT IVP PRN (10:07)
[2022-02-12] MEDS: SODIUM CHLORIDE 0.9% 1,000 ML IV SCH ×2 (10:50→20:42)
[2022-02-12] MEDS: APIXABAN 2.5 MG TABLET PO SCH ×2 (10:51→20:50)
[2022-02-12] MEDS: FAMOTIDINE 20 MG TABLET PO SCH ×2 (10:51→20:51)
[2022-02-12] MEDS: OSELTAMIVIR 75 MG CAPSULE PO SCH ×2 (10:52→20:51)
[2022-02-12] MEDS ORDERED: SODIUM CHLORIDE 0.9% 500 ML IV ONE (12:07)
--- NOTE | 2022-02-12 12:15 | HISTORY & PHYSICAL EXAMINATION ---
Chief Complaint - Chief Complaint Chief Complaint: SOB, cough, low oxygen and low BP in ER History of Present Illness - Admitted From Admitted From:: ED - History Obtained From History obtained from: ED provider and the patient's daughter - History of Present Illness HPI Comment/Other: This is a 66-year-old male with a history of bilateral arm amputations traumatically many years ago, history of liver transplant 27 years ago and kidney transplant 14 years ago and he is on immunosuppressants and daily Prednisone. He has Afib and is on Eliquis. The patient was here 6 months ago with dehydration from diarrhea that caused BON. Several days ago the patient developed shortness of breath and a cough then nausea, vomiting and diarrhea. He has felt more weak and presented to the ED today [id number]. In the ER, he tested positive for influenza A, negative for COVID and a chest x-ray showed mild haziness in R base, lactic acid level was 2, mildly elevated WBC of 13. His BP was normal then slowly declined to 76 systolic, while in ED. He was given fluids aggressively and got Decadron 20 mg iv, in concern for Addisonian crisis. Repeat chest x-ray was done that now shows blossoming of a right lower lobe pneumonia. The patient had blood cultures drawn and was given empiric IV Ceftriaxone and Zithromax IV. He was also desaturating to 88%, then 85%, and needed BiPAP briefly, now is down to 2 L O2 per nasal cannula. He was started on iv Norepinephrine for BP support, and systolic BP has improved to 90. The ED provider and I discussed that this patient should be taken care of in the ICU, given his hypotension and hypoxemia. His CODE STATUS is DNR/DNI. He will be okay getting BiPAP. I then reached out to his daughter with whom he lives, to get more history. This patient just came back from [place] with this daughter 3 days ago. He started to get sick, with a cough, and fatigue the day after the plane flight home, which was 2 days ago. Yesterday he started to get diarrhea and felt weak. The daughter thinks he does have sleep apnea but he never had a sleep study. She does see him snore or have apneic episodes. The daughter says he would never wear a mask and use a CPAP machine because of "his advanced age". The daughter reports that he has bilateral arm prostheses to use, that she left here with him. He can feed himself and toilet himself but also has a bidet to help with toileting. The daughter offered to bring in his Tacrolimus and Myfortic (since these are Non-formulary here). History - Past Medical History Cardiovascular: reports: Deep vein thrombosis, Atrial fibrillation Respiratory: reports: Pneumonia Neuro: reports: None Endocrine/Autoimmune: reports: HyPOthyroidism GI: reports: Hepatitis, Other : reports: Benign prostate hypertrophy, Retention HEENT: reports: None Psych: reports: None Musculoskeletal: reports: Chronic back pain, Other (Had traumatic amputations of both arms above the elbows.) Derm: reports: Psoriasis MRSA Hx?: No - Past Surgical History General: reports: Liver surgery, Other Ortho: reports: Spine surgery, Amputation /TRANSPORT TECH: reports: Other (Renal transplant) Neuro: reports: Other HEENT: reports: Tonsil/Adenoidectomy - Family & Social History Family History Comment/Other: This was obtained at last admission in 08/11: All males in his family have hypertension. His paternal uncles, father and brother have diabetes. Living arrangement: At home Living Situation: With family Social History Notes: This was obtained at last admission in 08/11: He is and lives at home with his daughter, his daughters and 2 grandchildren. He quit smoking 40 yrs ago. He does not consume alcohol, tobacco products or recreational substances. - Substance History Use: Uses substance without health or social issues: NONE - POLST Patient has POLST: Yes POLST Status: Full Code Meds/Allgy - Home Medications Home Medications: Ambulatory Orders Medication Instructions Recorded Confirmed Diazepam [Valium] 10 mg PO QID PRN 06/25/12 02/12/22 Tacrolimus 1 mg PO BID 06/25/12 02/12/22 predniSONE [Deltasone] 5 mg PO DAILY 06/25/12 02/12/22 Mycophenolate Sodium [Mycophenolic 360 mg PO BID 05/19/16 02/12/22 Acid] oxyCODONE [Roxicodone] 5 mg PO Q4H PRN MDD 30 mg 05/19/16 02/12/22 Tamsulosin [Flomax] 0.4 mg PO BID 06/19/20 02/12/22 Apixaban [Eliquis] 5 mg PO BID #60 tablet 08/08/20 02/12/22 Oxybutynin [Ditropan] 5 mg PO BID #10 tablet 05/11/21 02/12/22 Dorzolamide/Timolol Ophth Soln 1 drops LEFTEYE 0800,1400 07/13/21 02/12/22 [Cosopt] Latanoprost 0.005% Ophth Drops 1 drops LEFTEYE QPM 07/13/21 02/12/22 [Xalatan Ophth Drops] Levothyroxine [Synthroid] 100 mcg PO QDAC 07/13/21 02/12/22 Cyanocobalamin [Vitamin B-12] 1,000 mcg PO DAILY #60 tablet 07/16/21 02/12/22 Magnesium Oxide [Mag Ox] 400 mg PO 0800 #30 tablet 07/16/21 02/12/22 Pantoprazole [Protonix] 40 mg PO QDAC #30 tablet 07/16/21 02/12/22 Albuterol Sulf [Ventolin Hfa 2 puffs INH Q6H PRN 02/12/22 02/12/22 Inhaler] - Allergies Allergies/Adverse Reactions: Allergies Allergy/AdvReac Type Severity Reaction Status Date / Time hydromorphone HCl * AdvReac Unknown Verified 02/12/22 00:58 [From Dilaudid] Review of Systems - Constitutional Constitutional: reports: Fatigue, Weakness - Respiratory Respiratory: reports: Cough, Sputum production, SOB at rest, SOB with exertion - Gastrointestinal Gastrointestinal: reports: Diarrhea - Neurological Neurological: reports: Headache (currently) - All Other Systems All Other Systems: reports: Reviewed and negative (He is currently sleepy after getting 1 dose of IV morphine but awakens and can give brief clear answers. Information was also obtained from the daughter by phone.) Exam - Vital Signs Vital Signs: Vital Signs x48h Temp Pulse Pulse Resp BP BP Pulse Ox 02/12/22 12:00 96 31 H 125/64 92 02/12/22 11:33 98 28 H 102/67 91 L 02/12/22 11:00 98 26 H 107/66 91 L 02/12/22 10:55 94 96/56 L 02/12/22 10:48 95 97/53 L 02/12/22 10:42 02/12/22 10:40 96 27 H 80/43 L 92 02/12/22 10:35 97 26 H 76/54 L 92 02/12/22 10:30 97 26 H 78/48 L 91 L 02/12/22 10:25 114 H 28 H 86/51 L 92 02/12/22 10:20 111 H 29 H 67/49 L 93 02/12/22 10:15 113 H 28 H 88/44 L 89 L 02/12/22 10:10 116 H 30 H 93/51 L 93 02/12/22 10:05 120 H 28 H 82/62 L 97 02/12/22 10:00 121 H 32 H 84/52 L 95 02/12/22 09:55 130 H 33 H 67/49 L 94 02/12/22 09:51 36.2 C L 123 H 23 75/44 L 85 L 02/12/22 09:45 112 H 28 H 63/45 L 85 L 02/12/22 09:42 120 H 32 H 68/39 L 96 02/12/22 09:10 112 H 31 H 82/49 L 92 02/12/22 08:10 116 H 34 H 02/12/22 08:00 37.2 C 105 H 33 H 78/47 L 96 02/12/22 06:55 112 H 30 H 78/51 L 94 02/12/22 06:45 37.1 C 113 H 31 H 81/48 L 90 L 02/12/22 06:30 117 H 30 H 80/56 L 94 02/12/22 06:00 122 H 30 H 115/85 H 97 02/12/22 05:30 37.4 C 146 H 30 H 96/51 L 88 L O2 Flow Rate 02/12/22 12:00 3 02/12/22 11:33 3 02/12/22 11:00 4 02/12/22 10:55 02/12/22 10:48 02/12/22 10:42 3 02/12/22 10:40 5 02/12/22 10:35 5 02/12/22 10:30 5 02/12/22 10:25 5 02/12/22 10:20 5 02/12/22 10:15 5 02/12/22 10:10 5 02/12/22 10:05 5 02/12/22 10:00 5 02/12/22 09:55 5 02/12/22 09:51 5 02/12/22 09:45 5 02/12/22 09:42 5 02/12/22 09:10 6 02/12/22 08:10 02/12/22 08:00 6 02/12/22 06:55 6 02/12/22 06:45 02/12/22 06:30 6 02/12/22 06:00 2 02/12/22 05:30 - Physical Exam General Appearance: positive: No acute distress, Lethargic (after getting Morphine for), Other (Disheveled.) Eyes Bilateral: positive: Normal inspection ENT: positive: No signs of dehydration Neck: positive: Nml inspection, No JVD Respiratory: positive: Rhonchi Cardiovascular: positive: Regular rate & rhythm, No murmur Abdomen: positive: Non-tender, No distention Skin: positive: Warm, Dry, Cyanosis Extremities: positive: No pedal edema Neurologic/Psychiatric: positive: Oriented x3, Other (Lethargic, but awakens, speaks, swallows pills, then falls back asleep.) Conclusion/Plan - Problem List (1) Hypotension Conclusion/Plan: The first lactic acid level was 2 ruling out sepsis but he also had normal blood pressure on presentation then it dropped over several hours to 76 systolic. There is no sign of hemorrhage. Plan: Norepinephrine to continue to achieve a MAP of 65 Will cycle troponins to rule out HI as the cause of this hypotension Will recheck a lactic acid level and treat the underlying infection Echocardiogram, limited was obtained (see separate note)>> Echo shows dilated RV, but could not visualize RV function, normal or even small underfilled LV size, with normal wall thickness and normal LVEF of 60%. Will give a saline bolus of 500 cc, continue saline at 100 to 150 cc/h in order to wean norepinephrine down. (2) Acute respiratory failure with hypoxia Conclusion/Plan: He was desaturating in the ER at presentation, needed BiPAP briefly, now is down to needing O2 at 2 L/min by nasal cannula. The cause appears to be this influenza pneumonia and/or community-acquired pneumonia Plan: Continue with supplemental oxygen, weaning down as tolerated (3) Influenza A with pneumonia Conclusion/Plan: He tested influenza a positive. He has an infiltrate on chest x-ray. He has copious phlegm that he coughs up and it is yellow-green in color Plan: Will obtain sputum for bacterial culture and continue the empiric iv antibx daily, that were started in ED Start Tamiflu Order respiratory isolation Mucinex for pulm toilet (4) Obstructive apnea Conclusion/Plan: While doing his bedside Echocardiogram, after he had received a small dose of morphine IV, I persdonally witnessed 2 episodes of obstructive apnea. This may have caused the right ventricular enlargement seen on Echo. Plan: The daughter told me by phone that she thinks he does have sleep apnea but he never had a sleep study. She does see him snore or have apneic episodes. The daughter says he would never wear a mask and use a CPAP machine because of "his advanced age". (5) BON (acute kidney injury) Conclusion/Plan: This is likely from dehydration and also could be from ATN from hypotension Plan: Continue with IV fluids Avoid nephrotoxins Follow BMP daily (6) Immunocompromised Conclusion/Plan: Plan: We will hold his prednisone and use high dose, stress doses of steroids for several days, which he also needs for his pulmonary status. He does not have pancytopenia or leukopenia to order food that is treated for immunosuppressed pts Will resume his other 2 nonformulary meds, Tacrolimus and Myfortic, when the daughter brings them in. (7) Diarrhea Conclusion/Plan: As per Hx received from the ED provider, confirmed by the daughter Plan: Will order stool for C. diff, if neg will order prn Imodium Qualifiers: Diarrhea type: unspecified type Qualified Code(s): R19.7 - Diarrhea, unspecified (8) History of atrial fibrillation Conclusion/Plan: He had A. fib during his hospitalization 6 months ago. Today's EKG (done after he was admitted to the ICU), shows sinus rhythm. Plan: Will continue with his Eliquis but will decrease the dose until creat improves. Await his entire med list to be reconciled by pharmacy, to start any other meds (9) History of liver transplant Conclusion/Plan: This was 27 years ago. He has stable LFTs. Plan: Resume non-formulary meds when brought in. (10) History of kidney transplant Conclusion/Plan: This was 14 years ago. He has mild BON now, presumably from volume depletion Plan: Resume non-formulary meds when brought in. (11) Amputation arm, bilat Conclusion/Plan: This happened in 1978, per his daughter and he is able to do ADLs independanytly. Plan: When awake and stabilizes, he may use the prostheses, that daughter says she brought in with him. - Lab Results Fish Bones: 02/12/22 01:00 02/12/22 01:00 - Diagnostic Imaging Results Diagnostic Imaging Results: positive: Final report reviewed - EKG Results EKG Interpreted Independently: Yes EKG Comparison: Changed from prior EKG EKG Findings: EKG today (done when he got to the ICU) shows: Normal sinus rhythm, rate 95, PAC, borderline prolonged QT at 499 msec, lateral T wave flattening in leads I and aVL. Since EKG from 07/15/2021, A. fib is now absent, other findings are similar. - Other Other Results/Comments: Attestation: The patient is expected to be discharged or transferred to another facility within 96 hours: Yes.
[2022-02-12] MEDS: guaiFENesin 600 MG TABLET PO SCH ×2 (12:40→20:51)
--- NOTE | 2022-02-12 12:49 | ANESTHESIA PROCEDURE NOTE ---
Anesth Central Line Template - Central Line Central Line Preparation: Consent Obtained (verbal consent obtained as patient is critically ill and amelia. amputee.), Time out completed, Ultrasound used, Sterile prep and drape Central line location: Right Femoral Central line type: Triple lumen Central line catheter tip site resides: Inferior vena cava (IVC) Central line aftercare: Chlorhexidine disc placed, Secured, No pneumothorax, Pt tolerated well Other Info/Details: Attempted to place right IJ central line initially. He has a history of multiple invasive lines. I was unable to advance the wire after obtaining venous access. Discussed with Dr. Watson. He suggested placing a femoral line. Due to critical illness of patient, femoral line, while not ideal, is required for improved IV access and for IV pressors. Discussed with ED physicians Dr Morales and Dr. Hussein who agreed. Patient's right groin was prepped with chlorohexadine. Full sterile gown, gloves and drape utilized. 3ml of 1% lidocaine was used for skin local. Right femoral vein was imaged and an 18 Galo needle was used to access the vein under US guidance. Wire advanced with ease and a triple lumen catheter was advanced with ease. Wire removed. All 3 ports aspirate and flush with ease. Line sutured in place. Ok to use.
--- NOTE | 2022-02-12 13:06 | PROVIDER PROGRESS NOTE ---
Hospitalist Cross-cover Note - Cross-Cover Note Cross-Cover Note: As a Board-certified [employer], credentialed to do \Echoes, I did a limited bedside Echo (2D only) on this patient. Indication: Hypotension Normal or underfilled LV size, normal LV wall thickness, normal or hyperdynamic LV with EF 60 to 65%. Right ventricle mildly to moderately dilated, cannot visualize RV function No pericardial effusion seen. Mitral annulus calcified. Mitral and aortic valves have good mobility. Tricuspid and pulmonic valves poorly seen Doppler not done. Imp: Volume depletion with hyperdynamic LV contractility Cor pulmonale.
[2022-02-12] MEDS ORDERED: methylPREDNISolone SUCCINATE 40 MG/ML VIAL IVP SCH (14:00)
[2022-02-12] MEDS: methylPREDNISolone SUCCINATE 40 MG/ML VIAL IVP SCH ×2 (14:17→21:31)
[2022-02-12] MEDS ORDERED: IPRATROPIUM/ALBUTEROL 3 ML NEB INH PRN (14:17)
[2022-02-12] MEDS: SODIUM CHLORIDE FLUSH 0.9% 10 ML SYRINGE IVP SCH (20:56)
[2022-02-12] MEDS: LATANOPROST 0.005% OPHTH DROPS LEFTEYE SCH (20:58)
[2022-02-12] MEDS: MYCOPHENOLATE SODIUM 360 MG PO SCH (20:58)
[2022-02-12] MEDS: DORZOLAMIDE/TIMOLOL OPHTH DROPS LEFTEYE SCH (20:59)
[2022-02-12] MEDS: TACROLIMUS 0.5 MG CAPSULE PO SCH (21:09)
[2022-02-12] MEDS: TAMSULOSIN 0.4 MG CAPSULE PO SCH (21:09)
[2022-02-12] MEDS ORDERED: WATER FOR INJECTION,STERILE 10 ML MC ONE (21:30)
[2022-02-13] MEDS: oxyCODONE 5 MG TABLET PO PRN (01:01)
[2022-02-13] MEDS: ACETAMINOPHEN 325 MG TABLET PO PRN ×2 (03:51→08:25)
[2022-02-13] MEDS: SODIUM CHLORIDE 0.9% 1,000 ML IV SCH ×2 (05:38→18:18)
[2022-02-13 05:39] LABS: BASOPHILS % (AUTO) 0.1 %; HGB - HEMOGLOBIN 11.8 g/dL (14.0-18.0); LYMPHOCYTES # (AUTO) 0.6 10^3/uL (1.5-3.5); LYMPHOCYTES % (AUTO) 3.9 %; MEAN CORPUSCULAR HEMOGLOBIN 26.8 pg (27.0-31.0); MEAN CORPUSCULAR HGB CONC 31.1 g/dL (32.0-36.0); MEAN CORPUSCULAR VOLUME 86.4 fL (80.0-94.0); MEAN PLATELET VOLUME 11.7 fL (7.4-11.4); MONOCYTES # (AUTO) 0.4 10^3/uL (0.0-1.0); MONOCYTES % (AUTO) 2.8 %; NEUTROPHILS # (AUTO) 14.8 10^3/uL (1.5-6.6); NEUTROPHILS % (AUTO) 92.9 %; PLT - PLATELET COUNT 151 10^3/uL (130-450); RED CELL DISTRIBUTION WIDTH 14.6 % (12.0-15.0); WHITE BLOOD COUNT 15.9 x10^3/uL (4.8-10.8)
[2022-02-13] MEDS: methylPREDNISolone SUCCINATE 40 MG/ML VIAL IVP SCH ×3 (05:39→21:20)
[2022-02-13 05:49] LABS: CALCIUM 7.6 mg/dL (8.5-10.3); CREATININE 1.2 mg/dL (0.6-1.2); MAGNESIUM 1.6 mg/dL (1.7-2.8); POTASSIUM 3.7 mmol/L (3.5-5.0)
[2022-02-13] MEDS: LEVOTHYROXINE 100 MCG TABLET PO SCH (07:01)
[2022-02-13] MEDS: TACROLIMUS 0.5 MG CAPSULE PO SCH ×2 (08:24→21:21)
[2022-02-13] MEDS: MAGNESIUM OXIDE 400 MG TABLET PO SCH ×3 (08:25→14:12)
[2022-02-13] MEDS: OSELTAMIVIR 75 MG CAPSULE PO SCH ×2 (08:26→21:21)
[2022-02-13] MEDS: CYANOCOBALAMIN 500 MCG TABLET PO SCH (08:26)
[2022-02-13] MEDS: guaiFENesin 600 MG TABLET PO SCH ×2 (08:26→21:21)
[2022-02-13] MEDS: APIXABAN 2.5 MG TABLET PO SCH (08:26)
[2022-02-13] MEDS: MYCOPHENOLATE SODIUM 360 MG PO SCH ×2 (08:27→21:22)
[2022-02-13] MEDS: AZITHROMYCIN 250 MG TABLET PO SCH (08:27)
[2022-02-13] MEDS: FAMOTIDINE 20 MG TABLET PO SCH ×2 (08:27→21:21)
[2022-02-13] MEDS: TAMSULOSIN 0.4 MG CAPSULE PO SCH ×2 (08:29→23:10)
[2022-02-13] MEDS: cefTRIAXone 1 GM in SODIUM CHLORIDE 0.9% MINIBAG 100 ML IV SCH (08:30)
[2022-02-13] MEDS: SODIUM CHLORIDE FLUSH 0.9% 10 ML SYRINGE IVP SCH ×4 (11:00→21:20)
[2022-02-13] MEDS: DORZOLAMIDE/TIMOLOL OPHTH DROPS LEFTEYE SCH (14:43)
--- NOTE | 2022-02-13 15:14 | PROVIDER PROGRESS NOTE ---
Subjective - Subjective Pt reports feeling: Improved (Feels much less short of breath, is still very sleepy, headache is gone.) Objective - Vital Signs/Intake & Output Reviewed Vital Signs: Yes Vital Signs: Vital Signs Pulse Resp BP Pulse Ox O2 Flow Rate 02/13/22 14:00 81 17 121/79 90 L 5 02/13/22 13:00 86 16 120/66 90 L 4 Intake & Output: Intake & Output 02/10/22 02/11/22 02/12/22 02/13/22 23:59 23:59 23:59 23:59 Intake Total 4877.292 2373.333 Output Total 460 650 Balance 4417.292 1723.333 - Objective General Appearance: positive: Lethargic Eyes Bilateral: positive: Normal inspection ENT: positive: ENT inspection nml, No signs of dehydration Neck: positive: Nml inspection, No JVD Respiratory: positive: No respiratory distress (wearing O2 per n.c.), Other (Diminished breath sounds in all lung keys, no wheezing or rhonchi) Cardiovascular: positive: Regular rate & rhythm (distant heart sounds) Abdomen: positive: Non-tender, Nml bowel sounds Skin: positive: Warm, Dry Extremities: positive: Non-tender, No pedal edema, Other (S/P B arm amputations) Neurologic/Psychiatric: positive: Oriented x3, Weakness, Other (Very sleepy. [place] and communicated briefly, fell right back asleep.) - Lab Results Fish Bones: 02/13/22 05:20 02/13/22 05:20 Other Labs: Lab Results x24hrs 02/13/22 02/13/22 02/13/22 Range/Units 09:40 05:20 05:20 WBC (4.8-10.8) x10^3/uL RBC (4.70-6.10) 10^6/uL Hgb (14.0-18.0) g/dL Hct (42.0-52.0) % MCV (80.0-94.0) fL MCH (27.0-31.0) pg MCHC (32.0-36.0) g/dL RDW (12.0-15.0) % Plt Count (130-450) 10^3/uL MPV (7.4-11.4) fL Neut # (Auto) (1.5-6.6) 10^3/uL Lymph # (Auto) (1.5-3.5) 10^3/uL [place] # (Auto) (0.0-1.0) 10^3/uL Eos # (Auto) (0.0-0.7) 10^3/uL Baso # (Auto) (0.0-0.1) 10^3/uL Absolute Nucleated RBC x10^3/uL Nucleated RBC % /100WBC Sodium (135-145) mmol/L Potassium (3.5-5.0) mmol/L Chloride (101-111) mmol/L Carbon Dioxide (21-32) mmol/L Anion Gap (6-13) BUN (6-20) mg/dL Creatinine (0.6-1.2) mg/dL Estimated GFR (MDRD) (>89) Glucose (70-100) mg/dL Calcium (8.5-10.3) mg/dL Magnesium (1.7-2.8) mg/dL Troponin I High Sens 374.5 H* (2.3-19.7) ng/L TSH 0.62 (0.34-5.60) uIU/mL Stl C. diff Tox B Gene NEGATIVE (NEGATIVE) 02/13/22 02/13/22 02/12/22 Range/Units 05:20 05:20 17:45 WBC 15.9 H (4.8-10.8) x10^3/uL RBC 4.40 L (4.70-6.10) 10^6/uL Hgb 11.8 L (14.0-18.0) g/dL Hct 38.0 L (42.0-52.0) % MCV 86.4 (80.0-94.0) fL MCH 26.8 L (27.0-31.0) pg MCHC 31.1 L (32.0-36.0) g/dL RDW 14.6 (12.0-15.0) % Plt Count 151 (130-450) 10^3/uL MPV 11.7 H (7.4-11.4) fL Neut # (Auto) 14.8 H (1.5-6.6) 10^3/uL Lymph # (Auto) 0.6 L (1.5-3.5) 10^3/uL [place] # (Auto) 0.4 (0.0-1.0) 10^3/uL Eos # (Auto) 0.0 (0.0-0.7) 10^3/uL Baso # (Auto) 0.0 (0.0-0.1) 10^3/uL Absolute Nucleated RBC 0.00 x10^3/uL Nucleated RBC % 0.0 /100WBC Sodium 138 (135-145) mmol/L Potassium 3.7 (3.5-5.0) mmol/L Chloride 113 H (101-111) mmol/L Carbon Dioxide 16 L (21-32) mmol/L Anion Gap 9.0 (6-13) BUN 25 H (6-20) mg/dL Creatinine 1.2 (0.6-1.2) mg/dL Estimated GFR (MDRD) 60 L (>89) Glucose 112 H (70-100) mg/dL Calcium 7.6 L (8.5-10.3) mg/dL Magnesium 1.6 L (1.7-2.8) mg/dL Troponin I High Sens 589.4 H* (2.3-19.7) ng/L TSH (0.34-5.60) uIU/mL Stl C. diff Tox B Gene (NEGATIVE) Assessment/Plan - Problem List (1) Acute respiratory failure with hypoxia Impression: He was desaturating in the ER at presentation, needed BiPAP briefly,now needing O2 at 2 L/min by nasal cannula. The cause appears to be this influenza pneumonia and/or community-acquired pneumonia Plan: Continue with supplemental oxygen, weaning down as tolerated He can be moved out of IC (2) Influenza A with pneumonia Conclusion/Plan: He tested influenza A positive. He has an infiltrate on chest x-ray. He had co pious phlegm yesterday, that he coughed up and it was yellow-green in color. Hs significantly less cough today Plan: We sent sputum for bacterial culture Continue the empiric iv antibx daily, that were started in ED Started Tamiflu Ordered respiratory isolation Mucinex ordered for pulm toilet (3) Obstructive apnea Conclusion/Plan: While doing his bedside Echocardiogram, after he had received a small dose of morphine IV, I personally witnessed 2 episodes of obstructive apnea yesterday. This may be the cause of the right ventricular enlargement seen on Echo. Plan: The daughter told me by phone that she thinks he does have sleep apnea but he never had a sleep study. She does see him snore or have apneic episodes. The daughter says he would never wear a mask and use a CPAP machine because of "his advanced age". (4) BON (acute kidney injury) Conclusion/Plan: This is likely from dehydration and also could be from ATN from hypotension. Creat is improving Plan: Continue with IV fluids Avoid nephrotoxins Follow BMP daily (5) Immunocompromised Conclusion/Plan: Plan: We ordered high dose, stress doses of steroids for several days, which he also needs for his pulmonary status. He does not have pancytopenia or leukopenia to order food that is treated for immunosuppressed pts We ordered resumption of his other 2 nonformulary meds, Tacrolimus and Myfortic, when the daughter brings them in. (6) Diarrhea Conclusion/Plan: As per Hx received from the ED provider, confirmed by the daughter Plan: Will order stool for C. diff, if neg will order prn Imodium Qualifiers: Diarrhea type: unspecified type Qualified Code(s): R19.7 - Diarrhea, unspecified (7) History of atrial fibrillation Conclusion/Plan: He had A. fib during his hospitalization 6 months ago. Today's EKG (done after he was admitted to the ICU), shows sinus rhythm. Plan: Will continue with his Eliquis, today the dose can be ibcreased back to 5 BID, since creat has improved. (8) History of liver transplant Conclusion/Plan: This was 27 years ago. He has stable LFTs. Plan: Resumed non-formulary meds (9) History of kidney transplant Conclusion/Plan: This was 14 years ago. He has mild BON now, presumably from volume depletion Plan: Resumed non-formulary meds (10) Amputation arm, bilat Conclusion/Plan: This happened in 1978, per his daughter and he is able to do ADLs independanytly. Plan: When awake and stabilizes, he may use the prostheses, that daughter says she brought in with him. (11) Hypotension Resolved The first lactic acid level was 2 ruling out sepsis but he also had normal blood pressure on presentation then it dropped over several hours to 76 systolic. There is no sign of hemorrhage. Plan: Norepinephrine to continue to achieve a MAP of 65 Will cycle troponins to rule out [place] as the cause of this hypotension Will recheck a lactic acid level and treat the underlying infection Echocardiogram, limited was obtained (see separate note)>> Echo shows dilated RV, but could not visualize RV function, normal or even small underfilled LV size, with normal wall thickness and normal LVEF of 60%. Will give a saline bolus of 500 cc, continue saline at 100 to 150 cc/h in order to wean norepinephrine down.
[2022-02-13] MEDS ORDERED: METOPROLOL 5 MG/5 ML VIAL IVP STA (16:38)
[2022-02-13] MEDS: diazePAM 5 MG TABLET PO PRN (21:20)
[2022-02-13] MEDS: APIXABAN 5 MG TABLET PO SCH (21:20)
[2022-02-13] MEDS: METOPROLOL SUCCINATE 25 MG TABLET PO SCH (21:21)
[2022-02-13] MEDS: LATANOPROST 0.005% OPHTH DROPS LEFTEYE SCH (21:21)
[2022-02-14] MEDS: SODIUM CHLORIDE 0.9% 1,000 ML IV SCH ×3 (02:54→23:00)
[2022-02-14] MEDS: oxyCODONE 5 MG TABLET PO PRN ×2 (02:57→11:44)
[2022-02-14] MEDS: MORPHINE 2 MG/ML CARPUJECT IVP PRN ×3 (03:41→22:56)
--- NOTE | 2022-02-14 05:07 | PROVIDER PROGRESS NOTE ---
Hospitalist Cross-cover Note - Cross-Cover Note Cross-Cover Note: RN message: Patient admitted for acute resp failure w/ hypoxia, flu +. Patient reported chest pain 9/10. O2 at 5 Liters oxymask. HR increased to 160s, slowly declined back to 80s. Morphine 1 mg given IV as ordered. O2 increased to 8 liters oxymask. O2 sat 90%. Pain now 5/10 after morphine administered. Patient informed current code status was DNR. Patient said that was incorrect and would like to be changed to full code status. Thank you. Code status switched to full code. Further discussion re goals of care per primary team.
[2022-02-14] MEDS: LEVOTHYROXINE 100 MCG TABLET PO SCH (06:22)
[2022-02-14] MEDS: methylPREDNISolone SUCCINATE 40 MG/ML VIAL IVP SCH ×3 (06:22→21:29)
[2022-02-14] MEDS: SODIUM CHLORIDE FLUSH 0.9% 10 ML SYRINGE IVP PRN (06:22)
[2022-02-14] MEDS: NOREPINEPHRINE/D5W 8 MG/250 ML BAG IV SCH ×2 (07:39→09:22)
[2022-02-14] MEDS ORDERED: BENZOCAINE/MENTHOL LOZENGE MM PRN (08:10)
[2022-02-14] MEDS: cefTRIAXone 1 GM in SODIUM CHLORIDE 0.9% MINIBAG 100 ML IV SCH (08:18)
[2022-02-14] MEDS: TACROLIMUS 0.5 MG CAPSULE PO SCH ×2 (08:19→21:28)
[2022-02-14] MEDS: guaiFENesin 600 MG TABLET PO SCH ×2 (08:21→21:28)
[2022-02-14] MEDS: CYANOCOBALAMIN 500 MCG TABLET PO SCH (08:21)
[2022-02-14] MEDS: AZITHROMYCIN 250 MG TABLET PO SCH (08:21)
[2022-02-14] MEDS: TAMSULOSIN 0.4 MG CAPSULE PO SCH ×2 (08:21→21:28)
[2022-02-14] MEDS: APIXABAN 5 MG TABLET PO SCH ×2 (08:22→21:28)
[2022-02-14] MEDS: MAGNESIUM OXIDE 400 MG TABLET PO SCH (08:22)
[2022-02-14] MEDS: FAMOTIDINE 20 MG TABLET PO SCH ×2 (08:22→21:28)
[2022-02-14] MEDS: METOPROLOL SUCCINATE 25 MG TABLET PO SCH ×2 (08:24→21:28)
[2022-02-14] MEDS: OSELTAMIVIR 75 MG CAPSULE PO SCH ×2 (08:24→21:28)
[2022-02-14] MEDS: MYCOPHENOLATE SODIUM 360 MG PO SCH ×2 (08:28→21:28)
[2022-02-14] MEDS: SODIUM CHLORIDE FLUSH 0.9% 10 ML SYRINGE IVP SCH ×2 (08:31→18:19)
[2022-02-14 09:13] LABS: BASOPHILS % (AUTO) 0.1 %; CALCIUM, IONIZED 1.12 mmol/L (1.15-1.33); HCT - HEMATOCRIT 39.3 % (42.0-52.0); HGB - HEMOGLOBIN 11.7 g/dL (14.0-18.0); LYMPHOCYTES # (AUTO) 0.3 10^3/uL (1.5-3.5); LYMPHOCYTES % (AUTO) 2.8 %; MEAN CORPUSCULAR HEMOGLOBIN 26.5 pg (27.0-31.0); MEAN CORPUSCULAR HGB CONC 29.8 g/dL (32.0-36.0); MEAN CORPUSCULAR VOLUME 88.9 fL (80.0-94.0); MEAN PLATELET VOLUME 11.9 fL (7.4-11.4); MONOCYTES # (AUTO) 0.1 10^3/uL (0.0-1.0); MONOCYTES % (AUTO) 1.2 %; NEUTROPHILS # (AUTO) 10.7 10^3/uL (1.5-6.6); NEUTROPHILS % (AUTO) 95.6 %; PLT - PLATELET COUNT 133 10^3/uL (130-450); RED BLOOD COUNT 4.42 10^6/uL (4.70-6.10); RED CELL DISTRIBUTION WIDTH 15.4 % (12.0-15.0); VBG PH 7.32 (7.31-7.41); WHITE BLOOD COUNT 11.2 x10^3/uL (4.8-10.8)
[2022-02-14] MEDS: DORZOLAMIDE/TIMOLOL OPHTH DROPS LEFTEYE SCH ×2 (09:21→13:39)
[2022-02-14 09:27] LABS: CALCIUM 7.9 mg/dL (8.5-10.3); CREATININE 1.3 mg/dL (0.6-1.2); POTASSIUM 4.1 mmol/L (3.5-5.0)
[2022-02-14 09:31] LABS: MAGNESIUM 1.8 mg/dL (1.7-2.8); PHOSPHORUS 2.9 mg/dL (2.5-4.6)
--- NOTE | 2022-02-14 11:37 | XRAY Report ---
PROCEDURE: Chest 1 View X-Ray INDICATIONS: Hypoxia, chest pain TECHNIQUE: One view of the chest was acquired. COMPARISON: 02/12/2022 FINDINGS: Surgical changes and devices: None. Lungs and pleura: Mild interstitial prominence is seen, which is improved compared to the prior. Tra ce blunting of the costophrenic angles can be seen. No pneumothorax. Mediastinum: The aorta is prominent and tortuous. The cardiac contours are within normal limits. Bones and chest wall: No suspicious bony lesions. Overlying soft tissues appear unremarkable. IMPRESSION: Improved interstitial prominence. Likely small pleural effusions. Reviewed by: Chato Anderson MD on 02/14/2022 10:[address] [facility] Approved by: Chato Anderson MD on 02/14/2022 10:[address] [facility] Station ID: [id number]
[2022-02-14] MEDS ORDERED: NITROGLYCERIN SL 0.4 MG TABLET SL PRN (11:42)
--- NOTE | 2022-02-14 15:37 | PROVIDER PROGRESS NOTE ---
Assessment/Plan - Problem List (1) Chest pain Assessment/Plan: The patient went into rapid A. fib last night, rate 160 and he had chest pain just then. The telemedicine doctor ordered morphine which controlled his pain immediately, the patient reports. Today at midday he again had rapid A. fib, rate 140 and had chest pain 10/10. An EKG was done at the time and shows no ischemic ST or T wave changes. The A. fib stopped on its own before any Lopressor could be given. The chest pain continued therefore he needed 3 sublingual nitroglycerin which gave him relief. The patient told me he gets this type of chest pain whenever he has "tachycardia" which he has had infrequently before. He does not have a Household Appliances Service Technician. He remembers having a stress test 3-5 yrs ago, and said it was normal. Plan: Will cycle troponins again. We will obtain a complete Echo to look for resting wall motion abnormalities Will increase his beta-samuel dose to hopefully suppress the paroxysms of A. fib. SL nitroglycerin prn for angina is now ordered as needed. The small appliance assembly supervisor documented that the patient wanted his CODE STATUS changed to full code, which was done. (2) Paroxysmal atrial fibrillation Conclusion/Plan: He had A. fib during his hospitalization 6 months ago. His admission EKG now showed sinus rhythm. He then had Afib yesterday afternoon, needed Lopressor iv x1. Then had rapid Afib at 0100 and got CP with that episode. Then he again had rapid Afib with CP at mid day today. EKG done today did not catch the Afib, he was already back in NSR. A. fib is commonly seen when there are pulmonary pathologies, so these episodes may be related to his current influenza pneumonia Plan: Will continue with his home Eliquis dose. Will increase his beta-samuel dose to hopefully suppress the paroxysms of A. fib. Will check for hypertyhroidism. Will order a complete Echo. (3) Influenza A with pneumonia Conclusion/Plan: He tested influenza A positive. He has an infiltrate on chest x-ray. He had copious phlegm yellow-green in color. He has significantly less cough yesterday and today Plan: We sent sputum for bacterial culture Continue the empiric iv antibx daily, that were started in ED Started Tamiflu Ordered respiratory isolation Mucinex ordered for pulm toilet He can be moved out of ICU today (4) Immunocompromised Conclusion/Plan: Plan: We ordered high dose, stress doses of steroids for several days, which he also needs for his pulmonary status. He does not have pancytopenia or leukopenia to order food that is treated for immunosuppressed pts We ordered resumption of his other 2 nonformulary meds, Tacrolimus and Myfortic, which the daughter brought in (5) BON (acute kidney injury) Conclusion/Plan: This is likely from dehydration and also could be from ATN from hypotension. Creat is improving Plan: Continue with IV fluids Avoid nephrotoxins Follow BMP daily (6) Obstructive apnea Conclusion/Plan: While I was doing his bedside limited Echocardiogram several days ago, after he had received a small dose of morphine IV, I personally witnessed 2 episodes of obstructive apnea. This may be the cause of the right ventricular enlargement seen on Echo. Plan: The daughter told me by phone that she thinks he does have sleep apnea but he never had a sleep study. She does see him snore or have apneic episodes. The daughter says he would never wear a mask and use a CPAP machine because of "his advanced age". (7) Diarrhea Conclusion/Plan: As per Hx received from the ED provider, confirmed by the daughter. C. diff was neg Plan: He can have prn Imodium Qualifiers: Diarrhea type: unspecified type Qualified Code(s): R19.7 - Diarrhea, unspecified (8) History of liver transplant Conclusion/Plan: This was 27 years ago. He has stable LFTs. Plan: Resumed non-formulary meds (9) History of kidney transplant Conclusion/Plan: This was 14 years ago. 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 Plan: When awake and stabilizes, he may use the prostheses, that daughter says she brought in with him. (11) Hypotension Resolved The first lactic acid level was 2 ruling out sepsis but he also had normal blood pressure on presentation then it dropped over several hours to 76 systolic. There is no sign of hemorrhage. Plan: Norepinephrine to continue to achieve a MAP of 65 Will cycle troponins to rule out DE as the cause of this hypotension Will recheck a lactic acid level and treat the underlying infection Echocardiogram, limited was obtained (see separate note)>> Echo shows dilated RV, but could not visualize RV function, normal or even small underfilled LV size, with normal wall thickness and normal LVEF of 60%. Will give a saline bolus of 500 cc, continue saline at 100 to 150 cc/h in order to wean norepinephrine down. (12) Acute respiratory failure with hypoxia Impression: Resolved, he is saturating fine and comfortable on room air He was desaturating in the ER at presentation, needed BiPAP briefly,now needing O2 at 2 L/min by nasal cannula. The cause was influenza pneumonia and/or community-acquired pneumonia Plan: He can be moved out of ICU today - Current Meds Current Meds: Current Medications Generic Name Dose Route Start Last Admin Trade Name Freq PRN Reason Stop Dose Admin Acetaminophen 650 mg 02/12/22 08:46 02/13/22 08:25 Acetaminophen 325 Mg Tablet PO 650 mg Q4HR PRN Administration Pain 1 to 4, or Fever Apixaban 5 mg 02/13/22 21:00 02/14/22 08:22 Apixaban 5 Mg Tablet PO 5 mg BID RY Administration Azithromycin 250 mg 02/13/22 09:00 02/14/22 08:21 Azithromycin 250 Mg Tablet PO 02/16/22 09:01 250 mg DAILY RY Administration Cyanocobalamin 1,000 mcg 02/13/22 09:00 02/14/22 08:21 Cyanocobalamin 500 Mcg Tablet PO 1,000 mcg DAILY RY Administration Diazepam 10 mg 02/12/22 14:58 02/13/22 21:20 Diazepam 5 Mg Tablet PO 10 mg QID PRN Administration Anxiety/Spasms Dorzolamide/Timolol 1 drops 02/13/22 08:00 02/14/22 13:39 Dorzolamide/Timolol Ophth Drops LEFTEYE 1 drops 0800,1400 RY Administration Famotidine 20 mg 02/12/22 10:00 02/14/22 08:22 Famotidine 20 Mg Tablet PO 20 mg BID RY Administration Guaifenesin 600 mg 02/12/22 12:00 02/14/22 08:21 Guaifenesin 600 Mg Tablet PO 600 mg BID RY Administration Sodium Chloride 1,000 mls @ 100 mls/hr 02/12/22 10:30 02/14/22 13:36 Normal Saline 0.9% IV 100 mls/hr .Q10H RY Administration Ceftriaxone Sodium 1 gm/ 100 mls @ 200 mls/hr 02/13/22 09:00 02/14/22 09:22 Sodium Chloride IV 02/16/22 09:29 Infused DAILY RY Infusion Latanoprost 1 drops 02/12/22 21:00 02/13/22 21:21 Latanoprost 0.005% Ophth Drops LEFTEYE 1 drops QPM RY Administration Levothyroxine Sodium 100 mcg 02/13/22 07:00 02/14/22 06:22 Levothyroxine 100 Mcg Tablet PO 100 mcg QDAC RY Administration Magnesium Oxide 400 mg 02/13/22 08:00 02/14/22 08:22 Magnesium Oxide 400 Mg Tablet PO 400 mg 0800 RY Administration Methylprednisolone 80 mg 02/12/22 14:00 02/14/22 13:39 Methylprednisolone Succinate 40 Mg/Ml Vial IVP 80 mg TID RY Administration Morphine Sulfate 1 mg 02/12/22 11:52 02/14/22 10:54 Morphine 2 Mg/Ml Carpuject IVP 1 mg Q4HR PRN Administration Dyspnea Nitroglycerin 0.4 mg 02/14/22 11:42 02/14/22 12:13 Nitroglycerin Sl 0.4 Mg Tablet SL 0.4 mg Q5MIN PRN Administration Chest Pain Oseltamivir Phosphate 75 mg 02/12/22 12:00 02/14/22 08:24 Oseltamivir 75 Mg Capsule PO 02/16/22 09:01 75 mg BID RY Administration Oxycodone HCl 5 mg 02/12/22 14:14 02/14/22 11:44 Oxycodone 5 Mg Tablet PO 5 mg Q4H PRN Administration PAIN Mycophenolate Sodium 1 each 02/12/22 21:00 02/14/22 08:28 [Mycophenolic Acid] PO 1 each 360 Mg Tablet BID RY Administration Sodium Chloride 10 ml 02/12/22 17:00 02/14/22 08:31 Sodium Chloride Flush 0.9% 10 Ml Syringe IVP 10 ml 0100,0900,1700 RY Administration Sodium Chloride 10 ml 02/12/22 08:46 02/14/22 06:22 Sodium Chloride Flush 0.9% 10 Ml Syringe IVP 10 ml PRN PRN Administration NEEDED PER PROVIDER ORDERS Tacrolimus 1 mg 02/12/22 21:00 02/14/22 08:19 Tacrolimus 0.5 Mg Capsule PO 1 mg BID RY Administration Tamsulosin HCl 0.4 mg 02/12/22 21:00 02/14/22 08:21 Tamsulosin 0.4 Mg Capsule PO 0.4 mg BID RY Administration Throat Lozenges 1 lozenge 02/14/22 08:10 02/14/22 08:30 Benzocaine/Menthol Lozenge MM 1 lozenge Q2HR PRN Administration Throat pain - Lab Result Fish Bone Diagrams: 02/14/22 09:06 02/14/22 09:06 - Additional Planning My Orders: My Active Orders 02/13/22 21:00 Apixaban [Eliquis] 5 mg PO BID 02/14/22 08:10 Benzocaine/Menthol [Cepacol] 1 lozenge MM Q2HR PRN 02/14/22 10:34 Telemetry- [RC] Q4HR 02/14/22 11:42 Nitroglycerin [Nitrostat] 0.4 mg SL Q5MIN PRN 02/14/22 21:00 Metoprolol Succinate [Toprol Xl] 25 mg PO BID 02/15/22 05:00 BMP - BASIC METABOLIC PANEL [CHEM] DAILYLAB CBC - COMP BLD CT W/AUTO DIFF [HEME] DAILYLAB PHOSPHORUS [CHEM] DAILYLAB 02/15/22 15:24 Echo Transthoracic Complete [ECHO] Routine 02/16/22 05:00 BMP - BASIC METABOLIC PANEL [CHEM] DAILYLAB CBC - COMP BLD CT W/AUTO DIFF [HEME] DAILYLAB 02/17/22 05:00 BMP - BASIC METABOLIC PANEL [CHEM] DAILYLAB CBC - COMP BLD CT W/AUTO DIFF [HEME] DAILYLAB Subjective - Subjective Patient Reports: Chest Pain (2 episodes in the last 12 hours, each 1 occurred when he went into rapid A. fib) Objective Vital Signs: Vital Signs - 24 hr 02/13/22 02/13/22 02/13/22 16:00 16:40 16:44 Temperature 36.5 C Heart Rate Heart Rate [ 88 134 H Monitoring electrodes] Heart Rate [ Sitting] Heart Rate [ Standing] Heart Rate [ Supine] Respiratory 18 Rate Blood Pressure 121/84 H Blood Pressure 123/56 L 121/84 H [Right Brachial artery] Blood Pressure [Sitting] Blood Pressure [Supine] O2 Saturation 90 L If not protocol 5 : Oxygen Flow, liters/minute 02/13/22 02/13/22 02/13/22 16:45 16:50 17:00 Temperature Heart Rate Heart Rate [ 127 H 137 H 85 Monitoring electrodes] Heart Rate [ Sitting] Heart Rate [ Standing] Heart Rate [ Supine] Respiratory 18 Rate Blood Pressure Blood Pressure 99/76 106/89 H 119/77 [Right Brachial artery] Blood Pressure [Sitting] Blood Pressure [Supine] O2 Saturation 91 L If not protocol 7 : Oxygen Flow, liters/minute 02/13/22 02/13/22 02/13/22 17:05 17:20 18:00 Temperature Heart Rate Heart Rate [ 86 84 80 Monitoring electrodes] Heart Rate [ Sitting] Heart Rate [ Standing] Heart Rate [ Supine] Respiratory 17 Rate Blood Pressure Blood Pressure 124/78 125/85 H 130/76 [Right Brachial artery] Blood Pressure [Sitting] Blood Pressure [Supine] O2 Saturation 90 L If not protocol 7 : Oxygen Flow, liters/minute 02/13/22 02/13/22 02/13/22 19:00 20:00 21:00 Temperature 36.5 C Heart Rate Heart Rate [ 84 82 80 Monitoring electrodes] Heart Rate [ Sitting] Heart Rate [ Standing] Heart Rate [ Supine] Respiratory 16 17 16 Rate Blood Pressure Blood Pressure 131/70 H 129/72 130/68 [Right Brachial artery] Blood Pressure [Sitting] Blood Pressure [Supine] O2 Saturation 91 L 90 L 90 L If not protocol 7 7 7 : Oxygen Flow, liters/minute 02/13/22 02/13/22 02/14/22 22:00 23:00 00:00 Temperature 36.7 C Heart Rate Heart Rate [ 81 75 82 Monitoring electrodes] Heart Rate [ Sitting] Heart Rate [ Standing] Heart Rate [ Supine] Respiratory 17 16 20 Rate Blood Pressure Blood Pressure 131/67 H 121/69 132/78 H [Right Brachial artery] Blood Pressure [Sitting] Blood Pressure [Supine] O2 Saturation 90 L 89 L 90 L If not protocol 7 7 7 : Oxygen Flow, liters/minute 02/14/22 02/14/22 02/14/22 01:00 02:00 03:00 Temperature Heart Rate Heart Rate [ 84 78 83 Monitoring electrodes] Heart Rate [ Sitting] Heart Rate [ Standing] Heart Rate [ Supine] Respiratory 17 20 18 Rate Blood Pressure Blood Pressure 134/76 H 131/73 H 140/83 H [Right Brachial artery] Blood Pressure [Sitting] Blood Pressure [Supine] O2 Saturation 91 L 91 L 91 L If not protocol 7 7 7 : Oxygen Flow, liters/minute 02/14/22 02/14/22 02/14/22 04:00 05:00 06:00 Temperature Heart Rate Heart Rate [ 83 112 H 116 H Monitoring electrodes] Heart Rate [ Sitting] Heart Rate [ Standing] Heart Rate [ Supine] Respiratory 12 14 14 Rate Blood Pressure Blood Pressure 125/77 109/65 112/68 [Right Brachial artery] Blood Pressure [Sitting] Blood Pressure [Supine] O2 Saturation 90 L 90 L 90 L If not protocol 7 7 7 : Oxygen Flow, liters/minute 02/14/22 02/14/22 02/14/22 07:00 08:00 09:00 Temperature Heart Rate Heart Rate [ 76 85 79 Monitoring electrodes] Heart Rate [ Sitting] Heart Rate [ Standing] Heart Rate [ Supine] Respiratory 15 20 16 Rate Blood Pressure Blood Pressure 121/78 133/82 H 133/85 H [Right Brachial artery] Blood Pressure [Sitting] Blood Pressure [Supine] O2 Saturation 94 96 96 If not protocol 7 2 2 : Oxygen Flow, liters/minute 02/14/22 02/14/22 02/14/22 11:00 11:43 12:00 Temperature 36.7 C Heart Rate Heart Rate [ 125 H 95 Monitoring electrodes] Heart Rate [ 79 Sitting] Heart Rate [ 107 H Standing] Heart Rate [ 85 Supine] Respiratory 15 Rate Blood Pressure Blood Pressure 130/100 H 142/97 H [Right Brachial artery] Blood Pressure 142/97 H [Sitting] Blood Pressure 138/87 H [Supine] O2 Saturation 97 If not protocol : Oxygen Flow, liters/minute 02/14/22 12:13 Temperature Heart Rate 91 Heart Rate [ Monitoring electrodes] Heart Rate [ Sitting] Heart Rate [ Standing] Heart Rate [ Supine] Respiratory Rate Blood Pressure 142/97 H Blood Pressure [Right Brachial artery] Blood Pressure [Sitting] Blood Pressure [Supine] O2 Saturation If not protocol : Oxygen Flow, liters/minute Oxygen O2 Source Room air I&O (Last 24 Hrs): Intake and Output Totals x24h 02/12/22 02/13/22 02/14/22 23:59 23:59 23:59 Intake Total 4837.292 4560.000 2213.333 Output Total 460 1450 Balance 4417.292 3110.000 2213.333 General: Alert, Oriented x3 HEENT: Mucous membr. moist/pink Neck: Supple, No JVD Neuro: Alert, Non Focal Cardiovascular: Regular rate, No murmurs Respiratory: No respiratory distress, Breath sounds nml Abdomen: Normal bowel sounds, Soft Extremities: Other (L arm stump edema) - Results Results: Laboratory Results WBC 11.2 x10^3/uL (4.8-10.8) H 02/14/22 09:06 RBC 4.42 10^6/uL (4.70-6.10) L 02/14/22 09:06 Hgb 11.7 g/dL (14.0-18.0) L 02/14/22 09:06 Hct 39.3 % (42.0-52.0) L 02/14/22 09:06 MCV 88.9 fL (80.0-94.0) 02/14/22 09:06 MCH 26.5 pg (27.0-31.0) L 02/14/22 09:06 MCHC 29.8 g/dL (32.0-36.0) L 02/14/22 09:06 RDW 15.4 % (12.0-15.0) H 02/14/22 09:06 Plt Count 133 10^3/uL (130-450) 02/14/22 09:06 MPV 11.9 fL (7.4-11.4) H 02/14/22 09:06 Neut # (Auto) 10.7 10^3/uL (1.5-6.6) H 02/14/22 09:06 Lymph # (Auto) 0.3 10^3/uL (1.5-3.5) L 02/14/22 09:06 [place] # (Auto) 0.1 10^3/uL (0.0-1.0) 02/14/22 09:06 Eos # (Auto) 0.0 10^3/uL (0.0-0.7) 02/14/22 09:06 Baso # (Auto) 0.0 10^3/uL (0.0-0.1) 02/14/22 09:06 Absolute Nucleated RBC 0.00 x10^3/uL 02/14/22 09:06 Total Counted 100 02/12/22 01:00 Band Neuts % (Manual) 9 % (0-10) 02/12/22 01:00 Reactive Lymphs % (Man) 2 % 02/12/22 01:00 Abnorm Lymph % (Manual) 0 % 02/12/22 01:00 Nucleated RBC % 0.0 /100WBC 02/14/22 09:06 Neutrophils # (Manual) 10.0 10^3/uL (1.5-6.6) H 02/12/22 01:00 Lymphocytes # (Manual) 1.3 10^3/uL (1.5-3.5) L 02/12/22 01:00 Monocytes # (Manual) 2.0 10^3/uL (0.0-1.0) H 02/12/22 01:00 Eosinophils # (Manual) 0.0 10^3/uL (0-0.7) 02/12/22 01:00 Basophils # (Manual) 0.0 10^3/uL (0-0.1) 02/12/22 01:00 Differential Comment MANUAL DIFFERENTIAL 02/12/22 01:00 Platelet Estimate NORMAL (130-450,000) (NORMAL) 02/12/22 01:00 Platelet Morphology NORMAL APPEARANCE (NORMAL) 02/12/22 01:00 RBC Morph Micro Appear NORMAL APPEARANCE (NORMAL) 02/12/22 01:00 VBG pH 7.320 (7.31-7.41) 02/14/22 09:06 Ionized Calcium 1.12 mmol/L (1.15-1.33) L 02/14/22 09:06 Sodium 137 mmol/L (135-145) 02/14/22 09:06 Potassium 4.1 mmol/L (3.5-5.0) 02/14/22 09:06 Chloride 114 mmol/L (101-111) H 02/14/22 09:06 Carbon Dioxide 16 mmol/L (21-32) L 02/14/22 09:06 Anion Gap 7.0 (6-13) 02/14/22 09:06 BUN 33 mg/dL (6-20) H 02/14/22 09:06 Creatinine 1.3 mg/dL (0.6-1.2) H 02/14/22 09:06 Estimated GFR (MDRD) 55 (>89) L 02/14/22 09:06 Glucose 157 mg/dL (70-100) H 02/14/22 09:06 Lactic Acid 2.0 mmol/L (0.5-2.2) 02/12/22 01:00 Calcium 7.9 mg/dL (8.5-10.3) L 02/14/22 09:06 Phosphorus 2.9 mg/dL (2.5-4.6) 02/14/22 09:06 Magnesium 1.8 mg/dL (1.7-2.8) 02/14/22 09:06 Total Bilirubin 0.9 mg/dL (0.2-1.0) 02/12/22 01:00 AST 29 IU/L (10-42) 02/12/22 01:00 ALT 19 IU/L (10-60) 02/12/22 01:00 Alkaline Phosphatase 55 IU/L (42-121) 02/12/22 01:00 Troponin I High Sens 96.6 ng/L (2.3-19.7) H* 02/14/22 14:38 Total Protein 6.9 g/dL (6.7-8.2) 02/12/22 01:00 Albumin 3.6 g/dL (3.2-5.5) 02/12/22 01:00 Globulin 3.3 g/dL (2.1-4.2) 02/12/22 01:00 Albumin/Globulin Ratio 1.1 (1.0-2.2) 02/12/22 01:00 Lipase 24 U/L (22-51) 02/12/22 01:00 TSH 0.62 uIU/mL (0.34-5.60) 02/13/22 05:20 Urine Color LIGHT YELLOW 02/12/22 02:03 Urine Clarity HAZY (CLEAR) 02/12/22 02:03 Urine pH 6.0 PH (5.0-7.5) 02/12/22 02:03 Ur Specific [place] 1.010 (1.002-1.030) 02/12/22 02:03 Urine Protein NEGATIVE mg/dL (NEGATIVE) 02/12/22 02:03 Urine Glucose (UA) NEGATIVE mg/dL (NEGATIVE) 02/12/22 02:03 Urine Ketones TRACE mg/dL (NEGATIVE) 02/12/22 02:03 Urine Occult Blood MODERATE (NEGATIVE) H 02/12/22 02:03 Urine Nitrite NEGATIVE (NEGATIVE) 02/12/22 02:03 Urine Bilirubin NEGATIVE (NEGATIVE) 02/12/22 02:03 Urine Urobilinogen 0.2 (NORMAL) E.U./dL (NORMAL) 02/12/22 02:03 Ur Leukocyte Esterase NEGATIVE (NEGATIVE) 02/12/22 02:03 Urine RBC 6-10 /HPF (0-5) H 02/12/22 02:03 Urine WBC 4-5 /HPF (0-3) 02/12/22 02:03 Ur Squamous Epith Cells FEW Squamous (<= Few) 02/12/22 02:03 Urine Bacteria Few /HPF (None Seen) 02/12/22 02:03 Ur Microscopic Review INDICATED 02/12/22 02:03 Urine Culture Comments NOT INDICATED 02/12/22 02:03 Nasal Adenovirus (PCR) NOT DETECTED 02/12/22 00:53 Nasal B. parapertussis DNA (PCR) NOT DETECTED 02/12/22 00:53 Nasal Coronavir 229E PCR NOT DETECTED 02/12/22 00:53 Nasal Coronavir HKU1 PCR NOT DETECTED 02/12/22 00:53 Nasal Coronavir NL63 PCR NOT DETECTED 02/12/22 00:53 Nasal Coronavir OC43 PCR NOT DETECTED 12 00:53 Nasal Enterovir/Rhinovir PCR NOT DETECTED 02/12/22 00:53 Nasal Influenza A H3 PCR DETECTED A 02/12/22 00:53 Nasal Influenza B PCR NOT DETECTED 02/12/22 00:53 Nasal Parainfluen 1 PCR NOT DETECTED 02/12/22 00:53 Nasal Parainfluen 2 PCR NOT DETECTED 02/12/22 00:53 Nasal Parainfluen 3 PCR NOT DETECTED 02/12/22 00:53 Nasal Parainfluen 4 PCR NOT DETECTED 02/12/22 00:53 Nasal RSV (PCR) NOT DETECTED 02/12/22 00:53 Nasal Screen MRSA (PCR) NEGATIVE (NEGATIVE) 02/12/22 09:55 Nasal B.pertussis DNA PCR NOT DETECTED 02/12/22 00:53 Nasal C.pneumoniae (PCR) NOT DETECTED 02/12/22 00:53 Eddie Human Metapneumo PCR NOT DETECTED 02/12/22 00:53 Nasal M.pneumoniae (PCR) NOT DETECTED 02/12/22 00:53 Nasal SARS-CoV-2 (PCR) NOT DETECTED 02/12/22 00:53 Stl C. diff Tox B Gene NEGATIVE (NEGATIVE) 02/13/22 09:40 - Procedures Procedures: Procedures EXCISION OF STOMACH, PYLORUS, ENDO (07/13/21) SERUM TRANSFUSION NEC (09/03/12) VENOUS CATHETERIZATION NEC (09/03/12)
[2022-02-14] MEDS: LATANOPROST 0.005% OPHTH DROPS LEFTEYE SCH (21:29)
[2022-02-15] MEDS: oxyCODONE 5 MG TABLET PO PRN ×2 (01:57→21:05)
[2022-02-15] MEDS: SODIUM CHLORIDE FLUSH 0.9% 10 ML SYRINGE IVP SCH ×3 (04:03→17:34)
[2022-02-15] MEDS: diazePAM 5 MG TABLET PO PRN ×2 (04:37→21:05)
[2022-02-15 05:46] LABS: BASOPHILS % (AUTO) 0.1 %; HCT - HEMATOCRIT 36.5 % (42.0-52.0); HGB - HEMOGLOBIN 11.1 g/dL (14.0-18.0); LYMPHOCYTES # (AUTO) 0.4 10^3/uL (1.5-3.5); LYMPHOCYTES % (AUTO) 5.2 %; MEAN CORPUSCULAR HEMOGLOBIN 26.7 pg (27.0-31.0); MEAN CORPUSCULAR HGB CONC 30.4 g/dL (32.0-36.0); MEAN CORPUSCULAR VOLUME 87.7 fL (80.0-94.0); MEAN PLATELET VOLUME 12.3 fL (7.4-11.4); MONOCYTES # (AUTO) 0.2 10^3/uL (0.0-1.0); MONOCYTES % (AUTO) 2.1 %; NEUTROPHILS # (AUTO) 6.9 10^3/uL (1.5-6.6); NEUTROPHILS % (AUTO) 92.1 %; NRBC ABSOLUTE COUNT (AUTO) 0.02 x10^3/uL; NUCLEATED RED BLOOD CELLS AUTO 0.3 /100WBC; PLT - PLATELET COUNT 135 10^3/uL (130-450); RED BLOOD COUNT 4.16 10^6/uL (4.70-6.10); RED CELL DISTRIBUTION WIDTH 15.4 % (12.0-15.0); WHITE BLOOD COUNT 7.5 x10^3/uL (4.8-10.8)
[2022-02-15 05:55] LABS: CALCIUM 8.1 mg/dL (8.5-10.3); CREATININE 1.1 mg/dL (0.6-1.2); PHOSPHORUS 2.2 mg/dL (2.5-4.6); POTASSIUM 4.3 mmol/L (3.5-5.0)
[2022-02-15] MEDS ORDERED: WATER FOR INJECTION,STERILE 10 ML MC ONE (06:19)
[2022-02-15] MEDS: MORPHINE 2 MG/ML CARPUJECT IVP PRN (06:22)
[2022-02-15] MEDS: methylPREDNISolone SUCCINATE 40 MG/ML VIAL IVP SCH ×3 (06:22→21:01)
[2022-02-15] MEDS: LEVOTHYROXINE 100 MCG TABLET PO SCH (06:23)
[2022-02-15] MEDS: TAMSULOSIN 0.4 MG CAPSULE PO SCH ×2 (08:27→21:05)
[2022-02-15] MEDS: MYCOPHENOLATE SODIUM 360 MG PO SCH ×2 (08:27→21:02)
[2022-02-15] MEDS: TACROLIMUS 0.5 MG CAPSULE PO SCH ×2 (08:27→21:01)
[2022-02-15] MEDS: APIXABAN 5 MG TABLET PO SCH ×2 (08:27→21:01)
[2022-02-15] MEDS: AZITHROMYCIN 250 MG TABLET PO SCH (08:28)
[2022-02-15] MEDS: FAMOTIDINE 20 MG TABLET PO SCH ×2 (08:28→21:01)
[2022-02-15] MEDS: MAGNESIUM OXIDE 400 MG TABLET PO SCH (08:28)
[2022-02-15] MEDS: METOPROLOL SUCCINATE 25 MG TABLET PO SCH ×2 (08:28→21:01)
[2022-02-15] MEDS: guaiFENesin 600 MG TABLET PO SCH ×2 (08:28→21:01)
[2022-02-15] MEDS: cefTRIAXone 1 GM in SODIUM CHLORIDE 0.9% MINIBAG 100 ML IV SCH (08:28)
[2022-02-15] MEDS: CYANOCOBALAMIN 500 MCG TABLET PO SCH (08:28)
[2022-02-15] MEDS: DORZOLAMIDE/TIMOLOL OPHTH DROPS LEFTEYE SCH ×2 (08:29→14:32)
[2022-02-15] MEDS: OSELTAMIVIR 75 MG CAPSULE PO SCH ×2 (08:38→21:05)
[2022-02-15] MEDS: SODIUM CHLORIDE 0.9% 1,000 ML IV SCH (12:44)
[2022-02-15] MEDS: LATANOPROST 0.005% OPHTH DROPS LEFTEYE SCH (21:01)
[2022-02-16] MEDS: oxyCODONE 5 MG TABLET PO PRN ×3 (00:30→19:45)
[2022-02-16] MEDS: SODIUM CHLORIDE FLUSH 0.9% 10 ML SYRINGE IVP SCH ×4 (00:31→23:39)
[2022-02-16 05:14] LABS: BASOPHILS % (AUTO) 0.2 %; HCT - HEMATOCRIT 36.9 % (42.0-52.0); HGB - HEMOGLOBIN 11.4 g/dL (14.0-18.0); LYMPHOCYTES # (AUTO) 0.5 10^3/uL (1.5-3.5); LYMPHOCYTES % (AUTO) 7.6 %; MEAN CORPUSCULAR HEMOGLOBIN 27.3 pg (27.0-31.0); MEAN CORPUSCULAR HGB CONC 30.9 g/dL (32.0-36.0); MEAN CORPUSCULAR VOLUME 88.5 fL (80.0-94.0); MONOCYTES # (AUTO) 0.2 10^3/uL (0.0-1.0); MONOCYTES % (AUTO) 2.4 %; NEUTROPHILS # (AUTO) 5.6 10^3/uL (1.5-6.6); NEUTROPHILS % (AUTO) 88.9 %; PLT - PLATELET COUNT 131 10^3/uL (130-450); RED BLOOD COUNT 4.17 10^6/uL (4.70-6.10); RED CELL DISTRIBUTION WIDTH 14.8 % (12.0-15.0); WHITE BLOOD COUNT 6.3 x10^3/uL (4.8-10.8)
[2022-02-16 05:22] LABS: CALCIUM 8.3 mg/dL (8.5-10.3); CREATININE 1.1 mg/dL (0.6-1.2); POTASSIUM 4.4 mmol/L (3.5-5.0)
[2022-02-16] MEDS: LEVOTHYROXINE 100 MCG TABLET PO SCH (06:19)
[2022-02-16] MEDS: SODIUM CHLORIDE FLUSH 0.9% 10 ML SYRINGE IVP PRN ×2 (06:20→13:56)
[2022-02-16] MEDS: methylPREDNISolone SUCCINATE 40 MG/ML VIAL IVP SCH ×2 (06:20→13:56)
[2022-02-16] MEDS: DORZOLAMIDE/TIMOLOL OPHTH DROPS LEFTEYE SCH ×2 (08:25→13:47)
[2022-02-16] MEDS: TACROLIMUS 0.5 MG CAPSULE PO SCH ×2 (08:26→21:28)
[2022-02-16] MEDS: CYANOCOBALAMIN 500 MCG TABLET PO SCH (08:26)
[2022-02-16] MEDS: FAMOTIDINE 20 MG TABLET PO SCH ×2 (08:27→21:28)
[2022-02-16] MEDS: OSELTAMIVIR 75 MG CAPSULE PO SCH (08:27)
[2022-02-16] MEDS: AZITHROMYCIN 250 MG TABLET PO SCH (08:28)
[2022-02-16] MEDS: MAGNESIUM OXIDE 400 MG TABLET PO SCH (08:28)
[2022-02-16] MEDS: APIXABAN 5 MG TABLET PO SCH ×2 (08:28→21:28)
[2022-02-16] MEDS: guaiFENesin 600 MG TABLET PO SCH (08:29)
[2022-02-16] MEDS: TAMSULOSIN 0.4 MG CAPSULE PO SCH ×2 (08:29→21:29)
[2022-02-16] MEDS: MYCOPHENOLATE SODIUM 360 MG PO SCH ×2 (08:30→21:29)
[2022-02-16] MEDS: METOPROLOL SUCCINATE 25 MG TABLET PO SCH ×2 (08:30→22:44)
[2022-02-16] MEDS: cefTRIAXone 1 GM in SODIUM CHLORIDE 0.9% MINIBAG 100 ML IV SCH (08:31)
[2022-02-16] MEDS ORDERED: LACTOBACILLUS RHAMNOSUS GG CAPSULE PO SCH (09:00)
--- NOTE | 2022-02-16 09:04 | PROVIDER PROGRESS NOTE ---
Assessment/Plan - Problem List (1) Acute delirium Assessment/Plan: Since yesterday the patient seems delirious: He took a nap in the afternoon then worked with occupational therapy who reported that he was disoriented to time and place, he thought he was leaving with the occupational therapist to be picked up by his daughter and go somewhere and was upset that they did not leave after he dressed himself in street clothes. This morning RN reports that he is also confused. And he is more drowsy yesterday and today. He is not hypotensive and he is not hypoxic Plan: We will decrease frequency of his prn oxycodone since this narcotic may be adding to somnolence and confusion We will stop guaifenesin which can cause confusion in elderly people and since he is no longer coughing Will stop his (home dose) of Valium which seemed excessive, 10 mg 3 times daily prn Will decrease the high dose stroids which may be causing confusion There are no focal neurologic deficits so no head CT planned yet. (2) Influenza A with pneumonia He tested influenza A positive. He had an infiltrate on chest x-ray. He had copious phlegm yellow-green in color. He has significantly less cough yesterday and today Plan: We sent sputum for bacterial culture Continue the empiric iv antibx daily, that were started in ED Started Tamiflu Ordered respiratory isolation Mucinex ordered for pulm toilet (3) Paroxysmal atrial fibrillation Conclusion/Plan: He had A. fib during his hospitalization 6 months ago. This admission EKG now showed sinus rhythm. He then had Afib on 02/14, needed Lopressor iv x1. Then had rapid Afib at 0100 on 02/15 and got CP with that episode. Then he again had rapid Afib with CP at mid day 02/15. EKG done 02/15 did not catch the Afib, he was already back in NSR. A. fib is commonly seen when there are pulmonary pathologies, so these episodes may be related to his current influenza pneumonia. We checked for hypertyhroidism, and his TSH was normal. He has had a Hx of Afib and was on Eliquis. Plan: Will continue with his home Eliquis dose. Will increase his beta-samuel dose to hopefully suppress the paroxysms of A. fib. (4) Chest pain Assessment/Plan: None further The patient went into rapid A. fib several nights ago when in ICU, rate 160 and he had chest pain just then. The telemedicine doctor ordered morphine which controlled his pain immediately, the patient reports. The next day at midday he again had rapid A. fib, rate 140 and had chest pain 10/10. An EKG was done at the time and shows no ischemic ST or T wave changes. The A. fib stopped on its own before any Lopressor could be given. The chest pain continued therefore he needed 3 sublingual nitroglycerin which gave him relief. The patient told me he gets this type of chest pain whenever he has "tachycardia" which he has had infrequently before. He does not have a Bundle Helper. He remembers having a stress test 3-5 yrs ago, and said it was normal. We obtained a complete Echo and it showed overall normal LVEF, but suboptimal views josé manuel comment on regional wall motion. Troponins were cycled and ruled him out for IN Plan: We increased his beta-samuel dose to hopefully suppress the paroxysms of A. fib. SL nitroglycerin prn for angina is now ordered as needed. The dry kiln operator documented that the patient wanted his CODE STATUS changed to full code, which was done. (5) Immunocompromised Conclusion/Plan: Plan: We ordered high dose, stress doses of steroids for several days, which he also needs for his pulmonary status. Will decrease down as the high doses may be ad ding to confusion He does not have pancytopenia or leukopenia to order food that is treated for immunosuppressed pts We ordered resumption of his other 2 nonformulary meds, Tacrolimus and Myfortic, which the daughter brought in (6) Prerenal azotemia Conclusion/Plan: BON has improved. It was likely from dehydration and also could be from ATN from hypotension. Now he has elevated BUN/Creat ratio Plan: will taper iv fluids down to off, since her is taking po well and c/o L arm stump edema Avoid nephrotoxins Follow BMP daily (7) Obstructive apnea Conclusion/Plan: While I was doing his bedside limited Echocardiogram several days ago, after he had received a small dose of morphine IV, I personally witnessed 2 episodes of obstructive apnea. This may be the cause of the right ventricular enlargement seen on Echo. Plan: The daughter told me by phone that she thinks he does have sleep apnea but he never had a sleep study. She does see him snore or have apneic episodes. The daughter says he would never wear a mask and use a CPAP machine because of "his advanced age". (8) History of liver transplant Conclusion/Plan: This was 27 years ago. He has stable LFTs. Plan: Resumed non-formulary meds (9) History of kidney transplant Conclusion/Plan: This was 14 years ago. 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 Plan: We stopped all his IV fluids yesterday Will see if just arm elevation helps the edema and try not to give diuretics sin ce he still has prerenal azotemia today (11) Hypotension Resolved (12) Acute respiratory failure with hypoxia Resolved (13) Diarrhea Conclusion/Plan: Resolved As per Hx received from the ED provider, confirmed by the daughter. C. diff was neg Plan: He can have prn Imodium Qualifiers: Diarrhea type: unspecified type Qualified Code(s): R19.7 - Diarrhea, unspecified - Current Meds Current Meds: Current Medications Generic Name Dose Route Start Last Admin Trade Name Freq PRN Reason Stop Dose Admin Acetaminophen 650 mg 02/12/22 08:46 02/13/22 08:25 Acetaminophen 325 Mg Tablet PO 650 mg Q4HR PRN Administration Pain 1 to 4, or Fever Albuterol/Ipratropium 3 ml 02/12/22 14:17 02/15/22 07:03 Ipratropium/Albuterol 3 Ml Neb INH 3 ml Q4HR PRN Administration Wheezing Apixaban 5 mg 02/13/22 21:00 02/16/22 08:28 Apixaban 5 Mg Tablet PO 5 mg BID RY Administration Cyanocobalamin 1,000 mcg 02/13/22 09:00 02/16/22 08:26 Cyanocobalamin 500 Mcg Tablet PO 1,000 mcg DAILY RY Administration Diazepam 10 mg 02/12/22 14:58 02/15/22 21:05 Diazepam 5 Mg Tablet PO 10 mg QID PRN Administration Anxiety/Spasms Dorzolamide/Timolol 1 drops 02/13/22 08:00 02/16/22 08:25 Dorzolamide/Timolol Ophth Drops LEFTEYE 1 drops 0800,1400 RY Administration Famotidine 20 mg 02/12/22 10:00 02/16/22 08:27 Famotidine 20 Mg Tablet PO 20 mg BID RY Administration Guaifenesin 600 mg 02/12/22 12:00 02/16/22 08:29 Guaifenesin 600 Mg Tablet PO 600 mg BID RY Administration Ceftriaxone Sodium 1 gm/ 100 mls @ 200 mls/hr 02/13/22 09:00 02/16/22 08:31 Sodium Chloride IV 02/16/22 09:29 200 mls/hr DAILY RY Administration Lactobacillus Rhamnosus 1 cap 02/16/22 09:00 02/16/22 08:29 Lactobacillus Rhamnosus Gg Capsule PO 1 cap DAILY RY Administration Latanoprost 1 drops 02/12/22 21:00 02/15/22 21:01 Latanoprost 0.005% Ophth Drops LEFTEYE 1 drops QPM RY Administration Levothyroxine Sodium 100 mcg 02/13/22 07:00 02/16/22 06:19 Levothyroxine 100 Mcg Tablet PO 100 mcg QDAC RY Administration Magnesium Oxide 400 mg 02/13/22 08:00 02/16/22 08:28 Magnesium Oxide 400 Mg Tablet PO 400 mg 0800 RY Administration Methylprednisolone 40 mg 02/16/22 07:00 02/16/22 06:20 Methylprednisolone Succinate 40 Mg/Ml Vial IVP 40 mg TID RY Administration Metoprolol Succinate 25 mg 02/14/22 21:00 02/16/22 08:30 Metoprolol Succinate 25 Mg Tablet PO 25 mg BID RY Administration Morphine Sulfate 1 mg 02/12/22 11:52 02/15/22 06:22 Morphine 2 Mg/Ml Carpuject IVP 1 mg Q4HR PRN Administration Dyspnea Nitroglycerin 0.4 mg 02/14/22 11:42 02/14/22 12:13 Nitroglycerin Sl 0.4 Mg Tablet SL 0.4 mg Q5MIN PRN Administration Chest Pain Oxycodone HCl 5 mg 02/12/22 14:14 02/16/22 06:19 Oxycodone 5 Mg Tablet PO 5 mg Q4H PRN Administration PAIN Mycophenolate Sodium 1 each 02/12/22 21:00 02/16/22 08:30 [Mycophenolic Acid] PO 1 each 360 Mg Tablet BID RY Administration Sodium Chloride 10 ml 02/12/22 17:00 02/16/22 08:31 Sodium Chloride Flush 0.9% 10 Ml Syringe IVP 10 ml 0100,0900,1700 RY Administration Sodium Chloride 10 ml 02/12/22 08:46 02/16/22 06:20 Sodium Chloride Flush 0.9% 10 Ml Syringe IVP 10 ml PRN PRN Administration NEEDED PER PROVIDER ORDERS Tacrolimus 1 mg 02/12/22 21:00 02/16/22 08:26 Tacrolimus 0.5 Mg Capsule PO 1 mg BID RY Administration Tamsulosin HCl 0.4 mg 02/12/22 21:00 02/16/22 08:29 Tamsulosin 0.4 Mg Capsule PO 0.4 mg BID RY Administration Throat Lozenges 1 lozenge 02/14/22 08:10 02/14/22 08:30 Benzocaine/Menthol Lozenge MM 1 lozenge Q2HR PRN Administration Throat pain - Lab Result Fish Bone Diagrams: 02/16/22 05:04 02/16/22 05:04 - Additional Planning My Orders: My Active Orders 02/15/22 15:24 Echo Transthoracic Complete [ECHO] Routine 02/16/22 07:00 methylPREDNISolone SUCCINATE [SOLU-Medrol (40MG VIAL)] 40 mg IVP TID 02/16/22 09:00 Lactobacillus Rhamnosus GG [Culturelle] 1 cap PO DAILY 02/17/22 05:00 BMP - BASIC METABOLIC PANEL [CHEM] DAILYLAB CBC - COMP BLD CT W/AUTO DIFF [HEME] DAILYLAB Subjective - Subjective Nursing Reports: Other (Disoriented to person place and time this a.m., speaking normally, then was more drowsy this afternoon) Objective Vital Signs: Vital Signs - 24 hr 02/15/22 02/15/22 02/15/22 14:00 17:00 20:10 Temperature 36.4 C L 36.2 C L Heart Rate [ 70 71 Brachial] Respiratory 18 18 Rate Blood Pressure 149/87 H 153/81 H [Right Brachial artery] O2 Saturation 97 92 If not protocol 2 2 : Oxygen Flow, liters/minute 02/15/22 02/15/22 02/16/22 20:46 23:59 05:36 Temperature 36.3 C L 36.2 C L 36.3 C L Heart Rate [ 65 59 L 66 Brachial] Respiratory 18 18 17 Rate Blood Pressure 158/90 H 151/83 H 154/83 H [Right Brachial artery] O2 Saturation 97 97 97 If not protocol 2 : Oxygen Flow, liters/minute 02/16/22 07:55 Temperature 36.5 C Heart Rate [ 67 Brachial] Respiratory 16 Rate Blood Pressure 153/82 H [Right Brachial artery] O2 Saturation 97 If not protocol : Oxygen Flow, liters/minute Oxygen O2 Source Room air I&O (Last 24 Hrs): Intake and Output Totals x24h 02/14/22 02/15/22 02/16/22 23:59 23:59 23:59 Intake Total 3753.333 3001 630 Output Total 420 Balance 3753.333 2581 630 General: No acute distress HEENT: Mucous membr. moist/pink Neck: Supple, No JVD Neuro: Alert, Disoriented, Non Focal Cardiovascular: No murmurs Respiratory: No respiratory distress, Breath sounds nml Abdomen: Normal bowel sounds, Soft Extremities: No clubbing, Other (amput arms) - Results Results: Laboratory Results WBC 6.3 x10^3/uL (4.8-10.8) 02/16/22 05:04 RBC 4.17 10^6/uL (4.70-6.10) L 02/16/22 05:04 Hgb 11.4 g/dL (14.0-18.0) L 02/16/22 05:04 Hct 36.9 % (42.0-52.0) L 02/16/22 05:04 MCV 88.5 fL (80.0-94.0) 02/16/22 05:04 MCH 27.3 pg (27.0-31.0) 02/16/22 05:04 MCHC 30.9 g/dL (32.0-36.0) L 02/16/22 05:04 RDW 14.8 % (12.0-15.0) 02/16/22 05:04 Plt Count 131 10^3/uL (130-450) 02/16/22 05:04 MPV 12.0 fL (7.4-11.4) H 02/16/22 05:04 Neut # (Auto) 5.6 10^3/uL (1.5-6.6) 02/16/22 05:04 Lymph # (Auto) 0.5 10^3/uL (1.5-3.5) L 02/16/22 05:04 [place] # (Auto) 0.2 10^3/uL (0.0-1.0) 02/16/22 05:04 Eos # (Auto) 0.0 10^3/uL (0.0-0.7) 02/16/22 05:04 Baso # (Auto) 0.0 10^3/uL (0.0-0.1) 02/16/22 05:04 Absolute Nucleated RBC 0.00 x10^3/uL 02/16/22 05:04 Total Counted 100 02/12/22 01:00 Band Neuts % (Manual) 9 % (0-10) 02/12/22 01:00 Reactive Lymphs % (Man) 2 % 02/12/22 01:00 Abnorm Lymph % (Manual) 0 % 02/12/22 01:00 Nucleated RBC % 0.0 /100WBC 02/16/22 05:04 Neutrophils # (Manual) 10.0 10^3/uL (1.5-6.6) H 02/12/22 01:00 Lymphocytes # (Manual) 1.3 10^3/uL (1.5-3.5) L 02/12/22 01:00 Monocytes # (Manual) 2.0 10^3/uL (0.0-1.0) H 02/12/22 01:00 Eosinophils # (Manual) 0.0 10^3/uL (0-0.7) 02/12/22 01:00 Basophils # (Manual) 0.0 10^3/uL (0-0.1) 02/12/22 01:00 Differential Comment MANUAL DIFFERENTIAL 02/12/22 01:00 Platelet Estimate NORMAL (130-450,000) (NORMAL) 02/12/22 01:00 Platelet Morphology NORMAL APPEARANCE (NORMAL) 02/12/22 01:00 RBC Morph Micro Appear NORMAL APPEARANCE (NORMAL) 02/12/22 01:00 VBG pH 7.320 (7.31-7.41) 02/14/22 09:06 Ionized Calcium 1.12 mmol/L (1.15-1.33) L 02/14/22 09:06 Sodium 140 mmol/L (135-145) 02/16/22 05:04 Potassium 4.4 mmol/L (3.5-5.0) 02/16/22 05:04 Chloride 114 mmol/L (101-111) H 02/16/22 05:04 Carbon Dioxide 19 mmol/L (21-32) L 02/16/22 05:04 Anion Gap 7.0 (6-13) 02/16/22 05:04 BUN 36 mg/dL (6-20) H 02/16/22 05:04 Creatinine 1.1 mg/dL (0.6-1.2) 02/16/22 05:04 Estimated GFR (MDRD) 67 (>89) L 02/16/22 05:04 Glucose 116 mg/dL (70-100) H 02/16/22 05:04 Lactic Acid 2.0 mmol/L (0.5-2.2) 02/12/22 01:00 Calcium 8.3 mg/dL (8.5-10.3) L 02/16/22 05:04 Phosphorus 2.2 mg/dL (2.5-4.6) L 02/15/22 05:27 Magnesium 1.8 mg/dL (1.7-2.8) 02/14/22 09:06 Total Bilirubin 0.9 mg/dL (0.2-1.0) 02/12/22 01:00 AST 29 IU/L (10-42) 02/12/22 01:00 ALT 19 IU/L (10-60) 02/12/22 01:00 Alkaline Phosphatase 55 IU/L (42-121) 02/12/22 01:00 Troponin I High Sens 96.6 ng/L (2.3-19.7) H* 02/14/22 14:38 Total Protein 6.9 g/dL (6.7-8.2) 02/12/22 01:00 Albumin 3.6 g/dL (3.2-5.5) 02/12/22 01:00 Globulin 3.3 g/dL (2.1-4.2) 02/12/22 01:00 Albumin/Globulin Ratio 1.1 (1.0-2.2) 02/12/22 01:00 Lipase 24 U/L (22-51) 02/12/22 01:00 TSH 0.62 uIU/mL (0.34-5.60) 02/13/22 05:20 Urine Color LIGHT YELLOW 02/12/22 02:03 Urine Clarity HAZY (CLEAR) 02/12/22 02:03 Urine pH 6.0 PH (5.0-7.5) 02/12/22 02:03 Ur Specific [place] 1.010 (1.002-1.030) 02/12/22 02:03 Urine Protein NEGATIVE mg/dL (NEGATIVE) 02/12/22 02:03 Urine Glucose (UA) NEGATIVE mg/dL (NEGATIVE) 02/12/22 02:03 Urine Ketones TRACE mg/dL (NEGATIVE) 02/12/22 02:03 Urine Occult Blood MODERATE (NEGATIVE) H 02/12/22 02:03 Urine Nitrite NEGATIVE (NEGATIVE) 02/12/22 02:03 Urine Bilirubin NEGATIVE (NEGATIVE) 02/12/22 02:03 Urine Urobilinogen 0.2 (NORMAL) E.U./dL (NORMAL) 02/12/22 02:03 Ur Leukocyte Esterase NEGATIVE (NEGATIVE) 02/12/22 02:03 Urine RBC 6-10 /HPF (0-5) H 02/12/22 02:03 Urine WBC 4-5 /HPF (0-3) 02/12/22 02:03 Ur Squamous Epith Cells FEW Squamous (<= Few) 02/12/22 02:03 Urine Bacteria Few /HPF (None Seen) 02/12/22 02:03 Ur Microscopic Review INDICATED 02/12/22 02:03 Urine Culture Comments NOT INDICATED 02/12/22 02:03 Nasal Adenovirus (PCR) NOT DETECTED 02/12/22 00:53 Nasal B. parapertussis DNA (PCR) NOT DETECTED 02/12/22 00:53 Nasal Coronavir 229E PCR NOT DETECTED 02/12/22 00:53 Nasal Coronavir HKU1 PCR NOT DETECTED 02/12/22 00:53 Nasal Coronavir NL63 PCR NOT DETECTED 02/12/22 00:53 Nasal Coronavir OC43 PCR NOT DETECTED 02/12/22 00:53 Nasal Enterovir/Rhinovir PCR NOT DETECTED 02/12/22 00:53 Nasal Influenza A H3 PCR DETECTED A 02/12/22 00:53 Nasal Influenza B PCR NOT DETECTED 02/12/22 00:53 Nasal Parainfluen 1 PCR NOT DETECTED 02/12/22 00:53 Nasal Parainfluen 2 PCR NOT DETECTED 02/12/22 00:53 Nasal Parainfluen 3 PCR NOT DETECTED 02/12/22 00:53 Nasal Parainfluen 4 PCR NOT DETECTED 02/12/22 00:53 Nasal RSV (PCR) NOT DETECTED 02/12/22 00:53 Nasal Screen MRSA (PCR) NEGATIVE (NEGATIVE) 02/12/22 09:55 Nasal B.pertussis DNA PCR NOT DETECTED 02/12/22 00:53 Nasal C.pneumoniae (PCR) NOT DETECTED 02/12/22 00:53 Eddie Human Metapneumo PCR NOT DETECTED 02/12/22 00:53 Nasal M.pneumoniae (PCR) NOT DETECTED 02/12/22 00:53 Nasal SARS-CoV-2 (PCR) NOT DETECTED 02/12/22 00:53 Stl C. diff Tox B Gene NEGATIVE (NEGATIVE) 02/13/22 09:40 - Procedures Procedures: Procedures EXCISION OF STOMACH, PYLORUS, ENDO (07/13/21) SERUM TRANSFUSION NEC (09/03/12) VENOUS CATHETERIZATION NEC (09/03/12)
[2022-02-16] MEDS: ACETAMINOPHEN 325 MG TABLET PO PRN ×2 (13:47→18:11)
[2022-02-16] MEDS: LATANOPROST 0.005% OPHTH DROPS LEFTEYE SCH (21:29)
[2022-02-17] MEDS: oxyCODONE 5 MG TABLET PO PRN ×3 (03:53→20:47)
[2022-02-17 04:52] LABS: BASOPHILS % (AUTO) 0.2 %; HCT - HEMATOCRIT 36.9 % (42.0-52.0); HGB - HEMOGLOBIN 11.5 g/dL (14.0-18.0); MEAN CORPUSCULAR HEMOGLOBIN 27.2 pg (27.0-31.0); MEAN CORPUSCULAR HGB CONC 31.2 g/dL (32.0-36.0); MEAN CORPUSCULAR VOLUME 87.2 fL (80.0-94.0); MEAN PLATELET VOLUME 12.2 fL (7.4-11.4); MONOCYTES % (AUTO) 9.8 %; NEUTROPHILS % (AUTO) 74.5 %; PLT - PLATELET COUNT 136 10^3/uL (130-450); RED BLOOD COUNT 4.23 10^6/uL (4.70-6.10); RED CELL DISTRIBUTION WIDTH 14.6 % (12.0-15.0); WHITE BLOOD COUNT 5.3 x10^3/uL (4.8-10.8)
[2022-02-17 04:55] LABS: ABNORMAL LYMPHS % (MANUAL) 0 %
[2022-02-17 05:01] LABS: CALCIUM 8.1 mg/dL (8.5-10.3); CREATININE 1.1 mg/dL (0.6-1.2); POTASSIUM 4.2 mmol/L (3.5-5.0)
[2022-02-17 05:07] LABS: BAND NEUTROPHILS % (MANUAL) 1 %; DIFFERENTIAL COMMENT MANUAL DIFFERENTIAL; LYMPHOCYTES % (MANUAL) 19 %; MONOCYTES # (MANUAL) 0.5 10^3/uL (0.0-1.0); MYELOCYTES % (MANUAL) 1 %; NEUTROPHILS # (MANUAL) 3.8 10^3/uL (1.5-6.6); PLATELET ESTIMATE, MANUAL DECREASED (<130,000) (NORMAL); PLATELET MORPHOLOGY NORMAL APPEARANCE (NORMAL); RBC MORPHOLOGY (MULTIPLE) NORMAL APPEARANCE (NORMAL); WBC MORPHOLOGY (MULTIPLE) NORMAL APPEARANCE (NORMAL)
[2022-02-17] MEDS: LEVOTHYROXINE 100 MCG TABLET PO SCH (05:47)
[2022-02-17] MEDS: ACETAMINOPHEN 325 MG TABLET PO PRN (08:28)
[2022-02-17] MEDS: SODIUM CHLORIDE FLUSH 0.9% 10 ML SYRINGE IVP SCH ×2 (08:29→16:13)
[2022-02-17] MEDS: MAGNESIUM OXIDE 400 MG TABLET PO SCH (08:29)
[2022-02-17] MEDS: APIXABAN 5 MG TABLET PO SCH ×2 (08:29→20:47)
[2022-02-17] MEDS: TAMSULOSIN 0.4 MG CAPSULE PO SCH ×2 (08:29→20:46)
[2022-02-17] MEDS: FAMOTIDINE 20 MG TABLET PO SCH ×2 (08:29→20:48)
[2022-02-17] MEDS: CYANOCOBALAMIN 500 MCG TABLET PO SCH (08:29)
[2022-02-17] MEDS: predniSONE 5 MG TABLET PO SCH (08:29)
[2022-02-17] MEDS: TACROLIMUS 0.5 MG CAPSULE PO SCH ×2 (08:29→20:47)
[2022-02-17] MEDS: MYCOPHENOLATE SODIUM 360 MG PO SCH ×2 (08:30→20:48)
[2022-02-17] MEDS: DORZOLAMIDE/TIMOLOL OPHTH DROPS LEFTEYE SCH ×2 (08:30→12:35)
[2022-02-17] MEDS: METOPROLOL SUCCINATE 25 MG TABLET PO SCH (09:47)
--- NOTE | 2022-02-17 18:49 | PROVIDER PROGRESS NOTE ---
Assessment/Plan - Problem List (1) Tachy-ezra syndrome Assessment/Plan: At 0400, the patient had severe sinus bradycardia creating a 2.6-second pause (from asystole, or sinus arrest) before sinus rhythm returned. He was sleeping at the time. After that, his heart rate was 30 bpm for a few seconds then im proved to 40s and 50s. Today and yesterday we have seen episodes of PSVT, rate is as fast as 140, he does not feel them. At 1410 today he had an episode that was 30 beats long. I questioned him today about any history of cardiac trouble. He remembers that he had "tachycardia" when he was at [facility] that was treated with metoprolol and possibly verapamil Plan: Metoprolol was not given last night, due to hold parameters if heart rate is less than 60 and his HR was 57 We will change his metoprolol 25 twice daily, back down to daily and give in a.m.. Continue on telemetry, and he is not ready for discharge today. After discharge, he needs cardiology assessment for a possible pacemaker and increase HR-slowing meds back up, to manage tachybrady syndrome (2) Influenza A with pneumonia He tested influenza A positive. He had an infiltrate on chest x-ray. He had copious phlegm yellow-green in color. He has significantly less cough yesterday and today Plan: We sent sputum for bacterial culture Continue the empiric iv antibx daily, that were started in ED Started Tamiflu Ordered respiratory isolation Mucinex ordered for pulm toilet (3) Paroxysmal atrial fibrillation Conclusion/Plan: He had A. fib during his hospitalization 6 months ago. This admission EKG now showed sinus rhythm. He then had Afib on 02/14, needed Lopressor iv x1. Then had rapid Afib at 0100 on 02/15 and got CP with that episode. Then he again had rapid Afib with CP at mid day 02/15. EKG done 02/15 did not catch the Afib, he was already back in NSR. A. fib is commonly seen when there are pulmonary pathologies, so these episodes may be related to his current influenza pneumonia. We checked for hypertyhroidism, and his TSH was normal. He has had a Hx of Afib and was on Eliquis. Plan: Will continue with his home Eliquis dose. We increased his beta-samuel dose several days ago and it did suppress the paroxysms of A. fib, but caused excessive bradycardia last night, so we will return to his prior (home) dosing. (4) Chest pain Assessment/Plan: None further The patient went into rapid A. fib several nights ago when in ICU, rate 160 and he had chest pain just then. The telemedicine doctor ordered morphine which controlled his pain immediately, the patient reports. The next day at midday he again had rapid A. fib, rate 140 and had chest pain 10/10. An EKG was done at the time and shows no ischemic ST or T wave changes. The A. fib stopped on its own before any Lopressor could be given. The chest pain continued therefore he needed 3 sublingual nitroglycerin which gave him relief. The patient told me he gets this type of chest pain whenever he has "tachycardia" which he has had infrequently before. 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 He remembers having a stress test 3-5 yrs ago, and said it was normal. We obtained a complete Echo and it showed overall normal LVEF, but suboptimal views josé manuel comment on regional wall motion. Troponins were cycled and ruled him out for PR Plan: We increased his beta-samuel dose SL nitroglycerin prn for angina is now ordered The clinical practice consultant documented that the patient wanted his CODE STATUS changed to Full Code, which was done. (5) Immunocompromised Conclusion/Plan: Plan: We ordered high dose, stress doses of steroids for several days. That was stopped yesterday, as the high doses were likley adding to confusion. Plan: Continue his Prednisone 5mg and Tacrolimus and Myfortic, which the daughter brought in (6) Prerenal azotemia Conclusion/Plan: BON has improved. It was likely from dehydration and also could be from ATN from hypotension.Then he had elevated BUN/Creat ratio Plan: We tapered iv fluids down to off, since he was c/o L arm stump edema Follow BMP daily (7) Obstructive apnea Conclusion/Plan: I personally witnessed 2 episodes of his tongue causing obstruction and apnea. This may be adding to the cause of the right ventricular enlargement seen on Echo. Plan: The daughter told me by phone that she thinks he does have sleep apnea but he never had a sleep study. She does see him snore. The daughter said he would never wear a mask or use a CPAP machine because of "his advanced age". (8) History of liver transplant Conclusion/Plan: This was 27 years ago. He has stable LFTs. Plan: Resumed non-formulary meds (9) History of kidney transplant Conclusion/Plan: This was 14 years ago. 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 Plan: We stopped all his IV fluids (11) Hypotension Resolved (12) Acute respiratory failure with hypoxia Resolved (13) Diarrhea Conclusion/Plan: Resolved Plan: He can have prn Imodium Qualifiers: Diarrhea type: unspecified type Qualified Code(s): R19.7 - Diarrhea, unspecified (14) Acute delirium Assessment/Plan: Resolved For the last 2 days the patient seemed delirious: Occupational therapist reported that he was disoriented to time and place, he thought he was leaving with the occupational therapist to be picked up by his daughter and go somewhere and was upset that they did not leave after he dressed himself in street clothes. He was also more drowsy for 2 days, but was not hypotensive or hypoxic. We decreased frequency of his prn oxycodone, stopped guaifenesin, stopped his (home dose) of Valium which seemed excessive, 10 mg 3 times daily prn. We also stopped the high dose steroids and resumed his Prednisone 5mg daily. He is more back to baseline today. - Current Meds Current Meds: Current Medications Generic Name Dose Route Start Last Admin Trade Name Freq PRN Reason Stop Dose Admin Acetaminophen 650 mg 02/12/22 08:46 02/17/22 08:28 Acetaminophen 325 Mg Tablet PO 650 mg Q4HR PRN Administration Pain 1 to 4, or Fever Albuterol/Ipratropium 3 ml 02/12/22 14:17 02/15/22 07:03 Ipratropium/Albuterol 3 Ml Neb INH 3 ml Q4HR PRN Administration Wheezing Apixaban 5 mg 02/13/22 21:00 02/17/22 08:29 Apixaban 5 Mg Tablet PO 5 mg BID RY Administration Cyanocobalamin 1,000 mcg 02/13/22 09:00 02/17/22 08:29 Cyanocobalamin 500 Mcg Tablet PO 1,000 mcg DAILY RY Administration Dorzolamide/Timolol 1 drops 02/13/22 08:00 02/17/22 12:35 Dorzolamide/Timolol Ophth Drops LEFTEYE 1 drops 0800,1400 RY Administration Famotidine 20 mg 02/12/22 10:00 02/17/22 08:29 Famotidine 20 Mg Tablet PO 20 mg BID RY Administration Latanoprost 1 drops 02/12/22 21:00 02/16/22 21:29 Latanoprost 0.005% Ophth Drops LEFTEYE 1 drops QPM RY Administration Levothyroxine Sodium 100 mcg 02/13/22 07:00 02/17/22 05:47 Levothyroxine 100 Mcg Tablet PO 100 mcg QDAC RY Administration Magnesium Oxide 400 mg 02/13/22 08:00 02/17/22 08:29 Magnesium Oxide 400 Mg Tablet PO 400 mg 0800 RY Administration Nitroglycerin 0.4 mg 02/14/22 11:42 02/14/22 12:13 Nitroglycerin Sl 0.4 Mg Tablet SL 0.4 mg Q5MIN PRN Administration Chest Pain Oxycodone HCl 5 mg 02/16/22 18:43 02/17/22 12:14 Oxycodone 5 Mg Tablet PO 5 mg Q8HR PRN Administration PAIN Mycophenolate Sodium 1 each 02/12/22 21:00 02/17/22 08:30 [Mycophenolic Acid] PO 1 each 360 Mg Tablet BID RY Administration Prednisone 5 mg 02/17/22 09:00 02/17/22 08:29 Prednisone 5 Mg Tablet PO 5 mg DAILY RY Administration Sodium Chloride 10 ml 02/12/22 17:00 02/17/22 16:13 Sodium Chloride Flush 0.9% 10 Ml Syringe IVP 10 ml 0100,0900,1700 RY Administration Sodium Chloride 10 ml 02/12/22 08:46 02/16/22 13:56 Sodium Chloride Flush 0.9% 10 Ml Syringe IVP 10 ml PRN PRN Administration NEEDED PER PROVIDER ORDERS Tacrolimus 1 mg 02/12/22 21:00 02/17/22 08:29 Tacrolimus 0.5 Mg Capsule PO 1 mg BID RY Administration Tamsulosin HCl 0.4 mg 02/12/22 21:00 02/17/22 08:29 Tamsulosin 0.4 Mg Capsule PO 0.4 mg BID RY Administration Throat Lozenges 1 lozenge 02/14/22 08:10 02/14/22 08:30 Benzocaine/Menthol Lozenge MM 1 lozenge Q2HR PRN Administration Throat pain - Lab Result Fish Bone Diagrams: 02/17/22 04:40 02/17/22 04:40 - Additional Planning My Orders: My Active Orders 02/16/22 18:43 oxyCODONE [Roxicodone] 5 mg PO Q8HR PRN 02/17/22 09:00 predniSONE [Deltasone] 5 mg PO DAILY 02/18/22 09:00 Metoprolol Succinate [Toprol Xl] 25 mg PO DAILY Subjective - Subjective Patient Reports: No Complaints Nursing Reports: Other (His wet cough has returned) Objective Vital Signs: Vital Signs - 24 hr 02/16/22 02/16/22 02/16/22 21:00 22:44 23:39 Temperature 36.4 C L 36.9 C Heart Rate [ Activity] Heart Rate [ 57 L 50 L 50 L Brachial] Heart Rate [ Supine] Respiratory 18 18 Rate Blood Pressure [Activity] Blood Pressure 147/85 H 166/90 H [Right Brachial artery] Blood Pressure [Supine] O2 Saturation 96 95 02/17/22 02/17/22 02/17/22 04:37 07:27 08:45 Temperature 36.4 C L 36.3 C L Heart Rate [ Activity] Heart Rate [ 54 L 60 57 L Brachial] Heart Rate [ Supine] Respiratory 18 18 Rate Blood Pressure [Activity] Blood Pressure 168/90 H 163/93 H [Right Brachial artery] Blood Pressure [Supine] O2 Saturation 97 96 02/17/22 02/17/22 02/17/22 10:40 11:33 14:20 Temperature 36.3 C L Heart Rate [ 60 Activity] Heart Rate [ 58 L 58 L Brachial] Heart Rate [ 63 Supine] Respiratory 18 19 Rate Blood Pressure 172/86 H [Activity] Blood Pressure 152/93 H 150/85 H [Right Brachial artery] Blood Pressure 148/82 H [Supine] O2 Saturation 97 96 02/17/22 16:19 Temperature 36.6 C Heart Rate [ Activity] Heart Rate [ 63 Brachial] Heart Rate [ Supine] Respiratory 20 Rate Blood Pressure [Activity] Blood Pressure 132/85 H [Right Brachial artery] Blood Pressure [Supine] O2 Saturation 94 Oxygen O2 Source Room air I&O (Last 24 Hrs): Intake and Output Totals x24h 02/15/22 02/16/22 02/17/22 23:59 23:59 23:59 Intake Total 3001 1890 716 Output Total 420 350 Balance 2581 1890 366 General: Alert, Oriented x3 HEENT: Atraumatic, PERRLA Neck: Supple, No JVD Neuro: Alert, Non Focal Cardiovascular: Regular rate, No murmurs Respiratory: No respiratory distress (breathing room air), Rhonchi Abdomen: Normal bowel sounds, Soft Extremities: No clubbing, No edema, No tenderness/swelling - Results Results: Laboratory Results WBC 5.3 x10^3/uL (4.8-10.8) 02/17/22 04:40 RBC 4.23 10^6/uL (4.70-6.10) L 02/17/22 04:40 Hgb 11.5 g/dL (14.0-18.0) L 02/17/22 04:40 Hct 36.9 % (42.0-52.0) L 02/17/22 04:40 MCV 87.2 fL (80.0-94.0) 02/17/22 04:40 MCH 27.2 pg (27.0-31.0) 02/17/22 04:40 MCHC 31.2 g/dL (32.0-36.0) L 02/17/22 04:40 RDW 14.6 % (12.0-15.0) 02/17/22 04:40 Plt Count 136 10^3/uL (130-450) 02/17/22 04:40 MPV 12.2 fL (7.4-11.4) H 02/17/22 04:40 Neut # (Auto) Not Reportable 02/17/22 04:40 Lymph # (Auto) Not Reportable 02/17/22 04:40 Mower # (Auto) Not Reportable 02/17/22 04:40 Eos # (Auto) Not Reportable 02/17/22 04:40 Baso # (Auto) Not Reportable 02/17/22 04:40 Absolute Nucleated RBC Not Reportable 02/17/22 04:40 Total Counted 100 02/17/22 04:40 Band Neuts % (Manual) 1 % (0-10) 02/17/22 04:40 Reactive Lymphs % (Man) 2 % 02/12/22 01:00 Abnorm Lymph % (Manual) 0 % 02/17/22 04:40 Myelocytes % 1 % (-0) H 02/17/22 04:40 Nucleated RBC % Not Reportable 02/17/22 04:40 Neutrophils # (Manual) 3.8 10^3/uL (1.5-6.6) 02/17/22 04:40 Lymphocytes # (Manual) 1.0 10^3/uL (1.5-3.5) L 02/17/22 04:40 Monocytes # (Manual) 0.5 10^3/uL (0.0-1.0) 02/17/22 04:40 Eosinophils # (Manual) 0.0 10^3/uL (0-0.7) 02/17/22 04:40 Basophils # (Manual) 0.0 10^3/uL (0-0.1) 02/17/22 04:40 Differential Comment MANUAL DIFFERENTIAL 02/17/22 04:40 WBC Morphology NORMAL APPEARANCE (NORMAL) 02/17/22 04:40 Platelet Estimate DECREASED (<130,000) (NORMAL) 02/17/22 04:40 Platelet Morphology NORMAL APPEARANCE (NORMAL) 02/17/22 04:40 RBC Morph Micro Appear NORMAL APPEARANCE (NORMAL) 02/17/22 04:40 VBG pH 7.320 (7.31-7.41) 02/14/22 09:06 Ionized Calcium 1.12 mmol/L (1.15-1.33) L 02/14/22 09:06 Sodium 139 mmol/L (135-145) 02/17/22 04:40 Potassium 4.2 mmol/L (3.5-5.0) 02/17/22 04:40 Chloride 109 mmol/L (101-111) 02/17/22 04:40 Carbon Dioxide 22 mmol/L (21-32) 02/17/22 04:40 Anion Gap 8.0 (6-13) 02/17/22 04:40 BUN 33 mg/dL (6-20) H 02/17/22 04:40 Creatinine 1.1 mg/dL (0.6-1.2) 02/17/22 04:40 Estimated GFR (MDRD) 67 (>89) L 02/17/22 04:40 Glucose 106 mg/dL (70-100) H 02/17/22 04:40 Lactic Acid 2.0 mmol/L (0.5-2.2) 02/12/22 01:00 Calcium 8.1 mg/dL (8.5-10.3) L 02/17/22 04:40 Phosphorus 2.2 mg/dL (2.5-4.6) L 02/15/22 05:27 Magnesium 1.8 mg/dL (1.7-2.8) 02/14/22 09:06 Total Bilirubin 0.9 mg/dL (0.2-1.0) 02/12/22 01:00 AST 29 IU/L (10-42) 02/12/22 01:00 ALT 19 IU/L (10-60) 02/12/22 01:00 Alkaline Phosphatase 55 IU/L (42-121) 02/12/22 01:00 Troponin I High Sens 96.6 ng/L (2.3-19.7) H* 02/14/22 14:38 Total Protein 6.9 g/dL (6.7-8.2) 02/12/22 01:00 Albumin 3.6 g/dL (3.2-5.5) 02/12/22 01:00 Globulin 3.3 g/dL (2.1-4.2) 02/12/22 01:00 Albumin/Globulin Ratio 1.1 (1.0-2.2) 02/12/22 01:00 Lipase 24 U/L (22-51) 02/12/22 01:00 TSH 0.62 uIU/mL (0.34-5.60) 02/13/22 05:20 Urine Color LIGHT YELLOW 02/12/22 02:03 Urine Clarity HAZY (CLEAR) 02/12/22 02:03 Urine pH 6.0 PH (5.0-7.5) 02/12/22 02:03 Ur Specific [place] 1.010 (1.002-1.030) 02/12/22 02:03 Urine Protein NEGATIVE mg/dL (NEGATIVE) 02/12/22 02:03 Urine Glucose (UA) NEGATIVE mg/dL (NEGATIVE) 02/12/22 02:03 Urine Ketones TRACE mg/dL (NEGATIVE) 02/12/22 02:03 Urine Occult Blood MODERATE (NEGATIVE) H 02/12/22 02:03 Urine Nitrite NEGATIVE (NEGATIVE) 02/12/22 02:03 Urine Bilirubin NEGATIVE (NEGATIVE) 02/12/22 02:03 Urine Urobilinogen 0.2 (NORMAL) E.U./dL (NORMAL) 02/12/22 02:03 Ur Leukocyte Esterase NEGATIVE (NEGATIVE) 02/12/22 02:03 Urine RBC 6-10 /HPF (0-5) H 02/12/22 02:03 Urine WBC 4-5 /HPF (0-3) 02/12/22 02:03 Ur Squamous Epith Cells FEW Squamous (<= Few) 02/12/22 02:03 Urine Bacteria Few /HPF (None Seen) 02/12/22 02:03 Ur Microscopic Review INDICATED 02/12/22 02:03 Urine Culture Comments NOT INDICATED 02/12/22 02:03 Nasal Adenovirus (PCR) NOT DETECTED 02/12/22 00:53 Nasal B. parapertussis DNA (PCR) NOT DETECTED 02/12/22 00:53 Nasal Coronavir 229E PCR NOT DETECTED 02/12/22 00:53 Nasal Coronavir HKU1 PCR NOT DETECTED 02/12/22 00:53 Nasal Coronavir NL63 PCR NOT DETECTED 02/12/22 00:53 Nasal Coronavir OC43 PCR NOT DETECTED 02/12/22 00:53 Nasal Enterovir/Rhinovir PCR NOT DETECTED 02/12/22 00:53 Nasal Influenza A H3 PCR DETECTED A 02/12/22 00:53 Nasal Influenza B PCR NOT DETECTED 02/12/22 00:53 Nasal Parainfluen 1 PCR NOT DETECTED 02/12/22 00:53 Nasal Parainfluen 2 PCR NOT DETECTED 02/12/22 00:53 Nasal Parainfluen 3 PCR NOT DETECTED 02/12/22 00:53 Nasal Parainfluen 4 PCR NOT DETECTED 02/12/22 00:53 Nasal RSV (PCR) NOT DETECTED 02/12/22 00:53 Nasal Screen MRSA (PCR) NEGATIVE (NEGATIVE) 02/12/22 09:55 Nasal B.pertussis DNA PCR NOT DETECTED 02/12/22 00:53 Nasal C.pneumoniae (PCR) NOT DETECTED 02/12/22 00:53 Eddie Human Metapneumo PCR NOT DETECTED 02/12/22 00:53 Nasal M.pneumoniae (PCR) NOT DETECTED 02/12/22 00:53 Nasal SARS-CoV-2 (PCR) NOT DETECTED 02/12/22 00:53 Stl C. diff Tox B Gene NEGATIVE (NEGATIVE) 02/13/22 09:40 - Procedures Procedures: Procedures EXCISION OF STOMACH, PYLORUS, ENDO (07/13/21) SERUM TRANSFUSION NEC (09/03/12) VENOUS CATHETERIZATION NEC (09/03/12)
[2022-02-17] MEDS: LATANOPROST 0.005% OPHTH DROPS LEFTEYE SCH (20:46)
[2022-02-18] MEDS: SODIUM CHLORIDE FLUSH 0.9% 10 ML SYRINGE IVP SCH ×2 (01:33→08:42)
[2022-02-18] MEDS: LEVOTHYROXINE 100 MCG TABLET PO SCH (06:53)
[2022-02-18] MEDS: oxyCODONE 5 MG TABLET PO PRN (06:56)
[2022-02-18] MEDS: TACROLIMUS 0.5 MG CAPSULE PO SCH (08:31)
[2022-02-18] MEDS: MAGNESIUM OXIDE 400 MG TABLET PO SCH (08:33)
[2022-02-18] MEDS: FAMOTIDINE 20 MG TABLET PO SCH (08:33)
[2022-02-18] MEDS: APIXABAN 5 MG TABLET PO SCH (08:36)
[2022-02-18] MEDS: CYANOCOBALAMIN 500 MCG TABLET PO SCH (08:37)
[2022-02-18] MEDS: TAMSULOSIN 0.4 MG CAPSULE PO SCH (08:37)
[2022-02-18] MEDS: predniSONE 5 MG TABLET PO SCH (08:37)
[2022-02-18] MEDS: DORZOLAMIDE/TIMOLOL OPHTH DROPS LEFTEYE SCH (08:38)
[2022-02-18] MEDS: MYCOPHENOLATE SODIUM 360 MG PO SCH (08:38)
[2022-02-18] MEDS ORDERED: METOPROLOL SUCCINATE 25 MG TABLET PO SCH (09:00)
[2022-02-18] MEDS: ACETAMINOPHEN 325 MG TABLET PO PRN (10:46)
--- NOTE | 2022-02-18 11:26 | Discharge Plan ---
Discharge Plan Problem Reviewed?: Yes Disposition: Home, Self Care Condition: Fair Diet: Regular Activity Restrictions: Activity as Tolerated Shower Restrictions: No Driving Restrictions: Yes (Until able to put on both arm prostheses) Assistance Devices: [facility] Concerns: You were hospitalized for treating shortness of breath and had low oxygen levles and a cough, and we found you to have an Ifluenza A pneumonia. You have completed antibiotics and Tamiflu medications. Your immunosuppressants were continued. While you were here you had some very fast Afib heart rates, and this caused you to have chest pain twice. Your heart needs to be tested for coronary artery blockages and the usual first test is a stress test, which needs to be done for you as an outpatient. We also saw very fast heart rates alternating with very slow heart rates (called tachy-ezra syndrome). This is an extension of the tachycardia you have had in the past. We tried adjusting your medications but the current Metoprolol dose that you were on at home, is the best dose for you right now. You need to be referred to see a Glue Spreader to have more management of this tachy-ezra syndrome, as well as the evaluation of your chest pain. If you develop chest pain again, call your Glue Spreader or PCP for advice on how to proceed. Do not be doing anything strenuous, until you have the stress test Please resume all your usual medications that you took before hospitalization. Stay well-hydrated. You may take Tylenol for your achiness and pains. Plan of Treatment: As above. Care Goals: Improvement in symptoms and stabilization are the goals. Assessment: The patient understands and agrees with the plan. Additional Instructions or Follow Up instructions: If you have new or worsening symptoms, call your Primary Care Provider for ad vice, or come to the ER. No Smoking: If you smoke, Please STOP! Call for help. Follow-up with: Milton Coombs MD [Primary Care Provider] -
[2022-02-18 11:33] VITALS: BP 143/87
--- NOTE | 2022-02-18 11:52 | DISCHARGE SUMMARY ---
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 He has paroxysmal Afib and is on Eliquis. The patient was here 6 months ago with dehydration from diarrhea that caused BON. Several days ago the patient developed shortness of breath and a cough then nausea, vomiting and diarrhea. He has felt more weak and presented to the ED today [id number]. In the ER, he tested positive for influenza A, negative for COVID and a chest x-ray showed mild haziness in R base, lactic acid level was 2, mildly elevated WBC of 13. His BP was normal then slowly declined to 76 systolic, while in ED. He was given fluids aggressively and got Decadron 20 mg iv, in concern for Addisonian crisis. Repeat chest x-ray was done that now shows blossoming of a right lower lobe pneumonia. The patient had blood culture s drawn and was given empiric IV Ceftriaxone and Zithromax IV. He was also desaturating to 88%, then 85% on room air, and needed BiPAP briefly, now is down to 2 L O2 per nasal cannula. He was started on iv Norepinephrine for BP support, and systolic BP has improved to 90. The ED provider and I discussed that this patient should be taken care of in the ICU, given his hypotension and hypoxemia. His CODE STATUS is DNR/DNI. He would be okay getting BiPAP. I then reached out to his daughter with whom he lives, to get more history. This patient just came back from [place] with her 3 days ago. He started to get sick with a cough, and fatigue the day after the plane flight home, which was 2 days ago. Yesterday he started to get diarrhea and felt weak. The daughter thinks he does have sleep apnea but he never had a sleep study. She does see him snore or have apneic episodes. The daughter says he would never wear a mask or use a CPAP machine because of "his advanced age". The daughter reports that he has bilateral arm prostheses to use, that she left here with him. He can feed himself and toilet himself but also has a bidet to help with toileting. The daughter offered to bring in his Tacrolimus and Myfortic (since these are Non-formulary here), which I will order. - HOSPITAL COURSE Hospital Course: (1) Hypotension Resolved with iv hydration and holding his BP-lowering meds. (2) Acute respiratory failure with hypoxia He was in the ICU briefly, for use of BIPAP, then suppl O2. Hypoxia resolved a fter treatment of pneumonia and volume overload. He was breathing room air and did not need home O2. (3) Influenza A with pneumonia He tested influenza A positive. He had an infiltrate on chest x-ray and had copious phlegm, yellow-green in color. He received empiric iv antibx and completed a course of Tamiflu. Mucinex ordered for pulm toilet. He was ordered to be in respiratory isolation until his cough resolved. (4) Paroxysmal atrial fibrillation He had a Hx of A. fib during his hospitalization 6 months ago. This admission, his EKG showed sinus rhythm, but on 02/14, he started to hav paroxysms of Afib at rates of 100-140, needed Lopressor iv x1. Then had rapid Afib on 02/15 and got CP with that episode. A. fib is commonly seen when there are pulmonary pathologies, so these episodes may have been related to his current influenza pneumonia. We checked for hypertyhroidism, and his TSH was normal. We continued his Eliquis. We increased his beta-samuel dose and it did suppress the paroxysms of A. fib, but caused excessive bradycardia last night, so we will return to his prior (home) dosing. (5) Chest pain The patient went into rapid A. fib when in ICU, rate 160 and he had chest pain with that. The next day he again had rapid A. fib, rate 140 and had chest pain 10/10. An EKG was done at the time and shows no ischemic ST or T wave changes. The A. fib stopped on its own before any Lopressor could be given. The chest pain continued therefore he needed 3 sublingual nitroglycerin which gave him relief. The patient told me he gets this type of chest pain whenever he has "tachycardia" which he has had infrequently before. We obtained a complete Echo and it showed overall normal LVEF, but suboptimal views to comment on regional wall motion. Troponins were cycled and ruled him out for CT. We then increased his beta-samuel dose from once daily to BID and ordered SL nitroglycerin prn for angina. He will need an outpatient stress test for evaluation of angina. He was advised to do nothing strenuous until he had a stress test evaluation. The emu farmer documented that the patient wanted his CODE STATUS changed to Full Code, which was done. (6) Tachy-ezra syndrome When he was on higher B-samuel dosing, he had severe sinus bradycardia creating a 2.6-second pause (from asystole/ sinus arrest). He was sleeping at the time. After that, his heart rate was 30 bpm, then improved to 40s and 50s. WE also saw episodes of PSVT, rates is as fast as 140. One episode of SVT was 30 beats long. He remembered that he had "tachycardia" when he was at [facility] that was treated with metoprolol and possibly another med. His discharge was postponed to adjust cardiac meds. We had to change his metoprolol 25 twice daily, back down to daily. He and the daighter at bedside were told he needs Cardiology assessment for a possible pacemaker and then to increase his HR-slowing meds back up, to manage tachy-ezra syndrome (7) Immunocompromised He was on his Tacrolimus and Myfortic, which the daughter brought in. We ordered high dose, stress doses of steroids for several days which were stopped, when these high doses were felt to be adding to his confusion. We then resumed his Prednisone 5mg po daily. (8) Prerenal azotemia BON improved. It was likely from dehydration and also from ATN from hypotension. Then he had elevated BUN/Creat ratio. We tapered iv fluids down to off, since he was c/o L arm stump edema (9) Obstructive apnea I personally witnessed 2 episodes of his tongue causing obstruction and apnea. The daughter told me by phone that she thinks he does have sleep apnea but he never had a sleep study. She does see him snore. The daughter said he would never wear a mask or use a CPAP machine because of "his advanced age". (10) Acute delirium He had 2 days of delirium and was also more drowsy for 2 days, but was not hypotensive or hypoxic. We decreased frequency of his prn oxycodone, stopped guaifenesin, stopped his (home dose) of Valium which seemed excessive at 10 mg 3 times daily prn. We also stopped the high dose steroids and resumed his Prednisone 5mg orally daily. His mentation returned back to baseline. (11) History of liver transplant This was 27 years ago. He has stable LFTs. (12) History of kidney transplant This was 14 years ago. His renal function recovered with iv fluids. 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 He is independent, using bilateral arm prostheses. He did complain of edema of the left arm stump after iv fluids were used. (14) Diarrhea Resolved shortly after admission. - ALLERGIES Allergies/Adverse Reactions: Allergies Allergy/AdvReac Type Severity Reaction Status Date / Time hydromorphone HCl * AdvReac Unknown Verified 02/20/22 07:18 [From Dilaudid] - MEDICATIONS Home Medications: Ambulatory Orders Medication Instructions Recorded Confirmed Tacrolimus 1 mg PO BID 06/25/12 02/12/22 predniSONE [Deltasone] 5 mg PO DAILY 06/25/12 02/12/22 Mycophenolate Sodium [Mycophenolic 360 mg PO BID 05/19/16 02/12/22 Acid] oxyCODONE [Roxicodone] 5 mg PO Q4H PRN MDD 30 mg 05/19/16 02/12/22 Tamsulosin [Flomax] 0.4 mg PO BID 06/19/20 02/12/22 Apixaban [Eliquis] 5 mg PO BID #60 tablet 08/08/20 02/12/22 Oxybutynin [Ditropan] 5 mg PO BID #10 tablet 05/11/21 02/12/22 Dorzolamide/Timolol Ophth Soln 1 drops LEFTEYE 0800,1400 07/13/21 02/12/22 [Cosopt] Latanoprost 0.005% Ophth Drops 1 drops LEFTEYE QPM 07/13/21 02/12/22 [Xalatan Ophth Drops] Levothyroxine [Synthroid] 100 mcg PO QDAC 07/13/21 02/12/22 Cyanocobalamin [Vitamin B-12] 1,000 mcg PO DAILY #60 tablet 07/16/21 02/12/22 Magnesium Oxide [Mag Ox] 400 mg PO 0800 #30 tablet 07/16/21 02/12/22 Pantoprazole [Protonix] 40 mg PO QDAC #30 tablet 07/16/21 02/12/22 Albuterol Sulf [Ventolin Hfa 2 puffs INH Q6H PRN 02/12/22 02/12/22 Inhaler] Magnesium Oxide [Mag Ox] 400 mg PO 0800 30 Days #30 tablet 02/20/22 Potassium Chloride 10 meq PO DAILY 30 Days #30 tab 02/20/22 - PHYSICAL EXAM AT DISCHARGE General Appearance: positive: No acute distress, Alert Eyes Bilateral: positive: Normal inspection, EOMI ENT: positive: ENT inspection nml, No signs of dehydration Neck: positive: Nml inspection, No JVD Respiratory: positive: No respiratory distress, Breath sounds nml Cardiovascular: positive: Regular rate & rhythm, No murmur Abdomen: positive: Non-tender, Nml bowel sounds, No distention Skin: positive: Warm, Dry Extremities: positive: Non-tender, Other (L arm amput above elbow. R arm amputation is below elbow.) Neurologic/Psychiatric: positive: Oriented x3, Motor nml - LABS Result Diagrams: 02/17/22 04:40 02/17/22 04:40 - DIAGNOSTIC IMAGING Diagnostic Imaging Results: Final report reviewed - FOLLOW UP Follow Up: See PCP in next 5-10 days for a hospital follow up visit and a referral to Cardiology to evaluate angina and tachy-ezra syndrome.
== END 2022-02-18 12:20 | disposition home or self-care (01) | DRG 193 ==
LOC: EDUNIT# → ED 23:03 → ICU 02-12 08:46 → MS2 02-14 14:44
PROVIDERS: ADMIT Internal Medicine; ATTEND Internal Medicine
PROC: 06HM33Z Insertion of Infusion Device into Right Femoral Vein, Percutaneous Approach (ICD-10-PCS; principal; 2022-02-12)
DX: J10.00 Influenza due to other identified influenza virus with unspecified type of pneumonia (principal); I48.91 Unspecified atrial fibrillation; J96.01 Acute respiratory failure with hypoxia; D72.829 Elevated white blood cell count, unspecified; R09.02 Hypoxemia; Z20.822 Contact with and (suspected) exposure to COVID-19; Z94.0 Kidney transplant status; Z94.4 Liver transplant status; D84.821 Immunodeficiency due to drugs; N17.9 Acute kidney failure, unspecified; I48.0 Paroxysmal atrial fibrillation; I95.9 Hypotension, unspecified; I49.5 Sick sinus syndrome; G47.33 Obstructive sleep apnea (adult) (pediatric); E03.9 Hypothyroidism, unspecified; N40.1 Benign prostatic hyperplasia with lower urinary tract symptoms; G89.29 Other chronic pain; M54.9 Dorsalgia, unspecified; R19.7 Diarrhea, unspecified; R33.8 Other retention of urine; R41.0 Disorientation, unspecified; R51.9 Headache, unspecified; Z66 Do not resuscitate; Z79.01 Long term (current) use of anticoagulants; Z79.52 Long term (current) use of systemic steroids; Z79.60 Long term (current) use of unspecified immunomodulators and immunosuppressants; Z79.890 Hormone replacement therapy; Z82.49 Family history of ischemic heart disease and other diseases of the circulatory system; Z83.3 Family history of diabetes mellitus; Z87.891 Personal history of nicotine dependence; Z89.221 Acquired absence of right upper limb above elbow; Z89.222 Acquired absence of left upper limb above elbow
CPT/HCPCS: 36415; 71045; 80048; 80053; 81001; 82330; 83605; 83690; 83735; 84100; 84443; 84484; 85025; 87040; 87070; 87150; 87205; 87493; 87633; 93005; 93306; 94640; 96361; 96365; 96375; 97161; 97164; 97165; 97168; 97530; 97535; 99291; A9270; J0131; J7512; 81003; 87086

== ENCOUNTER 2022-02-20 06:52 | Outpatient (CLI) | payer MEDICARE, OTHER | END 2022-02-20 06:53 | disposition critical access hospital (66) | LOC: EMS 06:52 | DX: R07.9 Chest pain, unspecified (principal); I48.91 Unspecified atrial fibrillation | CPT/HCPCS: A0425; A0427 ==

== ENCOUNTER 2022-02-20 07:06 | Emergency (ER) | payer MEDICARE, OTHER ==
--- NOTE | 2022-02-20 07:11 | ED Physician Documentation ---
PD HPI CHEST PAIN - Stated complaint Stated Complaint: CP - History obtained from History obtained from: Patient, EMS - History of Present Illness Timing - onset: Last night Timing - onset during: Rest Timing - details: Gradual onset, Still present, Waxing and waning (The patient states he has had some pain in the chest related to her recent pneumonia for the last week and a half. Hospitalized 02/12 through 02/18 for hypoxia and pneumonia. Has continued with some pain with breathing but this increased notably overnight.) Recently seen: Emergency Dept, Admitted (He was just hospitalized 02/12 through 02/18 influenza pneumonia and respiratory failure. He did have episodic A. fib during hospitalization. Had chest pain complaint during the hospitalization.) Review of Systems Constitutional: denies: Fever Cardiac: reports: Chest pain / pressure, Palpitations (intermittent c/w atrial fib episodes he has had historically) Respiratory: reports: Dyspnea, Cough, Wheezing GI: denies: Abdominal Pain PD PAST MEDICAL HISTORY - Past Medical History Cardiovascular: Deep vein thrombosis, Atrial fibrillation Respiratory: Pneumonia Neuro: None Endocrine/Autoimmune: HyPOthyroidism GI: Hepatitis, Other : Benign prostate hypertrophy, Retention HEENT: None Psych: None Musculoskeletal: Chronic back pain, Other Derm: Psoriasis - Past Surgical History Past Surgical History: Yes General: Liver surgery, Other Ortho: Spine surgery, Amputation /AESTHETICIAN: Other Neuro: Other HEENT: Tonsil/Adenoidectomy - Present Medications Home Medications: Ambulatory Orders Medication Instructions Recorded Confirmed Tacrolimus 1 mg PO BID 06/25/12 02/12/22 predniSONE [Deltasone] 5 mg PO DAILY 06/25/12 02/12/22 Mycophenolate Sodium [Mycophenolic 360 mg PO BID 05/19/16 02/12/22 Acid] oxyCODONE [Roxicodone] 5 mg PO Q4H PRN MDD 30 mg 05/19/16 02/12/22 Tamsulosin [Flomax] 0.4 mg PO BID 06/19/20 02/12/22 Apixaban [Eliquis] 5 mg PO BID #60 tablet 08/08/20 02/12/22 Oxybutynin [Ditropan] 5 mg PO BID #10 tablet 05/11/21 02/12/22 Dorzolamide/Timolol Ophth Soln 1 drops LEFTEYE 0800,1400 07/13/21 02/12/22 [Cosopt] Latanoprost 0.005% Ophth Drops 1 drops LEFTEYE QPM 07/13/21 02/12/22 [Xalatan Ophth Drops] Levothyroxine [Synthroid] 100 mcg PO QDAC 07/13/21 02/12/22 Cyanocobalamin [Vitamin B-12] 1,000 mcg PO DAILY #60 tablet 07/16/21 02/12/22 Magnesium Oxide [Mag Ox] 400 mg PO 0800 #30 tablet 07/16/21 02/12/22 Pantoprazole [Protonix] 40 mg PO QDAC #30 tablet 07/16/21 02/12/22 Albuterol Sulf [Ventolin Hfa 2 puffs INH Q6H PRN 02/12/22 02/12/22 Inhaler] Magnesium Oxide [Mag Ox] 400 mg PO 0800 30 Days #30 tablet 02/20/22 Potassium Chloride 10 meq PO DAILY 30 Days #30 tab 02/20/22 - Allergies Allergies/Adverse Reactions: Allergies Allergy/AdvReac Type Severity Reaction Status Date / Time hydromorphone HCl * AdvReac Unknown Verified 02/20/22 07:18 [From Dilaudid] - Social History Does the pt smoke?: No Smoking Status: Never smoker Does the pt drink ETOH?: No Does the pt have substance abuse?: No - Immunizations Immunizations are current?: Yes - POLST Patient has POLST: Yes POLST Status: Full Code PD ED PE NORMAL - Vitals Vital signs reviewed: Yes - General General: No acute distress, Well developed/nourished - Cardiac Cardiac: No murmur. No: RRR (Irregular with fast rate consistent with unregulated atrial fibrillation) - Respiratory Respiratory: No respiratory distress. No: Clear bilaterally (some congestion right side. Some exp wheezing diffuse. ) - Abdomen Abdomen: Soft, Non tender - Derm Derm: Normal color, Warm and dry - Extremities Extremities: No edema, No calf tenderness / cord, Other (prior arm amputations baseline. ) - Neuro Neuro: Alert and oriented X 3, No motor deficit, Normal speech Results - Vitals Vitals: Vital Signs - 24 hr 02/20/22 02/20/22 02/20/22 07:15 07:43 07:49 Temperature 37.6 C Heart Rate 147 H 121 H 78 Respiratory 27 H 20 20 Rate Blood Pressure 104/80 96/75 O2 Saturation 98 97 02/20/22 02/20/22 02/20/22 07:57 08:22 09:00 Temperature Heart Rate 94 102 H 108 H Respiratory 14 12 22 Rate Blood Pressure 93/57 L 107/55 L 110/57 L O2 Saturation 93 92 92 02/20/22 02/20/22 02/20/22 09:38 10:11 10:56 Temperature Heart Rate 115 H 115 H 111 H Respiratory 21 24 14 Rate Blood Pressure 108/72 101/71 114/58 L O2 Saturation 92 93 92 Oxygen O2 Source Room air - EKG (time done) 07:09 Rate: Rate (enter#) (141) Rhythm: Atrial fibrillation Intervals: Other (mild IVCD similar to 02/12/22) QRS: Normal Ischemia: ST depression (diffusely, possible rate related). No: ST elevation c/w ischemia Compare to prior EKG: Changed from prior EKG (prior 02/12/22 was NSR without the ST depressions. ) - Labs Labs: Laboratory Tests 02/20/22 02/20/22 02/20/22 07:15 07:15 07:15 WBC 13.7 H RBC 5.10 Hgb 13.8 L Hct 43.6 MCV 85.5 MCH 27.1 MCHC 31.7 L RDW 14.3 Plt Count 258 MPV 11.6 H Neut # (Auto) 7.5 H Lymph # (Auto) 3.4 Falls # (Auto) 1.6 H Eos # (Auto) 0.2 Baso # (Auto) 0.1 Absolute Nucleated RBC 0.00 Nucleated RBC % 0.0 Manual Slide Review Indicated WBC Morphology NORMAL APPEARANCE Sodium 135 Potassium 2.9 L Chloride 104 Carbon Dioxide 19 L Anion Gap 12.0 BUN 17 Creatinine 1.1 Estimated GFR (MDRD) 67 L Glucose 103 H Calcium 8.0 L Magnesium Total Bilirubin 1.8 H AST 24 ALT 82 H Alkaline Phosphatase 49 Troponin I High Sens 24.2 H* B-Natriuretic Peptide Total Protein 5.7 L Albumin 3.0 L Globulin 2.7 Albumin/Globulin Ratio 1.1 Lipase 73 H 02/20/22 02/20/22 02/20/22 07:15 07:15 09:05 WBC RBC Hgb Hct MCV MCH MCHC RDW Plt Count MPV Neut # (Auto) Lymph # (Auto) Falls # (Auto) Eos # (Auto) Baso # (Auto) Absolute Nucleated RBC Nucleated RBC % Manual Slide Review WBC Morphology Sodium Potassium Chloride Carbon Dioxide Anion Gap BUN Creatinine Estimated GFR (MDRD) Glucose Calcium Magnesium 1.5 L Total Bilirubin AST ALT Alkaline Phosphatase Troponin I High Sens 31.0 H* B-Natriuretic Peptide 286 H Total Protein Albumin Globulin Albumin/Globulin Ratio Lipase - Rads (name of study) chest xray Radiology: EMP read indepedently (right middle lobe infiltrate similar to 02/12. no PTX nor notable effusion.), See rad report PD Medical Decision Making - ED course Complexity details: reviewed old records (Review of the patient's echocardiogram done inpatient on 02/16 showed ejection fraction of 60% and no valvular disorder. No effusion at that time. Evaluation of troponin levels from the recent hospitalization showed it to be up to 500 with trending down and 94 on discharge.), re-evaluated patient (no chest pain ) Social Determinants of Health: The patient does have bilateral upper extremity amputations from long ago and prostheses. However is not able to very well manipulate in small ways. He states he does have however help at home for which they can help him with the hand-held inhaler. Drug Therapy Requiring Monitoring for Toxicity: IV diltiazem to get rate control of his atrial fibrillation. His rate did decrease to 90-105. He feels better. ED course: The patient does have a faster atrial fibrillation. He has some chest and back pain. His EKG independently viewed by me is showing some diffuse ST depressions but no ST elevations. Comparison with prior EKG couple of weeks ago was similar morphology but now has the mild ST depressions. After rate control and some pain medicine, the patient remains in atrial fibrillation but has no apparent ST depressions or improvement in those. He did have a echocardiogram on recent hospitalization that showed symmetric wall movement and a 60% ejection fraction. I would presume therefore rate dependent demand ischemia. A repeat troponin here showed a minimal elevation with a second troponin just slightly higher. However they are much lower than they had been on the previous hospitalization. The patient is having some wheezing and shortness of breath still. He had a recent hospitalization for flu and pneumonia. He was not discharged on any inhaler. We can prescribe an inhaler and some medication for cough. Departure - Departure Disposition: 01 Home, Self Care Clinical Impression: Atrial fibrillation with rapid ventricular response, Ischemic chest pain, Hypomagnesemia, Hypokalemia, Wheezing Condition: Stable Record reviewed to determine appropriate education?: Yes Instructions: ED Afib Prescriptions: Magnesium Oxide [Mag Ox] 400 mg PO 0800 30 Days #30 tablet Potassium Chloride 10 meq PO DAILY 30 Days #30 tab Comments: Your atrial fibrillation heart rate was going fast approximately 1 40-1 50. I think this was causing a stress on your heart and given you some chest pain. There may be some element of chest pain still left from the pneumonia with some inflammation in the lungs and around the lungs (pleurisy). The main emphasis on this I believe would be control of your atrial fibrillation rate. You seem to be doing better with a heart rate slower here. I would continue with your current dose of metoprolol 25 mg once daily as there had been concern for your heart rate going too slow when not in fibrillation. You could take a second dose of the day if you maintain feeling a faster heart rate through the day. Use this just when needed for your heart rate being faster. Regarding your pain, I would suggest taking Tylenol 2 tablets 4 times daily regularly for the next week to help with pain. Continue with your oxycodone just at night. Use your albuterol inhaler to help with the wheezinguse 2 to 3 puffs 4 times a day daily regularly for the next 7 to 10 days to help with the wheezing. I think this will help with your cough and shortness of breath. Continue your other usual medications. You did have a lower potassium and magnesium levels here today. I would suggest supplement of these for the next 2 to 3 weeks at least. Follow-up with your primary care later this week, call for an appointment. Return to the ER as needed. I sent 2 prescriptions for the magnesium and potassium to [facility]. Discharge Date/Time: 02/20/22 11:12
[2022-02-20 07:25] LABS: BASOPHILS # (AUTO) 0.1 10^3/uL (0.0-0.1); BASOPHILS % (AUTO) 0.4 %; EOSINOPHILS # (AUTO) 0.2 10^3/uL (0.0-0.7); EOSINOPHILS % (AUTO) 1.5 %; HCT - HEMATOCRIT 43.6 % (42.0-52.0); HGB - HEMOGLOBIN 13.8 g/dL (14.0-18.0); LYMPHOCYTES # (AUTO) 3.4 10^3/uL (1.5-3.5); LYMPHOCYTES % (AUTO) 24.7 %; MEAN CORPUSCULAR HEMOGLOBIN 27.1 pg (27.0-31.0); MEAN CORPUSCULAR HGB CONC 31.7 g/dL (32.0-36.0); MEAN CORPUSCULAR VOLUME 85.5 fL (80.0-94.0); MEAN PLATELET VOLUME 11.6 fL (7.4-11.4); MONOCYTES # (AUTO) 1.6 10^3/uL (0.0-1.0); MONOCYTES % (AUTO) 11.4 %; NEUTROPHILS # (AUTO) 7.5 10^3/uL (1.5-6.6); NEUTROPHILS % (AUTO) 54.7 %; PLT - PLATELET COUNT 258 10^3/uL (130-450); RED CELL DISTRIBUTION WIDTH 14.3 % (12.0-15.0); WHITE BLOOD COUNT 13.7 x10^3/uL (4.8-10.8)
[2022-02-20 07:31] LABS: SLIDE REVIEW? Indicated
[2022-02-20] MEDS ORDERED: diltiaZEM INJ 5 MG/ML VIAL IVP STA (07:32)
[2022-02-20] MEDS ORDERED: SODIUM CHLORIDE 0.9% 1,000 ML IV STA (07:32)
[2022-02-20] MEDS ORDERED: ALBUTEROL NEB 2.5 MG/3 ML INH STA (07:33)
[2022-02-20] MEDS ORDERED: MORPHINE 10 MG/ML VIAL IVP STA ×2 (07:34→09:38)
[2022-02-20 07:45] LABS: ALBUMIN/GLOBULIN RATIO 1.1 (1.0-2.2); BILIRUBIN,TOTAL 1.8 mg/dL (0.2-1.0); CREATININE 1.1 mg/dL (0.6-1.2); POTASSIUM 2.9 mmol/L (3.5-5.0); TOTAL PROTEIN 5.7 g/dL (6.7-8.2)
--- OUTSIDE RECORDS SUMMARY | 2022-02-20 07:46 | EXTERNAL MEDICAL SUMMARY RPT | Continuity of Care Document ---
:1955 Author Organization [facility] Address [address] [place] [address] Phone Allergies and Intolerances date description facility type (no date) hydromorphone [facility] (unknown) Encounters No information. Functional Status No information. Immunizations No information. Medications No information. Problems date description facility 2021-12-21 08:36 Hypothyroidism, unspecified [facility] 2021-12-21 08:36 Hypomagnesemia [facility] 2021-12-21 08:36 Paroxysmal atrial fibrillation [facility] 2021-12-21 08:36 Encounter for screening for malignant n [facility] 2021-12-21 08:36 Encounter for aftercare following other organ [facility] transplant 2021-12-21 08:36 Other continuous churn buttermaker (current) drug therapy [facility] 2021-12-21 08:36 Liver transplant status [facility] 2021-12-21 08:49 Hypothyroidism, unspecified [facility] 2021-12-21 08[facility] 2021-12-21 08:49 Paroxysmal atrial fibrillation [facility] 2021-12-21 08:49 Encounter for screening for malignant n [facility] 2021-12-21 08:49 Encounter for aftercare following other organ [facility] transplant 2021-12-21 08:49 Other continuous churn buttermaker (current) drug therapy [facility] 2021-12-21 08:49 Liver transplant status [facility] Procedures No information. Results/Labs test date [...] date) BEDTIME unknown) (unknown) (no (unknown) (unknown) [id number] (units (unkno wn) date) unknown) (unknown) (no [...] (unknown) (unknown) : 1955 (units (unknown) date) Acct:[id number] unknown) (unknown) (no (unknown) (unknown) Date of [...] date) Signs: unknown) (unknown) (no (unknown) (unknown) [facility] (units (unknown) date) [address] [place] [address] unknown) [place] [address] (unknown) (no (unknown) (unknown) Label Comments: (units [...] date) BEDTIME unknown) (unknown) (no (unknown) (unknown) [id number] (units (unkno wn) date) unknown) (unknown) (no [...] (unknown) (unknown) : 1955 (units (unknown) date) Acct:[id number] unknown) (unknown) (no (unknown) (unknown) Date of [...] date) Signs: unknown) (unknown) (no (unknown) (unknown) [facility] (units (unknown) date) [address] unknown) [place] [address] (unknown) (no (unknown) (unknown) Label Comments: (units [...] (unknown) date) tablet 5 mg PO unknown) [facility] ##0 09/09/11 09/07/21 (unknown) (no (unknown) (unknown) [...] date) BEDTIME unknown) (unknown) (no (unknown) (unknown) [id number] (units (unkno wn) date) unknown) (unknown) (no [...] (unknown) (unknown) : 1955 (units (unknown) date) Acct:[id number] unknown) (unknown) (no (unknown) (unknown) Date of [...] date) Signs: unknown) (unknown) (no (unknown) (unknown) [facility] (units (unknown) date) [address] [place] [address] unknown) [place] [address] (unknown) (no (unknown) (unknown) Label Comments: (units [...] primary unknown) care provider please contact the [facility] (unknown) (no (unknown) (unknown) *Please continue (units [...] date) BEDTIME unknown) (unknown) (no (unknown) (unknown) [id number] (units (unkno wn) date) unknown) (unknown) (no [...] (unknown) (unknown) : 1955 (units (unknown) date) Acct:[id number] unknown) (unknown) (no (unknown) (unknown) Date of [...] Wound unknown) Infection (unknown) (no (unknown) (unknown) [facility] (units (unknown) date) [address] unknown) [place] [address] (unknown) (no (unknown) (unknown) Label Comments: (units [...] (unknown) Resource line at (units (unknown) date) [phone]. unknown) They will ask some questions about [...] primary unknown) care provider please contact the [facility] (unknown) (no (unknown) (unknown) *Please continue (units [...] date) BEDTIME unknown) (unknown) (no (unknown) (unknown) [id number] (units (unkno wn) date) unknown) (unknown) (no [...] (unknown) (unknown) : 1955 (units (unknown) date) Acct:[id number] unknown) (unknown) (no (unknown) (unknown) Date of [...] Wound unknown) Infection (unknown) (no (unknown) (unknown) [facility] (units (unknown) date) [address] unknown) [place] [address] (unknown) (no (unknown) (unknown) Label Comments: (units [...] (unknown) Resource line at (units (unknown) date) [phone]. unknown) They will ask some questions about [...] (unknown) date) tablet 5 mg PO unknown) [facility] ##0 09/09/11 09/07/21 (unknown) (no (unknown) (unknown) [...]
[2022-02-20 08:09] LABS: WBC MORPHOLOGY (MULTIPLE) NORMAL APPEARANCE (NORMAL)
[2022-02-20] MEDS ORDERED: MAGNESIUM SULFATE 2 GRAM 2 GM/50 ML BAG IV ONE (08:19)
[2022-02-20] MEDS ORDERED: POTASSIUM CHLORIDE 20 MEQ TABLET PO STA (08:19)
--- NOTE | 2022-02-20 08:52 | XRAY Report ---
PROCEDURE: Chest 1 View X-Ray INDICATIONS: Chest pain TECHNIQUE: One view of the chest was acquired. COMPARISON: None. FINDINGS: Surgical changes and devices: None. Lungs and pleura: Obscuration of left hemidiaphragm and blunting left costophrenic angle. Heart size is within normal limits. Moderate vascular congestion noted. Atherosclerotic vascular calcification noted in the aortic arch. Mediastinum: Mediastinal contours appear normal. Heart size is normal. Bones and chest wall: No suspicious bony lesions. Overlying soft tissues appear unremarkable. IMPRESSION: Moderate vascular congestion and left pleural effusion, increased from the prior exam Reviewed by: Juan Jose Quesada MD on 02/20/2022 7:50 AM [place] Approved by: Juan Jose Quesada MD on 02/20/2022 7:50 AM [place] Station ID: [id number]
[2022-02-20] MEDS ORDERED: oxyCODONE 5 MG TABLET PO STA (09:38)
[2022-02-20] MEDS ORDERED: METOPROLOL SUCCINATE 25 MG TABLET PO STA (10:15)
[2022-02-20 10:57] VITALS: BP 114/58
== END 2022-02-20 11:12 | disposition home or self-care (01) ==
LOC: EDUNIT# → ED 07:06
DX: I48.91 Unspecified atrial fibrillation (principal); I20.9 Angina pectoris, unspecified; E83.42 Hypomagnesemia; E87.6 Hypokalemia; R06.2 Wheezing; Z79.01 Long term (current) use of anticoagulants
CPT/HCPCS: 36415; 71045; 80053; 83690; 83735; 83880; 84484; 85025; 93005; 94640; 96365; 96375; 96376; 99284; A9270

== ENCOUNTER 2022-03-16 07:59 | Outpatient (CLI) | payer MEDICARE, OTHER ==
[2022-03-16 08:21] LABS: BASOPHILS # (AUTO) 0.1 10^3/uL (0.0-0.1); EOSINOPHILS # (AUTO) 0.1 10^3/uL (0.0-0.7); EOSINOPHILS % (AUTO) 1.5 %; HCT - HEMATOCRIT 45.7 % (42.0-52.0); HGB - HEMOGLOBIN 13.8 g/dL (14.0-18.0); LYMPHOCYTES # (AUTO) 2.7 10^3/uL (1.5-3.5); LYMPHOCYTES % (AUTO) 44.7 %; MEAN CORPUSCULAR HEMOGLOBIN 26.7 pg (27.0-31.0); MEAN CORPUSCULAR HGB CONC 30.2 g/dL (32.0-36.0); MEAN CORPUSCULAR VOLUME 88.6 fL (80.0-94.0); MONOCYTES # (AUTO) 0.8 10^3/uL (0.0-1.0); MONOCYTES % (AUTO) 12.5 %; NEUTROPHILS # (AUTO) 2.3 10^3/uL (1.5-6.6); PLT - PLATELET COUNT 218 10^3/uL (130-450); RED BLOOD COUNT 5.16 10^6/uL (4.70-6.10)
[2022-03-16 08:25] LABS: INR 1.5 (0.8-1.2); PT - PROTHROMBIN TIME 16.7 secs (9.9-12.6)
[2022-03-16 08:38] LABS: ALBUMIN 3.8 g/dL (3.2-5.5); BILIRUBIN,DIRECT 0.2 mg/dL (0.1-0.5); BILIRUBIN,TOTAL 0.8 mg/dL (0.2-1.0); CALCIUM 9.1 mg/dL (8.5-10.3); CREATININE 1.1 mg/dL (0.6-1.2); MAGNESIUM 1.7 mg/dL (1.7-2.8); PHOSPHORUS 3.2 mg/dL (2.5-4.6); POTASSIUM 3.6 mmol/L (3.5-5.0); TOTAL PROTEIN 7.1 g/dL (6.7-8.2)
[2022-03-16 08:51] LABS: THYROID STIMULATING HORMONE 2.81 uIU/mL (0.34-5.60)
[2022-03-16 08:55] LABS: FREE T4 (FREE THYROXINE) 1.29 ng/dL (0.58-1.64)
== END 2022-03-16 08:00 | disposition home or self-care (01) ==
LOC: LAB 07:59
PROVIDERS: ATTEND Internal Medicine Gastroenterology
DX: Z94.4 Liver transplant status (principal); Z79.899 Other long term (current) drug therapy
CPT/HCPCS: 36415; 80048; 80076; 80197; 82977; 83735; 84100; 84439; 84443; 85025; 85610

== ENCOUNTER 2022-04-06 08:10 | Outpatient (CLI) | payer MEDICARE, OTHER ==
[2022-04-06 08:31] LABS: BASOPHILS # (AUTO) 0.1 10^3/uL (0.0-0.1); BASOPHILS % (AUTO) 0.9 %; EOSINOPHILS # (AUTO) 0.1 10^3/uL (0.0-0.7); HCT - HEMATOCRIT 45.4 % (42.0-52.0); HGB - HEMOGLOBIN 13.5 g/dL (14.0-18.0); LYMPHOCYTES % (AUTO) 44.5 %; MEAN CORPUSCULAR HEMOGLOBIN 26.7 pg (27.0-31.0); MEAN CORPUSCULAR HGB CONC 29.7 g/dL (32.0-36.0); MEAN CORPUSCULAR VOLUME 89.9 fL (80.0-94.0); MEAN PLATELET VOLUME 11.5 fL (7.4-11.4); MONOCYTES # (AUTO) 0.7 10^3/uL (0.0-1.0); MONOCYTES % (AUTO) 10.1 %; NEUTROPHILS # (AUTO) 2.7 10^3/uL (1.5-6.6); NEUTROPHILS % (AUTO) 41.1 %; PLT - PLATELET COUNT 182 10^3/uL (130-450); RED BLOOD COUNT 5.05 10^6/uL (4.70-6.10); RED CELL DISTRIBUTION WIDTH 14.3 % (12.0-15.0); WHITE BLOOD COUNT 6.6 x10^3/uL (4.8-10.8)
[2022-04-06 08:37] LABS: INR 1.5 (0.8-1.2); PT - PROTHROMBIN TIME 16.4 secs (9.9-12.6)
[2022-04-06 08:46] LABS: ALBUMIN 3.6 g/dL (3.2-5.5); BILIRUBIN,DIRECT 0.2 mg/dL (0.1-0.5); BILIRUBIN,TOTAL 0.7 mg/dL (0.2-1.0); CALCIUM 8.9 mg/dL (8.5-10.3); CREATININE 1.1 mg/dL (0.6-1.2); MAGNESIUM 1.8 mg/dL (1.7-2.8); PHOSPHORUS 3.8 mg/dL (2.5-4.6); POTASSIUM 3.8 mmol/L (3.5-5.0); TOTAL PROTEIN 6.5 g/dL (6.7-8.2)
== END 2022-04-06 08:11 | disposition home or self-care (01) ==
LOC: LAB 08:10
PROVIDERS: ATTEND Internal Medicine Gastroenterology
DX: Z48.298 Encounter for aftercare following other organ transplant (principal); Z79.899 Other long term (current) drug therapy; Z94.4 Liver transplant status
CPT/HCPCS: 36415; 80048; 80076; 80197; 82977; 83735; 84100; 85025; 85610

== ENCOUNTER 2022-06-09 08:03 | Outpatient (CLI) | payer MEDICARE, OTHER ==
[2022-06-09 08:25] LABS: BASOPHILS % (AUTO) 0.5 %; EOSINOPHILS # (AUTO) 0.2 10^3/uL (0.0-0.7); EOSINOPHILS % (AUTO) 2.6 %; HCT - HEMATOCRIT 46.9 % (42.0-52.0); HGB - HEMOGLOBIN 14.2 g/dL (14.0-18.0); LYMPHOCYTES # (AUTO) 3.3 10^3/uL (1.5-3.5); LYMPHOCYTES % (AUTO) 41.8 %; MEAN CORPUSCULAR HEMOGLOBIN 26.4 pg (27.0-31.0); MEAN CORPUSCULAR HGB CONC 30.3 g/dL (32.0-36.0); MEAN CORPUSCULAR VOLUME 87.2 fL (80.0-94.0); MEAN PLATELET VOLUME 11.8 fL (7.4-11.4); MONOCYTES # (AUTO) 0.9 10^3/uL (0.0-1.0); MONOCYTES % (AUTO) 11.5 %; NEUTROPHILS # (AUTO) 3.4 10^3/uL (1.5-6.6); NEUTROPHILS % (AUTO) 43.1 %; PLT - PLATELET COUNT 196 10^3/uL (130-450); RED BLOOD COUNT 5.38 10^6/uL (4.70-6.10); RED CELL DISTRIBUTION WIDTH 13.3 % (12.0-15.0); WHITE BLOOD COUNT 7.9 x10^3/uL (4.8-10.8)
[2022-06-09 08:33] LABS: ALBUMIN 4.1 g/dL (3.2-5.5); ALBUMIN/GLOBULIN RATIO 1.5 (1.0-2.2); BILIRUBIN,TOTAL 0.7 mg/dL (0.2-1.0); CALCIUM 8.9 mg/dL (8.5-10.3); CREATININE 1.3 mg/dL (0.6-1.2); POTASSIUM 3.6 mmol/L (3.5-5.0); TOTAL PROTEIN 6.9 g/dL (6.7-8.2)
== END 2022-06-09 08:04 | disposition home or self-care (01) ==
LOC: LAB 08:03
PROVIDERS: ATTEND Family Medicine
DX: E83.42 Hypomagnesemia (principal); I47.1 Supraventricular tachycardia; I48.0 Paroxysmal atrial fibrillation; R53.81 Other malaise; Z94.4 Liver transplant status
CPT/HCPCS: 36415; 80053; 82977; 85025

== ENCOUNTER 2022-07-20 07:46 | Outpatient (CLI) | payer MEDICARE, OTHER ==
[2022-07-20 08:25] LABS: BASOPHILS # (AUTO) 0.1 10^3/uL (0.0-0.1); BASOPHILS % (AUTO) 0.9 %; EOSINOPHILS # (AUTO) 0.2 10^3/uL (0.0-0.7); EOSINOPHILS % (AUTO) 2.9 %; HCT - HEMATOCRIT 48.3 % (42.0-52.0); HGB - HEMOGLOBIN 14.3 g/dL (14.0-18.0); LYMPHOCYTES # (AUTO) 2.9 10^3/uL (1.5-3.5); LYMPHOCYTES % (AUTO) 37.3 %; MEAN CORPUSCULAR HGB CONC 29.6 g/dL (32.0-36.0); MEAN CORPUSCULAR VOLUME 87.7 fL (80.0-94.0); MONOCYTES # (AUTO) 0.8 10^3/uL (0.0-1.0); MONOCYTES % (AUTO) 10.3 %; NEUTROPHILS # (AUTO) 3.8 10^3/uL (1.5-6.6); PLT - PLATELET COUNT 155 10^3/uL (130-450); RED BLOOD COUNT 5.51 10^6/uL (4.70-6.10); RED CELL DISTRIBUTION WIDTH 13.8 % (12.0-15.0); WHITE BLOOD COUNT 7.9 x10^3/uL (4.8-10.8)
[2022-07-20 08:27] LABS: INR 1.4 (0.8-1.2)
[2022-07-20 08:33] LABS: BILIRUBIN,DIRECT 0.1 mg/dL (0.1-0.5); BILIRUBIN,TOTAL 0.6 mg/dL (0.2-1.0); CREATININE 1.1 mg/dL (0.6-1.2); MAGNESIUM 1.7 mg/dL (1.7-2.8); PHOSPHORUS 3.2 mg/dL (2.5-4.6); POTASSIUM 3.5 mmol/L (3.5-5.0); TOTAL PROTEIN 6.8 g/dL (6.7-8.2)
== END 2022-07-20 07:47 | disposition home or self-care (01) ==
LOC: LAB 07:46
PROVIDERS: ATTEND Internal Medicine Gastroenterology
DX: Z48.298 Encounter for aftercare following other organ transplant (principal); Z79.899 Other long term (current) drug therapy; Z94.4 Liver transplant status
CPT/HCPCS: 36415; 80048; 80076; 80197; 82977; 83735; 84100; 85025; 85610

== ENCOUNTER 2022-10-12 08:01 | Outpatient (CLI) | payer MEDICARE, OTHER ==
[2022-10-12 09:03] LABS: ALBUMIN 4.1 g/dL (3.2-5.5); CHOLESTEROL 164 mg/dL; HDL CHOLESTEROL 55 mg/dL; LDL CHOLESTEROL,CALCULATED 82 mg/dL; LDL/HDL RATIO 1.5 (<3.6); TRIGLYCERIDES 133 mg/dL (48-352); VLDL CHOLESTEROL 27 mg/dL
[2022-10-12 10:31] LABS: ALBUMIN/GLOBULIN RATIO 1.8 (1.0-2.2); ALKALINE PHOSPHATASE 47 IU/L (42-121); ALT ALANINE AMINOTRANSFERASE 13 IU/L (10-60); AST ASPARTATE AMINOTRANSFERASE 17 IU/L (10-42); BILIRUBIN,TOTAL 0.8 mg/dL (0.2-1.0); BUN - BLOOD UREA NITROGEN 20 mg/dL (6-20); CALCIUM 9.6 mg/dL (8.5-10.3); CARBON DIOXIDE - CO2 23 mmol/L (21-32); CHLORIDE 108 mmol/L (101-111); CREATININE 1.2 mg/dL (0.6-1.3); GFR - MDRD 60 (>89); GLUCOSE 95 mg/dL (74-104); SODIUM 138 mmol/L (135-145); TOTAL PROTEIN 6.4 g/dL (6.4-8.9)
== END 2022-10-12 08:02 | disposition home or self-care (01) ==
LOC: LAB 08:01
PROVIDERS: ATTEND Family Medicine
DX: I10 Essential (primary) hypertension (principal); Z12.5 Encounter for screening for malignant neoplasm of prostate; Z94.4 Liver transplant status; I48.0 Paroxysmal atrial fibrillation; Z79.899 Other long term (current) drug therapy; E83.42 Hypomagnesemia
CPT/HCPCS: 36415; 80053; 80061; G0103; 83721; 84153; 85025

== ENCOUNTER 2022-10-14 07:59 | Outpatient (CLI) | payer MEDICARE, OTHER ==
[2022-10-14 08:18] LABS: BASOPHILS # (AUTO) 0.1 10^3/uL (0.0-0.1); BASOPHILS % (AUTO) 0.8 %; EOSINOPHILS # (AUTO) 0.2 10^3/uL (0.0-0.7); EOSINOPHILS % (AUTO) 2.7 %; HCT - HEMATOCRIT 46.4 % (42.0-52.0); HGB - HEMOGLOBIN 13.9 g/dL (14.0-18.0); LYMPHOCYTES # (AUTO) 3.1 10^3/uL (1.5-3.5); LYMPHOCYTES % (AUTO) 43.1 %; MEAN CORPUSCULAR HEMOGLOBIN 26.2 pg (27.0-31.0); MEAN CORPUSCULAR VOLUME 87.5 fL (80.0-94.0); MEAN PLATELET VOLUME 12.1 fL (7.4-11.4); MONOCYTES # (AUTO) 0.8 10^3/uL (0.0-1.0); MONOCYTES % (AUTO) 11.1 %; NEUTROPHILS # (AUTO) 2.9 10^3/uL (1.5-6.6); NEUTROPHILS % (AUTO) 41.2 %; PLT - PLATELET COUNT 184 10^3/uL (130-450); RED CELL DISTRIBUTION WIDTH 14.6 % (12.0-15.0); WHITE BLOOD COUNT 7.1 x10^3/uL (4.8-10.8)
== END 2022-10-14 08:00 | disposition home or self-care (01) ==
LOC: LAB 07:59
PROVIDERS: ATTEND Family Medicine
DX: I10 Essential (primary) hypertension (principal); I48.0 Paroxysmal atrial fibrillation; Z79.899 Other long term (current) drug therapy; Z94.4 Liver transplant status; Z12.5 Encounter for screening for malignant neoplasm of prostate
CPT/HCPCS: 36415; 85025

== ENCOUNTER 2022-10-26 07:56 | Outpatient (CLI) | payer MEDICARE, OTHER ==
[2022-10-26 08:24] LABS: BASOPHILS # (AUTO) 0.1 10^3/uL (0.0-0.1); EOSINOPHILS # (AUTO) 0.3 10^3/uL (0.0-0.7); EOSINOPHILS % (AUTO) 3.8 %; HCT - HEMATOCRIT 45.3 % (42.0-52.0); HGB - HEMOGLOBIN 13.5 g/dL (14.0-18.0); LYMPHOCYTES # (AUTO) 2.9 10^3/uL (1.5-3.5); LYMPHOCYTES % (AUTO) 40.3 %; MEAN CORPUSCULAR HEMOGLOBIN 25.9 pg (27.0-31.0); MEAN CORPUSCULAR HGB CONC 29.8 g/dL (32.0-36.0); MEAN CORPUSCULAR VOLUME 86.9 fL (80.0-94.0); MEAN PLATELET VOLUME 11.3 fL (7.4-11.4); MONOCYTES # (AUTO) 0.7 10^3/uL (0.0-1.0); MONOCYTES % (AUTO) 9.7 %; NEUTROPHILS # (AUTO) 3.2 10^3/uL (1.5-6.6); NEUTROPHILS % (AUTO) 44.5 %; PLT - PLATELET COUNT 174 10^3/uL (130-450); RED BLOOD COUNT 5.21 10^6/uL (4.70-6.10); RED CELL DISTRIBUTION WIDTH 14.7 % (12.0-15.0); WHITE BLOOD COUNT 7.1 x10^3/uL (4.8-10.8)
[2022-10-26 08:32] LABS: INR 1.5 (0.8-1.2); PT - PROTHROMBIN TIME 16.6 secs (9.9-12.6)
[2022-10-26 09:00] LABS: THYROID STIMULATING HORMONE 3.17 uIU/mL (0.34-5.60)
[2022-10-26 09:16] LABS: MAGNESIUM 1.6 mg/dL (1.7-2.3)
[2022-10-26 10:16] LABS: ALBUMIN 3.9 g/dL (3.2-5.5); ALKALINE PHOSPHATASE 42 IU/L (42-121); ALT ALANINE AMINOTRANSFERASE 16 IU/L (10-60); AST ASPARTATE AMINOTRANSFERASE 14 IU/L (10-42); BILIRUBIN,DIRECT < 0.10 mg/dL (0.03-0.18); BILIRUBIN,TOTAL 0.5 mg/dL (0.2-1.0); BUN - BLOOD UREA NITROGEN 19 mg/dL (6-20); CALCIUM 9.1 mg/dL (8.5-10.3); CARBON DIOXIDE - CO2 22 mmol/L (21-32); CHLORIDE 109 mmol/L (101-111); CREATININE 1.2 mg/dL (0.6-1.3); GAMMA GLUTAMYL TRANSPEPTIDASE 33 IU/L (9-64); GFR - MDRD 60 (>89); GLUCOSE 100 mg/dL (74-104); PHOSPHORUS 3.3 mg/dL (2.5-5.0); POTASSIUM 3.9 mmol/L (3.5-4.5); SODIUM 139 mmol/L (135-145); TOTAL PROTEIN 6.2 g/dL (6.4-8.9)
== END 2022-10-26 07:57 | disposition home or self-care (01) ==
LOC: LAB 07:56
PROVIDERS: ATTEND Family Medicine
DX: E03.9 Hypothyroidism, unspecified (principal); Z79.899 Other long term (current) drug therapy; I10 Essential (primary) hypertension; Z94.4 Liver transplant status; Z48.298 Encounter for aftercare following other organ transplant
CPT/HCPCS: 36415; 80048; 80076; 80197; 82977; 83735; 84100; 84436; 84443; 85025; 85610

== ENCOUNTER 2023-02-16 07:47 | Outpatient (CLI) | payer MEDICARE, OTHER ==
[2023-02-16 08:22] LABS: BASOPHILS # (AUTO) 0.1 10^3/uL (0.0-0.1); BASOPHILS % (AUTO) 0.9 %; EOSINOPHILS # (AUTO) 0.3 10^3/uL (0.0-0.7); EOSINOPHILS % (AUTO) 3.5 %; HCT - HEMATOCRIT 45.9 % (42.0-52.0); HGB - HEMOGLOBIN 14.1 g/dL (14.0-18.0); LYMPHOCYTES % (AUTO) 38.4 %; MEAN CORPUSCULAR HEMOGLOBIN 26.5 pg (27.0-31.0); MEAN CORPUSCULAR HGB CONC 30.7 g/dL (32.0-36.0); MEAN CORPUSCULAR VOLUME 86.1 fL (80.0-94.0); MEAN PLATELET VOLUME 11.5 fL (7.4-11.4); MONOCYTES # (AUTO) 0.9 10^3/uL (0.0-1.0); MONOCYTES % (AUTO) 11.3 %; NEUTROPHILS # (AUTO) 3.5 10^3/uL (1.5-6.6); NEUTROPHILS % (AUTO) 45.1 %; PLT - PLATELET COUNT 187 10^3/uL (130-450); RED BLOOD COUNT 5.33 10^6/uL (4.70-6.10); RED CELL DISTRIBUTION WIDTH 13.8 % (12.0-15.0); WHITE BLOOD COUNT 7.7 x10^3/uL (4.8-10.8)
[2023-02-16 08:42] LABS: CALCIUM 9.3 mg/dL (8.5-10.3); CREATININE 1.2 mg/dL (0.6-1.3); POTASSIUM 3.5 mmol/L (3.5-4.5)
[2023-02-16 11:09] LABS: THYROID STIMULATING HORMONE 4.91 uIU/mL (0.34-5.60)
== END 2023-02-16 07:48 | disposition home or self-care (01) ==
LOC: LAB 07:47
PROVIDERS: ATTEND Internal Medicine Nephrology
DX: N05.9 Unspecified nephritic syndrome with unspecified morphologic changes (principal); R80.9 Proteinuria, unspecified; D70.9 Neutropenia, unspecified; D63.1 Anemia in chronic kidney disease; T86.10 Unspecified complication of kidney transplant; E03.9 Hypothyroidism, unspecified
CPT/HCPCS: 36415; 80048; 80197; 82570; 84156; 84443; 85025

== ENCOUNTER 2023-04-18 12:28 | Emergency (ER) | payer MEDICARE, OTHER ==
[2023-04-18 12:46] VITALS: BP 147/69; O2SAT 100
--- NOTE | 2023-04-18 13:16 | ED Physician Documentation ---
PD HPI OPHTHO - Stated complaint Stated Complaint: R EYE REDNESS,PX,H/A - Chief complaint Chief Complaint: Heent - Additional information Additional information: 67-year-old male with complex past medical history including left eye glaucoma, kidney transplant, liver transplant x 2, chronically on immunosuppressants, bilateral upper extremity amputations due to injur. patient presents to the emergency department for right eye pain. Patient says that this started about 3 days ago he is unsure if there has been any injury to the eye he says that he does frequently scratch his eye with hook on his right arm is red may be some sort of bacteria got into his right eye. He says that the pain has gotten worse he is now having a throbbing sensation to his right eye with worsening headache and he was unable to sleep more than 2 to 3 hours last night due to the severity of the pain. PD PAST MEDICAL HISTORY - Past Medical History Past Medical History: Yes Cardiovascular: Deep vein thrombosis, Atrial fibrillation Respiratory: Pneumonia Neuro: None Endocrine/Autoimmune: HyPOthyroidism GI: Hepatitis, Other : Benign prostate hypertrophy, Retention HEENT: None Psych: None Musculoskeletal: Chronic back pain, Other Derm: Psoriasis - Past Surgical History Past Surgical History: Yes General: Liver surgery, Other Ortho: Spine surgery, Amputation /SURGICAL PRODUCT SALES CONSULTANT: Other Neuro: Other HEENT: Tonsil/Adenoidectomy - Present Medications Home Medications: Ambulatory Orders Medication Instructions Recorded Confirmed Tacrolimus 1 mg PO BID 06/25/12 04/18/23 predniSONE [Deltasone] 5 mg PO DAILY 06/25/12 04/18/23 Mycophenolate Sodium [Mycophenolic 360 mg PO BID 05/19/16 04/18/23 Acid] oxyCODONE [Roxicodone] 5 mg PO Q4H PRN MDD 30 mg 05/19/16 04/18/23 Tamsulosin [Flomax] 0.4 mg PO BID 06/19/20 04/18/23 Apixaban [Eliquis] 5 mg PO BID #60 tablet 08/08/20 04/18/23 Oxybutynin [Ditropan] 5 mg PO BID #10 tablet 05/11/21 04/18/23 Dorzolamide/Timolol Ophth Soln 1 drops LEFTEYE 0800,1400 07/13/21 04/18/23 [Cosopt] Latanoprost 0.005% Ophth Drops 1 drops LEFTEYE QPM 07/13/21 04/18/23 [Xalatan Ophth Drops] Levothyroxine [Synthroid] 100 mcg PO QDAC 07/13/21 04/18/23 Cyanocobalamin [Vitamin B-12] 1,000 mcg PO DAILY #60 tablet 07/16/21 04/18/23 Pantoprazole [Protonix] 40 mg PO QDAC #30 tablet 07/16/21 04/18/23 Albuterol Sulf [Ventolin Hfa 2 puffs INH Q6H PRN 02/12/22 04/18/23 Inhaler] Magnesium Oxide [Mag Ox] 400 mg PO 0800 30 Days #30 tablet 02/20/22 04/18/23 Potassium Chloride 10 meq PO DAILY 30 Days #30 tab 02/20/22 04/18/23 Ofloxacin 0.3% Ophth Drops 1 drops RIGHTEYE QID 10 Days #5 ml 04/18/23 [Ocuflox 0.3% Ophth Drops] - Allergies Allergies/Adverse Reactions: Allergies Allergy/AdvReac Type Severity Reaction Status Date / Time hydromorphone HCl * AdvReac Unknown Verified 04/18/23 12:44 [From Dilaudid] - Social History Does the pt smoke?: No Smoking Status: Never smoker Does the pt drink ETOH?: No Does the pt have substance abuse?: No - Immunizations Immunizations are current?: Yes - POLST Patient has POLST: Yes POLST Status: Full Code PD ED PE NORMAL - Vitals Vital signs reviewed: Yes - General General: Alert and oriented X 3, No acute distress, Well developed/nourished - HEENT HEENT: Other (Right eye: injected sclera, no drainage, IOP 11, pupil is round and reactive, No fluorescein uptake, no foreign body) Results - Vitals Vitals: Vital Signs - 24 hr 04/18/23 12:31 Temperature 36.5 C Heart Rate 75 Respiratory 16 Rate Blood Pressure 147/69 H O2 Saturation 100 Oxygen O2 Source Room air PD Medical Decision Making - ED course ED course: 67-year-old male presents emergency department for injected right sclera. I spoke with patient's binding folder machine Dr. Roy who was kind enough to take my phone call who says that although it does not sound like a classic bacterial conjunctivitis because patient is immunocompromise he said go ahead and start him on ofloxacin for now and he will follow-up with him early next week April 25 at 3:00. This information was passed along to the patient he was given his appointment time and a prescription was sent to his preferred pharmacy for ofloxacin as we did not keep ofloxacin here in the emergency department. I did consider acute angle-closure glaucoma but given that pupil is round and reactive and he does not have increased intraocular pressure this makes me significantly less suspicious of this. Patient given strict ER return precautions and understands discharge plan. Departure - Departure Disposition: Home, Self Care Clinical Impression: Conjunctivitis Qualifiers: Conjunctivitis type: acute Acute conjunctivitis type: unspecified Laterality: right Qualified Code(s): H10.31 - Unspecified acute conjunctivitis, right eye Instructions: Conjunctivitis Infec Cause Prescriptions: Ofloxacin 0.3% Ophth Drops [Ocuflox 0.3% Ophth Drops] 1 drops RIGHTEYE QID 10 Days #5 ml Comments: Thank you for trusting us with your care. I spoke with your binding folder machine Dr. Roy who suggested starting you on an antibiotic called ofloxacin. You will put 1 drop in your right eye 4 times a day. I would suggest taking Tylenol ibuprofen for your headache that you are experiencing. Dr. Roy was able to get you a follow-up appointment with him early next week, April 25 at 3 PM at the [facility] that you normally see him back. Please come back to the emergency department for having any changes in vision, fevers or chills, nausea vomiting, or any other concerning symptoms. Dr. Roy also said for any eye emergencies to make sure that you are calling his office first and let them know the symptoms you are experiencing if you are concerned about any sort of eye emergency. I have sent the ofloxacin drops to your preferred pharmacy [facility] in [place] make sure that you pick this up right away and start taking these today. Forms: PCP List Discharge Date/Time: 04/18/23 15:02
[2023-04-18] MEDS: PROPARACAINE 0.5% OPHTH DROPS 15 ML RIGHTEYE STA (13:24)
[2023-04-18] MEDS ORDERED: OFLOXACIN 0.3% OPHTH DROPS RIGHTEYE STA (14:30)
[2023-04-18] MEDS: ACETAMINOPHEN 325 MG TABLET PO STA (14:32)
== END 2023-04-18 15:02 | disposition home or self-care (01) ==
LOC: ED 12:28
DX: H10.31 Unspecified acute conjunctivitis, right eye (principal); I48.91 Unspecified atrial fibrillation; Z86.718 Personal history of other venous thrombosis and embolism; E03.9 Hypothyroidism, unspecified; N40.0 Benign prostatic hyperplasia without lower urinary tract symptoms; Z94.0 Kidney transplant status; Z94.4 Liver transplant status; Z79.60 Long term (current) use of unspecified immunomodulators and immunosuppressants; Z89.202 Acquired absence of left upper limb, unspecified level; Z89.201 Acquired absence of right upper limb, unspecified level; Z79.01 Long term (current) use of anticoagulants; Z79.899 Other long term (current) drug therapy
CPT/HCPCS: 99282; 99283; A9270; J3490

== ENCOUNTER 2023-04-26 10:44 | Emergency (ER) | payer MEDICARE, OTHER ==
[2023-04-26 11:21] VITALS: BP 156/86; O2SAT 100
--- NOTE | 2023-04-26 11:54 | ED Physician Documentation ---
History of Present Illness - Stated complaint Stated Complaint: RT EYE INJ - Chief complaint Chief Complaint: Heent - Additonal information Additional information: Patient 67-year-old male presenting to the emergency department with head tra jacki. Past medical significant for bilateral upper arm amputation, pulmonary emboli, chronic anticoagulation on Eliquis last dose this morning at 08 100. Reports that while he was trying to get one of his socks away from his dog he attempted to latch on to the dog's collar withHis hook prosthetic. The dog jerked away sharply and he fell forward striking his head. Endorses for head, neck pain. Additionally has some bleeding by his right eye. 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 States recently had blood vessels burst in the right eye and is following with [facility] about this later this afternoon. Denies loss of consciousness. Review of Systems Constitutional: denies: Fever Eyes: denies: Loss of vision Ears: denies: Loss of hearing Nose: denies: Rhinorrhea / runny nose Throat: denies: Dental pain / toothache Cardiac: denies: Chest pain / pressure Respiratory: denies: Dyspnea GI: denies: Abdominal Pain : denies: Dysuria Skin: denies: Rash Musculoskeletal: denies: Neck pain Neurologic: denies: Generalized weakness Psychiatric: denies: Depressed PD PAST MEDICAL HISTORY - Past Medical History Cardiovascular: Deep vein thrombosis, Atrial fibrillation Respiratory: Pneumonia Neuro: None Endocrine/Autoimmune: HyPOthyroidism GI: Hepatitis, Other : Benign prostate hypertrophy, Retention HEENT: None Psych: None Musculoskeletal: Chronic back pain, Other Derm: Psoriasis - Past Surgical History Past Surgical History: Yes General: Liver surgery, Other Ortho: Spine surgery, Amputation /CHIP TESTER: Other Neuro: Other HEENT: Tonsil/Adenoidectomy - Present Medications Home Medications: Ambulatory Orders Medication Instructions Recorded Confirmed Tacrolimus 1 mg PO BID 06/25/12 04/18/23 predniSONE [Deltasone] 5 mg PO DAILY 06/25/12 04/18/23 Mycophenolate Sodium [Mycophenolic 360 mg PO BID 05/19/16 04/18/23 Acid] oxyCODONE [Roxicodone] 5 mg PO Q4H PRN MDD 30 mg 05/19/16 04/18/23 Tamsulosin [Flomax] 0.4 mg PO BID 06/19/20 04/18/23 Apixaban [Eliquis] 5 mg PO BID #60 tablet 08/08/20 04/18/23 Oxybutynin [Ditropan] 5 mg PO BID #10 tablet 05/11/21 04/18/23 Dorzolamide/Timolol Ophth Soln 1 drops LEFTEYE 0800,1400 07/13/21 04/18/23 [Cosopt] Latanoprost 0.005% Ophth Drops 1 drops LEFTEYE QPM 07/13/21 04/18/23 [Xalatan Ophth Drops] Levothyroxine [Synthroid] 100 mcg PO QDAC 07/13/21 04/18/23 Cyanocobalamin [Vitamin B-12] 1,000 mcg PO DAILY #60 tablet 07/16/21 04/18/23 Pantoprazole [Protonix] 40 mg PO QDAC #30 tablet 07/16/21 04/18/23 Albuterol Sulf [Ventolin Hfa 2 puffs INH Q6H PRN 02/12/22 04/18/23 Inhaler] Magnesium Oxide [Mag Ox] 400 mg PO 0800 30 Days #30 tablet 02/20/22 04/18/23 Potassium Chloride 10 meq PO DAILY 30 Days #30 tab 02/20/22 04/18/23 Ofloxacin 0.3% Ophth Drops 1 drops RIGHTEYE QID 10 Days #5 ml 04/18/23 [Ocuflox 0.3% Ophth Drops] - Allergies Allergies/Adverse Reactions: Allergies Allergy/AdvReac Type Severity Reaction Status Date / Time hydromorphone HCl * AdvReac Unknown Verified 04/26/23 11:12 [From Dilaudid] - Social History Does the pt smoke?: No Smoking Status: Never smoker Does the pt drink ETOH?: No Does the pt have substance abuse?: No - Immunizations Immunizations are current?: Yes - POLST Patient has POLST: Yes POLST Status: Full Code PD ED PE NORMAL - General General: Alert and oriented X 3, No acute distress, Well developed/nourished - HEENT HEENT: PERRL, EOMI, Other (Superficial abrasion over the right denominational.) - Neck Neck: Supple, no meningeal sign, No bony TTP, No adenopathy, Thyroid normal, No JVD, No bruit, C-Spine cleared by NEXUS criteria - Cardiac Cardiac: RRR, No gallop, Strong equal pulses - Respiratory Respiratory: No respiratory distress, Clear bilaterally - Abdomen Abdomen: Normal bowel sounds, Non tender, No organomegaly - Male Male : Deferred - Rectal Rectal: Deferred - Back Back: No CVA TTP - Derm Derm: Normal color - Extremities Extremities: No deformity - Neuro Neuro: Alert and oriented X 3, junior php developer 2-12 intact, No motor deficit, Normal speech Results - Vitals Vitals: Vital Signs - 24 hr 04/26/23 11:01 Temperature 36.5 C Heart Rate 112 H Respiratory 17 Rate Blood Pressure 156/86 H O2 Saturation 100 Oxygen O2 Source Room air Procedures - Laceration (location) Scalp Length in cm: 1 Wound type: Linear Anesthesia: Lidocaine 1% with epi, Volume - enter ml (3) Wound preparation: Chlorhexadine Skin layer closure: Nylon, Size #-0 - enter number (6.0), Sutures - enter # (3) Other: Patient tolerated well PD Medical Decision Making - ED course ED course: Patient 67-year-old male presenting the emergency department with head trauma on Eliquis. Presents with small laceration to the right denominational. Area cleaned and pressure applied on arrival. Patient placed in c-collar. CT head, C-spine, maxillofacial area negative for acute traumatic injury. Wound cleaned and repaired as outlined in procedure note. Discharged with wound care instructions and follow-up instructions prior to discharge. Departure - Departure Disposition: 01 Home, Self Care Clinical Impression: Fall, Scalp laceration, Chronic anticoagulation Instructions: ED Laceration Scalp Stitch Or Stap Comments: Thank you for allowing us to care for you today it would be helpful. Today in the emergency department you were evaluated for any possible dangerous or life-threatening medical emergency. The testing performed in the emergency department including the CT scan of your head, cervical spine, maxillofacial region were all very reassuring. There were no dangerous fractures or other injuries identified. You received 3 stitches to the laceration to your right denominational. I recommend leaving the dressing that we have applied here in the emergency department in place for the next 24 hours. After which please apply a topical antibiotic ointment such as bacitracin or Neosporin, both of which are available [id number], to the area twice daily. Your stitches will need to be removed in 5 to 7 days. Please follow-up with your primary care doctor, or presented to walk-in clinic for wound check and suture removal at that time. If it anytime you develop any new or worsening symptoms was not hesitate to return to the emergency department. Forms: PCP List Discharge Date/Time: 04/26/23 13:46
[2023-04-26] MEDS: ACETAMINOPHEN 325 MG TABLET PO STA (12:41)
--- NOTE | 2023-04-26 12:49 | CT Report ---
PROCEDURE: Head WO INDICATIONS: Fall, chronic anticoagulation TECHNIQUE: Noncontrast 4.5 mm thick angled axial sections acquired from the foramen magnum to the vertex. For r adiation dose reduction, the following was used: automated exposure control, adjustment of mA and/or kV according to patient size. COMPARISON: None. FINDINGS: Image quality: Excellent. CSF spaces: Basal cisterns are patent. No extra-axial fluid collections. Ventricles are normal in size and shape. Brain: No midline shift. No intracranial masses or hemorrhage. German-white matter interface is norm al. Intracranial carotid calcifications. Age-related volume loss and mild small vessel ischemic moore e. Skull and face: Calvarium and visualized facial bones are intact, without suspicious lesions. Sinuses: Visualized sinuses and mastoids are clear. IMPRESSION: No acute intracranial pathology. Reviewed by: Yuri Ewing MD on 04/26/2023 12:48 PM PST Approved by: Yuri Ewing MD on 04/26/2023 12:48 PM PST Station ID: [id number]
[2023-04-26] MEDS ORDERED: LIDOCAINE 1%-EPI 1:100000 10 ML MDV SUBQ STA (13:07)
--- NOTE | 2023-04-26 13:08 | CT Report ---
PROCEDURE: Maxillofacial WO INDICATIONS: trauma TECHNIQUE: Noncontrast 1.5 mm thick axial images acquired from the mandible through the frontal sinuses, with co kristie and sagittal reformatting. 3-D reformatted images were performed. For radiation dose reduct ion, the following was used: automated exposure control, adjustment of mA and/or kV according to pat ient size. COMPARISON: Correlation is made with the accompanying imaging. FINDINGS: Image quality: There is artifact associated with the metallic dental work. The axial images are fo cused on the right side of the face, without visualization of the left lateral face. Bones and teeth: Orbital cheema are intact. Sinus cheema show no fracture or deformity. Nasal bones and septum are intact. Visualized portions of the mandible demonstrate no fractures or subluxation. Zygomatic arches are intact. Pterygoid plates are intact. Visualized portions of the skull base an d auditory canals are intact. Sinuses: Mild to moderate mucosal thickening can be seen within the inferior right maxillary sinus. Paranasal sinuses are otherwise well aerated, without fluid levels, mucosal thickening, or mucoceles. The ostiomeatal complexes are patent, yet they are constitutionally narrowed, with bilateral Narda cells. Mastoid air cells are aerated. Soft tissues: No edema, masses, or fluid collections. No enlarged lymph nodes. No soft tissue lace rations or debris. Vascular: Visualized vascular structures appear normal in the absence of contrast. Bony vascular fo ramina and canals are intact. IMPRESSION: Negative for displaced facial bone fracture. Reviewed by: Chato Anderson MD on 04/26/2023 12:07 PM [facility] Approved by: Chato Anderson MD on 04/26/2023 12:07 PM [facility] Station ID: [id number]
[2023-04-26] MEDS: LIDOCAINE 1%-EPI 1:100000 20 ML MDV SUBQ STA (13:15)
--- NOTE | 2023-04-26 13:19 | CT Report ---
PROCEDURE: Cervical Spine WO INDICATIONS: fall TECHNIQUE: Noncontrast 3 mm thick sections acquired from the skull base to the T4 level. Sagittal and coronal r eformats were then constructed. For radiation dose reduction, the following was used: automated exp osure control, adjustment of mA and/or kV according to patient size. COMPARISON: 02/13/2016. FINDINGS: Image quality: Excellent. Bones: No fractures or dislocations. Visualized superior ribs are intact. Remote ACDF at C3-C4 wit h anterior plate and screw fixation. No evidence of hardware failure or loosening. The amount of ante rolisthesis of C3 on C4 is stable. Interval worsening of anterolisthesis of C4 on C5, likely degenera tive in nature. Severe disc height loss and anterior osteophytosis at C5-C6 and C6-C7 with chronic an terior vertebral body height loss of C5 and C6. Facet arthropathy at C4-C5. Pannus formation at the a nterior C1-C2 articulation suggest possible inflammatory arthritis. Soft tissues: Prevertebral soft tissues are normal in thickness. No paravertebral hematomas. No ap ical pneumothoraces. IMPRESSION: 1. No acute cervical fracture or dislocation. 2. Extensive spondylitic change, relatively stable, with slight interval increase in anterolisthesis of C4 on C5, likely degenerative in nature. Reviewed by: Yuri Ewing MD on 04/26/2023 1:18 PM PST Approved by: Yuri Ewing MD on 04/26/2023 1:18 PM PST Station ID: [id number]
== END 2023-04-26 13:46 | disposition home or self-care (01) ==
LOC: ED 10:44
DX: S01.01XA Laceration without foreign body of scalp, initial encounter (principal); W22.8XXA Striking against or struck by other objects, initial encounter; Z79.01 Long term (current) use of anticoagulants; M54.2 Cervicalgia; I48.91 Unspecified atrial fibrillation; Z89.222 Acquired absence of left upper limb above elbow; Z89.221 Acquired absence of right upper limb above elbow; Z86.711 Personal history of pulmonary embolism; Z86.718 Personal history of other venous thrombosis and embolism
CPT/HCPCS: 12001; 70450; 70486; 72125; 99284; A9270

== ENCOUNTER 2023-05-02 15:33 | Outpatient (CLI) | payer MEDICARE, OTHER ==
--- NOTE | 2023-05-02 20:20 | XRAY Report ---
PROCEDURE: Shoulder 2+V RT INDICATIONS: RIGHT SHOULDER PAIN TECHNIQUE: 3 views of the shoulder were acquired. COMPARISON: CXR 02/20/2022, 02/12/2022. FINDINGS: Bones: No acute fractures or dislocations. The distal clavicle is attenuated. There are small ossicl es. Possible prior right distal clavicle osteotomy. Mild degenerative changes. No suspicious bony les ions. Visualized ribs appear intact. Soft tissues: No suspicious soft tissue calcifications. The visualized lungs are within normal limi ts. Vascular stent and clips at the right mid arm. IMPRESSION: Mild degenerative changes seen. Reviewed by: Aledn Bai MD on 05/02/2023 8:19 PM PDT Approved by: Alden Bai MD on 05/02/2023 8:19 PM PDT Station ID: [id number]
== END 2023-05-02 15:34 | disposition home or self-care (01) ==
LOC: DI 15:33
PROVIDERS: ATTEND Family Medicine
DX: M19.011 Primary osteoarthritis, right shoulder (principal)

== ENCOUNTER 2023-05-11 07:57 | Outpatient (CLI) | payer MEDICARE, OTHER ==
[2023-05-11 08:18] LABS: BASOPHILS # (AUTO) 0.1 10^3/uL (0.0-0.1); EOSINOPHILS # (AUTO) 0.3 10^3/uL (0.0-0.7); EOSINOPHILS % (AUTO) 3.8 %; HCT - HEMATOCRIT 46.1 % (42.0-52.0); HGB - HEMOGLOBIN 13.5 g/dL (14.0-18.0); LYMPHOCYTES # (AUTO) 2.6 10^3/uL (1.5-3.5); LYMPHOCYTES % (AUTO) 35.9 %; MEAN CORPUSCULAR HEMOGLOBIN 25.6 pg (27.0-31.0); MEAN CORPUSCULAR HGB CONC 29.3 g/dL (32.0-36.0); MEAN CORPUSCULAR VOLUME 87.3 fL (80.0-94.0); MEAN PLATELET VOLUME 11.5 fL (7.4-11.4); MONOCYTES # (AUTO) 0.8 10^3/uL (0.0-1.0); MONOCYTES % (AUTO) 10.9 %; NEUTROPHILS # (AUTO) 3.4 10^3/uL (1.5-6.6); NEUTROPHILS % (AUTO) 47.7 %; PLT - PLATELET COUNT 195 10^3/uL (130-450); RED BLOOD COUNT 5.28 10^6/uL (4.70-6.10); RED CELL DISTRIBUTION WIDTH 14.6 % (12.0-15.0); WHITE BLOOD COUNT 7.2 x10^3/uL (4.8-10.8)
[2023-05-11 08:35] LABS: ALBUMIN 4.3 g/dL (3.2-5.5); ALKALINE PHOSPHATASE 42 IU/L (42-121); ALT ALANINE AMINOTRANSFERASE 12 IU/L (10-60); AST ASPARTATE AMINOTRANSFERASE 13 IU/L (10-42); BILIRUBIN,TOTAL 0.9 mg/dL (0.2-1.0); BUN - BLOOD UREA NITROGEN 21 mg/dL (6-20); CALCIUM 9.6 mg/dL (8.5-10.3); CARBON DIOXIDE - CO2 24 mmol/L (21-32); CHLORIDE 107 mmol/L (101-111); CHOL/HDL RATIO 3.1 (<5.0); CHOLESTEROL 157 mg/dL; CREATININE 1.1 mg/dL (0.6-1.3); GFR - MDRD 67 (>89); GLUCOSE 89 mg/dL (74-104); HDL CHOLESTEROL 51 mg/dL; LDL CHOLESTEROL,CALCULATED 76 mg/dL; LDL/HDL RATIO 1.5 (<3.6); POTASSIUM 3.7 mmol/L (3.5-4.5); SODIUM 138 mmol/L (135-145); TOTAL PROTEIN 6.5 g/dL (6.4-8.9); TRIGLYCERIDES 149 mg/dL (48-352); VLDL CHOLESTEROL 30 mg/dL
== END 2023-05-11 07:58 | disposition home or self-care (01) ==
LOC: LAB 07:57
PROVIDERS: ATTEND Family Medicine
DX: I10 Essential (primary) hypertension (principal); Z79.899 Other long term (current) drug therapy; E83.42 Hypomagnesemia; N19 Unspecified kidney failure
CPT/HCPCS: 36415; 80053; 80061; 83721; 85025

== ENCOUNTER 2023-05-30 07:51 | Outpatient (CLI) | payer MEDICARE, OTHER ==
[2023-05-30 08:13] LABS: BASOPHILS # (AUTO) 0.1 10^3/uL (0.0-0.1); BASOPHILS % (AUTO) 0.9 %; EOSINOPHILS # (AUTO) 0.2 10^3/uL (0.0-0.7); EOSINOPHILS % (AUTO) 3.1 %; HCT - HEMATOCRIT 44.6 % (42.0-52.0); HGB - HEMOGLOBIN 13.5 g/dL (14.0-18.0); LYMPHOCYTES # (AUTO) 2.9 10^3/uL (1.5-3.5); LYMPHOCYTES % (AUTO) 42.7 %; MEAN CORPUSCULAR HGB CONC 30.3 g/dL (32.0-36.0); MEAN CORPUSCULAR VOLUME 85.8 fL (80.0-94.0); MEAN PLATELET VOLUME 11.7 fL (7.4-11.4); MONOCYTES # (AUTO) 0.8 10^3/uL (0.0-1.0); MONOCYTES % (AUTO) 11.4 %; NEUTROPHILS # (AUTO) 2.8 10^3/uL (1.5-6.6); NEUTROPHILS % (AUTO) 41.5 %; PLT - PLATELET COUNT 181 10^3/uL (130-450); WHITE BLOOD COUNT 6.7 x10^3/uL (4.8-10.8)
[2023-05-30 08:17] LABS: INR 1.7 (0.8-1.2); PT - PROTHROMBIN TIME 18.5 secs (9.9-12.6)
[2023-05-30 08:33] LABS: BILIRUBIN,DIRECT 0.1 mg/dL (0.03-0.18); BILIRUBIN,TOTAL 0.6 mg/dL (0.2-1.0); CALCIUM 9.6 mg/dL (8.5-10.3); CREATININE 1.2 mg/dL (0.6-1.3); MAGNESIUM 1.6 mg/dL (1.7-2.3); PHOSPHORUS 3.1 mg/dL (2.5-5.0); POTASSIUM 3.7 mmol/L (3.5-4.5); TOTAL PROTEIN 6.4 g/dL (6.4-8.9)
== END 2023-05-30 07:52 | disposition home or self-care (01) ==
LOC: LAB 07:51
PROVIDERS: ATTEND Internal Medicine Gastroenterology
DX: Z94.4 Liver transplant status (principal); Z79.899 Other long term (current) drug therapy; Z48.298 Encounter for aftercare following other organ transplant
CPT/HCPCS: 36415; 80048; 80076; 80197; 82977; 83735; 84100; 85025; 85610

== ENCOUNTER 2023-06-29 10:32 | Emergency (ER) | payer MEDICARE, OTHER ==
--- NOTE | 2023-06-29 11:25 | ED Physician Documentation ---
History of Present Illness - Stated complaint Stated Complaint: RT SHOULDER PX - Chief complaint Chief Complaint: Trauma Ext - Additonal information Additional information: 67-year-old male with complex past medical history including liver and kidney transplant. Patient reports that last night he lost his balance tripped over some blankets and fell onto his right side. Patient denies hitting his head he did not lose consciousness but he does report that he is on Eliquis. He reports majority of his pain is right at the right shoulder joint itself. He is on a chronic pain plan with his pain clinic but is worried he might need something stronger to get him through the weekend. He has been taking his prescribed Oxycodone and Tylenol at home with little to no relief. PD PAST MEDICAL HISTORY - Past Medical History Past Medical History: Yes Cardiovascular: Deep vein thrombosis, Atrial fibrillation Respiratory: Pneumonia Neuro: None Endocrine/Autoimmune: HyPOthyroidism GI: Hepatitis, Other : Benign prostate hypertrophy, Retention HEENT: None Psych: None Musculoskeletal: Chronic back pain, Other Derm: Psoriasis - Past Surgical History Past Surgical History: Yes General: Liver surgery, Other Ortho: Spine surgery, Amputation /[employer]IST: Other Neuro: Other HEENT: Tonsil/Adenoidectomy - Present Medications Home Medications: Ambulatory Orders Medication Instructions Recorded Confirmed Tacrolimus 1 mg PO BID 06/25/12 04/18/23 predniSONE [Deltasone] 5 mg PO DAILY 06/25/12 04/18/23 Mycophenolate Sodium [Mycophenolic 360 mg PO BID 05/19/16 04/18/23 Acid] oxyCODONE [Roxicodone] 5 mg PO Q4H PRN MDD 30 mg 05/19/16 04/18/23 Tamsulosin [Flomax] 0.4 mg PO BID 06/19/20 04/18/23 Apixaban [Eliquis] 5 mg PO BID #60 tablet 08/08/20 04/18/23 Oxybutynin [Ditropan] 5 mg PO BID #10 tablet 05/11/21 04/18/23 Dorzolamide/Timolol Ophth Soln 1 drops LEFTEYE 0800,1400 07/13/21 04/18/23 [Cosopt] Latanoprost 0.005% Ophth Drops 1 drops LEFTEYE QPM 07/13/21 04/18/23 [Xalatan Ophth Drops] Levothyroxine [Synthroid] 100 mcg PO QDAC 07/13/21 04/18/23 Cyanocobalamin [Vitamin B-12] 1,000 mcg PO DAILY #60 tablet 07/16/21 04/18/23 Pantoprazole [Protonix] 40 mg PO QDAC #30 tablet 07/16/21 04/18/23 Albuterol Sulf [Ventolin Hfa 2 puffs INH Q6H PRN 02/12/22 04/18/23 Inhaler] Magnesium Oxide [Mag Ox] 400 mg PO 0800 30 Days #30 tablet 02/20/22 04/18/23 Potassium Chloride 10 meq PO DAILY 30 Days #30 tab 02/20/22 04/18/23 Ofloxacin 0.3% Ophth Drops 1 drops RIGHTEYE QID 10 Days #5 ml 04/18/23 [Ocuflox 0.3% Ophth Drops] - Allergies Allergies/Adverse Reactions: Allergies Allergy/AdvReac Type Severity Reaction Status Date / Time hydromorphone HCl * AdvReac Unknown Verified 06/29/23 10:58 [From Dilaudid] - Social History Does the pt smoke?: No Smoking Status: Never smoker Does the pt drink ETOH?: No Does the pt have substance abuse?: No - Immunizations Immunizations are current?: Yes - POLST Patient has POLST: Yes POLST Status: Full Code PD ED PE NORMAL - Vitals Vital signs reviewed: Yes - General General: Alert and oriented X 3, No acute distress, Well developed/nourished - HEENT HEENT: Atraumatic, PERRL, EOMI - Neck Neck: No bony TTP, C-Spine cleared by NEXUS criteria - Cardiac Cardiac: RRR - Respiratory Respiratory: No respiratory distress, Clear bilaterally - Abdomen Abdomen: Normal bowel sounds, Soft, Non tender - Derm Derm: Normal color, Warm and dry, No rash PD ED PE EXPANDED - Extremities Extremities: Tenderness, Limited ROM, Right shoulder, Motor intact, Sensory intact, Vascular intact. No: Deformity, Swelling, Bruising, Abrasion, Joint effusion, Ligament laxity, Red warm joint, Decreased/absent pulse Results - Vitals Vitals: Vital Signs - 24 hr 06/29/23 06/29/23 10:50 12:46 Temperature 36.1 C L 36.6 C Heart Rate 70 76 Respiratory 16 18 Rate Blood Pressure 145/77 H 141/76 H O2 Saturation 100 98 Oxygen O2 Source Room air - Rads (name of study) right shoulder Xray Relevant Findings:: Final report received, EMP independent interpretation of test, Other (Right shoulder arthritis no acute fractures dislocations or other abnormalities) Head CT without Relevant Findings:: Final report received, EMP independent interpretation of test, Other (No acute intracranial hemorrhages or skull fractures, small left parietal scalp hematoma) PD Medical Decision Making - ED course ED course: 67-year-old male here for right shoulder pain after experiencing mechanical ground-level fall yesterday. On Eliquis denies hitting head. Differentials for right shoulder pain include fracture, dislocation, sprain, tendinopathy. 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 Head CT without con was also complete because patient is on Eliquis. No acute skull fractures or intracranial hemorrhages were identified or other abnormalities identified. Patient was asking for stronger prescription of oxycodone was asking for Percocet when I informed him that Percocet is oxycodone and Tylenol combined he said that he felt comfortable continuing with his at home oxycodone Tylenol combination that he has been doing. He was given a one- time shot of hydromorphone here in the emergency department and did notice significant alleviation of pain. Referral sent to [facility] for follow-up in regards to patient's ongoing right shoulder pain that he has been experiencing even prior to the fall that he had yesterday. He said that he did follow-up with his primary care provider for further evaluation of this he was also given strict ER return precautions. Departure - Departure Disposition: 01 Home, Self Care Clinical Impression: Ground-level fall Right shoulder injury Qualifiers: Encounter type: initial encounter Qualified Code(s): S49.91XA - Unspecified injury of right shoulder and upper arm, initial encounter Instructions: Arthritis Acromioclavicular Follow-Up: [facility] [Provider Group] Comments: Thank you for trusting us with your care. We have completed x-rays of your right shoulder and we are not seeing any fracture do or other acute abnormalities at this time. I do strongly encourage you to follow-up with an orthopedic surgeon for your ongoing arthritis that you are experiencing in your right shoulder and given you referral to local orthopedic surgeons you could also follow-up with your primary care provider about this. We have given you a one-time shot of Dilaudid here in the emergency department which has significantly alleviated the pain that you are experiencing please come back to the emergency department for having any increased confusion, nausea vomiting, or any other concerning neurological symptoms. Follow-up with your primary care provider and your chronic pain management team for further medication management of your right shoulder pain. You may also benefit from a sling to your right shoulder continue to use this to make sure that you are taking it off periodically throughout the day and still doing some gentle shoulder stretching and exercises. Forms: PCP List Discharge Date/Time: 06/29/23 13:31
[2023-06-29] MEDS: HYDROmorphone 0.5 MG/0.5 ML SYRINGE IM STA (11:35)
--- NOTE | 2023-06-29 11:59 | XRAY Report ---
PROCEDURE: Shoulder 2+V RT INDICATIONS: trauma TECHNIQUE: 3 views of the shoulder were acquired. COMPARISON: None. FINDINGS: Bones: No fractures or dislocations. No suspicious bony lesions. Visualized ribs appear intact. Soft tissues: Calcifications adjacent to the lateral margin of the right humeral head consistent wit h rotator cuff calcific tendinitis. The visualized lungs are within normal limits. Left upper arm e ndovascular stent and vascular clips. IMPRESSION: No acute bony abnormality. Reviewed by: Gracie Guevara MD, PhD on 06/29/2023 11:57 AM PDT Approved by: Gracie Guevara MD, PhD on 06/29/2023 11:57 AM PDT Station ID: [id number]
[2023-06-29] MEDS: LIDOCAINE PATCH 5% TOP STA (12:37)
[2023-06-29 12:54] VITALS: BP 141/76; O2SAT 98
--- NOTE | 2023-06-29 15:06 | CT Report ---
PROCEDURE: Head WO INDICATIONS: GLF on eloquis TECHNIQUE: Noncontrast 4.5 mm thick angled axial sections acquired from the foramen magnum to the vertex. For r adiation dose reduction, the following was used: automated exposure control, adjustment of mA and/or kV according to patient size. COMPARISON: CT head 04/26/2023 FINDINGS: Image quality: Excellent. CSF spaces: Basal cisterns are patent. No extra-axial fluid collections. Ventricles are normal in size and shape. Brain: No midline shift. No intracranial masses or hemorrhage. German-white matter interface is norm al. Mild, diffuse cerebral volume loss. Atherosclerotic calcifications in the internal carotid arteri es. Skull and face: Small left posterior scalp hematoma. No skull fracture. Calvarium and visualized fac ial bones are intact, without suspicious lesions. Sinuses: Visualized sinuses and mastoids are clear. IMPRESSION: Small left parietal scalp hematoma. No skull fracture. No acute intracranial abnormality. Reviewed by: Raleigh Umaña MD on 06/29/2023 3:05 PM PDT Approved by: Raleigh Umaña MD on 06/29/2023 3:05 PM PDT Station ID: [id number]
== END 2023-06-29 13:31 | disposition home or self-care (01) ==
LOC: ED 10:32
DX: S49.91XA Unspecified injury of right shoulder and upper arm, initial encounter (principal); M19.011 Primary osteoarthritis, right shoulder; Z89.202 Acquired absence of left upper limb, unspecified level; Z89.201 Acquired absence of right upper limb, unspecified level; Z79.01 Long term (current) use of anticoagulants; W01.0XXA Fall on same level from slipping, tripping and stumbling without subsequent striking against object, initial encounter
CPT/HCPCS: 70450; 73030; 96372; 99284; A9270; J1170

== ENCOUNTER 2023-08-30 13:51 | Outpatient (CLI) | payer MEDICARE, OTHER | END 2023-08-30 13:52 | disposition home or self-care (01) | LOC: LAB 13:51 | PROVIDERS: ATTEND Internal Medicine Gastroenterology | DX: Z48.298 Encounter for aftercare following other organ transplant (principal); Z94.4 Liver transplant status; Z79.899 Other long term (current) drug therapy ==

== ENCOUNTER 2023-09-20 07:33 | Outpatient (CLI) | payer MEDICARE, OTHER ==
[2023-09-20 07:53] LABS: BASOPHILS # (AUTO) 0.1 10^3/uL (0.0-0.1); BASOPHILS % (AUTO) 0.7 %; EOSINOPHILS # (AUTO) 0.2 10^3/uL (0.0-0.7); EOSINOPHILS % (AUTO) 2.1 %; HCT - HEMATOCRIT 44.7 % (42.0-52.0); HGB - HEMOGLOBIN 13.4 g/dL (14.0-18.0); LYMPHOCYTES # (AUTO) 2.9 10^3/uL (1.5-3.5); LYMPHOCYTES % (AUTO) 37.8 %; MEAN CORPUSCULAR HEMOGLOBIN 26.4 pg (27.0-31.0); MEAN CORPUSCULAR VOLUME 88.2 fL (80.0-94.0); MEAN PLATELET VOLUME 11.1 fL (7.4-11.4); MONOCYTES # (AUTO) 0.7 10^3/uL (0.0-1.0); MONOCYTES % (AUTO) 8.5 %; NEUTROPHILS # (AUTO) 3.8 10^3/uL (1.5-6.6); NEUTROPHILS % (AUTO) 49.8 %; PLT - PLATELET COUNT 209 10^3/uL (130-450); RED BLOOD COUNT 5.07 10^6/uL (4.70-6.10); RED CELL DISTRIBUTION WIDTH 15.6 % (12.0-15.0); WHITE BLOOD COUNT 7.6 x10^3/uL (4.8-10.8)
[2023-09-20 07:59] LABS: INR 1.6 (0.8-1.2); PT - PROTHROMBIN TIME 16.7 secs (9.9-12.6)
[2023-09-20 08:07] LABS: ALBUMIN 4.3 g/dL (3.2-5.5); ALKALINE PHOSPHATASE 36 IU/L (42-121); ALT ALANINE AMINOTRANSFERASE 13 IU/L (10-60); AST ASPARTATE AMINOTRANSFERASE 9 IU/L (10-42); BILIRUBIN,TOTAL 0.6 mg/dL (0.2-1.0); BUN - BLOOD UREA NITROGEN 22 mg/dL (6-20); CALCIUM 9.6 mg/dL (8.5-10.3); CARBON DIOXIDE - CO2 27 mmol/L (21-32); CHLORIDE 106 mmol/L (101-111); CHOL/HDL RATIO 2.9 (<5.0); CHOLESTEROL 179 mg/dL; CREATININE 1.1 mg/dL (0.6-1.3); GFR - MDRD 67 (>89); GLUCOSE 93 mg/dL (74-104); HDL CHOLESTEROL 62 mg/dL; LDL CHOLESTEROL,CALCULATED 93 mg/dL; LDL/HDL RATIO 1.5 (<3.6); MAGNESIUM 1.7 mg/dL (1.7-2.3); POTASSIUM 3.6 mmol/L (3.5-4.5); SODIUM 140 mmol/L (135-145); TOTAL PROTEIN 6.4 g/dL (6.4-8.9); TRIGLYCERIDES 119 mg/dL; VLDL CHOLESTEROL 24 mg/dL
== END 2023-09-20 07:34 | disposition home or self-care (01) ==
LOC: LAB 07:33
PROVIDERS: ATTEND Family Medicine
DX: E03.9 Hypothyroidism, unspecified (principal); I48.0 Paroxysmal atrial fibrillation; I10 Essential (primary) hypertension; E55.9 Vitamin D deficiency, unspecified; M12.88 Other specific arthropathies, not elsewhere classified, other specified site; N19 Unspecified kidney failure
CPT/HCPCS: 36415; 80053; 80061; 82306; 82607; 82746; 83721; 83735; 85025; 85610

== ENCOUNTER 2023-10-27 07:43 | Outpatient (CLI) | payer MEDICARE, OTHER ==
[2023-10-27 08:03] LABS: BASOPHILS # (AUTO) 0.1 10^3/uL (0.0-0.1); BASOPHILS % (AUTO) 0.6 %; EOSINOPHILS # (AUTO) 0.2 10^3/uL (0.0-0.7); EOSINOPHILS % (AUTO) 2.1 %; HCT - HEMATOCRIT 43.2 % (42.0-52.0); HGB - HEMOGLOBIN 13.3 g/dL (14.0-18.0); LYMPHOCYTES # (AUTO) 2.8 10^3/uL (1.5-3.5); LYMPHOCYTES % (AUTO) 32.2 %; MEAN CORPUSCULAR HGB CONC 30.8 g/dL (32.0-36.0); MEAN CORPUSCULAR VOLUME 87.8 fL (80.0-94.0); MEAN PLATELET VOLUME 11.1 fL (7.4-11.4); MONOCYTES # (AUTO) 0.8 10^3/uL (0.0-1.0); MONOCYTES % (AUTO) 9.5 %; NEUTROPHILS # (AUTO) 4.8 10^3/uL (1.5-6.6); NEUTROPHILS % (AUTO) 54.5 %; PLT - PLATELET COUNT 199 10^3/uL (130-450); RED BLOOD COUNT 4.92 10^6/uL (4.70-6.10); RED CELL DISTRIBUTION WIDTH 14.4 % (12.0-15.0); WHITE BLOOD COUNT 8.8 x10^3/uL (4.8-10.8)
[2023-10-27 08:20] LABS: ALBUMIN 3.8 g/dL (3.2-5.5); ALKALINE PHOSPHATASE 40 IU/L (42-121); ALT ALANINE AMINOTRANSFERASE 11 IU/L (10-60); AST ASPARTATE AMINOTRANSFERASE 10 IU/L (10-42); BILIRUBIN,DIRECT < 0.10 mg/dL (0.03-0.18); BILIRUBIN,TOTAL 0.7 mg/dL (0.2-1.0); BUN - BLOOD UREA NITROGEN 16 mg/dL (6-20); CALCIUM 9.2 mg/dL (8.5-10.3); CARBON DIOXIDE - CO2 25 mmol/L (21-32); CHLORIDE 105 mmol/L (101-111); CREATININE 1.1 mg/dL (0.6-1.3); GAMMA GLUTAMYL TRANSPEPTIDASE 30 IU/L (9-64); GFR - MDRD 67 (>89); GLUCOSE 92 mg/dL (74-104); INR 1.8 (0.8-1.2); MAGNESIUM 1.7 mg/dL (1.7-2.3); POTASSIUM 3.7 mmol/L (3.5-4.5); PT - PROTHROMBIN TIME 19.3 secs (9.9-12.6); SODIUM 137 mmol/L (135-145); TOTAL PROTEIN 6.4 g/dL (6.4-8.9)
== END 2023-10-27 07:44 | disposition home or self-care (01) ==
LOC: LAB 07:43
PROVIDERS: ATTEND Internal Medicine Gastroenterology
DX: Z48.298 Encounter for aftercare following other organ transplant (principal); Z94.4 Liver transplant status; Z79.899 Other long term (current) drug therapy
CPT/HCPCS: 36415; 80048; 80053; 80076; 80197; 82248; 82803; 82977; 83735; 84100; 84484; 85025; 85610; 85730